=== PATIENT | female | born 1950 | race Caucasian/White ===

== ENCOUNTER 2017-07-13 02:10 | Inpatient (IN) | payer OTHER ==
[~2017-07-13] VITALS: Ht 152.4 cm; Wt 57.0 kg
--- NOTE | 2017-07-13 02:30 | ERA ---
ER Documentation Chief Complaint Date/Time DATE: 07/13/17 TIME: 02:27 Chief Complaint [facility] 67[facility] housed in the emergency room with me as her overseeing physician. Reviewed her documentation she has a questionable diagnosis of hepatic encephalopathy. I reviewed her chart and see no evidence whatsoever of hepatic encephalopathy except for jaundice on her skin exam. No ammonia level is visible in the packet. She does have renal failure. Per nurse to nurse reports the ammonia level was 39 and showed he received lactulose. Patient currently has no pain and is feeling well. Per documentation has accepted his transfer and according the charge nurse he is aware of her arrival.. ROS All systems reviewed and are negative except as per history of present illness. Allergies Allergies: Coded Allergies: No Known Allergy (Unverified , 07/13/17) Physical Exam Vitals Vital Signs Date Time Temp Pulse Resp B/P Pulse Ox O2 Delivery O2 Flow Rate FiO2 07/13/17 02:32 98.1 74 18 117/69 97 Physical Exam Const: [] No distress Head: Atraumatic Eyes: Normal Conjunctiva ENT: Normal External Ears, Nose and Mouth. Neck: Full range of motion..~ No meningismus. Resp: Clear to auscultation bilaterally Cardio: Regular rate and rhythm, no murmurs Abd: Soft, non tender, non distended. Normal bowel sounds Skin: No petechiae or rashes, mild jaundice Back: No midline or flank tenderness Ext: No cyanosis, or edema Neur: Awake and alert and oriented 3, no focal deficits Psych: Normal Mood and Affect Results 24 hrs Current Medications Medications (Trade) Dose Ordered Sig/Myla Route PRN Reason Start Time Stop Time Status Last Admin Dose Admin Ondansetron HCl (Zofran Inj) 4 mg BRIDGE ORDER PRN IV NAUSEA AND/OR VOMITING 07/13/17 04:30 07/14/17 04:29 Acetaminophen (Tylenol Tab) 650 mg ER BRIDGE PRN PO MILD PAIN/FEVER 07/13/17 04:30 07/14/17 04:29 Procedures/MDM Direct admission to hospital for supposed encephalopathy. Now apparently greatly improved. I reviewed all of her laboratories vital signs are currently stable. I am going to continue to monitor her throughout the night. Departure Diagnosis: Primary Impression: Altered level of consciousness Condition: Stable LESLIE ROSE DO Jul 13, 2017 02:30
[2017-07-13 02:32] VITALS: Ht 152.4 cm; Wt 57.0 kg
[2017-07-13] MEDS ORDERED: ACETAMINOPHEN 325 MG TAB PO PRN (04:30)
[2017-07-13] MEDS ORDERED: ONDANSETRON 4 MG INJ IV PRN (04:30)
[2017-07-13 06:42] VITALS: BP 130/68; PULSE 62; RESP 18
[2017-07-13 08:00] VITALS: BP 120/57; RESP 18
--- NOTE | 2017-07-13 10:28 | HP ---
Date/Time of Note Date/Time of Note DATE: 07/13/17 TIME: 10:20 Assessment/Plan VTE Prophylaxis VTE Prophylaxis Intervention: LMWH, SCD's Assessment/Plan Chief Complaint/Hosp Course 67 yo female with decompensated liver cirrohsis presenting with acute episode of encephelopathy yesterday now resolved. Found to have hyponatremain, jaundice , CT with concern for small stroke Acute encephalopathy; Overall unclear exactly what caused this. Given clinical picture low grade hepatic encephalopathy a compelling consideration. Stroke needs to be evaluated w MRI given finding on CT - Treat with lactulose/rifaxamin, should stay on this chornically - MRI brain ZACK vs CKD: - Creat 1.7 at OSH, unclear baseline - Trend - Albumin challenge Hyponatremia: - Hypervolemic hyponatremia 2/2 cirrhosis and portal hypertension - Restrict FW Pancytopenai 2/2 cirrhosis Decompensated cirrhosis: - Check for ascites, tap if present and assess for SBP - Lactulose/rifaxamin as above - Transplant is only option to improve fdc prognosis Full code Problems: HPI/ROS Admit Date/Time Admit Date/Time Jul 13, 2017 at 06:31 Hx of Present Illness 67 yo female with liver cirrhosis (unclear etiology) who presents with a few hours of encephelopathy yesterday. Patient generally with normal mentation. Lives w her daughter. Says yesterday acted confused, didn't know where she was , made odd statements, forgot family members names. Did not have other localizing symptoms. Brought to [facility] ED where labs showed hyponatremia to 123, K 4.7, CO2 21, BUN 48, Creat 1.7. Glu 92, Ammonia 39. Alb 1.8, Ast 63 , ALt 32, TB 12.2, DB 5.6, UA no infection, Head CT with 100 mm low attenuation focus in subocrtial white matter in R frotaln lobe concerning for stroke. Transferred her for further management Patient and daughter seen this AM, say mentation ins back to [facility] ([place] Patient denies complaints currently She has an outside moderate needs teacher Dr Monzon who has referred her for transplant. Does not sound like she has ever had over HE. Never heard of lactulose of rifaxamin. PMH/Family/Social Past Medical History Cirrhosis w ascites Social History Alcohol Use: none Smoking Status: Never smoker Drug Use: none Exam/Review of Systems Vital Signs Vitals Vital Signs Date Time Temp Pulse Resp B/P Pulse Ox O2 Delivery O2 Flow Rate FiO2 07/13/17 08:00 98.5 75 18 120/57 97 07/13/17 06:42 Room Air Exam Exam Alert, oriented to place, unable to say year correctly (thought [id number]), knows hospital, could not say presidents name. Able to identify three objects No overt signs of HE, no asterixis + Jaundice RRR, no m/r/g Lungs clear Abdomen soft, nt, nd, no obvious ascites by exam Legs w trace edema b/l Neuro exam in nonfocal, CN II-XII in tact, strenght and sensation in tact throughout [facility],SIRISHA Sutton MD Jul 13, 2017 10:28
[2017-07-13] MEDS ORDERED: SPIRONOLACTONE 25 MG TAB PO SCH (10:30)
[2017-07-13] MEDS ORDERED: FUROSEMIDE 20 MG TAB PO SCH (10:30)
[2017-07-13] MEDS ORDERED: NACL 0.9% 3 ML SYG IV SCH (10:30)
--- NOTE | 2017-07-13 13:46 | RADRPT ---
PROCEDURE: XR Chest. CLINICAL INDICATION: Cough. TECHNIQUE: Two views. Frontal and lateral. COMPARISON: No prior study is available for comparison. FINDINGS: There is a large right pleural effusion and associated right basilar atelectasis. The left lung is c lear and there is no left pleural effusion. The heart size is normal. There is calcification in the aorta consistent with atherosclerosis. There is no pneumothorax. IMPRESSION: 1. Large right pleural effusion and associated right basilar atelectasis. 2. Atherosclerosis. 3. Otherwise normal chest radiograph. RPTAT: QQ .Luis Miguel Guerra MD, MD Date Time Electronically viewed and signed by .Luis Miguel Guerra MD, on 07/13/2017 13:46 .R/
[2017-07-13 14:00] VITALS: BP 108/56; RESP 18
[2017-07-13 14:00] LABS: ABNORMAL IP MESSAGE 1; BASOPHILS % 0.5 % (0.0-2.0); EOSINOPHILS % 1.1 % (0.0-7.0); HEMATOCRIT 25.4 % (37.0-47.0); HEMOGLOBIN 8.8 g/dl (12.0-16.0); LYMPHOCYTES # 0.5 10^3/ul (0.8-2.9); LYMPHOCYTES % 13.8 % (15.0-51.0); MEAN CORPUSCULAR HEMOGLOBIN 38.3 pg (29.0-33.0); MEAN CORPUSCULAR HGB CONC 34.6 g/dl (32.0-37.0); MEAN CORPUSCULAR VOLUME 110.4 fl (82.0-101.0); MEAN PLATELET VOLUME 8.9 fl (7.4-10.4); MONOCYTE # 0.5 10^3/ul (0.3-0.9); NEUTROPHIL # 2.7 10^3/ul (1.6-7.5); NEUTROPHILS % 70.8 % (39.0-77.0); PLATELET COUNT 56 10^3/UL (140-415); RED CELL DISTRIBUTION WIDTH 15.3 % (11.5-14.5); WHITE BLOOD COUNT 3.8 10^3/ul (4.8-10.8)
[2017-07-13 14:04] LABS: POSITIVE DIFF @See below
[2017-07-13 14:15] LABS: INR 1.88; PROTIME 21.8 Sec (12.2-14.2); PT RATIO 1.7
[2017-07-13 14:24] LABS: ALBUMIN/GLOBULIN RATIO 0.48; BILIRUBIN,DIRECT 2.3 mg/dl (0.00-0.20); BILIRUBIN,INDIRECT 3.3 mg/dl (0-1.1); BILIRUBIN,TOTAL 5.6 mg/dl (0.2-1.3); CALCIUM 8.5 mg/dl (8.4-10.2); CREATININE 1.21 mg/dl (0.44-1.00); POTASSIUM 4.7 mmol/L (3.5-5.1); TOTAL PROTEIN 6.1 g/dl (6.1-8.1)
--- NOTE | 2017-07-13 14:42 | RADRPT ---
PROCEDURE: US Abdomen (right upper quadrant). CLINICAL INDICATION: Hepatic cirrhosis. TECHNIQUE: Multiple real-time longitudinal and transverse images of the right upper quadrant of th e abdomen were acquired utilizing a curved array transducer. Images were reviewed on a high-resoluti on PACS workstation. COMPARISON: None FINDINGS: The liver is small, diffusely heterogeneous, and has a nodular surface consistent with cirrhosis. There is no focal hepatic lesion. Abnormal pulsatile flow is present in the portal vein consistent with portal hypertension. There is marked diffuse gallbladder wall thickening. There are gallstones in the gallbladder. The bile ducts are mildly dilated with the common bile duct measuring 6.1 mm in diameter. The visualized portions of the pancreas are unremarkable with obscuration of the tail of the pancrea s. There is moderate ascites. There is a right pleural effusion. The right kidney measures 9.8 x 4.7 x 5.2 cm. There is normal echogenicity of the right kidney. T here is no perinephric fluid collection. No hydronephrosis, mass, or calculus is seen. IMPRESSION: 1. Cirrhotic liver. 2. Abnormal pulsatile flow in the portal vein consistent with portal hypertension. 3. Diffuse gallbladder wall thickening and gallstones in the gallbladder. The gallbladder wall thic kening may be due to the liver disease and ascites. Clinical correlation is advised. 4. Moderate ascites. 5. Right pleural effusion. RPTAT: QQ .Luis Miguel Guerra MD, MD Date Time Electronically viewed and signed by .Luis Miguel Guerra MD, on 07/13/2017 14:42 .R/
--- NOTE | 2017-07-13 17:16 | RADRPT ---
PROCEDURE: MR Brain noncontrast. CLINICAL INDICATION: Headache, altered mental status TECHNIQUE: Multiplanar multisequence noncontrast MRI of the brain was performed. COMPARISON: There are no similar studies submitted for comparison. FINDINGS: There is no restricted diffusion to suggest acute ischemia/infarct. There is no acute intracranial h emorrhage, midline shift, or mass effect. No extra-axial collection is seen. There is mild diffuse c erebral volume loss with compensatory diffuse cerebral sulcal and ventricular enlargement. Multiple small T2 / FLAIR hyperintense foci scattered in the predominately deep and subcortical cerebral whit e matter are nonspecific and may be seen with complicated migraine, chronic microangiopathic change, and sequelae of various inflammatory/infectious processes. GRE images show no evidence of hemosider in deposition. The sella, parasellar, and suprasellar regions are grossly unremarkable. The brainste m and cerebellum are within normal limits in signal intensity. The basal cisterns are preserved. The intracranial large vascular flow voids are preserved, suggesting patency. The orbits are grossly un remarkable. There is mild scattered mucosal thickening in the ethmoid sinuses bilaterally. Small polypoid mucosal thickening versus retention cyst is seen in the posterior right ethmoid sinus. A sm all amount of fluid is seen layering dependently in the right maxillary sinus. There is mild left ma xillary sinus mucosal thickening. No destructive osseous lesion is identified. IMPRESSION: 1. No evidence of an acute intracranial process. 2. Multiple small T2 / FLAIR hyperintense foci scattered in the predominately deep and subcortical c erebral white matter, nonspecific but may be seen with complicated migraine, chronic microangiopathi c change, and sequelae of various inflammatory/infectious processes. 3. Paranasal sinus inflammation/disease with small fluid level in the right maxillary sinus, suggest ing acute sinusitis. RPTAT: QQ Physician Radha Date Time Electronically viewed and signed by Physician Radha on 07/13/2017 17:16 VIRGILIO/
[2017-07-13] MEDS: ALBUMIN HUMAN 25% 100 ML IV SCH (18:46)
[2017-07-13 19:53] VITALS: BP 98/57; RESP 20
[2017-07-13] MEDS ORDERED: URSO300C3 PO (20:13)
[2017-07-13] MEDS ORDERED: CHOL400C PO (20:13)
[2017-07-13] MEDS ORDERED: FURO20TA3 PO (20:13)
[2017-07-13] MEDS ORDERED: CHOL20002 PO (20:13)
[2017-07-13] MEDS ORDERED: FOLI-49 PO (20:13)
[2017-07-13] MEDS: URSODIOL 300 MG CAP PO SCH (21:56)
[2017-07-13 23:01] LABS: ADD UMIC YES; UR ASCORBIC ACID NEGATIVE (NEGATIVE); UR BILIRUBIN (Dip) NEGATIVE (NEGATIVE); UR BLOOD (Dip) 1+ mg/dL (NEGATIVE); UR CLARITY SLIGHTLY CLOUDY (CLEAR); UR COLOR AMBER (YELLOW); UR GLUCOSE (Dip) NEGATIVE (NEGATIVE); UR KETONES (Dip) NEGATIVE (NEGATIVE); UR LEUKOCYTE ESTERASE (Dip) TRACE Leu/ul (NEGATIVE); UR NITRITE (Dip) NEGATIVE (NEGATIVE); UR RBC 0 /HPF (0-5); UR SPECIFIC GRAVITY (Dip) 1.015 (1.003-1.030); UR SQUAMOUS EPITHELIAL CELL FEW /HPF (FEW); UR TOTAL PROTEIN (Dip) NEGATIVE (NEGATIVE); UR UROBILINOGEN (Dip) 2+ mg/dL (NEGATIVE)
[2017-07-14] MEDS: ALBUMIN HUMAN 25% 100 ML IV SCH ×2 (01:53→09:20)
[2017-07-14 02:10] VITALS: BP 94/50; RESP 20
[2017-07-14 07:00] LABS: ABNORMAL IP MESSAGE 1; BASOPHILS % 0.7 % (0.0-2.0); EOSINOPHILS # 0.1 10^3/ul (0.0-0.5); EOSINOPHILS % 1.9 % (0.0-7.0); HEMATOCRIT 22.4 % (37.0-47.0); HEMOGLOBIN 7.5 g/dl (12.0-16.0); LYMPHOCYTES # 0.6 10^3/ul (0.8-2.9); LYMPHOCYTES % 21.5 % (15.0-51.0); MEAN CORPUSCULAR HEMOGLOBIN 37.7 pg (29.0-33.0); MEAN CORPUSCULAR HGB CONC 33.5 g/dl (32.0-37.0); MEAN CORPUSCULAR VOLUME 112.6 fl (82.0-101.0); MEAN PLATELET VOLUME 9.8 fl (7.4-10.4); MONOCYTE # 0.5 10^3/ul (0.3-0.9); MONOCYTES % 17.8 % (0.0-11.0); NEUTROPHIL # 1.6 10^3/ul (1.6-7.5); NEUTROPHILS % 57.4 % (39.0-77.0); RED BLOOD COUNT 1.99 10^6/ul (4.20-5.40); RED CELL DISTRIBUTION WIDTH 15.3 % (11.5-14.5); WHITE BLOOD COUNT 2.7 10^3/ul (4.8-10.8)
[2017-07-14 07:08] LABS: PLATELET COUNT 50 10^3/UL (140-415); POSITIVE DIFF @See below
[2017-07-14 07:12] LABS: INR 2.37; PROTIME 26.2 Sec (12.2-14.2)
[2017-07-14 07:41] LABS: ALBUMIN 2.3 g/dl (3.3-4.9); ALBUMIN/GLOBULIN RATIO 0.65; BILIRUBIN,DIRECT 1.8 mg/dl (0.00-0.20); BILIRUBIN,INDIRECT 2.6 mg/dl (0-1.1); BILIRUBIN,TOTAL 4.4 mg/dl (0.2-1.3); CALCIUM 8.3 mg/dl (8.4-10.2); CREATININE 1.19 mg/dl (0.44-1.00); POTASSIUM 4.5 mmol/L (3.5-5.1); TOTAL PROTEIN 5.8 g/dl (6.1-8.1)
[2017-07-14 08:00] VITALS: BP 118/56; RESP 19
[2017-07-14 08:01] LABS: HEPATITIS B CORE ANTIBODY NEGATIVE (NEGATIVE)
[2017-07-14] MEDS ORDERED: ERGOCALCIFEROL PO SCH (09:00)
[2017-07-14] MEDS: LACTULOSE 30ML CUP PO SCH ×3 (09:19→21:57)
[2017-07-14] MEDS: URSODIOL 300 MG CAP PO SCH ×3 (09:20→20:32)
[2017-07-14] MEDS: CHOLECALCIFEROL 2,000 UNIT CAP PO SCH (09:20)
[2017-07-14] MEDS: FOLIC ACID 1 MG TAB PO SCH (09:20)
[2017-07-14] MEDS: RIFAXIMIN 550 MG TAB PO SCH ×2 (12:52→20:31)
[2017-07-14 14:00] VITALS: BP 96/50; RESP 20
[2017-07-14] MEDS ORDERED: PHYTONADIONE 10 MG/ML INJ SC ONE (16:00)
--- NOTE | 2017-07-14 16:01 | PN ---
Date/Time of Note Date/Time of Note DATE: 07/14/17 TIME: 15:55 Assessment/Plan VTE Prophylaxis VTE Prophylaxis Intervention: LMWH Lines/Catheters IV [facility] Saline Lock Assessment/Plan Chief Complaint/Hosp Course 67 yo female with decompensated liver cirrohsis presenting with acute episode of encephelopathy yesterday now resolved. Found to have hyponatremain, jaundice , CT with concern for small stroke Acute encephalopathy; - Likely hepatic encephelopathy - Treat with lactulose/rifaxamin, should stay on this chornically - MRI brain reviewed, patient's presentation not consistent with SHIPS EQUIPMENT ENGINEER infection: no headache, no fever, symptopms now resolved Decompensated cirrhosis: - patient requires diagnostic paracentesis. IR has declined to do this based off of elevated INR and low platelets and recommend transfusion. However, society guideilens recommend against this practice. Easily viewed on [email or web address] - Paracentesis tomorrow - Give vitamin K to see if INR can come down somewaht as malnourishemnt may be playing a role - I offered to do the paracentesis myself, however was prevented from doing so by hospital policy - Lactulose/rifaxamin as above - Transplant is only option to improve shelter prognosis, will discuss w her roll weigher tomorrow ZACK vs CKD: - Creat elevated, unclear baseline - Trend - Albumin challenge Hyponatremia: - Hypervolemic hyponatremia 2/2 cirrhosis and portal hypertension - Restrict FW Hypothyroid: - Check FT4 - LT4 replacement Pancytopenai 2/2 cirrhosis Full code Problems: Subjective 24 Hr Interval Summary Free Text/Dictation US showing ascites and CXR showing hepatic hydrothorax Patient comfortable, no complaints Exam/Review of Systems Vital Signs Vitals Vital Signs Date Time Temp Pulse Resp B/P Pulse Ox O2 Delivery O2 Flow Rate FiO2 07/14/17 08:00 98.0 72 19 118/56 98 07/13/17 06:42 Room Air Intake and Output 07/13/17 07/13/17 07/14/17 15:00 23:00 07:00 Intake Total 100 ml 550 ml Balance 100 ml 550 ml Exam Alert, no asterixis, conversant, interactive Jaundiced, Aox2 RRR, no m/r/g Abdomen soft, nt, slightly distended No peripheral edema Results Result Diagram: 07/14/17 0529 07/14/17 0529 Results 24 hrs Laboratory Tests Test 07/13/17 17:00 07/14/17 05:29 Urine Color TORI Urine Clarity SLIGHTLY CLOUDY A Urine pH 5.0 Urine Specific [place] 1.015 Urine Ketones NEGATIVE Urine Nitrite NEGATIVE Urine Bilirubin NEGATIVE Urine Urobilinogen 2+ H Urine Leukocyte Esterase TRACE A Urine Microscopic RBC 0 Urine Microscopic WBC 15 H Urine Squamous Epithelial Cells FEW Urine Hemoglobin 1+ H Urine Osmolality 493 Urine Random Sodium 29 L Urine Glucose NEGATIVE Urine Total Protein NEGATIVE White Blood Count 2.7 #L Red Blood Count 1.99 L Hemoglobin 7.5 L Hematocrit 22.4 L Mean Corpuscular Volume 112.6 H Mean Corpuscular Hemoglobin 37.7 H Mean Corpuscular Hemoglobin Concent 33.5 Red Cell Distribution Width 15.3 H Platelet Count 50 L Mean Platelet Volume 9.8 Neutrophils % 57.4 Lymphocytes % 21.5 Monocytes % 17.8 H Eosinophils % 1.9 Basophils % 0.7 Nucleated Red Blood Cells % 0.0 Neutrophils # 1.6 Lymphocytes # 0.6 L Monocytes # 0.5 Eosinophils # 0.1 Basophils # 0.0 Nucleated Red Blood Cells # 0.0 Prothrombin Time 26.2 #H Prothrombin Time Ratio 2.0 INR International Normalized Ratio 2.37 Sodium Level 129 L Potassium Level 4.5 Chloride Level 100 Carbon Dioxide Level 24 Anion Gap 10 Blood Urea Nitrogen 45 H Creatinine 1.19 H Glucose Level 67 L Calcium Level 8.3 L Total Bilirubin 4.4 H Direct Bilirubin 1.80 #H Indirect Bilirubin 2.6 H Aspartate Amino Transf (AST/SGOT) 46 Alanine Aminotransferase (ALT/SGPT) 32 Alkaline Phosphatase 133 H Total Protein 5.8 L Albumin 2.3 L Globulin 3.50 H Albumin/Globulin Ratio 0.65 Thyroid Stimulating Hormone (TSH) 15.500 H Hepatitis B Surface Antigen NEGATIVE Hepatitis B Surface Antibody NEGATIVE Hepatitis B Core Total Antibody NEGATIVE Hepatitis C Antibody NEGATIVE Medications Medications Current Medications Folic Acid (Folic Acid) 1 mg DAILY PO Last administered on 07/14/17 09:20; Admin Dose 1 MG; Start 07/14/17 at 09:00 Ursodiol (Actigall) 300 mg TID PO Last administered on 07/14/17 13:47; Admin Dose 300 MG; Start 07/13/17 at 21:00 Cholecalciferol (Vitamin D) 2,000 unit DAILY PO Last administered on 07/14/17 09:20; Admin Dose 2,000 UNIT; Start 07/14/17 at 09:00 Lactulose (Enulose) 10 gm Q8 PO Last administered on 07/14/17 09:19; Admin Dose 10 GM; Start 07/14/17 at 09:30 Rifaximin (Xifaxan) 550 mg BID PO Last administered on 07/14/17 12:52; Admin Dose 550 MG; Start 07/14/17 at 10:00 Phytonadione (Vitamin K) 10 mg ONCE ONCE SC ; Start 07/14/17 at 16:00; Stop at 16:01 SIRISHA SANDERS MD Jul 14, 2017 16:01
[2017-07-14] MEDS: FUROSEMIDE 20 MG TAB PO SCH (17:58)
[2017-07-14] MEDS: SPIRONOLACTONE 50 MG TAB PO SCH (17:58)
--- NOTE | 2017-07-14 19:12 | RADRPT ---
PROCEDURE: US Retroperitoneum. CLINICAL INDICATION: Elevated BUN and creatinine. Rule out hydronephrosis. TECHNIQUE: Multiple sonographic images of the retroperitoneum were obtained. Evaluation of the ki dneys and bladder was performed as well as visualization of the aorta and other retroperitoneal stru ctures using a curved array transducer. The images were reviewed on a PACS workstation. COMPARISON: 07/13/2017 FINDINGS: The kidneys are well visualized. The right kidney measures 9.5 cm in length. The left kidney measures 9.1 cm in length. There are no focal areas of abnormal echogenicity. There is no mass, calculus, or obstructive uropathy. No perinephric fluid collection is seen. The aorta and IVC were not imaged. Moderate ascites is unchanged from previous exam. The bladder is decompressed and not well evaluated. IMPRESSION: 1. Unremarkable renal ultrasound. 2. Moderate ascites, unchanged. 3. Nonvisualization of urinary bladder due to decompressed state. RPTAT: QQ .Brina Buchanan MD, MD Date Time Electronically viewed and signed by .Brian Buchanan MD, MD on 07/14/2017 19:12 .M/
[2017-07-14 19:53] VITALS: BP 126/63; RESP 18
[2017-07-15 02:15] VITALS: BP 109/56; RESP 20
[2017-07-15] MEDS: LACTULOSE 30ML CUP PO SCH ×3 (05:22→22:20)
[2017-07-15 05:29] LABS: ABNORMAL IP MESSAGE 1; BASOPHILS % 0.7 % (0.0-2.0); EOSINOPHILS # 0.1 10^3/ul (0.0-0.5); EOSINOPHILS % 1.5 % (0.0-7.0); HEMATOCRIT 27.7 % (37.0-47.0); HEMOGLOBIN 9.6 g/dl (12.0-16.0); LYMPHOCYTES # 0.9 10^3/ul (0.8-2.9); MEAN CORPUSCULAR HEMOGLOBIN 39.2 pg (29.0-33.0); MEAN CORPUSCULAR HGB CONC 34.7 g/dl (32.0-37.0); MEAN CORPUSCULAR VOLUME 113.1 fl (82.0-101.0); MEAN PLATELET VOLUME 9.1 fl (7.4-10.4); MONOCYTE # 0.7 10^3/ul (0.3-0.9); MONOCYTES % 14.4 % (0.0-11.0); NEUTROPHIL # 2.9 10^3/ul (1.6-7.5); NEUTROPHILS % 62.7 % (39.0-77.0); PLATELET COUNT 67 10^3/UL (140-415); RED BLOOD COUNT 2.45 10^6/ul (4.20-5.40); RED CELL DISTRIBUTION WIDTH 15.1 % (11.5-14.5); WHITE BLOOD COUNT 4.6 10^3/ul (4.8-10.8)
[2017-07-15 05:38] LABS: POSITIVE DIFF @See below
[2017-07-15 05:43] LABS: INR 2.01; PT RATIO 1.8
[2017-07-15 05:46] LABS: IRON 84 ug/dl (35-150)
[2017-07-15 05:48] LABS: ALBUMIN 2.8 g/dl (3.3-4.9); ALBUMIN/GLOBULIN RATIO 0.68; BILIRUBIN,DIRECT 3.2 mg/dl (0.00-0.20); BILIRUBIN,INDIRECT 2.7 mg/dl (0-1.1); BILIRUBIN,TOTAL 5.9 mg/dl (0.2-1.3); CALCIUM 8.8 mg/dl (8.4-10.2); CREATININE 1.27 mg/dl (0.44-1.00); POTASSIUM 4.4 mmol/L (3.5-5.1); TOTAL PROTEIN 6.9 g/dl (6.1-8.1)
[2017-07-15 05:56] LABS: TOTAL IRON BINDING CAPACITY 181 ug/dl (241-421)
[2017-07-15] MEDS ORDERED: FUROSEMIDE 20 MG TAB PO SCH (06:00)
[2017-07-15 07:49] VITALS: BP 118/61; RESP 20
[2017-07-15] MEDS ORDERED: LIDOCAINE 1% (MPF) 5 ML VIAL ONE (09:08)
[2017-07-15] MEDS: URSODIOL 300 MG CAP PO SCH ×3 (09:39→20:34)
[2017-07-15] MEDS: CHOLECALCIFEROL 2,000 UNIT CAP PO SCH (09:39)
[2017-07-15] MEDS: RIFAXIMIN 550 MG TAB PO SCH ×2 (09:39→20:34)
[2017-07-15] MEDS: SPIRONOLACTONE 50 MG TAB PO SCH (09:40)
[2017-07-15] MEDS: FOLIC ACID 1 MG TAB PO SCH (09:40)
[2017-07-15] MEDS: FUROSEMIDE 20 MG TAB PO SCH (09:40)
--- NOTE | 2017-07-15 09:42 | RADRPT ---
PROCEDURE: Ultrasound guided paracentesis. CLINICAL INDICATION: Ascites and shortness of breath. COMPARISON: No prior studies are available for comparison. TECHNIQUE: The risks, benefits, and alternatives were explained to the patient and/or the patient's family, inc luding but not limited to bleeding, infection, pain, visceral or vascular damage, shock, and . The patient and/or the patient's family understood the risks and the alternatives and wished to pro ceed with the procedure. Informed written consent was obtained. A procedural time out was performed . The patient's name, date of , and procedure to be performed were verified. Utilizing ultrasound guidance, optimal location for entry to the peritoneal cavity was ascertained. The overlying skin was prepped and draped in the usual sterile fashion. Approximately 10 ml of 1% Xylocaine was injected locally for pain control. Using ultrasound guidance, an 8 [place] catheter wa s introduced into the peritoneal cavity in the right lower quadrant without difficulty. FINDINGS: Initial images demonstrate ascites. Approximately 4.5 liters of serous fluid was aspirated and sent for laboratory analysis. The patient tolerated the procedure well without complication. IMPRESSION: 1. Successful ultrasound-guided paracentesis. RPTAT: QQ .Luis Miguel Guerra MD, MD Date Time Electronically viewed and signed by .Luis Miguel Guerra MD, on 07/15/2017 09:42 .R/
[2017-07-15 10:47] LABS: FLD MN% 88.6 %; FLD PMN% 11.4 %; FLD RBC 3 /uL; FLD WBC 289 /cmm
[2017-07-15 12:36] LABS: FLD CLARITY SLIGHTLY CLOUDY; FLD COLOR YELLOW; FLD TYPE ASCITES
[2017-07-15] MEDS ORDERED: ACETAMINOPHEN 500 MG TAB PO STA (12:40)
[2017-07-15 15:38] VITALS: BP 100/55; RESP 20
--- NOTE | 2017-07-15 17:06 | PN ---
Date/Time of Note Date/Time of Note DATE: 07/15/17 TIME: 17:04 Assessment/Plan VTE Prophylaxis VTE Prophylaxis Intervention: SCD's Lines/Catheters IV Catheter Type (from Nrs): Saline Lock Assessment/Plan Chief Complaint/Hosp Course 67 yo female with decompensated liver cirrohsis presenting with acute episode of encephelopathy yesterday now resolved. Found to have hyponatremain, jaundice , CT with concern for small stroke Hepatic encephelopathy - Treat with lactulose/rifaxamin, should stay on this chornically - MRI brain reviewed, patient's presentation not consistent with PUBLIC SAFETY DISPATCHER infection: no headache, no fever, symptopms now resolved Decompensated cirrhosis: - [place] 50, lasix 20 chronically - Rifaxamin/lactulose as above - Trying to contact her veneer trimmer ZACK vs CKD: - Creat elevated, unclear baseline - Trend - Albumin challenge Hyponatremia: - Hypervolemic hyponatremia 2/2 cirrhosis and portal hypertension - Restrict FW Subclinical hypothyrodi: - Defer treatment for now Pancytopenai 2/2 cirrhosis Full code Problems: Subjective 24 Hr Interval Summary Free Text/Dictation Paracentesis performed, no SBP present Pain at para site Otherwise feels well Doesn't want to be discharged yet Exam/Review of Systems Vital Signs Vitals Vital Signs Date Time Temp Pulse Resp B/P Pulse Ox O2 Delivery O2 Flow Rate FiO2 07/15/17 15:38 98.0 77 20 100/55 95 07/13/17 06:42 Room Air Intake and Output 07/14/17 07/14/17 07/15/17 15:00 23:00 07:00 Intake Total 100 ml 800 ml 452 ml Output Total 900 ml 400 ml Balance 100 ml -100 ml 52 ml Exam Constitutional: alert, oriented, well developed Psych: nl mood/affect, no complaints Head: atraumatic, normocephalic Eyes: EOMI, PERRL, nl conjunctiva, nl lids, nl sclera ENMT: nl external ears & nose, nl lips & teeth, nl nasal mucosa & septum Neck: non-tender, supple Respiratory: clear to auscultation, normal air movement Cardiovascular: nl pulses, regular rate and rhythm Gastrointestinal: nl liver, spleen, non-tender, soft Musculoskeletal: nl extremities to inspection, nl gait and stance Extremities: normal pulses Neurological: PUBLIC SAFETY DISPATCHER II-XII intact, nl mental status, nl speech, nl strength Skin: nl turgor, No rash or lesions Lymph: nl lymph nodes Results Result Diagram: 07/15/175 07/15/17 044 Results 24 hrs Laboratory Tests Test 07/15/17 04:45 07/15/17 04:46 07/15/17 09:00 White Blood Count 4.6 #L Red Blood Count 2.45 #L Hemoglobin 9.6 #L Hematocrit 27.7 #L Mean Corpuscular Volume 113.1 H Mean Corpuscular Hemoglobin 39.2 H Mean Corpuscular Hemoglobin Concent 34.7 Red Cell Distribution Width 15.1 H Platelet Count 67 #L Mean Platelet Volume 9.1 Neutrophils % 62.7 Lymphocytes % 20.0 Monocytes % 14.4 H Eosinophils % 1.5 Basophils % 0.7 Nucleated Red Blood Cells % 0.0 Neutrophils # 2.9 Lymphocytes # 0.9 Monocytes # 0.7 Eosinophils # 0.1 Basophils # 0.0 Nucleated Red Blood Cells # 0.0 Prothrombin Time 23.0 H Prothrombin Time Ratio 1.8 INR International Normalized Ratio 2.01 Sodium Level 132 L Potassium Level 4.4 Chloride Level 102 Carbon Dioxide Level 23 Anion Gap 11 Blood Urea Nitrogen 42 H Creatinine 1.27 H Glucose Level 77 Calcium Level 8.8 Iron Level 84 Total Iron Binding Capacity 181 L Percent Iron Saturation 46 Total Bilirubin 5.9 H Direct Bilirubin 3.20 #H Indirect Bilirubin 2.7 H Aspartate Amino Transf (AST/SGOT) 53 H Alanine Aminotransferase (ALT/SGPT) 38 Alkaline Phosphatase 153 H Total Protein 6.9 # Albumin 2.8 L Globulin 4.10 H Albumin/Globulin Ratio 0.68 Free Thyroxine 1.20 Ferritin 356.0 H Body Fluid Type ASCITES Body Fluid Volume 900.0 Body Fluid Color YELLOW Body Fluid Appearance SLIGHTLY CLOUDY Body Fluid WBC 289 Body Fluid RBC (Auto) 3 Body Fluid Polynuclear WBCs (%) 11.4 Body Fluid Mononuclear Cells % Auto 88.6 Body Fluid Total Protein 2.0 Medications Medications Current Medications Folic Acid (Folic Acid) 1 mg DAILY PO Last administered on 07/15/17 09:40; Admin Dose 1 MG; Start 07/14/17 at 09:00 Ursodiol (Actigall) 300 mg TID PO Last administered on 07/15/17 12:59; Admin Dose 300 MG; Start 07/13/17 at 21:00 Cholecalciferol (Vitamin D) 2,000 unit DAILY PO Last administered on 07/15/17 09:39; Admin Dose 2,000 UNIT; Start 07/14/17 at 09:00 Lactulose (Enulose) 10 gm Q8 PO Last administered on 07/15/17 13:01; Admin Dose 10 GM; Start 07/14/17 at 09:30 Rifaximin (Xifaxan) 550 mg BID PO Last administered on 07/15/17 09:39; Admin Dose 550 MG; Start 07/14/17 at 10:00 Furosemide (Lasix) 20 mg DAILY PO Last administered on 07/15/17 09:40; Admin Dose 20 MG; Start 07/14/17 at 16:30 Spironolactone (Aldactone) 50 mg DAILY PO Last administered on 07/15/17 09:40 ; Admin Dose 50 MG; Start 07/14/17 at 17:00 SIRISHA SANDERS MD Jul 15, 2017 17:06
[2017-07-15 20:43] VITALS: BP 120/59; RESP 20
[2017-07-16 02:45] VITALS: BP 114/58; RESP 18
[2017-07-16] MEDS: LACTULOSE 30ML CUP PO SCH ×2 (06:00→13:25)
[2017-07-16 07:48] VITALS: BP 111/52; RESP 20
[2017-07-16 08:13] LABS: ABNORMAL IP MESSAGE 1; BASOPHIL # 0.1 10^3/ul (0.0-0.1); BASOPHILS % 1.1 % (0.0-2.0); EOSINOPHILS # 0.1 10^3/ul (0.0-0.5); EOSINOPHILS % 1.8 % (0.0-7.0); HEMATOCRIT 28.2 % (37.0-47.0); HEMOGLOBIN 9.6 g/dl (12.0-16.0); LYMPHOCYTES # 0.6 10^3/ul (0.8-2.9); LYMPHOCYTES % 13.9 % (15.0-51.0); MEAN CORPUSCULAR VOLUME 114.6 fl (82.0-101.0); MEAN PLATELET VOLUME 10.1 fl (7.4-10.4); MONOCYTE # 0.7 10^3/ul (0.3-0.9); MONOCYTES % 14.8 % (0.0-11.0); NEUTROPHILS % 67.7 % (39.0-77.0); PLATELET COUNT 59 10^3/UL (140-415); RED BLOOD COUNT 2.46 10^6/ul (4.20-5.40); RED CELL DISTRIBUTION WIDTH 15.3 % (11.5-14.5); WHITE BLOOD COUNT 4.5 10^3/ul (4.8-10.8)
[2017-07-16 08:17] LABS: POSITIVE DIFF @See below
[2017-07-16 08:36] LABS: ALBUMIN 2.5 g/dl (3.3-4.9); ALBUMIN/GLOBULIN RATIO 0.71; BILIRUBIN,DIRECT 3.6 mg/dl (0.00-0.20); BILIRUBIN,INDIRECT 2.4 mg/dl (0-1.1); CALCIUM 8.1 mg/dl (8.4-10.2); CREATININE 1.22 mg/dl (0.44-1.00); POTASSIUM 4.5 mmol/L (3.5-5.1)
[2017-07-16] MEDS: SPIRONOLACTONE 50 MG TAB PO SCH (09:10)
[2017-07-16] MEDS: FOLIC ACID 1 MG TAB PO SCH (09:11)
[2017-07-16] MEDS: RIFAXIMIN 550 MG TAB PO SCH (09:11)
[2017-07-16] MEDS: CHOLECALCIFEROL 2,000 UNIT CAP PO SCH (09:11)
[2017-07-16] MEDS: FUROSEMIDE 20 MG TAB PO SCH (09:11)
[2017-07-16] MEDS: URSODIOL 300 MG CAP PO SCH ×2 (09:30→12:22)
[2017-07-16] MEDS ORDERED: RIFA550T4 PO (11:35)
[2017-07-16] MEDS ORDERED: LACT20SO2 PO (11:35)
[2017-07-16] MEDS ORDERED: SPIR50TA PO (11:35)
--- NOTE | 2017-07-16 11:37 | PDOCDIS ---
Discharge Instructions DIAGNOSIS Discharge Diagnosis Cirrhosis CONDITION Patient Condition: Serious HOME CARE INSTRUCTIONS: Special Diet: LB FOLLOW UP/APPOINTMENTS Follow-up Plan It is extremely important to see your liver doctor as soon as possible Transplant is the only option for usp improvement Please see a specialist in liver disease at [facility] or [facility] for further management Blood work should be done within the next 1-2 weeks to monitor electrolytes while taking diuretics Do not take any medication without discussing it with a liver doctor SIRISHA Ewing MD Jul 16, 2017 11:37
--- NOTE | 2017-07-16 11:39 | DS ---
Date/Time of Note Date/Time of Note DATE: 07/16/17 TIME: 11:37 Discharge Summary Admission/Discharge Info Admit Date/Time Jul 13, 2017 at 06:31 Discharge Date/Time Discharge Diagnosis Cirrhosis Patient Condition: Serious Hx of Present Illness 67 yo female with liver cirrhosis (unclear etiology) who presents with a few hours of encephelopathy yesterday. Patient generally with normal mentation. Lives w her daughter. Says yesterday acted confused, didn't know where she was , made odd statements, forgot family members names. Did not have other localizing symptoms. Brought to [facility] ED where labs showed hyponatremia to 123, K 4.7, CO2 21, BUN 48, Creat 1.7. Glu 92, Ammonia 39. Alb 1.8, Ast 63 , ALt 32, TB 12.2, DB 5.6, UA no infection, Head CT with 100 mm low attenuation focus in subocrtial white matter in R frotaln lobe concerning for stroke. Transferred her for further management Patient and daughter seen this AM, say mentation ins back to [facility]. Patient denies complaints currently She has an outside court attendant Dr Monzon who has referred her for transplant. Does not sound like she has ever had over HE. Never heard of lactulose of rifaxamin. Hospital Course 67 yo female with decompensated liver cirrohsis presenting with acute episode of encephelopathy yesterday now resolved. Found to have hyponatremain, jaundice Gillian was diagnosed with decompensated liver cirrhosis. She is already in treatment with a court attendant and has been referred to transplant clinic at [facility]. US showed ascities. 4 L were tapped. No evidence of SBP. She was diagnosed with low grade hepatic encephelopathy and lactulose and rifaxamin were prescrbied. She was also prescribed lasix 20 daily and rose 50 daily for her ascites. She was encouraged to continue care [facility] court attendant and transplant clinic at tertiary facility after discharge. Home Meds Active Scripts Lactulose* (Lactulose*) 20 Gm/30 Ml Solution, 10 GM PO Q8 for 30 Days, #90 Prov:SIRISHA SANDERS MD 07/16/17 Rifaximin* (Xifaxan*) 550 Mg Tablet, 550 MG PO BID for 30 Days, #60 TAB Prov:SIRISHA SANDERS MD 07/16/17 Spironolactone* (Aldactone*) 50 Mg Tablet, 50 MG PO DAILY for 30 Days, #30 TAB Prov:SIRISHA SANDERS MD 07/16/17 Reported Medications Ergocalciferol (Vitamin D) 400 Unit Capsule, 50 UNIT PO DAILY, CAP 07/13/17 Folic Acid* (Folic Acid*) 1 Mg Tablet, 1 MG PO DAILY, TAB 07/13/17 Cholecalciferol (Vitamin D3) (Vitamin D-3) 2,000 Unit Tablet, 2000 UNIT PO DAILY , TAB 07/13/17 Ursodiol* (Ursodiol*) 300 Mg Capsule, 300 MG PO TID, CAP 07/13/17 Furosemide* (Furosemide*) 20 Mg Tablet, 20 MG PO BID, #30 TAB 07/13/17 Follow-up Plan It is extremely important to see your liver doctor as soon as possible Transplant is the only option for [employer] improvement Please see a specialist in liver disease at [facility] or [facility] for further management Blood work should be done within the next 1-2 weeks to monitor electrolytes while taking diuretics Do not take any medication without discussing it with a liver doctor first Primary Care Provider Care Physician No Primary Pending Labs Laboratory Tests Test 07/16/17 06:58 White Blood Count 4.510^3/ul (4.8-10.8) Red Blood Count 2.4610^6/ul (4.20-5.40) Hemoglobin 9.6g/dl (12.0-16.0) Hematocrit 28.2% (37.0-47.0) Mean Corpuscular Volume 114.6fl (82.0-101.0) Mean Corpuscular Hemoglobin 39.0pg (29.0-33.0) Mean Corpuscular Hemoglobin Concent 34.0g/dl (32.0-37.0) Red Cell Distribution Width 15.3% (11.5-14.5) Platelet Count 5910^3/UL (140-415) Mean Platelet Volume 10.1fl (7.4-10.4) Neutrophils % 67.7% (39.0-77.0) Lymphocytes % 13.9% (15.0-51.0) Monocytes % 14.8% (0.0-11.0) Eosinophils % 1.8% (0.0-7.0) Basophils % 1.1% (0.0-2.0) Nucleated Red Blood Cells % 0.0/100WBC (0.0-0.0) Neutrophils # 3.010^3/ul (1.6-7.5) Lymphocytes # 0.610^3/ul (0.8-2.9) Monocytes # 0.710^3/ul (0.3-0.9) Eosinophils # 0.110^3/ul (0.0-0.5) Basophils # 0.110^3/ul (0.0-0.1) Nucleated Red Blood Cells # 0.010^3/ul (0.0-0.0) Sodium Level 132mmol/L (135-144) Potassium Level 4.5mmol/L (3.5-5.1) Chloride Level 106mmol/L (97-110) Carbon Dioxide Level 19mmol/L (21-31) Anion Gap 12 (8-16) Blood Urea Nitrogen 38mg/dl (7-20) Creatinine 1.22mg/dl (0.44-1.00) Glucose Level 84mg/dl (70-220) Calcium Level 8.1mg/dl (8.4-10.2) Total Bilirubin 6.0mg/dl (0.2-1.3) Direct Bilirubin 3.60mg/dl (0.00-0.20) Indirect Bilirubin 2.4mg/dl (0-1.1) Aspartate Amino Transf (AST/SGOT) 57IU/L (15-46) Alanine Aminotransferase (ALT/SGPT) 38IU/L (13-69) Alkaline Phosphatase 161IU/L (42-121) Total Protein 6.0g/dl (6.1-8.1) Albumin 2.5g/dl (3.3-4.9) Globulin 3.50g/dl (1.3-3.2) Albumin/Globulin Ratio 0.71 SIRISHA SANDERS MD Jul 16, 2017 11:39
[2017-07-16] MEDS ORDERED: ACETAMINOPHEN 500 MG TAB PO STA (11:46)
[2017-07-16 14:47] VITALS: BP 104/55; RESP 18
== END 2017-07-16 17:50 | disposition home or self-care (01) | DRG 442 ==
LOC: E/R 02:10 → PP2 06:31
PROVIDERS: ADMIT Internal Medicine; ATTEND Internal Medicine
PROC: 0W9G3ZZ Drainage of Peritoneal Cavity, Percutaneous Approach (ICD-10-PCS; principal; 2017-07-15)
DX: K72.90 Hepatic failure, unspecified without coma (principal); E87.1 Hypo-osmolality and hyponatremia; N17.9 Acute kidney failure, unspecified; D61.818 Other pancytopenia; R18.8 Other ascites; K76.6 Portal hypertension; K74.60 Unspecified cirrhosis of liver; E03.9 Hypothyroidism, unspecified; N18.9 Chronic kidney disease, unspecified
CPT/HCPCS: 70551; 71020; 76705; 76775; 80053; 81001; 82042; 82728; 82962; 83540; 83935; 84157; 84300; 84439; 84443; 85025; 85610; 86704; 86706; 86709; 86803; 87070; 87102; 87116; 87340; 89051; P9047

== ENCOUNTER 2017-07-29 20:54 | Inpatient (IN) | payer OTHER ==
[~2017-07-29] VITALS: Ht 157.5 cm; Wt 52.1 kg
[~2017-07-29 20:54] MED LIST: CHOL20002 PO; CHOL400C PO; FOLI-49 PO; FURO20TA3 PO; LACT20SO2 PO; RIFA550T4 PO; SPIR50TA PO; URSO300C3 PO
[2017-07-30] VITALS (7 sets, daily range): BP systolic 90–107; BP diastolic 46–51; PULSE 68–83; RESP 16–18; TEMP 97.2
--- NOTE | 2017-07-30 02:59 | RADRPT ---
PROCEDURE: Chest. CLINICAL INDICATION: Chest pain. TECHNIQUE: Single frontal view of the chest was obtained. COMPARISON: 07/13/2017. FINDINGS: The cardiac silhouette is enlarged. The aortic arch is calcified. There is mild right basilar atel ectasis and small pleural effusion. There is no pneumothorax. IMPRESSION: Mild right basilar atelectasis and small pleural effusion, decreased compared with the prior study. Mild cardiomegaly and aortic atherosclerosis. .Daniel Chapman MD, MD Date Time Electronically viewed and signed by .Daniel Chapman MD, on 07/30/2017 02:59 .T/
[2017-07-30 03:01] LABS: ABNORMAL IP MESSAGE 1; BASOPHILS % 0.3 % (0.0-2.0); EOSINOPHILS % 0.4 % (0.0-7.0); HEMATOCRIT 28.5 % (37.0-47.0); HEMOGLOBIN 10.1 g/dl (12.0-16.0); LYMPHOCYTES # 0.5 10^3/ul (0.8-2.9); LYMPHOCYTES % 6.4 % (15.0-51.0); MEAN CORPUSCULAR HEMOGLOBIN 40.2 pg (29.0-33.0); MEAN CORPUSCULAR HGB CONC 35.4 g/dl (32.0-37.0); MEAN CORPUSCULAR VOLUME 113.5 fl (82.0-101.0); MEAN PLATELET VOLUME 9.9 fl (7.4-10.4); MONOCYTE # 0.6 10^3/ul (0.3-0.9); MONOCYTES % 7.1 % (0.0-11.0); NEUTROPHIL # 6.7 10^3/ul (1.6-7.5); NEUTROPHILS % 85.2 % (39.0-77.0); PLATELET COUNT 72 10^3/UL (140-415); RED BLOOD COUNT 2.51 10^6/ul (4.20-5.40); RED CELL DISTRIBUTION WIDTH 14.7 % (11.5-14.5); WHITE BLOOD COUNT 7.9 10^3/ul (4.8-10.8)
[2017-07-30 03:09] LABS: INR 1.61; PROTIME 19.3 Sec (12.2-14.2); PT RATIO 1.5
[2017-07-30 03:10] LABS: PARTIAL THROMBOPLASTIN TIME 29.2 Sec (25.0-35.0)
[2017-07-30 03:12] LABS: ALBUMIN/GLOBULIN RATIO 0.73; BILIRUBIN,DIRECT 3.8 mg/dl (0.00-0.20); BILIRUBIN,INDIRECT 5.2 mg/dl (0-1.1); CALCIUM 9.3 mg/dl (8.4-10.2); CREATININE 1.35 mg/dl (0.44-1.00); POSITIVE DIFF @See below; POTASSIUM 5.5 mmol/L (3.5-5.1); TOTAL PROTEIN 7.1 g/dl (6.1-8.1)
[2017-07-30] MEDS ORDERED: INSULIN REGULAR, HUMAN 100 UNIT/1 ML 3ML VIAL IV STA (04:31)
[2017-07-30] MEDS ORDERED: NA POLYST SULFON 15 GM/60 ML BTL PO STA (04:31)
[2017-07-30] MEDS ORDERED: SOD CHLORIDE 0.9% 500 ML IV STA (04:31)
[2017-07-30] MEDS ORDERED: LACTULOSE 30ML CUP PO ONE (05:00)
[2017-07-30] MEDS ORDERED: ONDANSETRON 4 MG INJ IV PRN ×2 (05:00→09:00)
[2017-07-30] MEDS ORDERED: DEXTROSE 50% 50 ML SYRINGE IV PRN (05:00)
[2017-07-30] MEDS ORDERED: ACETAMINOPHEN 325 MG TAB PO PRN ×2 (05:00→09:00)
--- NOTE | 2017-07-30 05:06 | ERA ---
ER Documentation Chief Complaint Date/Time DATE: 07/30/17 TIME: 05:00 Chief Complaint aloc since this am was here 2 weeks ago liver cirrhosis HPI 67-year-old female with a history of cirrhosis brought in by family for altered mental status. Since this morning she has been very confused and generally weak. She has not had any specific complaints. Otherwise history is limited as the patient is altered. No documented fevers at home per family. She is taking all her medications as prescribed. ROS Limited due to altered mental status Medications Home Meds Active Scripts Lactulose* (Lactulose*) 20 Gm/30 Ml Solution, 10 GM PO Q8 for 30 Days, #90 Prov:SIRISHA SANDERS MD 07/16/17 Rifaximin* (Xifaxan*) 550 Mg Tablet, 550 MG PO BID for 30 Days, #60 TAB Prov:SIRISHA SANDERS MD 07/16/17 Spironolactone* (Aldactone*) 50 Mg Tablet, 50 MG PO DAILY for 30 Days, #30 TAB Prov:SIIRSHA SANDERS MD 07/16/17 Reported Medications Ergocalciferol (Vitamin D) 400 Unit Capsule, 50 UNIT PO DAILY, CAP 07/13/17 Folic Acid* (Folic Acid*) 1 Mg Tablet, 1 MG PO DAILY, TAB 07/13/17 Cholecalciferol (Vitamin D3) (Vitamin D-3) 2,000 Unit Tablet, 2000 UNIT PO DAILY , TAB 07/13/17 Ursodiol* (Ursodiol*) 300 Mg Capsule, 300 MG PO TID, CAP 07/13/17 Furosemide* (Furosemide*) 20 Mg Tablet, 20 MG PO BID, #30 TAB 07/13/17 Allergies Allergies: Coded Allergies: No Known Allergy (Unverified , 07/13/17) PMhx/Soc History of Surgery: Yes (c section x2) Anesthesia Reaction: No Hx Neurological Disorder: No Hx Respiratory Disorders: No Hx Cardiac Disorders: No Hx Psychiatric Problems: No Hx Miscellaneous Medical Probl: Yes (Cirrhosis) Hx Alcohol Use: No (quit 5 years ago) Hx Substance Use: No Hx Tobacco Use: No Smoking Status: Unknown if ever smoked FmHx Family History: other (unable to obtain) Physical Exam Vitals Vital Signs Date Time Temp Pulse Resp B/P Pulse Ox O2 Delivery O2 Flow Rate FiO2 07/30/17 03:29 66 16 100/50 98 07/30/17 03:15 98.0 67 15 98/64 99 Room Air 07/30/17 02:20 98.2 66 15 102/56 100 Room Air 07/29/17 21:51 97.7 75 20 119/64 100 Physical Exam Const: Chronically ill-appearing but no distress and nontoxic Head: Atraumatic Eyes: Scleral icterus, PERRLA, EOMI ENT: Dry mucous membranes Neck: Full range of motion..~ No meningismus. Resp: Clear to auscultation bilaterally Cardio: Regular rate and rhythm, no murmurs Abd: Soft, non tender, Mildly distended with ascites. Normal bowel sounds Skin: No petechiae or rashes, Jaundiced Back: No midline or flank tenderness Ext: No cyanosis, or edema Neur: Awake and alert, Oriented to self only.Moving all extremities spontaneously. Psych: Normal Mood and Affect Result Diagram: 07/30/17 0230 07/30/17 0953 Results 24 hrs Laboratory Tests Test 07/30/17 02:30 07/30/17 03:19 White Blood Count 7.910^3/ul Red Blood Count 2.5110^6/ul Hemoglobin 10.1g/dl Hematocrit 28.5% Mean Corpuscular Volume 113.5fl Mean Corpuscular Hemoglobin 40.2pg Mean Corpuscular Hemoglobin Concent 35.4g/dl Red Cell Distribution Width 14.7% Platelet Count 7210^3/UL Mean Platelet Volume 9.9fl Neutrophils % 85.2% Lymphocytes % 6.4% Monocytes % 7.1% Eosinophils % 0.4% Basophils % 0.3% Nucleated Red Blood Cells % 0.0/100WBC Neutrophils # 6.710^3/ul Lymphocytes # 0.510^3/ul Monocytes # 0.610^3/ul Eosinophils # 0.010^3/ul Basophils # 0.010^3/ul Nucleated Red Blood Cells # 0.010^3/ul Prothrombin Time 19.3Sec Prothrombin Time Ratio 1.5 INR International Normalized Ratio 1.61 Activated Partial Thromboplast Time 29.2Sec Sodium Level 130mmol/L Potassium Level 5.5mmol/L Chloride Level 98mmol/L Carbon Dioxide Level 20mmol/L Anion Gap 18 Blood Urea Nitrogen 62mg/dl Creatinine 1.35mg/dl Glucose Level 87mg/dl Calcium Level 9.3mg/dl Total Bilirubin 9.0mg/dl Direct Bilirubin 3.80mg/dl Indirect Bilirubin 5.2mg/dl Aspartate Amino Transf (AST/SGOT) 59IU/L Alanine Aminotransferase (ALT/SGPT) 44IU/L Alkaline Phosphatase 185IU/L Ammonia 69umol/l Total Protein 7.1g/dl Albumin 3.0g/dl Globulin 4.10g/dl Albumin/Globulin Ratio 0.73 Bedside Glucose 101mg/dL Current Medications Medications (Trade) Dose Ordered Sig/Myla Route PRN Reason Start Time Stop Time Status Last Admin Dose Admin Sodium Polystyrene Sulfonate 30 gm 30 gm ONCE STAT PO 07/30/17 04:31 07/30/17 04:32 DC Sodium Chloride (NS) 500 ml @ 500 mls/hr Q1H STAT IV 07/30/17 04:31 07/30/17 05:30 DC 07/30/17 05:26 Insulin Human Regular (Humulin R) 10 unit ONCE STAT IV 07/30/17 04:31 07/30/17 04:32 DC 07/30/17 04:31 Procedures/MDM EKG: Rate/Rhythm: Normal Sinus Rhythm QRS, ST, T-waves: Left axis deviation, poor R-wave progression, no findings consistent with ischemia Impression: No evidence of ischemia or arrhythmia Chest x-ray IMPRESSION: Mild right basilar atelectasis and small pleural effusion, decreased compared with the prior study. Mild cardiomegaly and aortic atherosclerosis. .Daniel Chapman MD, MD Date Time Electronically viewed and signed by .Daniel Chapman MD, MD on 07/30/2017 02:[address]: IMPRESSION: 1. Mild generalized cerebral volume loss and nonspecific chronic microvascular ischemic disease without evidence of intracranial masses hemorrhages or midline shift. RPTAT:AAJJ Physician Pretty Date Time Electronically viewed and signed by Physician Pretty on 07/30/2017 06:33 Labs CBC: anemia, thrombocytopenia CMP: Hyponatremia, hyperkalemia, elevated BUN and creatinine, findings consistent with liver failure Ammonia elevated Coags abnormal UA: pending MDM Patient is brought in by family for increasing altered mental status. Vitals were stable upon arrival. Exam was not consistent with acute stroke. She had multiple lab abnormalities including hyperkalemia which was treated with IV insulin and glucose as well as Kayexalate. She was also noted to have acute on chronic renal insufficiency. Small fluid bolus was given. CT head did not show any acute abnormalities. Her ammonia was elevated, so lactulose was ordered. At this time I do not think the patient is safe for discharge home as she is persistently confused. Her urinalysis is pending. I asked the admitting physicians to follow-up on these results. Patient will be admitted to telemetry unit for further monitoring and workup. Critical Care Time: 35 minutes Treatments/Evaluations: Close monitoring and treatment of unstable vital signs, cardiorespiratory, and neurologic status, while maintaining tight balance of fluid, respiratory, and cardiac interventions. This time includes discussing the case with the patient and the patients family. This time does not include all procedures stated elsewhere in this record. This time also includes reviewing old records, labs and radiological studies. This time includes examining and re-examining the patient. Additionally, this time also includes arranging care with admitting and consulting physicians. Departure Diagnosis: Primary Impression: Altered mental status Qualified Code: R41.82 - Altered mental status, unspecified altered mental status type Additional Impressions: Hyperammonemia Hyperkalemia Acute on chronic renal failure Qualified Code: N17.9 - Acute renal failure superimposed on chronic kidney disease, unspecified CKD stage, unspecified acute renal failure type Condition: Serious FAROOQ MCLEOD MD Jul 30, 2017 05:06
--- NOTE | 2017-07-30 07:11 | RADRPT ---
PROCEDURE: CT Brain without contrast. CLINICAL INDICATION: ALOC TECHNIQUE: CT scan of the brain was performed on a multidetector high-resolution CT scan. Axial im aging was obtained of the brain without contrast administration. Coronal and sagittal reformatted i mages were obtained from the axial source images. Standard CT scan of the head without contrast prot ocols were performed. The total exam CTDI equals 45.01 mGy and the total exam DLP equals 720.23 mGy-cm. One or more of the following dose reduction techniques were used: - Automated exposure control. - Adjustment of the mA and/or kV according to patient size. Use of iterative reconstruction technique. COMPARISON: MR brain 07/13/2017 FINDINGS: The ventricular system and peripheral CSF spaces are proportionate prominent consistent with mild ge neralized cerebral volume loss. There is nonspecific periventricular deep white matter changes consi stent with chronic microvascular ischemic disease. Negative for intracranial masses hemorrhages or m idline shift. There is chronic bilateral maxillary sinus disease. The mastoids are unremarkable. The bones of the calvarium are intact. There is atherosclerotic heart plaque involving the cavernous ca rotid arteries. IMPRESSION: 1. Mild generalized cerebral volume loss and nonspecific chronic microvascular ischemic disease wit hout evidence of intracranial masses hemorrhages or midline shift. RPTAT:AAJJ Physician Pretty Date Time Electronically viewed and signed by Physician Pretty on 07/30/2017 06:33 BM/
[2017-07-30] MEDS: FUROSEMIDE 40 MG INJ IV SCH ×2 (09:00→18:00)
[2017-07-30] MEDS: SOD CHLORIDE 0.9% 1,000 ML IV SCH (09:00)
[2017-07-30] MEDS ORDERED: NACL 0.9% 3 ML SYG IV SCH (09:00)
[2017-07-30] MEDS ORDERED: ACETAMINOPHEN 650 MG SUPP PR PRN (09:00)
--- NOTE | 2017-07-30 09:06 | HP ---
Date/Time of Note Date/Time of Note DATE: 07/30/17 TIME: 09:04 Assessment/Plan VTE Prophylaxis VTE Prophylaxis Intervention: contraindicated, SCD's Assessment/Plan Assessment/Plan 1. Altered mental status secondary to hepatic encephalopathy - Patient presented with similar symptoms one month prior - GI consulted for further recommendations - Will get speech eval and resume medications once able to tolerate PO - On lactulose, rifaximin, Lasix, and spironolactone - Found to have ammonia of 69, given lactulose in ED - CT head showed mild generalized cerebral volume loss and nonspecific chronic microvascular ischemic disease without evidence of intracranial masses hemorrhages or midline shift. 2. Hyponatremia - Most likely secondary to hypervolemia in setting of ascites - Baseline appears around 132 3. Hyperkalemia - given insulin/dextrose in ED. Unable to give Kayexalate due to AMS - Will recheck BMP this am and treat if still elevated 4. ZACK on CKD? - patient baseline Cr appears to be 1.91-1.2 during prior admission - Cr 1.35 - Will gently hydrate and monitor - If worsening, will consult Nephrology 5. Elevated LFT - Most likely secondary to cirrhosis - Will continue to monitor 6. Hyperammonia - Elevated at 69 at time of presentation - Given lactulose in ED and will continue to monitor - If unable to tolerate PO intake, will give enemas 7. Anemia of chronic disease - Appears to be at baseline - no [place] bleeding appreciated 8. Cirrhosis of liver - followed by Dr. Monzon, fructose loader - Seen at Transplant clinic at [facility] 9. Thrombocytopenia - Secondary to cirrhosis - will continue to monitor and transfuse if <10K or <50K with [place] bleeding 10. Diet - NPO until evaluated by speech therapy 11. Code status - Full code 12. DVT ppx - SCD 13. GI ppx - Pepcid 14. Disposition - Will admit to Telemetry for further workup/monitoring >35 minutes was spent with patient at time of admission. All labs, imaging, and past records were personally reviewed. HPI/ROS Admit Date/Time Admit Date/Time Jul 30, 2017 at 04:53 Hx of Present Illness 67 yo F with PMH cirrhosis of unknown etiology who was brought to ED by family for altered mental status. Patient is a poor historian and is not responding to questions. History was obtained from ED physician as well as from previous hospitalization records. Per ED physician, patient was noted to be very confused this am but has been taking all her medications as prescribed. She has not had any documented fevers at home per family. Patient lives with her daughter as well. Patient was recently admitted in June for similar presentation after presenting to [facility] ED for confusion and found to be hyponatremic with elevated ammonia and LFTs. She was also found to have low attenuation focus in subcortical white matter in R frontal lobe concerning for stroke. Patient had returned back to baseline prior to discharged. She was discharged on lactulose , rifaximin, Lasix, and spironolactone. She has an outside fructose loader Dr Monzon, who has referred her for transplant. ROS Subjective hx not possible: other (unable to obtain full ROS secondary to altered mental status) Psychological: confusion PMH/Family/Social Past Medical History Medical History: other (cirrhosis with ascities) Past Surgical History Past Surgical Hx: other (unable to obtain) Family History Significant Family History: other (unable to obtain) Social History Alcohol Use: none Smoking Status: Unknown if ever smoked Drug Use: none Exam/Review of Systems Vital Signs Vitals Vital Signs Date Time Temp Pulse Resp B/P Pulse Ox O2 Delivery O2 Flow Rate FiO2 07/30/17 08:00 69 07/30/17 06:53 20 110/55 99 Room Air 07/30/17 06:05 97.2 Exam Constitutional: other (lethargic, not easily arousable, just moans when spoked to or touched) Psych: confusion Head: atraumatic, normocephalic Eyes: icteric ENMT: nl nasal mucosa & septum, No nl lips & teeth Neck: non-tender, supple Respiratory: clear to auscultation, diminished breath sounds, No crackles/rales, No wheezing Cardiovascular: regular rate and rhythm, No murmurs/extra sounds, No systolic murmur Gastrointestinal: ascites, bowel sounds, distended, soft, No firm, No rebound or guarding Musculoskeletal: nl extremities to inspection Extremities: normal pulses, No clubbing, No cyanosis, No edema Neurological: confused, lethargic, unresponsive, No nl mental status, No nl speech Skin: nl turgor Lymph: nl lymph nodes Labs Result Diagram: 07/30/17 0230 07/30/17 0230 Medications Medications Current Medications Dextrose (D50w Syringe) ONCE PRN IV POC BLOOD GLUCOSE <250 MG/DL Last administered on 07/30/17t 05:35; Admin Dose 100 ML; Start 07/30/17 at 05:00 Folic Acid (Folic Acid) 1 mg DAILY PO ; Start 07/30/17 at 09:00; Status UNV Lactulose (Enulose) 10 gm Q8 PO ; Start 07/30/17 at 14:00; Status UNV Rifaximin (Xifaxan) 550 mg BID PO ; Start 07/30/17 at 09:00; Status UNV Spironolactone (Aldactone) 50 mg DAILY PO ; Start 07/30/17 at 09:00; Status UNV Ursodiol (Actigall) 300 mg TID PO ; Start 07/30/17 at 09:00; Status UNV Procedures Procedures PROCEDURE: CT Brain without contrast. CLINICAL INDICATION: ALOC TECHNIQUE: CT scan of the brain was performed on a multidetector high- resolution CT scan. Axial imaging was obtained of the brain without contrast administration. Coronal and sagittal reformatted images were obtained from the axial source images. Standard CT scan of the head without contrast protocols were performed. The total exam CTDI equals 45.01 mGy and the total exam DLP equals 720.23 mGy- cm. One or more of the following dose reduction techniques were used: - Automated exposure control. - Adjustment of the mA and/or kV according to patient size. Use of iterative reconstruction technique. COMPARISON: MR brain 07/13/2017 FINDINGS: The ventricular system and peripheral CSF spaces are proportionate prominent consistent with mild generalized cerebral volume loss. There is nonspecific periventricular deep white matter changes consistent with chronic microvascular ischemic disease. Negative for intracranial masses hemorrhages or midline shift. There is chronic bilateral maxillary sinus disease. The mastoids are unremarkable. The bones of the calvarium are intact. There is atherosclerotic heart plaque involving the cavernous carotid arteries. IMPRESSION: 1. Mild generalized cerebral volume loss and nonspecific chronic microvascular ischemic disease without evidence of intracranial masses hemorrhages or midline shift. PROCEDURE: Chest. CLINICAL INDICATION: Chest pain. TECHNIQUE: Single frontal view of the chest was obtained. COMPARISON: 07/13/2017. FINDINGS: The cardiac silhouette is enlarged. The aortic arch is calcified. There is mild right basilar atelectasis and small pleural effusion. There is no pneumothorax. IMPRESSION: Mild right basilar atelectasis and small pleural effusion, decreased compared with the prior study. Mild cardiomegaly and aortic atherosclerosis. DENYS CRAIG MD Jul 30, 2017 09:06
[2017-07-30 10:45] LABS: CALCIUM 9.1 mg/dl (8.4-10.2); CREATININE 1.35 mg/dl (0.44-1.00); POTASSIUM 4.2 mmol/L (3.5-5.1)
[2017-07-30] MEDS: RIFAXIMIN 550 MG TAB PO SCH ×2 (13:00→20:03)
[2017-07-30] MEDS: FOLIC ACID 1 MG TAB PO SCH (13:00)
[2017-07-30] MEDS: SPIRONOLACTONE 50 MG TAB PO SCH (13:00)
[2017-07-30] MEDS: URSODIOL 300 MG CAP PO SCH ×2 (13:00→20:03)
[2017-07-30] MEDS ORDERED: LACTULOSE 30ML CUP PO SCH (14:00)
--- NOTE | 2017-07-30 18:18 | CONS ---
Date/Time of Note Date/Time of Note DATE: 07/30/17 TIME: 17:46 Assessment/Plan Assessment/Plan Chief Complaint/Hosp Course Summary Assessment and Plan: Assessment: AMS secondary to hepatic encephalopathy Cirrhosis Macrocytic anemia Plan: Failed swallow eval will change lactulose from PO to RC If not tolerating PO will need to consider alterative route to give meds Complete abd u/s Stool for OB Diagnostic TAP Cell Count Alb Gram stain Fluid Culture Chief Complaint/Reason for Visit: AMS secondary to hepatic encephalopathy History of Present Illness: This is a 67 year old female with admitted to the hospital for AMS secondary to hepatic encephalopathy. Pt has a history of cirrhosis with ascites due to unclear etiology. 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 Upon admission she presented with macrocytic anemia Hgb 10.1 MCV 113.5 MCH 40.2, most likely secondary to liver disease but one should rule out GI bleed. Total bilirubin 9.0 will need to rule out other etiology will order abd u/s. AST 59 ALT 44 INR 1.61 ALB 3.0 PLT 72 will order diagnostic paracentesis. Per daughter and staff no overt GI bleed noted HPI obtained from medical records and patient's daughter, as patient is currently non-verbal. Past Medical History: Unable to obtain detailed history Cirrhosis with ascites Allergies: NKA Family History: Unable to obtain Social History: No ETOH NO drug use Problems: Consultation Date/Type/Reason Admit Date/Time Jul 30, 2017 at 04:53 Date of Consultation: Jul 30, 2017 Type of Consultation: GI Reason for Consultation Cirrhosis of the liver AMS secondary to encephalopathy Subjective hx not possible: pt non-verbal Psychological: confusion Past Medical History Cirrhosis with ascites Medical History: other Past Surgical History unable to obtain Past Surgical Hx: other Social History Alcohol Use: none Smoking Status: Unknown if ever smoked Drug Use: none Exam/Review of Systems Vital Signs Vitals Vital Signs Date Time Temp Pulse Resp B/P Pulse Ox O2 Delivery O2 Flow Rate FiO2 07/30/17 16:00 76 07/30/17 16:00 99.9 18 90/46 99 Room Air Exam Jaundice Constitutional: non-verbal Head: atraumatic, normocephalic Eyes: icteric ENMT: nl external ears & nose Neck: supple Respiratory: clear to auscultation Cardiovascular: regular rate and rhythm Gastrointestinal: ascites, bowel sounds, distended, hepatomegaly, No firm, No mass, No rebound or guarding, No surgical scars, No tender Genitourinary - Female: nl external genitalia Skin: other (Jaundice) Results Result Diagram: 07/30/17 0230 07/30/17 0953 Results 24 hrs Laboratory Tests Test 07/30/17 02:30 07/30/17 03:19 07/30/17 05:30 07/30/17 07:13 White Blood Count 7.9 # Red Blood Count 2.51 L Hemoglobin 10.1 L Hematocrit 28.5 L Mean Corpuscular Volume 113.5 H Mean Corpuscular Hemoglobin 40.2 H Mean Corpuscular Hemoglobin Concent 35.4 Red Cell Distribution Width 14.7 H Platelet Count 72 #L Mean Platelet Volume 9.9 Neutrophils % 85.2 H Lymphocytes % 6.4 L Monocytes % 7.1 Eosinophils % 0.4 Basophils % 0.3 Nucleated Red Blood Cells % 0.0 Neutrophils # 6.7 Lymphocytes # 0.5 L Monocytes # 0.6 Eosinophils # 0.0 Basophils # 0.0 Nucleated Red Blood Cells # 0.0 Prothrombin Time 19.3 H Prothrombin Time Ratio 1.5 INR International Normalized Ratio 1.61 Activated Partial Thromboplast Time 29.2 Sodium Level 130 L Potassium Level 5.5 H Chloride Level 98 Carbon Dioxide Level 20 L Anion Gap 18 H Blood Urea Nitrogen 62 H Creatinine 1.35 H Glucose Level 87 Calcium Level 9.3 Total Bilirubin 9.0 H Direct Bilirubin 3.80 H Indirect Bilirubin 5.2 H Aspartate Amino Transf (AST/SGOT) 59 H Alanine Aminotransferase (ALT/SGPT) 44 Alkaline Phosphatase 185 H Ammonia 69 H Total Protein 7.1 Albumin 3.0 L Globulin 4.10 H Albumin/Globulin Ratio 0.73 Bedside Glucose 101 93 272 H Test 07/30/17 09:53 07/30/17 11:35 07/30/17 16:46 Sodium Level 131 L Potassium Level 4.2 Chloride Level 98 Carbon Dioxide Level 21 Anion Gap 16 Blood Urea Nitrogen 65 H Creatinine 1.35 H Glucose Level 115 Calcium Level 9.1 Bedside Glucose 105 91 Medications Medications Current Medications Dextrose (D50w Syringe) ONCE PRN IV POC BLOOD GLUCOSE <250 MG/DL Last administered on 07/30/17t 05:35; Admin Dose 100 ML; Start 07/30/17 at 05:00 Folic Acid (Folic Acid) 1 mg DAILY PO ; Start 07/30/17 at 09:00 Lactulose (Enulose) 10 gm Q8 PO ; Start 07/30/17 at 14:00 Rifaximin (Xifaxan) 550 mg BID PO ; Start 07/30/17 at 09:00 Spironolactone (Aldactone) 50 mg DAILY PO ; Start 07/30/17 at 09:00 Ursodiol 300 mg 300 mg TID PO ; Start 07/30/17 at 09:00 Sodium Chloride (NS) 1,000 ml @ 60 mls/hr [id number] IV Last administered on t 09:00; Admin Dose 60 MLS/HR; Start 07/30/17 at 09:00 Ondansetron HCl (Zofran Inj) 4 mg Q6H PRN IV NAUSEA AND/OR VOMITING; Start at 09:00 Acetaminophen (Tylenol Tab) 650 mg Q6H PRN PO PAIN LEVEL 1-3 OR FEVER; Start 07/30/17 at 09:00 Acetaminophen (Tylenol Supp) 650 mg Q6H PRN [place] PAIN LEVEL 1-3 OR FEVER; Start 07/30/17 at 09:00 Famotidine (Pepcid Iv) 20 mg DAILY IV ; Start 07/31/17 at 09:00 Copies To: CC: ANNA PRESCOTT MD, VICTORIA Jul 30, 2017 17:57
--- NOTE | 2017-07-30 22:43 | RADRPT ---
PROCEDURE: US Abdomen complete CLINICAL INDICATION: Cirrhosis. Abnormal laboratory values. TECHNIQUE: Box scale and color Doppler ultrasound of the abdomen was performed. COMPARISON: Abdominal ultrasounds dated 07/14/2017 and 07/13/2017. FINDINGS: Pancreas: Heterogeneous in echogenicity. Liver: Coarsened echotexture with a nodular contour, consistent with cirrhosis. No focal hepatic les ion. Hepatofugal flow in the main portal vein. Gallbladder: Diffuse gallbladder wall thickening with gallstones and sludge. Common bile duct: 5.3 mm in diameter. Right Kidney: 9.9 cm in length. No nephrolithiasis, hydronephrosis, or mass. Spleen: Normal in size and echogenicity. Left kidney: 10.9 cm in length. No nephrolithiasis, hydronephrosis, or mass. Visualized aorta and IVC: Unremarkable. Ascites and pleural effusion: Moderate volume of ascites. Right pleural effusion. IMPRESSION: 1. Cirrhotic liver with hepatofugal flow in the main portal vein. 2. Diffuse gallbladder wall thickening with gallstones and sludge. 3. Moderate volume of ascites. 4. Right pleural effusion. 5. Nonspecific heterogeneous echogenicity of the pancreas. CT or MRI can be performed for further e valuation. RPTAT: HLBP .Serafin Prieto MD, Date Time Electronically viewed and signed by .Serafin Prieto MD, MD on 07/30/2017 22:43 .P/
[2017-07-31] VITALS (13 sets, daily range): BP systolic 92–127; BP diastolic 47–79; PULSE 67–96; RESP 18–20; Ht 157.5 cm; Wt 52.1 kg
[2017-07-31] MEDS: LACTULOSE ENEMA 1,000 ML BTL PR SCH ×4 (00:43→18:00)
[2017-07-31] MEDS: SOD CHLORIDE 0.9% 1,000 ML IV SCH ×2 (00:51→12:43)
[2017-07-31 05:24] LABS: ABNORMAL IP MESSAGE 1; BASOPHILS % 0.4 % (0.0-2.0); EOSINOPHILS # 0.1 10^3/ul (0.0-0.5); EOSINOPHILS % 1.5 % (0.0-7.0); HEMATOCRIT 24.1 % (37.0-47.0); HEMOGLOBIN 8.3 g/dl (12.0-16.0); LYMPHOCYTES # 0.7 10^3/ul (0.8-2.9); LYMPHOCYTES % 12.3 % (15.0-51.0); MEAN CORPUSCULAR HEMOGLOBIN 39.9 pg (29.0-33.0); MEAN CORPUSCULAR HGB CONC 34.4 g/dl (32.0-37.0); MEAN CORPUSCULAR VOLUME 115.9 fl (82.0-101.0); MEAN PLATELET VOLUME 9.4 fl (7.4-10.4); MONOCYTE # 0.5 10^3/ul (0.3-0.9); MONOCYTES % 9.2 % (0.0-11.0); NEUTROPHILS % 76.2 % (39.0-77.0); PLATELET COUNT 51 10^3/UL (140-415); RED BLOOD COUNT 2.08 10^6/ul (4.20-5.40); RED CELL DISTRIBUTION WIDTH 14.9 % (11.5-14.5); WHITE BLOOD COUNT 5.3 10^3/ul (4.8-10.8)
[2017-07-31 05:40] LABS: POSITIVE DIFF @See below
[2017-07-31] MEDS: FUROSEMIDE 40 MG INJ IV SCH ×2 (06:00→18:48)
[2017-07-31 06:22] LABS: ALBUMIN 2.2 g/dl (3.3-4.9); ALBUMIN/GLOBULIN RATIO 0.66; BILIRUBIN,DIRECT 2.6 mg/dl (0.00-0.20); BILIRUBIN,INDIRECT 4.1 mg/dl (0-1.1); BILIRUBIN,TOTAL 6.7 mg/dl (0.2-1.3); CALCIUM 8.6 mg/dl (8.4-10.2); CREATININE 1.29 mg/dl (0.44-1.00); MAGNESIUM 2.1 mg/dl (1.7-2.5); POTASSIUM 4.7 mmol/L (3.5-5.1); TOTAL PROTEIN 5.5 g/dl (6.1-8.1)
[2017-07-31] MEDS: SPIRONOLACTONE 50 MG TAB PO SCH (08:34)
[2017-07-31] MEDS: URSODIOL 300 MG CAP PO SCH ×3 (08:34→20:53)
[2017-07-31] MEDS: FOLIC ACID 1 MG TAB PO SCH (08:34)
[2017-07-31] MEDS: RIFAXIMIN 550 MG TAB PO SCH ×2 (08:34→20:53)
[2017-07-31] MEDS: FAMOTIDINE 20 MG INJ IV SCH (09:08)
--- NOTE | 2017-07-31 11:02 | CONS ---
Date/Time of Note Date/Time of Note DATE: 07/31/17 TIME: 11:01 Assessment/Plan Assessment/Plan Additional Assessment/Plan ASSESSMENT: 1. Altered mental status secondary to hepatic encephalopathy 2. acute Kidney injury vs Acute kidney injury on CKD due to Hepartorenal syndrome + prerenal azotemia 3. Hyponatremia 4. Hyperkalemia 5. Acute Transaminitis with Hyperammonia 6. Anemia of chronic disease Plan: Lactulose + Rifaximin for hepatic encephalopathy Plan for US guided paracentesis today will give IV albumin post Paracentesis NS at 60 cc/hr, IV lasix 40mg IV BID monitor electrolytes and Replace as needed. Thanks for consultaiton, we will continue to follow up on patient. Consultation Date/Type/Reason Admit Date/Time Jul 30, 2017 at 04:53 Date of Consultation: Jul 31, 2017 Type of Consultation: NEPHROLOGY Reason for Consultation acute kidney injury Referring Provider: DENYS CRAIG MD Hx of Present Illness 67 yo F with PMH cirrhosis of unknown etiology who was brought to ED by family for altered mental status. Patient is a poor historian and is not responding to questions. History was obtained from ED physician as well as from previous hospitalization records. Per ED physician, patient was noted to be very confused this am but has been taking all her medications as prescribed. She has not had any documented fevers at home per family. Patient lives with her daughter as well. she gets admitted for ALOC, hepatic encephalopahty, ascites and mild Acute kidney injury. renal has been consulted for it. Subjective hx not possible: pt non-verbal Psychological: confusion Past Medical History Medical History: other (End stag Liver disease ) Past Surgical History Past Surgical Hx: other Family History Significant Family History: no pertinent family hx Social History Alcohol Use: none Smoking Status: Unknown if ever smoked Drug Use: none Exam/Review of Systems Vital Signs Vitals Vital Signs Date Time Temp Pulse Resp B/P Pulse Ox O2 Delivery O2 Flow Rate FiO2 07/31/17 08:00 69 07/31/17 07:20 98.2 18 96/51 96 Room Air Exam Constitutional: other (lethargic, not easily arousable, just moans when spoked to or touched) Psych: confusion Head: atraumatic, normocephalic Eyes: icteric ENMT: nl nasal mucosa & septum, no jaundice Respiratory: clear to auscultation, diminished breath sounds, No crackles/rales , No wheezing Cardiovascular: regular rate and rhythm, No murmurs/extra sounds, No systolic murmur Gastrointestinal: ascites, bowel sounds, distended, soft, No firm, No rebound or guarding, Musculoskeletal: nl extremities to inspection Extremities: mild pitting edema, no clubbing no cyanosis Neurological: confused, lethargic, Skin: nl turgor Lymph: nl lymph nodes Results Result Diagram: 07/31/174 07/31/174 Results 24 hrs Laboratory Tests Test 07/30/17 11:35 07/30/17 16:46 07/31/17 04:30 07/31/17 04:44 Bedside Glucose 105 91 Stool Occult Blood NEGATIVE White Blood Count 5.3 # Red Blood Count 2.08 L Hemoglobin 8.3 L Hematocrit 24.1 L Mean Corpuscular Volume 115.9 H Mean Corpuscular Hemoglobin 39.9 H Mean Corpuscular Hemoglobin Concent 34.4 Red Cell Distribution Width 14.9 H Platelet Count 51 #L Mean Platelet Volume 9.4 Neutrophils % 76.2 Lymphocytes % 12.3 L Monocytes % 9.2 Eosinophils % 1.5 Basophils % 0.4 Nucleated Red Blood Cells % 0.0 Neutrophils # 4.0 Lymphocytes # 0.7 L Monocytes # 0.5 Eosinophils # 0.1 Basophils # 0.0 Nucleated Red Blood Cells # 0.0 Sodium Level 135 Potassium Level 4.7 Chloride Level 104 Carbon Dioxide Level 20 L Anion Gap 16 Blood Urea Nitrogen 62 H Creatinine 1.29 H Glucose Level 72 # Calcium Level 8.6 Magnesium Level 2.1 Total Bilirubin 6.7 #H Direct Bilirubin 2.60 #H Indirect Bilirubin 4.1 H Aspartate Amino Transf (AST/SGOT) 44 Alanine Aminotransferase (ALT/SGPT) 36 Alkaline Phosphatase 126 H Ammonia 72 H Total Protein 5.5 #L Albumin 2.2 L Globulin 3.30 H Albumin/Globulin Ratio 0.66 Medications Medications Current Medications Dextrose (D50w Syringe) ONCE PRN IV POC BLOOD GLUCOSE <250 MG/DL Last administered on 07/30/17t 05:35; Admin Dose 100 ML; Start 07/30/17 at 05:00 Folic Acid (Folic Acid) 1 mg DAILY PO ; Start 07/30/17 at 09:00 Rifaximin (Xifaxan) 550 mg BID PO ; Start 07/30/17 at 09:00 Spironolactone (Aldactone) 50 mg DAILY PO ; Start 07/30/17 at 09:00 Ursodiol 300 mg 300 mg TID PO ; Start 07/30/17 at 09:00 Sodium Chloride (NS) 1,000 ml @ 60 mls/hr [id number] IV Last administered on 00:51; Admin Dose 60 MLS/HR; Start 07/30/17 at 09:00 Ondansetron HCl (Zofran Inj) 4 mg Q6H PRN IV NAUSEA AND/OR VOMITING; Start at 09:00 Acetaminophen (Tylenol Tab) 650 mg Q6H PRN PO PAIN LEVEL 1-3 OR FEVER; Start 07/30/17 at 09:00 Acetaminophen (Tylenol Supp) 650 mg Q6H PRN [place] PAIN LEVEL 1-3 OR FEVER; Start 07/30/17 at 09:00 Famotidine (Pepcid Iv) 20 mg DAILY IV Last administered on 07/31/17 09:08; Admin Dose 20 MG; Start 07/31/17 at 09:00 Lactulose (Lactulose Enema) 100 ml Q6 CO Last administered on 07/31/17 06:00 ; Admin Dose 100 ML; Start 07/31/17 at 00:00 NICOLE JEAN MD Jul 31, 2017 11:02
[2017-07-31] MEDS ORDERED: ALBUMIN HUMAN 25% 100 ML IV ONE (12:00)
--- NOTE | 2017-07-31 14:28 | PN ---
Date/Time of Note Date/Time of Note DATE: 07/31/17 TIME: 13:59 Assessment/Plan VTE Prophylaxis VTE Prophylaxis Intervention: SCD's Lines/Catheters [facility] Saline Lock Assessment/Plan Chief Complaint/Hosp Course Assessment: AMS secondary to hepatic encephalopathy Cirrhosis . Macrocytic anemia Plan: Recommend Patient to be transferred to tertiary hospital capable of liver transplant Called CM to initiate process Continue lactulose RC until can tolerate PO intake Stool for OB- NEGATIVE Diagnostic TAP- to be done today Complete abd u/s with multiple findings including gallstones/sludge hepatofugal flow CBD 5.5mm will order MRCP Subjective: Course reviewed with nursing staff Patient interviewed and examined All labs, imaging and other results reviewed The patient is now awake and oriented to name daughter at bedside. Plan for MRCP today Recommend patient to be transferred to a tertiary care center Capable of liver transplant ([facility] is not capable of transplant) Problems: Exam/Review of Systems Vital Signs Vitals Vital Signs Date Time Temp Pulse Resp B/P Pulse Ox O2 Delivery O2 Flow Rate FiO2 07/31/17 13:00 99.3 91 20 126/74 98 07/31/17 07:20 Room Air Exam Constitutional: alert (to name) Head: atraumatic, normocephalic Eyes: icteric ENMT: nl external ears & nose Neck: supple Respiratory: crackles/rales Gastrointestinal: ascites, bowel sounds, distended, hepatomegaly, No mass, No rebound or guarding, No splenomegaly, No surgical scars, No tender Genitourinary - Female: nl external genitalia Extremities: normal pulses Skin: nl turgor Results Result Diagram: 07/31/17 0444 07/31/17 0444 Results 24 hrs Laboratory Tests Test 07/30/17 16:46 07/31/17 04:30 07/31/17 04:44 Bedside Glucose 91 Stool Occult Blood NEGATIVE White Blood Count 5.3 # Red Blood Count 2.08 L Hemoglobin 8.3 L Hematocrit 24.1 L Mean Corpuscular Volume 115.9 H Mean Corpuscular Hemoglobin 39.9 H Mean Corpuscular Hemoglobin Concent 34.4 Red Cell Distribution Width 14.9 H Platelet Count 51 #L Mean Platelet Volume 9.4 Neutrophils % 76.2 Lymphocytes % 12.3 L Monocytes % 9.2 Eosinophils % 1.5 Basophils % 0.4 Nucleated Red Blood Cells % 0.0 Neutrophils # 4.0 Lymphocytes # 0.7 L Monocytes # 0.5 Eosinophils # 0.1 Basophils # 0.0 Nucleated Red Blood Cells # 0.0 Sodium Level 135 Potassium Level 4.7 Chloride Level 104 Carbon Dioxide Level 20 L Anion Gap 16 Blood Urea Nitrogen 62 H Creatinine 1.29 H Glucose Level 72 # Calcium Level 8.6 Magnesium Level 2.1 Total Bilirubin 6.7 #H Direct Bilirubin 2.60 #H Indirect Bilirubin 4.1 H Aspartate Amino Transf (AST/SGOT) 44 Alanine Aminotransferase (ALT/SGPT) 36 Alkaline Phosphatase 126 H Ammonia 72 H Total Protein 5.5 #L Albumin 2.2 L Globulin 3.30 H Albumin/Globulin Ratio 0.66 Medications Medications Current Medications Folic Acid (Folic Acid) 1 mg DAILY PO ; Start 07/30/17 at 09:00 Rifaximin (Xifaxan) 550 mg BID PO ; Start 07/30/17 at 09:00 Spironolactone (Aldactone) 50 mg DAILY PO ; Start 07/30/17 at 09:00 Ursodiol 300 mg 300 mg TID PO ; Start 07/30/17 at 09:00 Sodium Chloride (NS) 1,000 ml @ 60 mls/hr [id number] IV Last administered on 12:43; Admin Dose 60 MLS/HR; Start 07/30/17 at 09:00 Ondansetron HCl (Zofran Inj) 4 mg Q6H PRN IV NAUSEA AND/OR VOMITING; Start at 09:00 Acetaminophen (Tylenol Tab) 650 mg Q6H PRN PO PAIN LEVEL 1-3 OR FEVER; Start 07/30/17 at 09:00 Acetaminophen (Tylenol Supp) 650 mg Q6H PRN [place] PAIN LEVEL 1-3 OR FEVER; Start 07/30/17 at 09:00 Famotidine (Pepcid Iv) 20 mg DAILY IV Last administered on 07/31/17 09:08; Admin Dose 20 MG; Start 07/31/17 at 09:00 Lactulose (Lactulose Enema) 100 ml Q6 VT Last administered on 07/31/17 11:56 ; Admin Dose 100 ML; Start 07/31/17 at 00:00 RAFAT BERKOWITZ Jul 31, 2017 14:11
[2017-07-31] MEDS ORDERED: LIDOCAINE 1% (MPF) 5 ML VIAL ONE (15:24)
--- NOTE | 2017-07-31 15:54 | RADRPT ---
PROCEDURE: US guided paracentesis CLINICAL INDICATION: Ascites TECHNIQUE: Multiple sonographic images were obtained through the patient's abdomen. A site in the patient's RIGHT lower abdomen was selected and marked. The area was prepped and draped in the usual sterile fashion. 1% lidocaine was utilized. A 19-gauge Yueh needle was advanced into the peritonea l space and the introducer was connected to a vacuum drainage bottle. A total of 3000 cc of clear y ellow fluid were drained at the end of the procedure. The patient tolerated the procedure well. The specimen was sent for laboratory evaluation. COMPARISON: None FINDINGS: Ascites. RPTAT: AA IMPRESSION: Successful paracentesis. .Brayden Samano MD, MD Date Time Electronically viewed and signed by .Brayden Samano MD, MD on 07/31/2017 15:54 .S/
[2017-07-31 16:03] LABS: FLD MN% 85.8 %; FLD PMN% 14.2 %; FLD RBC 2 /uL; FLD WBC 169 /cmm
[2017-07-31 16:45] LABS: FLD CLARITY BLOODY; FLD COLOR RED; FLD TYPE PARACENTHESIS
--- NOTE | 2017-07-31 17:01 | PN ---
Date/Time of Note Date/Time of Note DATE: 07/31/17 TIME: 16:53 Assessment/Plan VTE Prophylaxis VTE Prophylaxis Intervention: contraindicated Lines/Catheters IV Catheter Type (from Nrs): Saline Lock Assessment/Plan Assessment/Plan 1. Altered mental status secondary to hepatic encephalopathy- improving - Patient still confused but more awake and alert this am - GI on board and recommending transfer to tertiary center for liver transplant - On lactulose, rifaximin, Lasix, and spironolactone - CT head showed mild generalized cerebral volume loss and nonspecific chronic microvascular ischemic disease without evidence of intracranial masses hemorrhages or midline shift. 2. Hyponatremia- improving - Most likely secondary to hypervolemia in setting of ascites 3. Hyperkalemia- resolved 4. ZACK on CKD? - patient baseline Cr appears to be 1.91-1.2 during prior admission - Nephrology on board and recommendations appreciated. IV albumin post Paracentesis and NS at 60 cc/hr, IV lasix 40mg IV BID 5. Elevated LFT - Most likely secondary to cirrhosis - Will continue to monitor 6. Hyperammonia - Elevated at 69 at time of presentation - Given lactulose in ED and will continue and monitor ammonia level 7. Anemia of chronic disease - Appears to be at baseline - no [place] bleeding appreciated 8. Cirrhosis of liver - followed by Dr. Monzon, back maker - Seen at Transplant clinic at [facility] per daughter 9. Thrombocytopenia - Secondary to cirrhosis - will continue to monitor and transfuse if <10K or <50K with [place] bleeding 10. Ascites - Paracentesis today and sending fluid for studies 11. CBD - Complete abd u/s with multiple findings including gallstones/sludge hepatofugal flow - MRCP to evaluate per GI recommendations 12. Disposition - Once stable will need to transfer to tertiary center capable of transplant Subjective 24 Hr Interval Summary Free Text/Dictation Patient more awake today and oriented to place and self but still confused. Daughter at bedside and states patient still not at baseline. No acute overnight events. Exam/Review of Systems Vital Signs Vitals Vital Signs Date Time Temp Pulse Resp B/P Pulse Ox O2 Delivery O2 Flow Rate FiO2 07/31/17 16:23 98.0 92 20 120/59 98 07/31/17 07:20 Room Air Exam Constitutional: awake and confused but oriented to self and place Psych: confusion Head: atraumatic, normocephalic Eyes: icteric ENMT: nl nasal mucosa & septum, No nl lips & teeth Neck: non-tender, supple Respiratory: clear to auscultation, diminished breath sounds, No crackles/rales , No wheezing Cardiovascular: regular rate and rhythm, No murmurs/extra sounds, No systolic murmur Gastrointestinal: ascites, bowel sounds, distended, soft, No firm, No rebound or guarding Musculoskeletal: nl extremities to inspection Extremities: normal pulses, No clubbing, No cyanosis, No edema Neurological: confused, lethargic, unresponsive, No nl mental status, No nl speech Lymph: nl lymph nodes Results Result Diagram: 07/31/17 0444 07/31/17 0444 Results 24 hrs Laboratory Tests Test 07/31/17 04:30 07/31/17 04:44 07/31/17 15:00 Stool Occult Blood NEGATIVE White Blood Count 5.3 # Red Blood Count 2.08 L Hemoglobin 8.3 L Hematocrit 24.1 L Mean Corpuscular Volume 115.9 H Mean Corpuscular Hemoglobin 39.9 H Mean Corpuscular Hemoglobin Concent 34.4 Red Cell Distribution Width 14.9 H Platelet Count 51 #L Mean Platelet Volume 9.4 Neutrophils % 76.2 Lymphocytes % 12.3 L Monocytes % 9.2 Eosinophils % 1.5 Basophils % 0.4 Nucleated Red Blood Cells % 0.0 Neutrophils # 4.0 Lymphocytes # 0.7 L Monocytes # 0.5 Eosinophils # 0.1 Basophils # 0.0 Nucleated Red Blood Cells # 0.0 Sodium Level 135 Potassium Level 4.7 Chloride Level 104 Carbon Dioxide Level 20 L Anion Gap 16 Blood Urea Nitrogen 62 H Creatinine 1.29 H Glucose Level 72 # Calcium Level 8.6 Magnesium Level 2.1 Total Bilirubin 6.7 #H Direct Bilirubin 2.60 #H Indirect Bilirubin 4.1 H Aspartate Amino Transf (AST/SGOT) 44 Alanine Aminotransferase (ALT/SGPT) 36 Alkaline Phosphatase 126 H Ammonia 72 H Total Protein 5.5 #L Albumin 2.2 L Globulin 3.30 H Albumin/Globulin Ratio 0.66 Body Fluid Type PARACENTHESIS Body Fluid Volume 1000.0 Body Fluid Color RED Body Fluid Appearance BLOODY Body Fluid WBC 169 Body Fluid RBC (Auto) 2 Body Fluid Polynuclear WBCs (%) 14.2 Body Fluid Mononuclear Cells % Auto 85.8 Medications Medications Current Medications Folic Acid (Folic Acid) 1 mg DAILY PO ; Start 07/30/17 at 09:00 Rifaximin (Xifaxan) 550 mg BID PO ; Start 07/30/17 at 09:00 Spironolactone (Aldactone) 50 mg DAILY PO ; Start 07/30/17 at 09:00 Ursodiol 300 mg 300 mg TID PO ; Start 07/30/17 at 09:00 Sodium Chloride (NS) 1,000 ml @ 60 mls/hr [id number] IV Last administered on 12:43; Admin Dose 60 MLS/HR; Start 07/30/17 at 09:00 Ondansetron HCl (Zofran Inj) 4 mg Q6H PRN IV NAUSEA AND/OR VOMITING; Start at 09:00 Acetaminophen (Tylenol Tab) 650 mg Q6H PRN PO PAIN LEVEL 1-3 OR FEVER; Start 07/30/17 at 09:00 Acetaminophen (Tylenol Supp) 650 mg Q6H PRN [place] PAIN LEVEL 1-3 OR FEVER; Start 07/30/17 at 09:00 Famotidine (Pepcid Iv) 20 mg DAILY IV Last administered on 07/31/17 09:08; Admin Dose 20 MG; Start 07/31/17 at 09:00 Lactulose (Lactulose Enema) 100 ml Q6 [place] Last administered on 07/31/17 11:56 ; Admin Dose 100 ML; Start 07/31/17 at 00:00 DENYS CRAIG MD Jul 31, 2017 17:01
[2017-08-01] VITALS (9 sets, daily range): BP systolic 112–121; BP diastolic 54–63; PULSE 72–84; RESP 16–20
[2017-08-01] MEDS: LACTULOSE ENEMA 1,000 ML BTL PR SCH ×3 (00:26→12:32)
[2017-08-01] MEDS: FUROSEMIDE 40 MG INJ IV SCH (06:23)
--- NOTE | 2017-08-01 09:32 | PN ---
Date/Time of Note Date/Time of Note DATE: 08/01/17 TIME: 09:32 Assessment/Plan VTE Prophylaxis VTE Prophylaxis Intervention: contraindicated Lines/Catheters IV Catheter Type (from Nrsg): Peripheral IV Assessment/Plan Assessment/Plan 1. Altered mental status secondary to hepatic encephalopathy- improving - Patient still confused but still awake and alert - GI on board and recommendations appreciated. Recommending transfer to tertiary center for Liver transplant - On lactulose, rifaximin, Lasix, and spironolactone - CT head showed mild generalized cerebral volume loss and nonspecific chronic microvascular ischemic disease without evidence of intracranial masses hemorrhages or midline shift. 2. Hyponatremia- resolved - Most likely secondary to hypervolemia in setting of ascites 3. Hyperkalemia- resolved 4. ZACK on CKD? - patient baseline Cr appears to be 1.2 during prior admission - Nephrology on board and recommendations appreciated. 5. Elevated LFT - Most likely secondary to cirrhosis - Will continue to monitor 6. Hyperammonia - Elevated at 69 at time of presentation - On lactulose 7. Anemia of chronic disease - no deedee bleeding appreciated 8. Cirrhosis of liver - followed by Dr. Monzon, manager environmental health - Seen at Transplant clinic at [facility] per daughter - Spoke with CM about arranging transfer to [facility] 9. Thrombocytopenia - Secondary to cirrhosis - will continue to monitor and transfuse if <10K 10. Ascites - Paracentesis performed and no signs of SBP 11. CBD - Complete abd u/s with multiple findings including gallstones/sludge hepatofugal flow - MRCP to evaluate per GI recommendations 12. Disposition - Spoke with CM about possible transfer to tertiary center, [facility] Subjective 24 Hr Interval Summary Free Text/Dictation Patient more awake and alert but still appears confused. Oriented to self and hospital but believes she is at [facility]. No acute overnight events and no new complaints. Exam/Review of Systems Vital Signs Vitals Vital Signs Date Time Temp Pulse Resp B/P Pulse Ox O2 Delivery O2 Flow Rate FiO2 08/01/17 08:03 97.4 81 18 118/61 94 07/31/17 07:20 Room Air Intake and Output 07/31/17 07/31/17 08/01/17 15:00 23:00 07:00 Intake Total 980 ml Balance 980 ml Exam Constitutional: awake and confused but oriented to self and hospital Head: atraumatic, normocephalic Eyes: icteric ENMT: nl nasal mucosa & septum, No nl lips & teeth Neck: non-tender, supple Respiratory: clear to auscultation, diminished breath sounds, No crackles/rales , No wheezing Cardiovascular: regular rate and rhythm, No murmurs/extra sounds, No systolic murmur Gastrointestinal: ascites improved, bowel sounds, distended, soft, No firm, No rebound or guarding Musculoskeletal: nl extremities to inspection Extremities: normal pulses, No clubbing, No cyanosis, No edema Neurological: confused, but responding to basic questions Lymph: nl lymph nodes Results Result Diagram: 07/31/174 07/31/17443 Results 24 hrs Laboratory Tests Test 07/31/17 15:00 Body Fluid Type PARACENTHESIS Body Fluid Volume 1000.0 Body Fluid Color RED Body Fluid Appearance BLOODY Body Fluid WBC 169 Body Fluid RBC (Auto) 2 Body Fluid Polynuclear WBCs (%) 14.2 Body Fluid Mononuclear Cells % Auto 85.8 Medications Medications Current Medications Folic Acid (Folic Acid) 1 mg DAILY PO ; Start 07/30/17 at 09:00 Rifaximin (Xifaxan) 550 mg BID PO Last administered on 07/31/17 20:53; Admin Dose 550 MG; Start 07/30/17 at 09:00 Spironolactone (Aldactone) 50 mg DAILY PO ; Start 07/30/17 at 09:00 Ursodiol 300 mg 300 mg TID PO Last administered on 07/31/17 20:53; Admin Dose 300 MG; Start 07/30/17 at 09:00 Sodium Chloride (NS) 1,000 ml @ 60 mls/hr [id number] IV Last administered on 12:43; Admin Dose 60 MLS/HR; Start 07/30/17 at 09:00 Ondansetron HCl (Zofran Inj) 4 mg Q6H PRN IV NAUSEA AND/OR VOMITING; Start at 09:00 Acetaminophen (Tylenol Tab) 650 mg Q6H PRN PO PAIN LEVEL 1-3 OR FEVER; Start 07/30/17 at 09:00 Acetaminophen (Tylenol Supp) 650 mg Q6H PRN [place] PAIN LEVEL 1-3 OR FEVER; Start 07/30/17 at 09:00 Famotidine (Pepcid Iv) 20 mg DAILY IV Last administered on 07/31/17 09:08; Admin Dose 20 MG; Start 07/31/17 at 09:00 Lactulose (Lactulose Enema) 100 ml Q6 [place] Last administered on 08/01/17 06:23 ; Admin Dose 100 ML; Start 07/31/17 at 00:00 DENYS CRAIG MD Aug 01, 2017 09:32
[2017-08-01] MEDS: RIFAXIMIN 550 MG TAB PO SCH ×2 (09:45→21:21)
[2017-08-01] MEDS: URSODIOL 300 MG CAP PO SCH ×3 (09:45→21:21)
[2017-08-01] MEDS: FOLIC ACID 1 MG TAB PO SCH (09:45)
[2017-08-01] MEDS: SPIRONOLACTONE 50 MG TAB PO SCH (09:45)
[2017-08-01] MEDS: FAMOTIDINE 20 MG INJ IV SCH (09:45)
[2017-08-01] MEDS: SOD CHLORIDE 0.9% 1,000 ML IV SCH (11:00)
[2017-08-01 11:03] LABS: ABNORMAL IP MESSAGE 1; BASOPHILS % 0.7 % (0.0-2.0); EOSINOPHILS # 0.1 10^3/ul (0.0-0.5); EOSINOPHILS % 1.5 % (0.0-7.0); HEMATOCRIT 25.7 % (37.0-47.0); HEMOGLOBIN 8.7 g/dl (12.0-16.0); LYMPHOCYTES # 0.5 10^3/ul (0.8-2.9); LYMPHOCYTES % 11.9 % (15.0-51.0); MEAN CORPUSCULAR HEMOGLOBIN 39.5 pg (29.0-33.0); MEAN CORPUSCULAR HGB CONC 33.9 g/dl (32.0-37.0); MEAN CORPUSCULAR VOLUME 116.8 fl (82.0-101.0); MONOCYTE # 0.5 10^3/ul (0.3-0.9); NEUTROPHIL # 3.4 10^3/ul (1.6-7.5); PLATELET COUNT 53 10^3/UL (140-415); RED CELL DISTRIBUTION WIDTH 14.8 % (11.5-14.5); WHITE BLOOD COUNT 4.5 10^3/ul (4.8-10.8)
[2017-08-01 11:19] LABS: POSITIVE DIFF @See below
[2017-08-01 11:36] LABS: ALBUMIN 2.7 g/dl (3.3-4.9); ALBUMIN/GLOBULIN RATIO 0.75; BILIRUBIN,DIRECT 3.4 mg/dl (0.00-0.20); BILIRUBIN,INDIRECT 4.7 mg/dl (0-1.1); BILIRUBIN,TOTAL 8.1 mg/dl (0.2-1.3); CALCIUM 8.8 mg/dl (8.4-10.2); CREATININE 1.21 mg/dl (0.44-1.00); POTASSIUM 4.1 mmol/L (3.5-5.1); TOTAL PROTEIN 6.3 g/dl (6.1-8.1)
--- NOTE | 2017-08-01 13:51 | PN ---
Date/Time of Note Date/Time of Note DATE: 08/01/17 TIME: 13:46 Assessment/Plan VTE Prophylaxis VTE Prophylaxis Intervention: SCD's Lines/Catheters IV [facility] (from [facility] Peripheral IV Assessment/Plan Chief Complaint/Hosp Course Assessment: AMS secondary to hepatic encephalopathy Cirrhosis- Unknown etiology . Macrocytic anemia Plan: Recommend Patient to be transferred to tertiary hospital capable of liver transplant Called CM to initiate process Continue lactulose RC until can tolerate PO intake Stool for OB- NEGATIVE Diagnostic TAP- pending MRCP Subjective: Course reviewed with nursing staff Patient interviewed and examined All labs, imaging and other results reviewed The patient awake oriented to name, able to follow simple commands MRCP today Recommend patient to be transferred to a tertiary care center Capable of liver transplant ([facility] is not capable of transplant) CM working on transfer Problems: Exam/Review of Systems Vital Signs Vitals Vital Signs Date Time Temp Pulse Resp B/P Pulse Ox O2 Delivery O2 Flow Rate FiO2 08/01/17 12:40 97.9 77 18 112/58 94 07/31/17 07:20 Room Air Intake and Output 07/31/17 07/31/17 08/01/17 15:00 23:00 07:00 Intake Total 980 ml Balance 980 ml Results Result Diagram: 08/01/17 1038 08/01/17 1038 Results 24 hrs Laboratory Tests Test 07/31/17 15:00 08/01/17 10:38 08/01/17 12:22 Body Fluid Type PARACENTHESIS Body Fluid Volume 1000.0 Body Fluid Color RED Body Fluid Appearance BLOODY Body Fluid WBC 169 Body Fluid RBC (Auto) 2 Body Fluid Polynuclear WBCs (%) 14.2 Body Fluid Mononuclear Cells % Auto 85.8 White Blood Count 4.5 L Red Blood Count 2.20 L Hemoglobin 8.7 L Hematocrit 25.7 L Mean Corpuscular Volume 116.8 H Mean Corpuscular Hemoglobin 39.5 H Mean Corpuscular Hemoglobin Concent 33.9 Red Cell Distribution Width 14.8 H Platelet Count 53 L Mean Platelet Volume 9.0 Neutrophils % 74.0 Lymphocytes % 11.9 L Monocytes % 11.0 Eosinophils % 1.5 Basophils % 0.7 Nucleated Red Blood Cells % 0.0 Neutrophils # 3.4 Lymphocytes # 0.5 L Monocytes # 0.5 Eosinophils # 0.1 Basophils # 0.0 Nucleated Red Blood Cells # 0.0 Sodium Level 140 Potassium Level 4.1 Chloride Level 106 Carbon Dioxide Level 20 L Anion Gap 18 H Blood Urea Nitrogen 49 #H Creatinine 1.21 H Glucose Level 111 Calcium Level 8.8 Total Bilirubin 8.1 H Direct Bilirubin 3.40 H Indirect Bilirubin 4.7 H Aspartate Amino Transf (AST/SGOT) 43 Alanine Aminotransferase (ALT/SGPT) 35 Alkaline Phosphatase 127 H Total Protein 6.3 Albumin 2.7 L Globulin 3.60 H Albumin/Globulin Ratio 0.75 Bedside Glucose 122 Medications Medications Current Medications Folic Acid (Folic Acid) 1 mg DAILY PO Last administered on 08/01/17 09:45; Admin Dose 1 MG; Start 07/30/17 at 09:00 Rifaximin (Xifaxan) 550 mg BID PO Last administered on 08/01/17 09:45; Admin Dose 550 MG; Start 07/30/17 at 09:00 Spironolactone (Aldactone) 50 mg DAILY PO Last administered on 08/01/17 09:45 ; Admin Dose 50 MG; Start 07/30/17 at 09:00 Ursodiol 300 mg 300 mg TID PO Last administered on 08/01/17 13:23; Admin Dose 300 MG; Start 07/30/17 at 09:00 Sodium Chloride (NS) 1,000 ml @ 60 mls/hr [id number] IV Last administered on 11:00; Admin Dose 60 MLS/HR; Start 07/30/17 at 09:00 Ondansetron HCl (Zofran Inj) 4 mg Q6H PRN IV NAUSEA AND/OR VOMITING; Start at 09:00 Acetaminophen (Tylenol Tab) 650 mg Q6H PRN PO PAIN LEVEL 1-3 OR FEVER; Start 07/30/17 at 09:00 Acetaminophen (Tylenol Supp) 650 mg Q6H PRN [place] PAIN LEVEL 1-3 OR FEVER; Start 07/30/17 at 09:00 Famotidine (Pepcid Iv) 20 mg DAILY IV Last administered on 08/01/17 09:45; Admin Dose 20 MG; Start 07/31/17 at 09:00 Lactulose (Lactulose Enema) 100 ml Q6 [place] Last administered on 08/01/17 12:32 ; Admin Dose 100 ML; Start 07/31/17 at 00:00 RAFAT BERKOWITZ Aug 01, 2017 13:51
--- NOTE | 2017-08-01 17:48 | CONS ---
Date/Time of Note Date/Time of Note DATE: 08/01/17 TIME: 17:47 Assessment/Plan Assessment/Plan Chief Complaint/Hosp Course 67 yo F with PMH cirrhosis of unknown etiology who was brought to ED by family for altered mental status. Patient is a poor historian and is not responding to questions. History was obtained from ED physician as well as from previous hospitalization records. Per ED physician, patient was noted to be very confused this am but has been taking all her medications as prescribed. She has not had any documented fevers at home per family. Patient lives with her daughter as well. she gets admitted for ALOC, hepatic encephalopahty, ascites and mild Acute kidney injury. renal has been consulted for it. Problems: Additional Assessment/Plan 1. Altered mental status secondary to hepatic encephalopathy 2. acute Kidney injury vs Acute kidney injury on CKD due to Hepartorenal syndrome + prerenal azotemia 3. Hyponatremia 4. Hyperkalemia 5. Acute Transaminitis with Hyperammonia 6. Anemia of chronic disease Plan: Lactulose + Rifaximin for hepatic encephalopathy S/p US guided paracentesis yesterday - 3 L removed, pt received post procedur eIV albumin BUN improved, Cr stable d/c IVF, change lasix to PO monitor electrolytes and Replace as needed. will follow up Consultation Date/Type/Reason Admit Date/Time Jul 30, 2017 at 04:53 Initial Consult Date 07/31/17 Type of Consultation: NEPHROLOGY Referring Provider: DENYS CRAIG MD Exam/Review of Systems Vital Signs Vitals Vital Signs Date Time Temp Pulse Resp B/P Pulse Ox O2 Delivery O2 Flow Rate FiO2 08/01/17 16:00 77 08/01/17 15:55 97.8 18 113/59 98 07/31/17 07:20 Room Air Intake and Output 07/31/17 07/31/17 08/01/17 15:00 23:00 07:00 Intake Total 980 ml Balance 980 ml Exam Constitutional: awake,alert today Respiratory: clear to auscultation, diminished breath sounds, No crackles/rales , No wheezing Cardiovascular: regular rate and rhythm, No murmurs/extra sounds, No systolic murmur Gastrointestinal: ascites, bowel sounds, distended, soft, No firm, No rebound or guarding, Musculoskeletal: nl extremities to inspection Extremities: mild pitting edema, no clubbing no cyanosis Neurological: confused, lethargic, Results Result Diagram: 08/01/17 1038 08/01/17 1038 Results 24 hrs Laboratory Tests Test 08/01/17 10:38 08/01/17 12:22 White Blood Count 4.5 L Red Blood Count 2.20 L Hemoglobin 8.7 L Hematocrit 25.7 L Mean Corpuscular Volume 116.8 H Mean Corpuscular Hemoglobin 39.5 H Mean Corpuscular Hemoglobin Concent 33.9 Red Cell Distribution Width 14.8 H Platelet Count 53 L Mean Platelet Volume 9.0 Neutrophils % 74.0 Lymphocytes % 11.9 L Monocytes % 11.0 Eosinophils % 1.5 Basophils % 0.7 Nucleated Red Blood Cells % 0.0 Neutrophils # 3.4 Lymphocytes # 0.5 L Monocytes # 0.5 Eosinophils # 0.1 Basophils # 0.0 Nucleated Red Blood Cells # 0.0 Sodium Level 140 Potassium Level 4.1 Chloride Level 106 Carbon Dioxide Level 20 L Anion Gap 18 H Blood Urea Nitrogen 49 #H Creatinine 1.21 H Glucose Level 111 Calcium Level 8.8 Total Bilirubin 8.1 H Direct Bilirubin 3.40 H Indirect Bilirubin 4.7 H Aspartate Amino Transf (AST/SGOT) 43 Alanine Aminotransferase (ALT/SGPT) 35 Alkaline Phosphatase 127 H Total Protein 6.3 Albumin 2.7 L Globulin 3.60 H Albumin/Globulin Ratio 0.75 Bedside Glucose 122 Medications Medications Current Medications Folic Acid (Folic Acid) 1 mg DAILY PO Last administered on 08/01/17 09:45; Admin Dose 1 MG; Start 07/30/17 at 09:00 Rifaximin (Xifaxan) 550 mg BID PO Last administered on 08/01/17 09:45; Admin Dose 550 MG; Start 07/30/17 at 09:00 Spironolactone (Aldactone) 50 mg DAILY PO Last administered on 08/01/17 09:45 ; Admin Dose 50 MG; Start 07/30/17 at 09:00 Ursodiol 300 mg 300 mg TID PO Last administered on 08/01/17 13:23; Admin Dose 300 MG; Start 07/30/17 at 09:00 Sodium Chloride (NS) 1,000 ml @ 60 mls/hr [id number] IV Last administered on 11:00; Admin Dose 60 MLS/HR; Start 07/30/17 at 09:00 Ondansetron HCl (Zofran Inj) 4 mg Q6H PRN IV NAUSEA AND/OR VOMITING; Start at 09:00 Acetaminophen (Tylenol Tab) 650 mg Q6H PRN PO PAIN LEVEL 1-3 OR FEVER; Start 07/30/17 at 09:00 Acetaminophen (Tylenol Supp) 650 mg Q6H PRN [place] PAIN LEVEL 1-3 OR FEVER; Start 07/30/17 at 09:00 Famotidine (Pepcid Iv) 20 mg DAILY IV Last administered on 08/01/17t 09:45; Admin Dose 20 MG; Start 07/31/17 at 09:00 Lactulose (Enulose) 30 gm Q6 PO ; Start 08/01/17 at 18:00 NICOLE JEAN MD Aug 01, 2017 17:48
[2017-08-01] MEDS: FUROSEMIDE 20 MG INJ IV SCH (18:30)
[2017-08-01] MEDS: LACTULOSE 30ML CUP PO SCH (18:35)
--- NOTE | 2017-08-01 22:03 | RADRPT ---
PROCEDURE: MRI MRCP. CLINICAL INDICATION: Abnormal laboratory values. Cirrhosis. Biliary obstruction. TECHNIQUE: MRCP was performed without contrast. 3-D/multiplanar reformations and coronal rotating M IP images of the biliary tree were performed by the technologist and at an independent workstation. Evaluation is partially limited due to motion artifact and due to dielectric effect artifact. COMPARISON: Abdominal ultrasound dated 07/30/2017 FINDINGS: There is no intra or extrahepatic biliary ductal dilatation. No definite filling defect i s identified within the biliary tree. Evaluation of the pancreatic duct is limited with no gross pa ncreatic ductal dilatation. The gallbladder is filled with sludge and there is mild gallbladder wal l thickening. No definite stones are identified. There are moderate right and trace left pleural effusions. The liver is small with a nodular surface contour, suggestive of cirrhosis. The spleen is enlarged measuring 14.2 cm in length. There is a sm all to moderate volume of ascites. IMPRESSION: 1. No biliary ductal dilatation definitive filling defect within the biliary tree, with evaluation limited as above. 2. Gallbladder filled with sludge with nonspecific gallbladder wall thickening. 3. Cirrhotic liver with stigmata of portal hypertension including splenomegaly and small to moderat e volume of ascites. 4. Moderate right and trace left pleural effusions. RPTAT: HLBP .Serafin Prieto MD, Date Time Electronically viewed and signed by .Serafin Prieto MD, MD on 08/01/2017 22:03 .P/
[2017-08-02] VITALS (12 sets, daily range): BP systolic 107–119; BP diastolic 54–64; PULSE 68–79; RESP 16–20
[2017-08-02] MEDS: LACTULOSE 30ML CUP PO SCH ×3 (01:36→12:13)
[2017-08-02] MEDS: FUROSEMIDE 20 MG INJ IV SCH ×2 (06:15→18:28)
[2017-08-02 08:50] LABS: ABNORMAL IP MESSAGE 1; BASOPHILS % 0.5 % (0.0-2.0); EOSINOPHILS # 0.1 10^3/ul (0.0-0.5); EOSINOPHILS % 2.5 % (0.0-7.0); HEMATOCRIT 27.6 % (37.0-47.0); HEMOGLOBIN 9.3 g/dl (12.0-16.0); LYMPHOCYTES # 0.6 10^3/ul (0.8-2.9); LYMPHOCYTES % 15.2 % (15.0-51.0); MEAN CORPUSCULAR HEMOGLOBIN 40.4 pg (29.0-33.0); MEAN CORPUSCULAR HGB CONC 33.7 g/dl (32.0-37.0); MEAN PLATELET VOLUME 9.3 fl (7.4-10.4); MONOCYTE # 0.6 10^3/ul (0.3-0.9); MONOCYTES % 13.9 % (0.0-11.0); NEUTROPHIL # 2.7 10^3/ul (1.6-7.5); NEUTROPHILS % 67.4 % (39.0-77.0); RED CELL DISTRIBUTION WIDTH 14.7 % (11.5-14.5)
[2017-08-02 09:00] LABS: PLATELET COUNT 47 10^3/UL (140-415)
[2017-08-02 09:15] LABS: ALBUMIN 2.6 g/dl (3.3-4.9); ALBUMIN/GLOBULIN RATIO 0.76; BILIRUBIN,DIRECT 3.4 mg/dl (0.00-0.20); BILIRUBIN,INDIRECT 2.8 mg/dl (0-1.1); BILIRUBIN,TOTAL 6.2 mg/dl (0.2-1.3); CALCIUM 9.1 mg/dl (8.4-10.2); CREATININE 1.23 mg/dl (0.44-1.00); POTASSIUM 3.8 mmol/L (3.5-5.1)
[2017-08-02] MEDS: FOLIC ACID 1 MG TAB PO SCH (09:44)
[2017-08-02] MEDS: URSODIOL 300 MG CAP PO SCH ×3 (09:44→20:26)
[2017-08-02] MEDS: FAMOTIDINE 20 MG INJ IV SCH (09:44)
[2017-08-02] MEDS: RIFAXIMIN 550 MG TAB PO SCH ×2 (09:44→20:26)
[2017-08-02] MEDS: SPIRONOLACTONE 50 MG TAB PO SCH (09:45)
--- NOTE | 2017-08-02 13:52 | PN ---
Date/Time of Note Date/Time of Note DATE: 08/02/17 TIME: 13:48 Assessment/Plan VTE Prophylaxis VTE Prophylaxis Intervention: contraindicated Lines/Catheters IV Catheter Type (from Nrsg): Peripheral IV Assessment/Plan Assessment/Plan 1. Altered mental status secondary to hepatic encephalopathy- improving - Patient still confused but pleasant - GI on board and recommendations appreciated. Recommending transfer to tertiary center for Liver transplant - On lactulose, rifaximin, Lasix, and spironolactone - CT head showed mild generalized cerebral volume loss and nonspecific chronic microvascular ischemic disease without evidence of intracranial masses hemorrhages or midline shift. 2. Hyponatremia- resolved - Most likely secondary to hypervolemia in setting of ascites 3. Hyperkalemia- resolved 4. ZACK on CKD? - patient baseline Cr appears to be 1.2 during prior admission - Nephrology on board and recommendations appreciated. 5. Elevated LFT- trending down - Most likely secondary to cirrhosis - Will continue to monitor 6. Hyperammonia - Elevated at 69 at time of presentation - On lactulose 7. Anemia of chronic disease - no deedee bleeding appreciated 8. 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 Thrombocytopenia - Secondary to cirrhosis, 47 today - will continue to monitor and transfuse if <10K 10. Ascites - Paracentesis performed and no signs of SBP 11. CBD - Complete abd u/s with multiple findings including gallstones/sludge hepatofugal flow - MRCP showed No biliary ductal dilatation definitive filling defect within the biliary tree 12. Disposition - Awaiting decision from tertiary center regarding transfer Subjective 24 Hr Interval Summary Free Text/Dictation Patient resting comfortably. Wakes up to touch and still appears confused. No acute overnight events. Exam/Review of Systems Vital Signs Vitals Vital Signs Date Time Temp Pulse Resp B/P Pulse Ox O2 Delivery O2 Flow Rate FiO2 08/02/17 12:00 68 08/02/17 11:56 98.4 16 115/62 100 07/31/17 07:20 Room Air Intake and Output 08/01/17 08/01/17 08/02/17 15:00 23:00 07:00 Intake Total 1500 ml 200 ml Balance 1500 ml 200 ml Exam Constitutional: awake and confused but oriented to self and hospital Head: atraumatic, normocephalic Eyes: icteric bilaterally Neck: non-tender, supple Respiratory: clear to auscultation, diminished breath sounds, No crackles/rales , No wheezing Cardiovascular: regular rate and rhythm, No murmurs/extra sounds, No systolic murmur Gastrointestinal: ascites improved, bowel sounds, distended, soft, No firm, No rebound or guarding Musculoskeletal: nl extremities to inspection Extremities: normal pulses, No clubbing, No cyanosis, No edema Neurological: confused, but answering questions Results Result Diagram: 08/02/1732 08/02/1732 Results 24 hrs Laboratory Tests Test 08/02/17 07:32 White Blood Count 4.0 L Red Blood Count 2.30 L Hemoglobin 9.3 L Hematocrit 27.6 L Mean Corpuscular Volume 120.0 H Mean Corpuscular Hemoglobin 40.4 H Mean Corpuscular Hemoglobin Concent 33.7 Red Cell Distribution Width 14.7 H Platelet Count 47 L Mean Platelet Volume 9.3 Neutrophils % 67.4 Lymphocytes % 15.2 Monocytes % 13.9 H Eosinophils % 2.5 Basophils % 0.5 Nucleated Red Blood Cells % 0.0 Neutrophils # 2.7 Lymphocytes # 0.6 L Monocytes # 0.6 Eosinophils # 0.1 Basophils # 0.0 Nucleated Red Blood Cells # 0.0 Sodium Level 143 Potassium Level 3.8 Chloride Level 109 Carbon Dioxide Level 22 Anion Gap 16 Blood Urea Nitrogen 49 H Creatinine 1.23 H Glucose Level 91 Calcium Level 9.1 Magnesium Level 2.2 Total Bilirubin 6.2 H Direct Bilirubin 3.40 H Indirect Bilirubin 2.8 H Aspartate Amino Transf (AST/SGOT) 43 Alanine Aminotransferase (ALT/SGPT) 39 Alkaline Phosphatase 137 H Total Protein 6.0 L Albumin 2.6 L Globulin 3.40 H Albumin/Globulin Ratio 0.76 Medications Medications Current Medications Folic Acid (Folic Acid) 1 mg DAILY PO Last administered on 08/02/17 09:44; Admin Dose 1 MG; Start 07/30/17 at 09:00 Rifaximin (Xifaxan) 550 mg BID PO Last administered on 08/02/17 09:44; Admin Dose 550 MG; Start 07/30/17 at 09:00 Spironolactone (Aldactone) 50 mg DAILY PO Last administered on 08/02/17 09:45 ; Admin Dose 50 MG; Start 07/30/17 at 09:00 Ursodiol (Actigall) 300 mg TID PO Last administered on 08/02/17 12:13; Admin Dose 300 MG; Start 07/30/17 at 09:00 Ondansetron HCl (Zofran Inj) 4 mg Q6H PRN IV NAUSEA AND/OR VOMITING; Start at 09:00 Acetaminophen (Tylenol Tab) 650 mg Q6H PRN PO PAIN LEVEL 1-3 OR FEVER; Start 07/30/17 at 09:00 Acetaminophen (Tylenol Supp) 650 mg Q6H PRN [place] PAIN LEVEL 1-3 OR FEVER; Start 07/30/17 at 09:00 Famotidine (Pepcid Iv) 20 mg DAILY IV Last administered on 08/02/17 09:44; Admin Dose 20 MG; Start 07/31/17 at 09:00 Lactulose (Enulose) 30 gm Q6 PO Last administered on 08/02/17 12:13; Admin Dose 30 GM; Start 08/01/17 at 18:00 DENYS CRAIG MD Aug 02, 2017 13:52
--- NOTE | 2017-08-02 14:50 | CONS ---
Date/Time of Note Date/Time of Note DATE: 08/02/17 TIME: 14:43 Assessment/Plan Assessment/Plan Chief Complaint/Hosp Course Impression: 1. Altered mental status secondary to hepatic encephalopathy- improving 2. cryptogenic cirrhosis with ascites 3. electrolyte abnormalities: likely due to cirrhosis with ascites 4. ZACK on CKD? 5. Elevated LFT- trending down 6. Hyperammonia: improving 7. Anemia of chronic disease 8. Thrombocytopenia Recommendations: 1. in contrast to what is told by family, apparently patient not on transplant list at [facility] 2. as patient's acute hospitalization issues are improving, ok from GI perspective to discharge. However, pt to remain hospitalized if deemed necessary by primary and other consultants. 3. I told brother that there may be confusion to patient's liver transplant at [facility]. Thus, if there is need to be hospitalized again, I ask family to bring patient to [facility] where her supposedly hepatology is at to avoid possible future confusion. 4. continue lactulose and rifaximen 5. supportive care from all services Above impression and recommendations d/w Dr. Néstor medrano MD Problems: Consultation Date/Type/Reason Admit Date/Time Jul 30, 2017 at 04:53 Initial Consult Date 07/31/17 Type of Consultation: GI Referring Provider: DENYS CRAIG MD 24 HR Interval Summary Free Text/Dictation lethargic, not answering much question, brother at bedside Exam/Review of Systems Vital Signs Vitals Vital Signs Date Time Temp Pulse Resp B/P Pulse Ox O2 Delivery O2 Flow Rate FiO2 08/02/17 12:00 68 08/02/17 11:56 98.4 16 115/62 100 07/31/17 07:20 Room Air Intake and Output 08/01/17 08/01/17 08/02/17 15:00 23:00 07:00 Intake Total 1500 ml 200 ml Balance 1500 ml 200 ml Exam Constitutional: frail Psych: confusion Head: atraumatic, normocephalic Eyes: EOMI, nl conjunctiva, nl lids ENMT: nl external ears & nose, nl lips & teeth, nl nasal mucosa & septum Neck: non-tender, supple Respiratory: clear to auscultation, normal air movement Cardiovascular: nl pulses, regular rate and rhythm Gastrointestinal: bowel sounds, non-tender, soft Results Result Diagram: 08/02/1732 10/20/17 0732 Results 24 hrs Laboratory Tests Test 08/02/17 07:32 White Blood Count 4.0 L Red Blood Count 2.30 L Hemoglobin 9.3 L Hematocrit 27.6 L Mean Corpuscular Volume 120.0 H Mean Corpuscular Hemoglobin 40.4 H Mean Corpuscular Hemoglobin Concent 33.7 Red Cell Distribution Width 14.7 H Platelet Count 47 L Mean Platelet Volume 9.3 Neutrophils % 67.4 Lymphocytes % 15.2 Monocytes % 13.9 H Eosinophils % 2.5 Basophils % 0.5 Nucleated Red Blood Cells % 0.0 Neutrophils # 2.7 Lymphocytes # 0.6 L Monocytes # 0.6 Eosinophils # 0.1 Basophils # 0.0 Nucleated Red Blood Cells # 0.0 Sodium Level 143 Potassium Level 3.8 Chloride Level 109 Carbon Dioxide Level 22 Anion Gap 16 Blood Urea Nitrogen 49 H Creatinine 1.23 H Glucose Level 91 Calcium Level 9.1 Magnesium Level 2.2 Total Bilirubin 6.2 H Direct Bilirubin 3.40 H Indirect Bilirubin 2.8 H Aspartate Amino Transf (AST/SGOT) 43 Alanine Aminotransferase (ALT/SGPT) 39 Alkaline Phosphatase 137 H Total Protein 6.0 L Albumin 2.6 L Globulin 3.40 H Albumin/Globulin Ratio 0.76 Medications Medications Current Medications Folic Acid (Folic Acid) 1 mg DAILY PO Last administered on 08/02/17 09:44; Admin Dose 1 MG; Start 07/30/17 at 09:00 Rifaximin (Xifaxan) 550 mg BID PO Last administered on 08/02/17 09:44; Admin Dose 550 MG; Start 07/30/17 at 09:00 Spironolactone (Aldactone) 50 mg DAILY PO Last administered on 08/02/17 09:45 ; Admin Dose 50 MG; Start 07/30/17 at 09:00 Ursodiol (Actigall) 300 mg TID PO Last administered on 08/02/17 12:13; Admin Dose 300 MG; Start 07/30/17 at 09:00 Ondansetron HCl (Zofran Inj) 4 mg Q6H PRN IV NAUSEA AND/OR VOMITING; Start at 09:00 Acetaminophen (Tylenol Tab) 650 mg Q6H PRN PO PAIN LEVEL 1-3 OR FEVER; Start 07/30/17 at 09:00 Acetaminophen (Tylenol Supp) 650 mg Q6H PRN [place] PAIN LEVEL 1-3 OR FEVER; Start 07/30/17 at 09:00 Famotidine (Pepcid Iv) 20 mg DAILY IV Last administered on 08/02/17 09:44; Admin Dose 20 MG; Start 07/31/17 at 09:00 Lactulose (Enulose) 30 gm Q6 PO Last administered on 08/02/17 12:13; Admin Dose 30 GM; Start 08/01/17 at 18:00 OSMAN CHERRY MD Aug 02, 2017 14:50
[2017-08-02] MEDS: LACTULOSE ENEMA 1,000 ML BTL PR SCH ×2 (18:29→23:46)
--- NOTE | 2017-08-02 18:29 | CONS ---
Date/Time of Note Date/Time of Note DATE: 08/02/17 TIME: 18:27 Assessment/Plan Assessment/Plan Additional Assessment/Plan 1. Altered mental status secondary to hepatic encephalopathy 2. acute Kidney injury vs Acute kidney injury on CKD due to Hepartorenal syndrome + prerenal azotemia 3. Hyponatremia 4. Hyperkalemia 5. Acute Transaminitis with Hyperammonia 6. Anemia of chronic disease Plan: Lactulose + Rifaximin for hepatic encephalopathy S/p US guided paracentesis 08/01/17 - 3 L removed, pt received post procedure IV albumin BUN improved, Cr 1.23 lasix changed to PO monitor electrolytes and Replace as needed. will follow up Consultation Date/Type/Reason Admit Date/Time Jul 30, 2017 at 04:53 Initial Consult Date 07/31/17 Type of Consultation: NEPHROLOGY Referring Provider: DENYS CRAIG MD Exam/Review of Systems Vital Signs Vitals Vital Signs Date Time Temp Pulse Resp B/P Pulse Ox O2 Delivery O2 Flow Rate FiO2 08/02/17 16:26 98.4 77 18 107/57 96 07/31/17 07:20 Room Air Intake and Output 08/01/17 08/01/17 08/02/17 15:00 23:00 07:00 Intake Total 1500 ml 200 ml Balance 1500 ml 200 ml Exam Constitutional: awake,alert today Respiratory: clear to auscultation, diminished breath sounds, No crackles/rales , No wheezing Cardiovascular: regular rate and rhythm, No murmurs/extra sounds, No systolic murmur Gastrointestinal: ascites, bowel sounds, distended, soft, No firm, No rebound or guarding, Musculoskeletal: nl extremities to inspection Extremities: mild pitting edema, no clubbing no cyanosis Results Result Diagram: 08/02/17 0732 08/02/17 0732 Results 24 hrs Laboratory Tests Test 08/02/17 07:32 White Blood Count 4.0 L Red Blood Count 2.30 L Hemoglobin 9.3 L Hematocrit 27.6 L Mean Corpuscular Volume 120.0 H Mean Corpuscular Hemoglobin 40.4 H Mean Corpuscular Hemoglobin Concent 33.7 Red Cell Distribution Width 14.7 H Platelet Count 47 L Mean Platelet Volume 9.3 Neutrophils % 67.4 Lymphocytes % 15.2 Monocytes % 13.9 H Eosinophils % 2.5 Basophils % 0.5 Nucleated Red Blood Cells % 0.0 Neutrophils # 2.7 Lymphocytes # 0.6 L Monocytes # 0.6 Eosinophils # 0.1 Basophils # 0.0 Nucleated Red Blood Cells # 0.0 Sodium Level 143 Potassium Level 3.8 Chloride Level 109 Carbon Dioxide Level 22 Anion Gap 16 Blood Urea Nitrogen 49 H Creatinine 1.23 H Glucose Level 91 Calcium Level 9.1 Magnesium Level 2.2 Total Bilirubin 6.2 H Direct Bilirubin 3.40 H Indirect Bilirubin 2.8 H Aspartate Amino Transf (AST/SGOT) 43 Alanine Aminotransferase (ALT/SGPT) 39 Alkaline Phosphatase 137 H Total Protein 6.0 L Albumin 2.6 L Globulin 3.40 H Albumin/Globulin Ratio 0.76 Medications Medications Current Medications Folic Acid (Folic Acid) 1 mg DAILY PO Last administered on 08/02/17 09:44; Admin Dose 1 MG; Start 07/30/17 at 09:00 Rifaximin (Xifaxan) 550 mg BID PO Last administered on 08/02/17 09:44; Admin Dose 550 MG; Start 07/30/17 at 09:00 Spironolactone (Aldactone) 50 mg DAILY PO Last administered on 08/02/17 09:45 ; Admin Dose 50 MG; Start 07/30/17 at 09:00 Ursodiol (Actigall) 300 mg TID PO Last administered on 08/02/17 12:13; Admin Dose 300 MG; Start 07/30/17 at 09:00 Ondansetron HCl (Zofran Inj) 4 mg Q6H PRN IV NAUSEA AND/OR VOMITING; Start at 09:00 Acetaminophen (Tylenol Tab) 650 mg Q6H PRN PO PAIN LEVEL 1-3 OR FEVER; Start 07/30/17 at 09:00 Acetaminophen (Tylenol Supp) 650 mg Q6H PRN [place] PAIN LEVEL 1-3 OR FEVER; Start 07/30/17 at 09:00 Famotidine (Pepcid Iv) 20 mg DAILY IV Last administered on 08/02/17 09:44; Admin Dose 20 MG; Start 07/31/17 at 09:00 Lactulose (Lactulose Enema) 100 ml Q6 [place] ; Start 08/02/17 at 18:00 NICOLE JEAN MD Aug 02, 2017 18:29
[2017-08-02] MEDS: SOD CHLORIDE 0.9% 1,000 ML IV SCH (20:26)
[2017-08-03] VITALS (12 sets, daily range): BP systolic 104–124; BP diastolic 50–63; PULSE 65–82; RESP 15–19
[2017-08-03] MEDS: SOD CHLORIDE 0.9% 1,000 ML IV SCH ×3 (04:38→23:13)
[2017-08-03] MEDS: FUROSEMIDE 20 MG INJ IV SCH ×2 (05:46→17:01)
[2017-08-03] MEDS: LACTULOSE ENEMA 1,000 ML BTL PR SCH ×2 (05:49→23:13)
[2017-08-03 08:18] LABS: ABNORMAL IP MESSAGE 1; BASOPHILS % 0.7 % (0.0-2.0); EOSINOPHILS # 0.1 10^3/ul (0.0-0.5); EOSINOPHILS % 2.3 % (0.0-7.0); HEMATOCRIT 28.6 % (37.0-47.0); HEMOGLOBIN 9.3 g/dl (12.0-16.0); LYMPHOCYTES # 0.9 10^3/ul (0.8-2.9); LYMPHOCYTES % 20.1 % (15.0-51.0); MEAN CORPUSCULAR HEMOGLOBIN 38.3 pg (29.0-33.0); MEAN CORPUSCULAR HGB CONC 32.5 g/dl (32.0-37.0); MEAN CORPUSCULAR VOLUME 117.7 fl (82.0-101.0); MEAN PLATELET VOLUME 9.3 fl (7.4-10.4); MONOCYTE # 0.5 10^3/ul (0.3-0.9); NEUTROPHIL # 2.8 10^3/ul (1.6-7.5); NEUTROPHILS % 65.7 % (39.0-77.0); PLATELET COUNT 48 10^3/UL (140-415); RED BLOOD COUNT 2.43 10^6/ul (4.20-5.40); RED CELL DISTRIBUTION WIDTH 14.9 % (11.5-14.5); WHITE BLOOD COUNT 4.3 10^3/ul (4.8-10.8)
[2017-08-03 08:32] LABS: POSITIVE DIFF @See below
[2017-08-03] MEDS: FAMOTIDINE 20 MG INJ IV SCH (08:34)
[2017-08-03 08:35] LABS: POTASSIUM 4.1 mmol/L (3.5-5.1)
[2017-08-03 08:36] LABS: ALBUMIN 2.5 g/dl (3.3-4.9); ALBUMIN/GLOBULIN RATIO 0.75; BILIRUBIN,DIRECT 2.7 mg/dl (0.00-0.20); BILIRUBIN,INDIRECT 3.1 mg/dl (0-1.1); BILIRUBIN,TOTAL 5.8 mg/dl (0.2-1.3); CALCIUM 8.9 mg/dl (8.4-10.2); CREATININE 1.25 mg/dl (0.44-1.00); TOTAL PROTEIN 5.8 g/dl (6.1-8.1)
[2017-08-03] MEDS: SPIRONOLACTONE 50 MG TAB PO SCH (08:37)
[2017-08-03] MEDS: FOLIC ACID 1 MG TAB PO SCH (08:37)
[2017-08-03] MEDS: RIFAXIMIN 550 MG TAB PO SCH ×2 (08:37→20:31)
[2017-08-03] MEDS: URSODIOL 300 MG CAP PO SCH ×3 (08:37→20:31)
--- NOTE | 2017-08-03 11:24 | PN ---
Date/Time of Note Date/Time of Note DATE: 08/03/17 TIME: 11:24 Assessment/Plan VTE Prophylaxis VTE Prophylaxis Intervention: contraindicated Lines/Catheters IV Catheter Type (from Nrs): Peripheral IV Urinary Cath still in place: No Assessment/Plan Assessment/Plan 1. Altered mental status secondary to hepatic encephalopathy - Ammonia still elevated this am - Patient still confused but pleasant - GI on board and recommendations appreciated. Recommending transfer to tertiary center for Liver transplant - On lactulose, rifaximin, Lasix, and spironolactone - CT head showed mild generalized cerebral volume loss and nonspecific chronic microvascular ischemic disease without evidence of intracranial masses hemorrhages or midline shift. 2. Hyponatremia- resolved - Most likely secondary to hypervolemia in setting of ascites 3. Hyperkalemia- resolved 4. ZACK on CKD- stabilizing - patient baseline Cr appears to be 1.2 during prior admission - Nephrology on board and recommendations appreciated. 5. Elevated LFT- trending down - Most likely secondary to cirrhosis - Will continue to monitor 6. Hyperammonia - Elevated at 69 at time of presentation and 88 this am - On lactulose 7. Anemia of chronic disease - no deedee bleeding appreciated 8. Cirrhosis of liver - followed by Dr. Monzon, net mobile developer - Seen at Transplant clinic at [facility] per daughter - Per daughter, they are unsure cause of her cirrhosis but does admit to patient being overweight prior to illness. ?OWEN as cause of her cirrhosis 9. Thrombocytopenia - Secondary to cirrhosis, 48 today - will continue to monitor and transfuse if <10K 10. Ascites - Paracentesis performed and no signs of SBP 11. CBD - Complete abd u/s with multiple findings including gallstones/sludge hepatofugal flow - MRCP showed No biliary ductal dilatation definitive filling defect within the biliary tree 12. Disposition - continue lactulose given elevated ammonia. - Working with CM for transfer to [facility]. Transplant center is closed this weekend and will need to touch base on Saturday Subjective 24 Hr Interval Summary Free Text/Dictation Patient still lethargic but waking up more as day progresses. Per family, they are unsure cause of her liver cirrhosis but does admit that she was overweight for many years. No acute overnight events. Exam/Review of Systems Vital Signs Vitals Vital Signs Date Time Temp Pulse Resp B/P Pulse Ox O2 Delivery O2 Flow Rate FiO2 08/03/17 08:17 98.1 80 19 111/60 94 07/31/17 07:20 Room Air Intake and Output 08/02/17 08/02/17 08/03/17 15:00 23:00 07:00 Intake Total 170 ml 1000 ml Balance 170 ml 1000 ml Exam Constitutional: awake and confused but oriented to self and hospital Head: atraumatic, normocephalic Eyes: icteric bilaterally Neck: non-tender, supple Respiratory: clear to auscultation, diminished breath sounds, No crackles/rales , No wheezing Cardiovascular: regular rate and rhythm, No murmurs/extra sounds, No systolic murmur Gastrointestinal: ascites, bowel sounds, distended, soft, No firm, No rebound or guarding Musculoskeletal: nl extremities to inspection Extremities: normal pulses, No clubbing, No cyanosis, No edema Neurological: confused, but answering questions Results Result Diagram: 08/03/17 0801 08/03/17 0801 Results 24 hrs Laboratory Tests Test 08/03/17 08:01 White Blood Count 4.3 L Red Blood Count 2.43 L Hemoglobin 9.3 L Hematocrit 28.6 L Mean Corpuscular Volume 117.7 H Mean Corpuscular Hemoglobin 38.3 H Mean Corpuscular Hemoglobin Concent 32.5 Red Cell Distribution Width 14.9 H Platelet Count 48 L Mean Platelet Volume 9.3 Neutrophils % 65.7 Lymphocytes % 20.1 Monocytes % 11.0 Eosinophils % 2.3 Basophils % 0.7 Nucleated Red Blood Cells % 0.0 Neutrophils # 2.8 Lymphocytes # 0.9 Monocytes # 0.5 Eosinophils # 0.1 Basophils # 0.0 Nucleated Red Blood Cells # 0.0 Sodium Level 147 H Potassium Level 4.1 Chloride Level 112 H Carbon Dioxide Level 23 Anion Gap 16 Blood Urea Nitrogen 48 H Creatinine 1.25 H Glucose Level 79 Calcium Level 8.9 Magnesium Level 2.2 Total Bilirubin 5.8 H Direct Bilirubin 2.70 H Indirect Bilirubin 3.1 H Aspartate Amino Transf (AST/SGOT) 42 Alanine Aminotransferase (ALT/SGPT) 40 Alkaline Phosphatase 126 H Ammonia 88 H Total Protein 5.8 L Albumin 2.5 L Globulin 3.30 H Albumin/Globulin Ratio 0.75 Medications Medications Current Medications Folic Acid (Folic Acid) 1 mg DAILY PO Last administered on 08/03/17t 08:37; Admin Dose 1 MG; Start 07/30/17 at 09:00 Rifaximin (Xifaxan) 550 mg BID PO Last administered on 08/03/17 08:37; Admin Dose 550 MG; Start 07/30/17 at 09:00 Spironolactone (Aldactone) 50 mg DAILY PO Last administered on 08/03/17 08:37 ; Admin Dose 50 MG; Start 07/30/17 at 09:00 Ursodiol (Actigall) 300 mg TID PO Last administered on 08/03/17 08:37; Admin Dose 300 MG; Start 07/30/17 at 09:00 Ondansetron HCl (Zofran Inj) 4 mg Q6H PRN IV NAUSEA AND/OR VOMITING; Start at 09:00 Acetaminophen (Tylenol Tab) 650 mg Q6H PRN PO PAIN LEVEL 1-3 OR FEVER; Start 07/30/17 at 09:00 Acetaminophen (Tylenol Supp) 650 mg Q6H PRN [place] PAIN LEVEL 1-3 OR FEVER; Start 07/30/17 at 09:00 Famotidine (Pepcid Iv) 20 mg DAILY IV Last administered on 08/03/17 08:34; Admin Dose 20 MG; Start 07/31/17 at 09:00 Lactulose 100 ml 100 ml Q6 [place] Last administered on 08/03/17 05:49; Admin Dose 100 ML; Start 08/02/17 at 18:00 Sodium Chloride (NS) 1,000 ml @ 60 mls/hr [id number] IV Last administered on 04:38; Admin Dose 60 MLS/HR; Start 08/02/17 at 20:00 DENYS CRAIG MD Aug 03, 2017 11:24
[2017-08-03] MEDS: LACTULOSE 30ML CUP PO SCH ×2 (12:35→17:01)
--- NOTE | 2017-08-03 16:36 | CONS ---
Date/Time of Note Date/Time of Note DATE: 08/03/17 TIME: 16:33 Assessment/Plan Assessment/Plan Chief Complaint/Hosp Course Impression: 1. Altered mental status secondary to hepatic encephalopathy- persistently solumnent 2. cryptogenic cirrhosis with ascites 3. electrolyte abnormalities: likely due to cirrhosis with ascites 4. ZACK on CKD? 5. Elevated LFT- trending down 6. Hyperammonia: worsening 7. Anemia of chronic disease 8. Thrombocytopenia Recommendations: 1. in contrast to what is told by family, apparently patient not on transplant list at [facility] 2. as patient's acute hospitalization issues are not improving (eg worsening hepatic encephalopathy and rising ammonia level despite maximal medical therapy) , please see if pt can be transfer to [facility] liver transplant center. 3. I told brother that there may be confusion to patient's liver transplant at [facility]. Thus, if there is need to be hospitalized again, I ask family to bring patient to [facility] where her supposedly hepatology is at to avoid possible future confusion. 4. continue lactulose and rifaximen 5. supportive care from all services Above impression and recommendations d/w family who is at bedside. Problems: Consultation Date/Type/Reason Admit Date/Time Jul 30, 2017 at 04:53 Initial Consult Date 07/31/17 Type of Consultation: GI Referring Provider: DENYS CRAIG MD 24 HR Interval Summary Constitutional: disoriented Exam/Review of Systems Vital Signs Vitals Vital Signs Date Time Temp Pulse Resp B/P Pulse Ox O2 Delivery O2 Flow Rate FiO2 08/03/17 16:16 82 08/03/17 16:00 98.3 19 112/56 99 07/31/17 07:20 Room Air Intake and Output 08/02/17 08/02/17 08/03/17 15:00 23:00 07:00 Intake Total 170 ml 1000 ml Balance 170 ml 1000 ml Exam Constitutional: frail, non-verbal Psych: confusion Head: atraumatic, normocephalic ENMT: mucosa pink and moist, nl external ears & nose, nl lips & teeth, nl nasal mucosa & septum Neck: non-tender, supple Respiratory: clear to auscultation, normal air movement Cardiovascular: nl pulses, regular rate and rhythm Gastrointestinal: bowel sounds, non-tender, soft Results Result Diagram: 08/03/17 0801 08/03/17 0801 Results 24 hrs Laboratory Tests Test 08/03/17 08:01 White Blood Count 4.3 L Red Blood Count 2.43 L Hemoglobin 9.3 L Hematocrit 28.6 L Mean Corpuscular Volume 117.7 H Mean Corpuscular Hemoglobin 38.3 H Mean Corpuscular Hemoglobin Concent 32.5 Red Cell Distribution Width 14.9 H Platelet Count 48 L Mean Platelet Volume 9.3 Neutrophils % 65.7 Lymphocytes % 20.1 Monocytes % 11.0 Eosinophils % 2.3 Basophils % 0.7 Nucleated Red Blood Cells % 0.0 Neutrophils # 2.8 Lymphocytes # 0.9 Monocytes # 0.5 Eosinophils # 0.1 Basophils # 0.0 Nucleated Red Blood Cells # 0.0 Sodium Level 147 H Potassium Level 4.1 Chloride Level 112 H Carbon Dioxide Level 23 Anion Gap 16 Blood Urea Nitrogen 48 H Creatinine 1.25 H Glucose Level 79 Calcium Level 8.9 Magnesium Level 2.2 Total Bilirubin 5.8 H Direct Bilirubin 2.70 H Indirect Bilirubin 3.1 H Aspartate Amino Transf (AST/SGOT) 42 Alanine Aminotransferase (ALT/SGPT) 40 Alkaline Phosphatase 126 H Ammonia 88 H Total Protein 5.8 L Albumin 2.5 L Globulin 3.30 H Albumin/Globulin Ratio 0.75 Medications Medications Current Medications Folic Acid (Folic Acid) 1 mg DAILY PO Last administered on 08/03/17 08:37; Admin Dose 1 MG; Start 07/30/17 at 09:00 Rifaximin (Xifaxan) 550 mg BID PO Last administered on 08/03/17 08:37; Admin Dose 550 MG; Start 07/30/17 at 09:00 Spironolactone (Aldactone) 50 mg DAILY PO Last administered on 08/03/17 08:37 ; Admin Dose 50 MG; Start 07/30/17 at 09:00 Ursodiol (Actigall) 300 mg TID PO Last administered on 08/03/17 12:34; Admin Dose 300 MG; Start 07/30/17 at 09:00 Ondansetron HCl (Zofran Inj) 4 mg Q6H PRN IV NAUSEA AND/OR VOMITING; Start at 09:00 Acetaminophen (Tylenol Tab) 650 mg Q6H PRN PO PAIN LEVEL 1-3 OR FEVER; Start 07/30/17 at 09:00 Acetaminophen 650 mg 650 mg Q6H PRN [place] PAIN LEVEL 1-3 OR FEVER; Start at 09:00 Sodium Chloride (NS) 1,000 ml @ 60 mls/hr [id number] IV Last administered on 04:38; Admin Dose 60 MLS/HR; Start 08/02/17 at 20:00 Lactulose (Enulose) 30 gm Q6 PO Last administered on 08/03/17 12:35; Admin Dose 30 GM; Start 08/03/17 at 12:30 Famotidine (Pepcid) 20 mg DAILY PO ; Start 08/04/17 at 09:00 OSMAN CHERRY MD Aug 03, 2017 16:36
--- NOTE | 2017-08-03 17:29 | CONS ---
Date/Time of Note Date/Time of Note DATE: 08/03/17 TIME: 17:28 Assessment/Plan Assessment/Plan Additional Assessment/Plan 1. Altered mental status secondary to hepatic encephalopathy 2. acute Kidney injury vs Acute kidney injury on CKD due to Hepartorenal syndrome + prerenal azotemia 3. Hyponatremia 4. Hyperkalemia 5. Acute Transaminitis with Hyperammonia 6. Anemia of chronic disease Plan: Lactulose + Rifaximin for hepatic encephalopathy S/p US guided paracentesis 08/01/17 - 3 L removed, pt received post procedure IV albumin BUN improved, Cr 1.28, ammonia still high 88- on lactulsoe lasix changed to PO monitor electrolytes and Replace as needed. Transfer to [facility] has been requested will follow up Consultation Date/Type/Reason Admit Date/Time Jul 30, 2017 at 04:53 Initial Consult Date 07/31/17 Type of Consultation: NEPHROLOGY Referring Provider: DENYS CRAIG MD 24 HR Interval Summary Free Text/Dictation Cr 1.25, ammonia 88 Exam/Review of Systems Vital Signs Vitals Vital Signs Date Time Temp Pulse Resp B/P Pulse Ox O2 Delivery O2 Flow Rate FiO2 08/03/17 16:16 82 08/03/17 16:00 98.3 19 112/56 99 07/31/17 07:20 Room Air Intake and Output 08/02/17 08/02/17 08/03/17 15:00 23:00 07:00 Intake Total 170 ml 1000 ml Balance 170 ml 1000 ml Exam Constitutional: awake,alert today Respiratory: clear to auscultation, diminished breath sounds, No crackles/rales , No wheezing Cardiovascular: regular rate and rhythm, No murmurs/extra sounds, No systolic murmur Gastrointestinal: ascites, bowel sounds, distended, soft, No firm, No rebound or guarding, Musculoskeletal: nl extremities to inspection Extremities: mild pitting edema, no clubbing no cyanosis Results Result Diagram: 08/03/17 0801 08/03/17 0801 Results 24 hrs Laboratory Tests Test 08/03/17 08:01 White Blood Count 4.3 L Red Blood Count 2.43 L Hemoglobin 9.3 L Hematocrit 28.6 L Mean Corpuscular Volume 117.7 H Mean Corpuscular Hemoglobin 38.3 H Mean Corpuscular Hemoglobin Concent 32.5 Red Cell Distribution Width 14.9 H Platelet Count 48 L Mean Platelet Volume 9.3 Neutrophils % 65.7 Lymphocytes % 20.1 Monocytes % 11.0 Eosinophils % 2.3 Basophils % 0.7 Nucleated Red Blood Cells % 0.0 Neutrophils # 2.8 Lymphocytes # 0.9 Monocytes # 0.5 Eosinophils # 0.1 Basophils # 0.0 Nucleated Red Blood Cells # 0.0 Sodium Level 147 H Potassium Level 4.1 Chloride Level 112 H Carbon Dioxide Level 23 Anion Gap 16 Blood Urea Nitrogen 48 H Creatinine 1.25 H Glucose Level 79 Calcium Level 8.9 Magnesium Level 2.2 Total Bilirubin 5.8 H Direct Bilirubin 2.70 H Indirect Bilirubin 3.1 H Aspartate Amino Transf (AST/SGOT) 42 Alanine Aminotransferase (ALT/SGPT) 40 Alkaline Phosphatase 126 H Ammonia 88 H Total Protein 5.8 L Albumin 2.5 L Globulin 3.30 H Albumin/Globulin Ratio 0.75 Medications Medications Current Medications Folic Acid (Folic Acid) 1 mg DAILY PO Last administered on 08/03/17 08:37; Admin Dose 1 MG; Start 07/30/17 at 09:00 Rifaximin (Xifaxan) 550 mg BID PO Last administered on 08/03/17 08:37; Admin Dose 550 MG; Start 07/30/17 at 09:00 Spironolactone (Aldactone) 50 mg DAILY PO Last administered on 08/03/17 08:37 ; Admin Dose 50 MG; Start 07/30/17 at 09:00 Ursodiol (Actigall) 300 mg TID PO Last administered on 08/03/17 12:34; Admin Dose 300 MG; Start 07/30/17 at 09:00 Ondansetron HCl (Zofran Inj) 4 mg Q6H PRN IV NAUSEA AND/OR VOMITING; Start at 09:00 Acetaminophen (Tylenol Tab) 650 mg Q6H PRN PO PAIN LEVEL 1-3 OR FEVER; Start 07/30/17 at 09:00 Acetaminophen 650 mg 650 mg Q6H PRN [place] PAIN LEVEL 1-3 OR FEVER; Start at 09:00 Sodium Chloride (NS) 1,000 ml @ 60 mls/hr [id number] IV Last administered on 04:38; Admin Dose 60 MLS/HR; Start 08/02/17 at 20:00 Lactulose (Enulose) 30 gm Q6 PO Last administered on 08/03/17t 17:01; Admin Dose 30 GM; Start 08/03/17 at 12:30 Famotidine (Pepcid) 20 mg DAILY PO ; Start 08/04/17 at 09:00 NICOLE JEAN MD Aug 03, 2017 17:28
[2017-08-04] VITALS (26 sets, daily range): BP systolic 75–133; BP diastolic 43–85; PULSE 66–99; RESP 16–23
[2017-08-04] MEDS: SOD CHLORIDE 0.9% 1,000 ML IV SCH ×3 (05:19→21:32)
[2017-08-04] MEDS: FUROSEMIDE 20 MG INJ IV SCH ×2 (05:31→16:30)
[2017-08-04] MEDS: LACTULOSE ENEMA 1,000 ML BTL PR SCH ×2 (05:44→11:19)
[2017-08-04] MEDS: RIFAXIMIN 550 MG TAB PO SCH ×2 (08:16→21:00)
[2017-08-04] MEDS: FOLIC ACID 1 MG TAB PO SCH (08:16)
[2017-08-04] MEDS: FAMOTIDINE 20 MG TAB PO SCH (08:16)
[2017-08-04] MEDS: URSODIOL 300 MG CAP PO SCH ×3 (08:17→21:00)
[2017-08-04] MEDS: SPIRONOLACTONE 50 MG TAB PO SCH (08:17)
[2017-08-04 08:32] LABS: ABNORMAL IP MESSAGE 1; BASOPHILS % 0.4 % (0.0-2.0); EOSINOPHILS # 0.1 10^3/ul (0.0-0.5); EOSINOPHILS % 1.8 % (0.0-7.0); HEMATOCRIT 28.8 % (37.0-47.0); HEMOGLOBIN 9.4 g/dl (12.0-16.0); LYMPHOCYTES # 0.9 10^3/ul (0.8-2.9); MEAN CORPUSCULAR HEMOGLOBIN 38.8 pg (29.0-33.0); MEAN CORPUSCULAR HGB CONC 32.6 g/dl (32.0-37.0); MEAN PLATELET VOLUME 9.3 fl (7.4-10.4); MONOCYTE # 0.5 10^3/ul (0.3-0.9); MONOCYTES % 10.8 % (0.0-11.0); NEUTROPHILS % 66.6 % (39.0-77.0); PLATELET COUNT 48 10^3/UL (140-415); RED BLOOD COUNT 2.42 10^6/ul (4.20-5.40); RED CELL DISTRIBUTION WIDTH 15.3 % (11.5-14.5); WHITE BLOOD COUNT 4.5 10^3/ul (4.8-10.8)
[2017-08-04 08:35] LABS: POSITIVE DIFF @See below
[2017-08-04 08:55] LABS: ALBUMIN 2.6 g/dl (3.3-4.9); ALBUMIN/GLOBULIN RATIO 0.74; BILIRUBIN,INDIRECT 3.6 mg/dl (0-1.1); BILIRUBIN,TOTAL 6.6 mg/dl (0.2-1.3); CALCIUM 8.8 mg/dl (8.4-10.2); CREATININE 1.21 mg/dl (0.44-1.00); TOTAL PROTEIN 6.1 g/dl (6.1-8.1)
--- NOTE | 2017-08-04 09:26 | PN ---
Date/Time of Note Date/Time of Note DATE: 08/04/17 TIME: 09:26 Assessment/Plan VTE Prophylaxis VTE Prophylaxis Intervention: contraindicated Lines/Catheters IV Catheter Type (from Nrs): Peripheral IV Urinary Cath still in place: No Assessment/Plan Assessment/Plan 1. Altered mental status secondary to hepatic encephalopathy - Ammonia trending downward today - Mentation still waxing and waning during the day. - GI on board and recommendations appreciated. Will continue current management for now. [facility] transfer request placed. - On lactulose, rifaximin, Lasix, and spironolactone - CT head showed mild generalized cerebral volume loss and nonspecific chronic microvascular ischemic disease without evidence of intracranial masses hemorrhages or midline shift. 2. Hypernatremia - Will change IVF to 1/2 NS 60cc/hr since not having great PO intake 3. Hyperkalemia- resolved 4. ZACK on CKD- stabilizing - patient baseline Cr appears to be 1.2 during prior admission - Nephrology on board and recommendations appreciated. 5. Elevated LFT- still elevated - Most likely secondary to cirrhosis - Will continue to monitor 6. Hyperammonia - improved, 66 today - Continue on lactulose and rifaximin 7. Anemia of chronic disease - no deedee bleeding appreciated 8. Cirrhosis of liver - followed by Dr. Monzon, gas mask assembler - Seen at Transplant clinic at [facility] per daughter - Per daughter, they are unsure cause of her cirrhosis but does admit to patient being overweight prior to illness. ?OWEN as cause of her cirrhosis 9. Thrombocytopenia - Secondary to cirrhosis - will continue to monitor and transfuse if <10K 10. Ascites - Paracentesis performed and no signs of SBP 11. CBD - Complete abd u/s with multiple findings including gallstones/sludge hepatofugal flow - MRCP showed No biliary ductal dilatation definitive filling defect within the biliary tree 12. Disposition - continue lactulose given elevated ammonia. - Working with CM for transfer to [facility]. Transplant center is closed this weekend and will need to touch base on Saturday Subjective 24 Hr Interval Summary Free Text/Dictation Patient is still lethargic this am but will wake up and answer yes and no to questions. Oriented to self and place. Mentation usually fluctuates during the day and in and out. Does wake up more as the day progresses. Exam/Review of Systems Vital Signs Vitals Vital Signs Date Time Temp Pulse Resp B/P Pulse Ox O2 Delivery O2 Flow Rate FiO2 08/04/17 08:17 98.8 68 18 104/50 99 07/31/17 07:20 Room Air Intake and Output 08/03/17 08/03/17 08/04/17 15:00 23:00 07:00 Intake Total 850 ml Balance 850 ml Exam Constitutional: awake and confused but oriented to self and hospital Head: atraumatic, normocephalic Eyes: icteric bilaterally Neck: non-tender, supple Respiratory: clear to auscultation, diminished breath sounds, No crackles/rales , No wheezing Cardiovascular: regular rate and rhythm, No murmurs/extra sounds, No systolic murmur Gastrointestinal: ascites, bowel sounds, distended, soft, No rebound or guarding Musculoskeletal: nl extremities to inspection Extremities: normal pulses, No clubbing, No cyanosis, No edema Neurological: confused, but answering yes and no to questions Results Result Diagram: 08/04/17 0741 08/04/17 0741 Results 24 hrs Laboratory Tests Test 08/04/17 07:41 White Blood Count 4.5 L Red Blood Count 2.42 L Hemoglobin 9.4 L Hematocrit 28.8 L Mean Corpuscular Volume 119.0 H Mean Corpuscular Hemoglobin 38.8 H Mean Corpuscular Hemoglobin Concent 32.6 Red Cell Distribution Width 15.3 H Platelet Count 48 L Mean Platelet Volume 9.3 Neutrophils % 66.6 Lymphocytes % 20.0 Monocytes % 10.8 Eosinophils % 1.8 Basophils % 0.4 Nucleated Red Blood Cells % 0.0 Neutrophils # 3.0 Lymphocytes # 0.9 Monocytes # 0.5 Eosinophils # 0.1 Basophils # 0.0 Nucleated Red Blood Cells # 0.0 Sodium Level 149 H Potassium Level 4.0 Chloride Level 115 H Carbon Dioxide Level 23 Anion Gap 15 Blood Urea Nitrogen 50 H Creatinine 1.21 H Glucose Level 85 Calcium Level 8.8 Magnesium Level 2.3 Total Bilirubin 6.6 H Direct Bilirubin 3.00 H Indirect Bilirubin 3.6 H Aspartate Amino Transf (AST/SGOT) 46 Alanine Aminotransferase (ALT/SGPT) 39 Alkaline Phosphatase 146 H Ammonia 66 H Total Protein 6.1 Albumin 2.6 L Globulin 3.50 H Albumin/Globulin Ratio 0.74 Medications Medications Current Medications Folic Acid (Folic Acid) 1 mg DAILY PO Last administered on 08/04/17t 08:16; Admin Dose 1 MG; Start 07/30/17 at 09:00 Rifaximin (Xifaxan) 550 mg BID PO Last administered on 08/04/17 08:16; Admin Dose 550 MG; Start 07/30/17 at 09:00 Spironolactone (Aldactone) 50 mg DAILY PO Last administered on 08/04/17 08:17 ; Admin Dose 50 MG; Start 07/30/17 at 09:00 Ursodiol (Actigall) 300 mg TID PO Last administered on 08/04/17 08:17; Admin Dose 300 MG; Start 07/30/17 at 09:00 Ondansetron HCl (Zofran Inj) 4 mg Q6H PRN IV NAUSEA AND/OR VOMITING; Start at 09:00 Acetaminophen (Tylenol Tab) 650 mg Q6H PRN PO PAIN LEVEL 1-3 OR FEVER; Start 07/30/17 at 09:00 Acetaminophen 650 mg 650 mg Q6H PRN [place] PAIN LEVEL 1-3 OR FEVER; Start at 09:00 Sodium Chloride (NS) 1,000 ml @ 60 mls/hr [id number] IV Last administered on 23:13; Admin Dose 60 MLS/HR; Start 08/02/17 at 20:00 Famotidine (Pepcid) 20 mg DAILY PO Last administered on 08/04/17 08:16; Admin Dose 20 MG; Start 08/04/17 at 09:00 Lactulose (Lactulose Enema) 100 ml Q6 [place] Last administered on 08/04/17 05:44 ; Admin Dose 100 ML; Start 08/04/17 at 00:00 DENYS CRAIG MD Aug 04, 2017 09:26
[2017-08-04] MEDS ORDERED: LACTULOSE 30ML CUP PO PRN (11:00)
[2017-08-04] MEDS ORDERED: SOD CHLORIDE 0.45% 1,000 ML IV SCH (12:00)
--- NOTE | 2017-08-04 12:11 | CONS ---
Date/Time of Note Date/Time of Note DATE: 08/04/17 TIME: 12:10 Assessment/Plan Assessment/Plan Additional Assessment/Plan 1. Altered mental status secondary to hepatic encephalopathy 2. acute Kidney injury vs Acute kidney injury on CKD due to Hepartorenal syndrome + prerenal azotemia 3. Hyponatremia 4. Hyperkalemia 5. Acute Transaminitis with Hyperammonia 6. Anemia of chronic disease Plan: Lactulose + Rifaximin for hepatic encephalopathy S/p US guided paracentesis 08/01/17 - 3 L removed, pt received post procedure IV albumin BUN improved, Cr 1.21,Na 149, ammonia still high 88- on lactulsoe Lasix changed to PO monitor electrolytes and Replace as needed. Transfer to [facility] has been requested will follow up Consultation Date/Type/Reason Admit Date/Time Jul 30, 2017 at 04:53 Initial Consult Date 07/31/17 Type of Consultation: NEPHROLOGY Referring Provider: DENYS CRAIG MD 24 HR Interval Summary Free Text/Dictation Na 149, Cr 1.21, Bp stable Exam/Review of Systems Vital Signs Vitals Vital Signs Date Time Temp Pulse Resp B/P Pulse Ox O2 Delivery O2 Flow Rate FiO2 08/04/17 11:56 97.8 71 18 122/66 100 07/31/17 07:20 Room Air Intake and Output 08/03/17 08/03/17 08/04/17 15:00 23:00 07:00 Intake Total 850 ml Balance 850 ml Exam Constitutional: awake,alert today Respiratory: clear to auscultation, diminished breath sounds, No crackles/rales , No wheezing Cardiovascular: regular rate and rhythm, No murmurs/extra sounds, No systolic murmur Gastrointestinal: ascites, bowel sounds, distended, soft, No firm, No rebound or guarding, Musculoskeletal: nl extremities to inspection Extremities: mild pitting edema, no clubbing no cyanosis Results Result Diagram: 08/04/17 0741 08/04/17 0741 Results 24 hrs Laboratory Tests Test 08/04/17 07:41 White Blood Count 4.5 L Red Blood Count 2.42 L Hemoglobin 9.4 L Hematocrit 28.8 L Mean Corpuscular Volume 119.0 H Mean Corpuscular Hemoglobin 38.8 H Mean Corpuscular Hemoglobin Concent 32.6 Red Cell Distribution Width 15.3 H Platelet Count 48 L Mean Platelet Volume 9.3 Neutrophils % 66.6 Lymphocytes % 20.0 Monocytes % 10.8 Eosinophils % 1.8 Basophils % 0.4 Nucleated Red Blood Cells % 0.0 Neutrophils # 3.0 Lymphocytes # 0.9 Monocytes # 0.5 Eosinophils # 0.1 Basophils # 0.0 Nucleated Red Blood Cells # 0.0 Sodium Level 149 H Potassium Level 4.0 Chloride Level 115 H Carbon Dioxide Level 23 Anion Gap 15 Blood Urea Nitrogen 50 H Creatinine 1.21 H Glucose Level 85 Calcium Level 8.8 Magnesium Level 2.3 Total Bilirubin 6.6 H Direct Bilirubin 3.00 H Indirect Bilirubin 3.6 H Aspartate Amino Transf (AST/SGOT) 46 Alanine Aminotransferase (ALT/SGPT) 39 Alkaline Phosphatase 146 H Ammonia 66 H Total Protein 6.1 Albumin 2.6 L Globulin 3.50 H Albumin/Globulin Ratio 0.74 Medications Medications Current Medications Folic Acid (Folic Acid) 1 mg DAILY PO Last administered on 08/04/17 08:16; Admin Dose 1 MG; Start 07/30/17 at 09:00 Rifaximin (Xifaxan) 550 mg BID PO Last administered on 08/04/17 08:16; Admin Dose 550 MG; Start 07/30/17 at 09:00 Spironolactone (Aldactone) 50 mg DAILY PO Last administered on 08/04/17 08:17 ; Admin Dose 50 MG; Start 07/30/17 at 09:00 Ursodiol (Actigall) 300 mg TID PO Last administered on 08/04/17 11:23; Admin Dose 300 MG; Start 07/30/17 at 09:00 Ondansetron HCl (Zofran Inj) 4 mg Q6H PRN IV NAUSEA AND/OR VOMITING Last administered on 08/04/17 11:26; Admin Dose 4 MG; Start 07/30/17 at 09:00 Acetaminophen (Tylenol Tab) 650 mg Q6H PRN PO PAIN LEVEL 1-3 OR FEVER; Start 07/30/17 at 09:00 Acetaminophen (Tylenol Supp) 650 mg Q6H PRN [place] PAIN LEVEL 1-3 OR FEVER; Start 07/30/17 at 09:00 Famotidine (Pepcid) 20 mg DAILY PO Last administered on 08/04/17 08:16; Admin Dose 20 MG; Start 08/04/17 at 09:00 Lactulose (Lactulose Enema) 100 ml Q6 ID Last administered on 08/04/17 05:44 ; Admin Dose 100 ML; Start 08/04/17 at 00:00 Lactulose 30 gm 30 gm Q6H PRN PO CONSTIPATION Last administered on 08/04/17 11:23; Admin Dose 30 GM; Start 08/04/17 at 11:00 Sodium Chloride (1/2 NS) 1,000 ml @ 60 mls/hr [id number] IV ; Start 08/04/17 at 12:00 NICOLE JEAN MD Aug 04, 2017 12:11
[2017-08-04] MEDS ORDERED: SOD CHLORIDE 0.9% 500 ML IV STA (15:44)
[2017-08-04 15:52] LABS: ABNORMAL IP MESSAGE 1; BASOPHILS % 0.5 % (0.0-2.0); EOSINOPHILS # 0.1 10^3/ul (0.0-0.5); EOSINOPHILS % 1.3 % (0.0-7.0); HEMOGLOBIN 9.8 g/dl (12.0-16.0); LYMPHOCYTES # 1.2 10^3/ul (0.8-2.9); LYMPHOCYTES % 18.5 % (15.0-51.0); MEAN CORPUSCULAR HEMOGLOBIN 40.3 pg (29.0-33.0); MEAN CORPUSCULAR HGB CONC 33.8 g/dl (32.0-37.0); MEAN CORPUSCULAR VOLUME 119.3 fl (82.0-101.0); MEAN PLATELET VOLUME 9.2 fl (7.4-10.4); MONOCYTE # 0.6 10^3/ul (0.3-0.9); MONOCYTES % 9.7 % (0.0-11.0); NEUTROPHIL # 4.4 10^3/ul (1.6-7.5); NEUTROPHILS % 69.2 % (39.0-77.0); RED BLOOD COUNT 2.43 10^6/ul (4.20-5.40); RED CELL DISTRIBUTION WIDTH 15.5 % (11.5-14.5); WHITE BLOOD COUNT 6.4 10^3/ul (4.8-10.8)
[2017-08-04 15:59] LABS: POSITIVE DIFF @See below
[2017-08-04 16:00] LABS: PLATELET COUNT 58 10^3/UL (140-415)
[2017-08-04 16:06] LABS: INR 2.53; PROTIME 27.6 Sec (12.2-14.2); PT RATIO 2.2
[2017-08-04] MEDS ORDERED: PHYTONADIONE 10 MG in DEXTROSE 5% 50 ML IVPB ONE (16:30)
--- NOTE | 2017-08-04 16:32 | QN ---
Documentation Comment Spoke with [facility] Director [employer] Dr. Pamela Plunkett regarding possible transfer of patient to tertiary center. 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 Patient, however, is not currently stable at this time for transfer given new onset of acute GI bleed. Will need to touch base with Case Management regarding Family saying that the insurance agrees for the transfer to [facility] but was told that unable due to contractural reasons with [facility]. Ultimately, seems as if we will need to stabilize patient and have her follow up with her surgical garment fitter. Will attempt to contact Dr. Calabrese, hepatology at [facility] tomorrow. DENYS CRAIG MD Aug 04, 2017 16:32
[2017-08-04] MEDS ORDERED: SOD CHLORIDE 0.9% 1,000 ML IV ONE (17:30)
--- NOTE | 2017-08-04 17:46 | CONS ---
Date/Time of Note Date/Time of Note DATE: 08/04/17 TIME: 17:42 Assessment/Plan Assessment/Plan Chief Complaint/Hosp Course Impression: 1. Altered mental status secondary to hepatic encephalopathy- persistently solumnent 2. cryptogenic cirrhosis with ascites 3. electrolyte abnormalities: likely due to cirrhosis with ascites 4. ZACK on CKD? 5. Elevated LFT- trending down 6. Hyperammonia: worsening 7. Anemia of chronic disease 8. high aspiration risk 9. hematochezia without hematemesis or coffee ground emesis: this indicate that she has lower GIB Recommendations: 1. in contrast to what is told by family, apparently patient not on transplant list at [facility] 2. as patient's acute hospitalization issues are not improving (eg worsening hepatic encephalopathy and rising ammonia level despite maximal medical therapy) , please see if pt can be transfer to [facility] liver transplant center. 3. I told brother that there may be confusion to patient's liver transplant at [facility]. Thus, if there is need to be hospitalized again, I ask family to bring patient to [facility] where her supposedly hepatology is at to avoid possible future confusion. 4. continue lactulose and rifaximen 5. I spent a lot of time speaking with family. I explain that patient is vomiting and will not tolerate a bowel prep. If I were to give her a bowel prep , she likely will aspirate. I explained that she likely has lowe GI bleed due to the fact that her vomit do not have blood but having hematochezia. I also explained that I cannot do colonoscopy if pt cannot tolerate bowel prep. 6. I suggested that if patient bleed again, will need to consult IR for angiogram with embolization. 7. supportive care from all services Above impression and recommendations d/w family who is at bedside. Problems: Consultation Date/Type/Reason Admit Date/Time Jul 30, 2017 at 04:53 Initial Consult Date 07/31/17 Type of Consultation: GI Referring Provider: DENYS PALM MD 24 HR Interval Summary Free Text/Dictation discussed with Dr Palm and nurse. Patient has hematochezia with clot. She also vomitted her lunch without blood. Subjective hx not possible: pt non-verbal, pt critical status Exam/Review of Systems Vital Signs Vitals Vital Signs Date Time Temp Pulse Resp B/P Pulse Ox O2 Delivery O2 Flow Rate FiO2 08/04/17 17:39 18 95/60 99 Room Air 10/22/17 16:22 98.0 90 Intake and Output 08/03/17 08/03/17 08/04/17 15:00 23:00 07:00 Intake Total 850 ml Balance 850 ml Exam Constitutional: non-verbal Psych: confusion Head: atraumatic, normocephalic Eyes: icteric ENMT: nl external ears & nose, nl lips & teeth, nl nasal mucosa & septum Neck: non-tender, supple Respiratory: clear to auscultation, normal air movement Cardiovascular: nl pulses, regular rate and rhythm Gastrointestinal: bowel sounds, non-tender, soft Results Result Diagram: 08/04/17 1509 08/04/17 0741 Results 24 hrs Laboratory Tests Test 08/04/17 07:41 08/04/17 15:09 White Blood Count 4.5 L 6.4 # Red Blood Count 2.42 L 2.43 L Hemoglobin 9.4 L 9.8 L Hematocrit 28.8 L 29.0 L Mean Corpuscular Volume 119.0 H 119.3 H Mean Corpuscular Hemoglobin 38.8 H 40.3 H Mean Corpuscular Hemoglobin Concent 32.6 33.8 Red Cell Distribution Width 15.3 H 15.5 H Platelet Count 48 L 58 #L Mean Platelet Volume 9.3 9.2 Neutrophils % 66.6 69.2 Lymphocytes % 20.0 18.5 Monocytes % 10.8 9.7 Eosinophils % 1.8 1.3 Basophils % 0.4 0.5 Nucleated Red Blood Cells % 0.0 0.0 Neutrophils # 3.0 4.4 Lymphocytes # 0.9 1.2 Monocytes # 0.5 0.6 Eosinophils # 0.1 0.1 Basophils # 0.0 0.0 Nucleated Red Blood Cells # 0.0 0.0 Sodium Level 149 H Potassium Level 4.0 Chloride Level 115 H Carbon Dioxide Level 23 Anion Gap 15 Blood Urea Nitrogen 50 H Creatinine 1.21 H Glucose Level 85 Calcium Level 8.8 Magnesium Level 2.3 Total Bilirubin 6.6 H Direct Bilirubin 3.00 H Indirect Bilirubin 3.6 H Aspartate Amino Transf (AST/SGOT) 46 Alanine Aminotransferase (ALT/SGPT) 39 Alkaline Phosphatase 146 H Ammonia 66 H Total Protein 6.1 Albumin 2.6 L Globulin 3.50 H Albumin/Globulin Ratio 0.74 Prothrombin Time 27.6 #H Prothrombin Time Ratio 2.2 INR International Normalized Ratio 2.53 Medications Medications Current Medications Folic Acid (Folic Acid) 1 mg DAILY PO Last administered on 08/04/17 08:16; Admin Dose 1 MG; Start 07/30/17 at 09:00 Rifaximin (Xifaxan) 550 mg BID PO Last administered on 08/04/17 08:16; Admin Dose 550 MG; Start 07/30/17 at 09:00 Spironolactone (Aldactone) 50 mg DAILY PO Last administered on 08/04/17 08:17 ; Admin Dose 50 MG; Start 07/30/17 at 09:00 Ursodiol (Actigall) 300 mg TID PO Last administered on 08/04/17 11:23; Admin Dose 300 MG; Start 07/30/17 at 09:00 Ondansetron HCl (Zofran Inj) 4 mg Q6H PRN IV NAUSEA AND/OR VOMITING Last administered on 08/04/17 11:26; Admin Dose 4 MG; Start 07/30/17 at 09:00 Acetaminophen (Tylenol Tab) 650 mg Q6H PRN PO PAIN LEVEL 1-3 OR FEVER; Start 07/30/17 at 09:00 Acetaminophen (Tylenol Supp) 650 mg Q6H PRN [place] PAIN LEVEL 1-3 OR FEVER; Start 07/30/17 at 09:00 Famotidine (Pepcid) 20 mg DAILY PO Last administered on 08/04/17 08:16; Admin Dose 20 MG; Start 08/04/17 at 09:00 Lactulose 30 gm 30 gm Q6H PRN PO CONSTIPATION Last administered on 08/04/17 11:23; Admin Dose 30 GM; Start 08/04/17 at 11:00; Status Future Hold Sodium Chloride 1,000 ml @ 60 mls/hr [id number] IV Last administered on 12:12; Admin Dose 60 MLS/HR; Start 08/04/17 at 12:00 Sodium Chloride (NS) 1,000 ml @ 1,000 mls/hr Q1H ONCE IV ; Start 08/04/17 at 17:30; Stop 08/04/17 at 18:29 OSMAN CHERRY MD Aug 04, 2017 17:46
[2017-08-04 18:30] LABS: HEMATOCRIT 21.8 % (37.0-47.0)
[2017-08-04 21:38] LABS: AADO2 Arterial 1.6 mmHg (7.0-24.0); Allen Test ACCEPTAB; Arterial Base Excess -10.7 mmol/L (-3.0-3); Arterial COHb 0.4 % (0.0-3.0); Arterial Fraction of Oxyhgb 97.4 % (93.0-99.0); Arterial HCO3 10.7 mmol/L (22.0-26.0); Arterial MetHb 0.6 % (0.0-1.5); Arterial Total Hemglobin 7.8 g/dl (12.0-18.0); MODE ROOM AIR
[2017-08-05] VITALS (44 sets, daily range): BP systolic 43–139; BP diastolic 26–83; PULSE 79–130; RESP 13–24
[2017-08-05 03:32] LABS: AADO2 Arterial 46.1 mmHg (7.0-24.0); Allen Test ACCEPTAB; Arterial Base Excess -9.7 mmol/L (-3.0-3); Arterial COHb 0.2 % (0.0-3.0); Arterial Fraction of Oxyhgb 98.4 % (93.0-99.0); Arterial HCO3 11.3 mmol/L (22.0-26.0); Arterial MetHb 0.3 % (0.0-1.5); Arterial Total Hemglobin 12.5 g/dl (12.0-18.0); MODE NASAL CANNULA
[2017-08-05 04:04] LABS: ABNORMAL IP MESSAGE 1; BASOPHILS % 0.3 % (0.0-2.0); EOSINOPHILS % 0.1 % (0.0-7.0); HEMATOCRIT 34.5 % (37.0-47.0); HEMOGLOBIN 11.5 g/dl (12.0-16.0); LYMPHOCYTES % 14.8 % (15.0-51.0); MEAN CORPUSCULAR HGB CONC 33.3 g/dl (32.0-37.0); MEAN CORPUSCULAR VOLUME 102.1 fl (82.0-101.0); MEAN PLATELET VOLUME 10.3 fl (7.4-10.4); MONOCYTE # 1.1 10^3/ul (0.3-0.9); MONOCYTES % 8.3 % (0.0-11.0); NEUTROPHIL # 10.2 10^3/ul (1.6-7.5); NEUTROPHILS % 74.2 % (39.0-77.0); NUCLEATED RED BLOOD CELLS # 0.1 10^3/ul (0.0-0.0); NUCLEATED RED BLOOD CELLS% 0.4 /100WBC (0.0-0.0); PLATELET COUNT 79 10^3/UL (140-415); RED BLOOD COUNT 3.38 10^6/ul (4.20-5.40); RED CELL DISTRIBUTION WIDTH 25.6 % (11.5-14.5); WHITE BLOOD COUNT 13.7 10^3/ul (4.8-10.8)
[2017-08-05 04:07] LABS: POSITIVE DIFF @See below
[2017-08-05 04:26] LABS: ALBUMIN 2.3 g/dl (3.3-4.9); ALBUMIN/GLOBULIN RATIO 0.71; BILIRUBIN,DIRECT 4.2 mg/dl (0.00-0.20); BILIRUBIN,INDIRECT 4.3 mg/dl (0-1.1); BILIRUBIN,TOTAL 8.5 mg/dl (0.2-1.3); CALCIUM 8.3 mg/dl (8.4-10.2); CREATININE 1.95 mg/dl (0.44-1.00); MAGNESIUM 2.1 mg/dl (1.7-2.5); POTASSIUM 5.3 mmol/L (3.5-5.1); TOTAL PROTEIN 5.5 g/dl (6.1-8.1)
[2017-08-05] MEDS: FUROSEMIDE 20 MG INJ IV SCH (05:42)
[2017-08-05] MEDS ORDERED: ETOMIDATE 20 MG INJ ONE (07:00)
[2017-08-05] MEDS ORDERED: ROCURONIUM 50 MG INJ ONE (07:00)
[2017-08-05] MEDS ORDERED: NA BICARBONATE 8.4% 50 ML SYG ONE ×2 (07:50→23:56)
[2017-08-05] MEDS: SOD CHLORIDE 0.9% 1,000 ML IV SCH (07:50)
[2017-08-05] MEDS ORDERED: SODIUM BICARBONATE (IV ADD) 100 MEQ in DEXTROSE 5% 1,000 ML IV SCH (08:00)
[2017-08-05] MEDS ORDERED: NA BICARBONATE 8.4% 50 ML SYG IV ONE (08:00)
[2017-08-05] MEDS ORDERED: LACTULOSE 30ML CUP GTB SCH (08:13)
[2017-08-05] MEDS: RIFAXIMIN 550 MG TAB PO SCH ×2 (09:00→21:41)
[2017-08-05] MEDS: SODIUM BICARBONATE (IV ADD) 100 MEQ in DEXTROSE 5% 1,000 ML IV SCH (09:15)
[2017-08-05] MEDS: URSODIOL 300 MG CAP PO SCH ×3 (10:23→21:54)
[2017-08-05] MEDS: FAMOTIDINE 20 MG TAB PO SCH (10:23)
[2017-08-05] MEDS: FOLIC ACID 1 MG TAB PO SCH (10:23)
[2017-08-05] MEDS: ALBUMIN HUMAN 25% 50 ML IV SCH ×2 (12:03→20:05)
[2017-08-05] MEDS: LACTULOSE 30ML CUP GTB SCH ×3 (13:19→21:41)
--- NOTE | 2017-08-05 13:26 | PN ---
Date/Time of Note Date/Time of Note DATE: 08/05/17 TIME: 13:10 Assessment/Plan VTE Prophylaxis VTE Prophylaxis Intervention: SCD's Lines/Catheters IV Catheter Type (from [facility]): Peripheral IV Urinary Cath still in place: Yes Reason Cath still needed: other (indicate) (monitor out-put) Assessment/Plan Chief Complaint/Hosp Course Assessment: AMS secondary to hepatic encephalopathy Cryptogenic cirrhosis with ascites Electrolyte abnormalities: likely due to cirrhosis with ascites . Macrocytic anemia Hyperammonia: worsening Hematochezia without hematemesis or coffee ground emesis: this indicate that she has lower GIB High aspiration risk ZACK on CKD? Plan: Patient not on transplant list at [facility], despite what was stated by the family. Process has been initiated to transfer patient to tertiary hospital capable of liver transplant ([facility]), as patients condition is worsening Continue lactulose and rifaximen Despite lower GI bleed, patient is not a candidate for colonoscopy, Details were discussed with family over the weekend by Dr. Roper. If GI bleed does not resolve with need to consult IR for angiogram with embolization. Supportive care from all services Patient seen in collaboration with Dr. Roblero Subjective: Course reviewed with nursing staff Patient interviewed and examined All labs, imaging and other results reviewed Pt is currently non-responsive, ng-tube for medication No family at bedside Case management working on transfer to tertiary care [facility] Constitutional: non-verbal Psych: confusion Head: atraumatic, normocephalic Eyes: icteric ENMT: nl external ears & nose, nl lips & teeth, nl nasal mucosa & septum Neck: non-tender, supple Respiratory: clear to auscultation Cardiovascular: nl pulses, regular rate and rhythm Gastrointestinal: bowel sounds, non-tender, soft Problems: Exam/Review of Systems Vital Signs Vitals Vital Signs Date Time Temp Pulse Resp B/P Pulse Ox O2 Delivery O2 Flow Rate FiO2 08/05/17 08:00 87 08/05/17 06:00 20 108/60 100 Nasal Cannula 4.0 08/05/17 04:00 97.0 Intake and Output 08/04/17 08/04/17 08/05/17 15:00 23:00 07:00 Intake Total 2192 ml 1125 ml Output Total 40 ml Balance 2192 ml 1085 ml Results Result Diagram: 08/05/17 0330 08/05/17 0330 Results 24 hrs Laboratory Tests Test 08/04/17 15:09 08/04/17 17:55 08/04/17 21:15 08/05/17 03:15 White Blood Count 6.4 # Red Blood Count 2.43 L Hemoglobin 9.8 L 7.0 #L Hematocrit 29.0 L 21.8 #L Mean Corpuscular Volume 119.3 H Mean Corpuscular Hemoglobin 40.3 H Mean Corpuscular Hemoglobin Concent 33.8 Red Cell Distribution Width 15.5 H Platelet Count 58 #L Mean Platelet Volume 9.2 Neutrophils % 69.2 Lymphocytes % 18.5 Monocytes % 9.7 Eosinophils % 1.3 Basophils % 0.5 Nucleated Red Blood Cells % 0.0 Neutrophils # 4.4 Lymphocytes # 1.2 Monocytes # 0.6 Eosinophils # 0.1 Basophils # 0.0 Nucleated Red Blood Cells # 0.0 Prothrombin Time 27.6 #H Prothrombin Time Ratio 2.2 INR International Normalized Ratio 2.53 Blood Gas Specimen Source Blood arterial Blood arterial Arterial Blood Date Drawn 08/04/2017 9:25:38 PM 08/05/2017 3:27:16 AM Arterial Blood pH (Temp corrected) 7.509 H 7.469 H Arterial Blood pCO2 (Temp correct) 13.8 L 15.9 L Arterial Blood pO2 (Temp corrected) 131.6 H 149.1 H Arterial Blood HCO3 10.7 L 11.3 L Arterial Blood Base Excess -10.7 L -9.7 L Arterial Blood Oxygen Saturation 98.4 H 98.9 H Adonay Test ACCEPTAB ACCEPTAB Arterial Blood Gas Puncture Site Left Radial Right Radial Arterial Blood Carboxyhemoglobin 0.4 0.2 Arterial Blood Methemoglobin 0.6 0.3 Blood Gas A-a O2 Differential 1.6 L 46.1 H Oxyhemoglobin Percent 97.4 98.4 Total Hemoglobin 7.8 L 12.5 Blood Gas Temperature 37.0 37.0 Blood Gas Modality ROOM AIR NASAL CANNULA FiO2 21.0 30.0 Blood Gas Notified Whom KP COLLINS Blood Gas Notified Time 08/04/2017 9:38:34 PM 08/05/2017 3:32:49 AM Test 08/05/17 03:30 White Blood Count 13.7 #H Red Blood Count 3.38 #L Hemoglobin 11.5 #L Hematocrit 34.5 #L Mean Corpuscular Volume 102.1 H Mean Corpuscular Hemoglobin 34.0 H Mean Corpuscular Hemoglobin Concent 33.3 Red Cell Distribution Width 25.6 #H Platelet Count 79 #L Mean Platelet Volume 10.3 Neutrophils % 74.2 Lymphocytes % 14.8 L Monocytes % 8.3 Eosinophils % 0.1 Basophils % 0.3 Nucleated Red Blood Cells % 0.4 H Neutrophils # 10.2 H Lymphocytes # 2.0 Monocytes # 1.1 H Eosinophils # 0.0 Basophils # 0.0 Nucleated Red Blood Cells # 0.1 H Sodium Level 148 H Potassium Level 5.3 H Chloride Level 116 H Carbon Dioxide Level 12 #L Anion Gap 25 #H Blood Urea Nitrogen 51 H Creatinine 1.95 H Glucose Level 116 Calcium Level 8.3 L Magnesium Level 2.1 Total Bilirubin 8.5 H Direct Bilirubin 4.20 #H Indirect Bilirubin 4.3 H Aspartate Amino Transf (AST/SGOT) 89 H Alanine Aminotransferase (ALT/SGPT) 48 Alkaline Phosphatase 122 H Ammonia 202 #H Total Protein 5.5 L Albumin 2.3 L Globulin 3.20 Albumin/Globulin Ratio 0.71 Medications Medications Current Medications Folic Acid (Folic Acid) 1 mg DAILY PO Last administered on 08/05/17 10:23; Admin Dose 1 MG; Start 07/30/17 at 09:00 Rifaximin (Xifaxan) 550 mg BID PO Last administered on 08/05/17 09:00; Admin Dose 550 MG; Start 07/30/17 at 09:00 Ursodiol (Actigall) 300 mg TID PO Last administered on 08/05/17 10:23; Admin Dose 300 MG; Start 07/30/17 at 09:00 Ondansetron HCl (Zofran Inj) 4 mg Q6H PRN IV NAUSEA AND/OR VOMITING Last administered on 08/04/17 11:26; Admin Dose 4 MG; Start 07/30/17 at 09:00 Acetaminophen (Tylenol Tab) 650 mg Q6H PRN PO PAIN LEVEL 1-3 OR FEVER; Start 07/30/17 at 09:00 Acetaminophen (Tylenol Supp) 650 mg Q6H PRN [place] PAIN LEVEL 1-3 OR FEVER; Start 07/30/17 at 09:00 Famotidine (Pepcid) 20 mg DAILY PO Last administered on 08/05/17 10:23; Admin Dose 20 MG; Start 08/04/17 at 09:00 Lactulose 30 gm 30 gm Q6H PRN PO CONSTIPATION Last administered on 08/04/17 11:23; Admin Dose 30 GM; Start 08/04/17 at 11:00; Status Future Hold Sodium Bicarbonate/ Dextrose (Na Bicarb/D5W) 1,100 ml @ 75 mls/hr [id number] IV Last administered on 08/05/17 09:15; Admin Dose 75 MLS/HR; Start 08/05/17 at 08:00 Furosemide 20 mg 20 mg DAILY IV ; Start 08/06/17 at 09:00 Albumin Human (Albumin Human 25%) 50 ml @ 100 mls/hr Q8H IV Last administered on 08/05/17 12:03; Admin Dose 100 MLS/HR; Start 08/05/17 at 11:00; Stop at 03:29 Lactulose (Enulose) 20 gm Q4 GTB ; Start 08/05/17 at 13:00 RAFAT BERKOWITZ Aug 05, 2017 13:21
[2017-08-05] MEDS ORDERED: SOD CHLORIDE 0.9% 250 ML IV ONE ×2 (16:30→17:30)
[2017-08-05 16:36] LABS: AADO2 Arterial 126.5 mmHg (7.0-24.0); Allen Test ACCEPTAB; Arterial Base Excess -3.8 mmol/L (-3.0-3); Arterial COHb 0.3 % (0.0-3.0); Arterial Fraction of Oxyhgb 97.4 % (93.0-99.0); Arterial HCO3 14.9 mmol/L (22.0-26.0); Arterial MetHb 0.2 % (0.0-1.5); Arterial Total Hemglobin 10.7 g/dl (12.0-18.0); MODE NASAL CANNULA
--- NOTE | 2017-08-05 17:03 | CONS ---
Date/Time of Note Date/Time of Note DATE: 08/05/17 TIME: 16:57 Assessment/Plan Assessment/Plan Additional Assessment/Plan 1. Altered mental status secondary to hepatic encephalopathy 2. acute Kidney injury vs Acute kidney injury on CKD due to Hepartorenal syndrome + ATN 3. Hyponatremia 4. Hyperkalemia 5. Acute Transaminitis with Hyperammonia 6. Anemia of chronic disease 7. acute resp failure Plan: Lactulose + Rifaximin for hepatic encephalopathy- NG tube placed for Lactulose Pulmonary consult to see pt pt HCo3 14- will start sodium bicarboante drip , monitor ABG and PH S/p US guided paracentesis 08/01/17 - 3 L removed Cr 1.95, Ammonia 200- Lasix changed to PO , NG tube, stop spironolactone due to hyperkalemia monitor electrolytes and Replace as needed. Transfer to [facility] has been requested Need goals of care discussion if not transferred to [facility]< because pt has poor prognosis without liver transplant will follow up Consultation Date/Type/Reason Admit Date/Time Jul 30, 2017 at 04:53 Initial Consult Date 07/31/17 Type of Consultation: NEPHROLOGY Referring Provider: DENYS CRAIG MD 24 HR Interval Summary Free Text/Dictation pt is not doing well, trasnferred to ICU, unresponsive, had a episode of vomiting, NG tube placed, Exam/Review of Systems Vital Signs Vitals Vital Signs Date Time Temp Pulse Resp B/P Pulse Ox O2 Delivery O2 Flow Rate FiO2 08/05/17 16:00 95 23 85/52 98 08/05/17 12:00 97.7 08/05/17 08:00 Nasal Cannula 4.0 Intake and Output 08/04/17 08/04/17 08/05/17 14:59 22:59 06:59 Intake Total 2042 ml 1275 ml Output Total 40 ml Balance 2042 ml 1235 ml Exam Constitutional: lethargic, not following commands Respiratory: Bilateral rhonchi+, Poor air entry Cardiovascular: S1S2 Tachycardia Gastrointestinal: ascites, soft, NT Musculoskeletal: nl extremities to inspection Extremities: mild pitting edema, no clubbing no cyanosis NEURO: Not following commands Results Result Diagram: 08/05/17 0330 08/05/17 0330 Results 24 hrs Laboratory Tests Test 08/04/17 17:55 08/04/17 21:15 08/05/17 03:15 08/05/17 03:30 Hemoglobin 7.0 #L 11.5 #L Hematocrit 21.8 #L 34.5 #L Blood Gas Specimen Source Blood arterial Blood arterial Arterial Blood Date Drawn 08/04/2017 9:25:38 PM 08/05/2017 3:27:16 AM Arterial Blood pH (Temp corrected) 7.509 H 7.469 H Arterial Blood pCO2 (Temp correct) 13.8 L 15.9 L Arterial Blood pO2 (Temp corrected) 131.6 H 149.1 H Arterial Blood HCO3 10.7 L 11.3 L Arterial Blood Base Excess -10.7 L -9.7 L Arterial Blood Oxygen Saturation 98.4 H 98.9 H Adonay Test ACCEPTAB ACCEPTAB Arterial Blood Gas Puncture Site Left Radial Right Radial Arterial Blood Carboxyhemoglobin 0.4 0.2 Arterial Blood Methemoglobin 0.6 0.3 Blood Gas A-a O2 Differential 1.6 L 46.1 H Oxyhemoglobin Percent 97.4 98.4 Total Hemoglobin 7.8 L 12.5 Blood Gas Temperature 37.0 37.0 Blood Gas Modality ROOM AIR NASAL CANNULA FiO2 21.0 30.0 Blood Gas Notified Whom KP COLLINS Blood Gas Notified Time 08/04/2017 9:38:34 PM 08/05/2017 3:32:49 AM White Blood Count 13.7 #H Red Blood Count 3.38 #L Mean Corpuscular Volume 102.1 H Mean Corpuscular Hemoglobin 34.0 H Mean Corpuscular Hemoglobin Concent 33.3 Red Cell Distribution Width 25.6 #H Platelet Count 79 #L Mean Platelet Volume 10.3 Neutrophils % 74.2 Lymphocytes % 14.8 L Monocytes % 8.3 Eosinophils % 0.1 Basophils % 0.3 Nucleated Red Blood Cells % 0.4 H Neutrophils # 10.2 H Lymphocytes # 2.0 Monocytes # 1.1 H Eosinophils # 0.0 Basophils # 0.0 Nucleated Red Blood Cells # 0.1 H Sodium Level 148 H Potassium Level 5.3 H Chloride Level 116 H Carbon Dioxide Level 12 #L Anion Gap 25 #H Blood Urea Nitrogen 51 H Creatinine 1.95 H Glucose Level 116 Calcium Level 8.3 L Magnesium Level 2.1 Total Bilirubin 8.5 H Direct Bilirubin 4.20 #H Indirect Bilirubin 4.3 H Aspartate Amino Transf (AST/SGOT) 89 H Alanine Aminotransferase (ALT/SGPT) 48 Alkaline Phosphatase 122 H Ammonia 202 #H Total Protein 5.5 L Albumin 2.3 L Globulin 3.20 Albumin/Globulin Ratio 0.71 Test 08/05/17 16:10 Blood Gas Specimen Source Blood arterial Arterial Blood Date Drawn 08/05/2017 4:19:05 PM Arterial Blood pH (Temp corrected) 7.635 *H Arterial Blood pCO2 (Temp correct) 14.3 L Arterial Blood pO2 (Temp corrected) 113.6 H Arterial Blood HCO3 14.9 L Arterial Blood Base Excess -3.8 L Arterial Blood Oxygen Saturation 97.9 Adonay Test ACCEPTAB Arterial Blood Gas Puncture Site Right Radial Arterial Blood Carboxyhemoglobin 0.3 Arterial Blood Methemoglobin 0.2 Blood Gas A-a O2 Differential 126.5 H Oxyhemoglobin Percent 97.4 Total Hemoglobin 10.7 L Blood Gas Temperature 37.0 Blood Gas Modality NASAL CANNULA FiO2 36.0 Blood Gas Critical Value Read Back RN. [place] Blood Gas Notified Whom STEPHEN ARZATE Blood Gas Notified Time 08/05/2017 4:33:27 PM Medications Medications Current Medications Folic Acid (Folic Acid) 1 mg DAILY PO Last administered on 08/05/17 10:23; Admin Dose 1 MG; Start 07/30/17 at 09:00 Rifaximin (Xifaxan) 550 mg BID PO Last administered on 08/05/17 09:00; Admin Dose 550 MG; Start 07/30/17 at 09:00 Ursodiol (Actigall) 300 mg TID PO Last administered on 08/05/17 16:24; Admin Dose 300 MG; Start 07/30/17 at 09:00 Ondansetron HCl (Zofran Inj) 4 mg Q6H PRN IV NAUSEA AND/OR VOMITING Last administered on 08/04/17 11:26; Admin Dose 4 MG; Start 07/30/17 at 09:00 Acetaminophen (Tylenol Tab) 650 mg Q6H PRN PO PAIN LEVEL 1-3 OR FEVER; Start 07/30/17 at 09:00 Acetaminophen (Tylenol Supp) 650 mg Q6H PRN [place] PAIN LEVEL 1-3 OR FEVER; Start 07/30/17 at 09:00 Famotidine (Pepcid) 20 mg DAILY PO Last administered on 08/05/17 10:23; Admin Dose 20 MG; Start 08/04/17 at 09:00 Lactulose 30 gm 30 gm Q6H PRN PO CONSTIPATION Last administered on 08/04/17 11:23; Admin Dose 30 GM; Start 08/04/17 at 11:00; Status Future Hold Sodium Bicarbonate/ Dextrose (Na Bicarb/D5W) 1,100 ml @ 75 mls/hr [id number] IV Last administered on 08/05/17 09:15; Admin Dose 75 MLS/HR; Start 08/05/17 at 08:00 Furosemide 20 mg 20 mg DAILY IV ; Start 08/06/17 at 09:00 Albumin Human (Albumin Human 25%) 50 ml @ 100 mls/hr Q8H IV Last administered on 08/05/17 12:03; Admin Dose 100 MLS/HR; Start 08/05/17 at 11:00; Stop at 03:29 Lactulose 20 gm 20 gm Q4 GTB Last administered on 08/05/17 16:24; Admin Dose 20 GM; Start 08/05/17 at 13:00 Sodium Chloride 250 ml @ 250 mls/hr Q1H ONCE IV Last administered on 16:24; Admin Dose 250 MLS/HR; Start 08/05/17 at 16:30; Stop 08/05/17 at 17:29 Sodium Chloride (NS) 250 ml @ 250 mls/hr Q1H ONCE IV ; Start 08/05/17 at 17:30 ; Stop 08/05/17 at 18:29 NICOLE JEAN MD Aug 05, 2017 17:03
--- NOTE | 2017-08-05 17:18 | PN ---
Date/Time of Note Date/Time of Note DATE: 08/05/17 TIME: 17:12 Assessment/Plan VTE Prophylaxis VTE Prophylaxis Intervention: SCD's Lines/Catheters IV Catheter Type (from Nrsg): Peripheral IV Urinary Cath still in place: Yes Reason Cath still needed: terminal illness/intractable pain Assessment/Plan Chief Complaint/Hosp Course Assessment/Plan 1. Altered mental status secondary to hepatic encephalopathy - Ammonia increased today, worsened encephalopathy. - GI on board and recommendations appreciated. Will continue current management for now. [facility] transfer request placed. - On lactulose, rifaximin, Lasix, , holding spironolactone 2/2 hyperK. - CT head showed mild generalized cerebral volume loss and nonspecific chronic microvascular ischemic disease without evidence of intracranial masses hemorrhages or midline shift. 2. Hypernatremia - d5w with bicarb per nephro 3. Hyperkalemia- worsening, holding spironolactone 4. ZACK on CKD- worsening - patient baseline Cr appears to be 1.2 during prior admission - Nephrology on board and recommendations appreciated. - likely hepatorenal 5. Elevated LFT- still elevated - Most likely secondary to cirrhosis - Will continue to monitor 6. Hyperammonia - worsened - Continue on lactulose and rifaximin 7. Anemia of chronic disease - no [place] bleeding appreciated 8. 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 ?OWEN as cause of her cirrhosis 9. Thrombocytopenia - Secondary to cirrhosis - will continue to monitor and transfuse if <10K 10. Ascites - Paracentesis performed and no signs of SBP -ceftriaxone started for SBP prophylaxis 11. CBD - Complete abd u/s with multiple findings including gallstones/sludge hepatofugal flow - MRCP showed No biliary ductal dilatation definitive filling defect within the biliary tree 12. Disposition - continue lactulose given elevated ammonia. - Working with CM for transfer to [facility]. Will transfer to [facility] when more stable and awake vs intubated. Problems: Subjective 24 Hr Interval Summary Free Text/Dictation not very arousable. Exam/Review of Systems Vital Signs Vitals Vital Signs Date Time Temp Pulse Resp B/P Pulse Ox O2 Delivery O2 Flow Rate FiO2 08/05/17 16:00 95 08/05/17 16:00 23 85/52 98 08/05/17 12:00 97.7 08/05/17 08:00 Nasal Cannula 4.0 Intake and Output 08/04/17 08/04/17 08/05/17 15:00 23:00 07:00 Intake Total 2192 ml 1200 ml Output Total 50 ml Balance 2192 ml 1150 ml Exam Constitutional: sleeping, not easily aroused Head: atraumatic, normocephalic Eyes: icteric bilaterally Neck: non-tender, supple Respiratory: clear to auscultation, diminished breath sounds, No crackles/rales , No wheezing Cardiovascular: regular rate and rhythm, No murmurs/extra sounds, No systolic murmur Gastrointestinal: ascites, bowel sounds, distended, soft, No rebound or guarding Musculoskeletal: nl extremities to inspection Extremities: normal pulses, No clubbing, No cyanosis, No edema Neurological: not easily aroused, able to respond to noxious stimuli. Results Result Diagram: 08/05/17 0330 08/05/17 0330 Results 24 hrs Laboratory Tests Test 08/04/17 17:55 08/04/17 21:15 08/05/17 03:15 08/05/17 03:30 Hemoglobin 7.0 #L 11.5 #L Hematocrit 21.8 #L 34.5 #L Blood Gas Specimen Source Blood arterial Blood arterial Arterial Blood Date Drawn 08/04/2017 9:25:38 PM 08/05/2017 3:27:16 AM Arterial Blood pH (Temp corrected) 7.509 H 7.469 H Arterial Blood pCO2 (Temp correct) 13.8 L 15.9 L Arterial Blood pO2 (Temp corrected) 131.6 H 149.1 H Arterial Blood HCO3 10.7 L 11.3 L Arterial Blood Base Excess -10.7 L -9.7 L Arterial Blood Oxygen Saturation 98.4 H 98.9 H Adonay Test ACCEPTAB ACCEPTAB Arterial Blood Gas Puncture Site Left Radial Right Radial Arterial Blood Carboxyhemoglobin 0.4 0.2 Arterial Blood Methemoglobin 0.6 0.3 Blood Gas A-a O2 Differential 1.6 L 46.1 H Oxyhemoglobin Percent 97.4 98.4 Total Hemoglobin 7.8 L 12.5 Blood Gas Temperature 37.0 37.0 Blood Gas Modality ROOM AIR NASAL CANNULA FiO2 21.0 30.0 Blood Gas Notified Whom MA BR Blood Gas Notified Time 08/04/2017 9:38:34 PM 08/05/2017 3:32:49 AM White Blood Count 13.7 #H Red Blood Count 3.38 #L Mean Corpuscular Volume 102.1 H Mean Corpuscular Hemoglobin 34.0 H Mean Corpuscular Hemoglobin Concent 33.3 Red Cell Distribution Width 25.6 #H Platelet Count 79 #L Mean Platelet Volume 10.3 Neutrophils % 74.2 Lymphocytes % 14.8 L Monocytes % 8.3 Eosinophils % 0.1 Basophils % 0.3 Nucleated Red Blood Cells % 0.4 H Neutrophils # 10.2 H Lymphocytes # 2.0 Monocytes # 1.1 H Eosinophils # 0.0 Basophils # 0.0 Nucleated Red Blood Cells # 0.1 H Sodium Level 148 H Potassium Level 5.3 H Chloride Level 116 H Carbon Dioxide Level 12 #L Anion Gap 25 #H Blood Urea Nitrogen 51 H Creatinine 1.95 H Glucose Level 116 Calcium Level 8.3 L Magnesium Level 2.1 Total Bilirubin 8.5 H Direct Bilirubin 4.20 #H Indirect Bilirubin 4.3 H Aspartate Amino Transf (AST/SGOT) 89 H Alanine Aminotransferase (ALT/SGPT) 48 Alkaline Phosphatase 122 H Ammonia 202 #H Total Protein 5.5 L Albumin 2.3 L Globulin 3.20 Albumin/Globulin Ratio 0.71 Test 08/05/17 16:10 Blood Gas Specimen Source Blood arterial Arterial Blood Date Drawn 08/05/2017 4:19:05 PM Arterial Blood pH (Temp corrected) 7.635 *H Arterial Blood pCO2 (Temp correct) 14.3 L Arterial Blood pO2 (Temp corrected) 113.6 H Arterial Blood HCO3 14.9 L Arterial Blood Base Excess -3.8 L Arterial Blood Oxygen Saturation 97.9 Adonay Test ACCEPTAB Arterial Blood Gas Puncture Site Right Radial Arterial Blood Carboxyhemoglobin 0.3 Arterial Blood Methemoglobin 0.2 Blood Gas A-a O2 Differential 126.5 H Oxyhemoglobin Percent 97.4 Total Hemoglobin 10.7 L Blood Gas Temperature 37.0 Blood Gas Modality NASAL CANNULA FiO2 36.0 Blood Gas Critical Value Read Back RN. [place] Blood Gas Notified Whom STEPHEN ARZATE Blood Gas Notified Time 08/05/2017 4:33:27 PM Medications Medications Current Medications Folic Acid (Folic Acid) 1 mg DAILY PO Last administered on 08/05/17 10:23; Admin Dose 1 MG; Start 07/30/17 at 09:00 Rifaximin (Xifaxan) 550 mg BID PO Last administered on 08/05/17 09:00; Admin Dose 550 MG; Start 07/30/17 at 09:00 Ursodiol (Actigall) 300 mg TID PO Last administered on 08/05/17 16:24; Admin Dose 300 MG; Start 07/30/17 at 09:00 Ondansetron HCl (Zofran Inj) 4 mg Q6H PRN IV NAUSEA AND/OR VOMITING Last administered on 08/04/17 11:26; Admin Dose 4 MG; Start 07/30/17 at 09:00 Acetaminophen (Tylenol Tab) 650 mg Q6H PRN PO PAIN LEVEL 1-3 OR FEVER; Start 07/30/17 at 09:00 Acetaminophen (Tylenol Supp) 650 mg Q6H PRN [place] PAIN LEVEL 1-3 OR FEVER; Start 07/30/17 at 09:00 Famotidine (Pepcid) 20 mg DAILY PO Last administered on 08/05/17 10:23; Admin Dose 20 MG; Start 08/04/17 at 09:00 Lactulose 30 gm 30 gm Q6H PRN PO CONSTIPATION Last administered on 08/04/17 11:23; Admin Dose 30 GM; Start 08/04/17 at 11:00; Status Future Hold Sodium Bicarbonate 100 meq/Dextrose 1,100 ml @ 75 mls/hr [id number] IV Last administered on 08/05/17 09:15; Admin Dose 75 MLS/HR; Start 08/05/17 at 08:00 Albumin Human (Albumin Human 25%) 50 ml @ 100 mls/hr Q8H IV Last administered on 08/05/17 12:03; Admin Dose 100 MLS/HR; Start 08/05/17 at 11:00; Stop at 03:29 Lactulose 20 gm 20 gm Q4 GTB Last administered on 08/05/17 16:24; Admin Dose 20 GM; Start 08/05/17 at 13:00 Sodium Chloride 250 ml @ 250 mls/hr Q1H ONCE IV Last administered on 16:24; Admin Dose 250 MLS/HR; Start 08/05/17 at 16:30; Stop 08/05/17 at 17:29 Sodium Chloride 250 ml @ 250 mls/hr Q1H ONCE IV ; Start 08/05/17 at 17:30; Stop 08/05/17 at 18:29 Ceftriaxone Sodium (Rocephin) 50 ml @ 100 mls/hr Q24H IVPB ; Start 08/05/17 at 17:30 OSMAN NEGRON Aug 05, 2017 17:18
[2017-08-05] MEDS ORDERED: CEFTRIAXONE 1 GM/50 ML (PMX) 50 ML IVPB SCH (17:30)
[2017-08-05] MEDS ORDERED: SOD CHLORIDE 0.9% 500 ML IV ONE (18:30)
--- NOTE | 2017-08-05 21:10 | EN ---
Date/Time of Note Date/Time of Note DATE: 08/05/17 TIME: 21:08 ER Progress Note I was asked by her physician to intubate the patient due to acute respiratory failure Endotracheal Intubation by me: Pre assessment performed. See preceding note for details. Pre-oxygenation performed with 100% oxygen RSI: Performed w/o complication or hypoxic events. Medications as ordered. Blade: [place] Scope ET Tube: 7 cm Depth: 21 cm at the lip Intubation confirmed by colorimetric CO2, equal breath sounds, quiet over the stomach. Chest x-ray is pending and will be reviewed by her physician NG tube was already in place VIRGINIA TAVERA MD Aug 05, 2017 21:10
[2017-08-05] MEDS ORDERED: PHENYLephrine 20MG IN 250 ML 250 ML IV STA (21:17)
[2017-08-05] MEDS ORDERED: PHENYLephrine 20MG IN 250 ML 250 ML ONE (21:21)
[2017-08-05] MEDS ORDERED: SOD CHLORIDE 0.9% 500 ML IV STA (21:55)
[2017-08-05 22:17] LABS: ABNORMAL IP MESSAGE 1; HEMATOCRIT 29.8 % (37.0-47.0); HEMOGLOBIN 9.7 g/dl (12.0-16.0); MEAN CORPUSCULAR HEMOGLOBIN 35.4 pg (29.0-33.0); MEAN CORPUSCULAR HGB CONC 32.6 g/dl (32.0-37.0); MEAN CORPUSCULAR VOLUME 108.8 fl (82.0-101.0); NUCLEATED RED BLOOD CELLS% 60.5 /100WBC (0.0-0.0); PLATELET COUNT 56 10^3/UL (140-415); RED BLOOD COUNT 2.74 10^6/ul (4.20-5.40); WHITE BLOOD COUNT 1.8 10^3/ul (4.8-10.8)
[2017-08-05 22:23] LABS: POSITIVE DIFF @See below
[2017-08-05 22:26] LABS: INR 5.46; PROTIME 50.8 Sec (12.2-14.2)
[2017-08-05 22:32] LABS: PARTIAL THROMBOPLASTIN TIME 77.2 Sec (25.0-35.0)
[2017-08-05 22:35] LABS: ALBUMIN 2.4 g/dl (3.3-4.9); ALBUMIN/GLOBULIN RATIO 0.82; BILIRUBIN,DIRECT 5.1 mg/dl (0.00-0.20); BILIRUBIN,INDIRECT 2.9 mg/dl (0-1.1); CALCIUM 8.4 mg/dl (8.4-10.2); CREATININE 2.87 mg/dl (0.44-1.00); MAGNESIUM 2.1 mg/dl (1.7-2.5); TOTAL PROTEIN 5.3 g/dl (6.1-8.1)
--- NOTE | 2017-08-05 22:42 | RADRPT ---
PROCEDURE: Chest. CLINICAL INDICATION: Chest pain. TECHNIQUE: Single frontal view of the chest was obtained. COMPARISON: 07/30/2017. FINDINGS: There is an endotracheal tube 4 cm above the juanpablo. There is a nasogastric tube extending to the ga stroesophageal junction. The cardiac silhouette is within normal limits. The aortic arch is calcifi ed. There is mild bibasilar atelectasis and small right pleural effusion. There is no pneumothorax. IMPRESSION: Nasogastric tube extending to the gastroesophageal junction. Further advancement by 15 cm is recomme nded. Endotracheal tube in place. Mild bibasilar atelectasis and small right pleural effusion, unchanged. Aortic atherosclerosis. .Daniel Chapman MD, Date Time Electronically viewed and signed by .Daniel Chapman MD, MD on 08/05/2017 22:41 .T/
[2017-08-05 22:48] LABS: ANISOCYTOSIS 2+ (0-0); BURR CELLS 2+ (0-0); EOSINOPHILS % (M) 1 % (0-7); ERYTHROBLAST% (NRBC) (M) 71 % (0-0); GIANT THROMBO% (M) 1 % (0-0); MONOCYTES % (M) 6 % (0-11); PLATELET ESTIMATE DECREASED; POIKILOCYTOSIS 2+ (0-0); POLYCHROMASIA 2+ (0-0)
[2017-08-05] MEDS: PHENYLephrine 40 MG in DEXTROSE 5% 496 ML IV SCH (22:48)
[2017-08-05] MEDS ORDERED: VANCOMYCIN IV PER PHARMACY XX SCH (23:00)
[2017-08-05 23:23] LABS: Allen Test ACCEPTAB; Arterial Base Excess -18.5 mmol/L (-3.0-3); Arterial COHb 0.2 % (0.0-3.0); Arterial Fraction of Oxyhgb 98.3 % (93.0-99.0); Arterial HCO3 8.8 mmol/L (22.0-26.0); Arterial MetHb 0.6 % (0.0-1.5); Blood Gas PS 5; MODE VENT - AC
[2017-08-05] MEDS ORDERED: VANCOMYCIN 1 GM in NS 250 ML IVPB SCH (23:45)
[2017-08-05] MEDS ORDERED: NA BICARBONATE 8.4% 50 ML SYG IV STA (23:47)
[2017-08-06] VITALS (106 sets, daily range): BP systolic 38–146; BP diastolic 18–71; PULSE 69–123; RESP 14–25
[2017-08-06] MEDS: SODIUM BICARBONATE (IV ADD) 100 MEQ in DEXTROSE 5% 1,000 ML IV SCH (00:03)
[2017-08-06] MEDS ORDERED: PHENTOLAMINE 5 MG INJ SC ONE (00:30)
[2017-08-06] MEDS ORDERED: PHENYLephrine 20MG IN 250 ML 250 ML IV STA (01:10)
[2017-08-06] MEDS: LACTULOSE 30ML CUP GTB SCH ×6 (01:17→20:42)
[2017-08-06] MEDS: PHENYLephrine 40 MG in DEXTROSE 5% 496 ML IV SCH ×3 (02:32→06:35)
[2017-08-06] MEDS: ALBUMIN HUMAN 25% 50 ML IV SCH ×3 (02:33→18:45)
[2017-08-06] MEDS ORDERED: VASOPRESSIN 60 UNIT in DEXTROSE 5% 57 ML IV STA (03:11)
[2017-08-06] MEDS ORDERED: METHYLPREDNISOLONE 125 MG INJ IV STA (04:12)
[2017-08-06] MEDS ORDERED: SOD CHLORIDE 0.9% 500 ML IV STA (04:12)
[2017-08-06] MEDS ORDERED: DOPamine-D5W 1.6 MG/ML 250 ML IV STA (04:12)
[2017-08-06] MEDS ORDERED: NA BICARBONATE 8.4% 50 ML SYG IV STA (04:12)
[2017-08-06] MEDS ORDERED: DOPamine-D5W 1.6 MG/ML 250 ML ONE (04:25)
[2017-08-06 04:48] LABS: ABNORMAL IP MESSAGE 1; BASOPHILS % 0.4 % (0.0-2.0); EOSINOPHILS % 0.4 % (0.0-7.0); HEMATOCRIT 15.5 % (37.0-47.0); LYMPHOCYTES # 0.6 10^3/ul (0.8-2.9); LYMPHOCYTES % 11.3 % (15.0-51.0); MEAN CORPUSCULAR HEMOGLOBIN 35.2 pg (29.0-33.0); MEAN CORPUSCULAR HGB CONC 32.3 g/dl (32.0-37.0); MEAN CORPUSCULAR VOLUME 109.2 fl (82.0-101.0); MEAN PLATELET VOLUME 10.7 fl (7.4-10.4); MONOCYTE # 0.3 10^3/ul (0.3-0.9); MONOCYTES % 5.8 % (0.0-11.0); NEUTROPHIL # 4.5 10^3/ul (1.6-7.5); NUCLEATED RED BLOOD CELLS # 2.1 10^3/ul (0.0-0.0); NUCLEATED RED BLOOD CELLS% 37.3 /100WBC (0.0-0.0); RED BLOOD COUNT 1.42 10^6/ul (4.20-5.40); RED CELL DISTRIBUTION WIDTH 28.7 % (11.5-14.5); WHITE BLOOD COUNT 5.5 10^3/ul (4.8-10.8)
[2017-08-06 05:02] LABS: POSITIVE DIFF @See below
--- NOTE | 2017-08-06 05:03 | CONS ---
DATE OF ADMISSION: 07/30/2017 DATE OF CONSULTATION: TYPE OF CONSULTATION: Pulmonary REASON FOR CONSULTATION: Altered mental status. HISTORY OF PRESENT ILLNESS: This is a 67-year-old lady with advanced liver disease, came in on 07/14 with altered mental status. Over the past few days mentation has been worsening. Today, amm onia was significantly elevated. She subsequently transferred to intensive care unit where she luna ins altered and has decreasing urine output with worsening creatinine, consistent with renal failure , possibly secondary to hepatorenal syndrome. PAST MEDICAL HISTORY: 1. Cirrhosis, unclear etiology. 2. Thrombocytopenia. MEDICATIONS: Per chart. ALLERGIES: NONE. SOCIAL HISTORY: Alcohol, tobacco history none. PHYSICAL EXAMINATION: GENERAL: Chronically ill appearing lady, lethargic to sternal rub. VITAL SIGNS: Temperature 97, pulse is 95, blood pressure 85/52, O2 sat 96%. NECK: Supple. No JVD or lymphadenopathy. CARDIAC: S1, S2, no added sounds or murmurs. CHEST: Diminished air entry bilaterally. ABDOMEN: Soft, nontender. No guarding or rebound. EXTREMITIES: No cyanosis, clubbing, edema. NEUROLOGIC: Unable to assess. LABORATORY DATA: White count 13.7, hemoglobin 11.5, platelets of 79. Ammonia was 202, BUN 51, creatinine 1.95. Arterial blood gas: pH 7.63, pCO2 of 14, PaO2 of 113. Bicarb was 14 .9. DIAGNOSTIC STUDIES: CT brain on admission shows generalized volume loss. Paracentesis was performe d on 07/31/2017 with 3 liters volume removal. IMPRESSION: 1. Encephalopathy, likely secondary to elevated ammonia. 2. Acute renal failure, probably secondary to hepatorenal syndrome given worsening ammonia, worseni ng liver function tests and decreased urine output. 3. Leukocytosis, concerning for possible spontaneous bacterial peritonitis. PLAN: 1. Aggressive volume resuscitation. 2. Continue lactulose for increased frequency. 3. Continue rifaximin. 4. Antibiotics to cover possible SBP. 4. Discontinue diuretics. 5. Correction of metabolic acidosis. Overall prognosis is guarded. When the patient is stable, she should be transferred to liver center . Dictated By: LURDES LEON/ENA Conf#: [id number] DID#: [id number]
[2017-08-06 05:09] LABS: PLATELET COUNT 25 10^3/UL (140-415)
[2017-08-06 05:51] LABS: ALBUMIN 1.5 g/dl (3.3-4.9); ALBUMIN/GLOBULIN RATIO 1.07; BILIRUBIN,DIRECT 2.8 mg/dl (0.00-0.20); BILIRUBIN,INDIRECT 1.9 mg/dl (0-1.1); BILIRUBIN,TOTAL 4.7 mg/dl (0.2-1.3); CALCIUM 6.9 mg/dl (8.4-10.2); CREATININE 3.05 mg/dl (0.44-1.00); MAGNESIUM 1.9 mg/dl (1.7-2.5); PHOSPHORUS 4.9 mg/dl (2.5-4.9); TOTAL PROTEIN 2.9 g/dl (6.1-8.1)
[2017-08-06 07:36] LABS: AADO2 Arterial 197.4 mmHg (7.0-24.0); Arterial Base Excess -17.3 mmol/L (-3.0-3); Arterial COHb 0.6 % (0.0-3.0); Arterial Fraction of Oxyhgb 95.3 % (93.0-99.0); Arterial HCO3 9.5 mmol/L (22.0-26.0); Arterial MetHb 1.1 % (0.0-1.5); Arterial Total Hemglobin 5.8 g/dl (12.0-18.0); MODE VENT - AC
[2017-08-06] MEDS: RIFAXIMIN 550 MG TAB PO SCH ×2 (08:50→20:42)
[2017-08-06] MEDS: FAMOTIDINE 20 MG TAB PO SCH (08:50)
[2017-08-06] MEDS: FOLIC ACID 1 MG TAB PO SCH (08:50)
[2017-08-06] MEDS: URSODIOL 300 MG CAP PO SCH ×3 (08:50→20:42)
[2017-08-06] MEDS ORDERED: FUROSEMIDE 20 MG INJ IV SCH (09:00)
[2017-08-06 09:13] LABS: ABNORMAL IP MESSAGE 1; HEMATOCRIT 15.6 % (37.0-47.0); MEAN CORPUSCULAR HEMOGLOBIN 35.2 pg (29.0-33.0); MEAN CORPUSCULAR HGB CONC 32.1 g/dl (32.0-37.0); MEAN CORPUSCULAR VOLUME 109.9 fl (82.0-101.0); MEAN PLATELET VOLUME 10.5 fl (7.4-10.4); NUCLEATED RED BLOOD CELLS% 31.9 /100WBC (0.0-0.0); RED BLOOD COUNT 1.42 10^6/ul (4.20-5.40); RED CELL DISTRIBUTION WIDTH 29.1 % (11.5-14.5); WHITE BLOOD COUNT 5.9 10^3/ul (4.8-10.8)
[2017-08-06 09:14] LABS: PLATELET COUNT 23 10^3/UL (140-415); POSITIVE DIFF @See below
--- NOTE | 2017-08-06 10:39 | PN ---
Date/Time of Note Date/Time of Note DATE: 08/06/17 TIME: 10:31 Assessment/Plan VTE Prophylaxis VTE Prophylaxis Intervention: SCD's Lines/Catheters IV Catheter Type (from Nrsg): Central Line Central line still needed: Yes (medication) Urinary Cath still in place: Yes Reason Cath still needed: terminal illness/intractable pain Assessment/Plan Chief Complaint/Hosp Course Assessment: AMS secondary to hepatic encephalopathy Cryptogenic cirrhosis with ascites Electrolyte abnormalities: likely due to cirrhosis with ascites . Macrocytic anemia Hyperammonia: worsening Thrombocytopenia. ZACK on CKD? Plan: Hgb dropped to 5.0 Plt 23, labs were repeated and confirmed Started blood transfusion x2 units and platelet transfusion Will recheck hemogram after second unit of blood given below 7.5 give 1 more unit Gastric lavage positive for blood will proceed with EGD today Consent signed procedure discussed with the family who agrees Transfer to [facility] on hold due to patient's declining condition Poor prognosis Supportive care from all services Patient seen in collaboration with Dr. Roblero Subjective: Course reviewed with nursing staff Patient interviewed and examined All labs, imaging and other results reviewed Pt is currently intubated and on pressors Plan for EGD today. This plan with family who is currently at patient's bedside Continue blood transfusions, if hemoglobin less than 7.5 Transferred to [facility] on hold at this time due to patient's declining condition, Prognosis is poor Constitutional: intubated Psych: unable to assess Head: atraumatic, normocephalic Eyes: icteric ENMT: nl external ears & nose, nl lips & teeth, NGT in palce Neck: non-tender, supple Respiratory: CTA Cardiovascular: nl pulses, regular rate and rhythm Gastrointestinal: bowel sounds, distended, Problems: Exam/Review of Systems Vital Signs Vitals Vital Signs Date Time Temp Pulse Resp B/P Pulse Ox O2 Delivery O2 Flow Rate FiO2 08/06/17 07:00 89 21 140/46 100 Mechanical Ventilator 08/06/17 05:37 50 08/06/17 05:00 97.0 08/05/17 20:26 3.0 Intake and Output 08/05/17 08/05/17 08/06/17 15:00 23:00 07:00 Intake Total 695 ml 1916 ml 3402.6 ml Output Total 30 ml 0 ml Balance 665 ml 1916 ml 3402.6 ml Results Result Diagram: 08/06/1715 08/06/17 0515 Results 24 hrs Laboratory Tests Test 08/05/17 16:10 08/05/17 18:16 08/05/17 20:33 08/05/17 21:50 Blood Gas Specimen Source Blood arterial Blood arterial Arterial Blood Date Drawn 08/05/2017 4:19:05 PM 08/05/2017 11:10:41 PM Arterial Blood pH (Temp corrected) 7.635 *H 7.163 *L Arterial Blood pCO2 (Temp correct) 14.3 L 24.7 L Arterial Blood pO2 (Temp corrected) 113.6 H 388.9 H Arterial Blood HCO3 14.9 L 8.8 *L Arterial Blood Base Excess -3.8 L -18.5 L Arterial Blood Oxygen Saturation 97.9 99.1 H Adonay Test ACCEPTAB ACCEPTAB Arterial Blood Gas Puncture Site Right Radial Right Radial Arterial Blood Carboxyhemoglobin 0.3 0.2 Arterial Blood Methemoglobin 0.2 0.6 Blood Gas A-a O2 Differential 126.5 H 302.0 H Oxyhemoglobin Percent 97.4 98.3 Total Hemoglobin 10.7 L 10.0 L Blood Gas Temperature 37.0 36.0 Blood Gas Modality NASAL CANNULA VENT - AC FiO2 36.0 100.0 Blood Gas Critical Value Read Back RN. CELESTINE COX RN Blood Gas Notified Whom STEPHEN ARZATE [place] Blood Gas Notified Time 08/05/2017 4:33:27 PM 08/05/2017 11:22:50 PM Ammonia 133 H Blood Gas Respiration Rate 20.0 Blood Gas Actual Respiration Rate 20 Blood Gas Tidal Volume 500.0 Blood Gas Inspiratory Pressure 17.0 Blood Gas Pressure Support 5 White Blood Count 1.8 #L Red Blood Count 2.74 L Hemoglobin 9.7 L Hematocrit 29.8 L Mean Corpuscular Volume 108.8 H Mean Corpuscular Hemoglobin 35.4 H Mean Corpuscular Hemoglobin Concent 32.6 Red Cell Distribution Width 29.0 H Platelet Count 56 #L Mean Platelet Volume 11.0 H Neutrophils % Segmented Neutrophils % (Manual) 27 L Band Neutrophils % (Manual) 6 H Lymphocytes % Lymphocytes % (Manual) 60 H Monocytes % Monocytes % (Manual) 6 Eosinophils % Eosinophils % (Manual) 1 Basophils % Nucleated Red Blood Cells % 71 H Neutrophils # Neutrophils # (Manual) 0.5 L Band Neutrophils # 0.1 Absolute Lymphocytes (Manual) 1.0 Lymphocytes # Monocytes # Absolute Monocytes (Manual) 0.1 L Eosinophils # Basophils # Nucleated Red Blood Cells # Platelet Estimate DECREASED Giant Platelets 1 H Polychromasia 2+ Poikilocytosis 2+ Anisocytosis 2+ Macrocytosis 1+ Prothrombin Time 50.8 #H Prothrombin Time Ratio 4.0 INR International Normalized Ratio 5.46 Activated Partial Thromboplast Time 77.2 *H Sodium Level 152 H Potassium Level 4.0 Chloride Level 116 H Carbon Dioxide Level 9 *L Anion Gap 31 H Blood Urea Nitrogen 60 H Creatinine 2.87 H Glucose Level 83 Lactic Acid Level 13.7 *H Calcium Level 8.4 Phosphorus Level 6.0 H Magnesium Level 2.1 Total Bilirubin 8.0 H Direct Bilirubin 5.10 H Indirect Bilirubin 2.9 H Aspartate Amino Transf (AST/SGOT) 112 H Alanine Aminotransferase (ALT/SGPT) 60 Alkaline Phosphatase 87 Total Protein 5.3 L Albumin 2.4 L Globulin 2.90 Albumin/Globulin Ratio 0.82 Test 08/06/17 04:30 08/06/17 05:06 08/06/17 05:15 08/06/17 05:50 White Blood Count 5.5 # 5.9 Red Blood Count 1.42 #L 1.42 L Hemoglobin 5.0 #*L 5.0 *L Hematocrit 15.5 #L 15.6 L Mean Corpuscular Volume 109.2 H 109.9 H Mean Corpuscular Hemoglobin 35.2 H 35.2 H Mean Corpuscular Hemoglobin Concent 32.3 32.1 Red Cell Distribution Width 28.7 H 29.1 H Platelet Count 25 #*L 23 *L Mean Platelet Volume 10.7 H 10.5 H Neutrophils % 81.0 H Lymphocytes % 11.3 L Monocytes % 5.8 Eosinophils % 0.4 Basophils % 0.4 Nucleated Red Blood Cells % 37.3 H 31.9 H Neutrophils # 4.5 Lymphocytes # 0.6 L Monocytes # 0.3 Eosinophils # 0.0 Basophils # 0.0 Nucleated Red Blood Cells # 2.1 H Ammonia 353 #H Lab Scanned Report BLOOD TRANSFUSION Sodium Level 148 H Potassium Level 3.0 L Chloride Level 109 Carbon Dioxide Level 14 L Anion Gap 28 H Blood Urea Nitrogen 52 H Creatinine 3.05 H Glucose Level 174 Calcium Level 6.9 L Phosphorus Level 4.9 Magnesium Level 1.9 Total Bilirubin 4.7 #H Direct Bilirubin 2.80 #H Indirect Bilirubin 1.9 H Aspartate Amino Transf (AST/SGOT) 456 H Alanine Aminotransferase (ALT/SGPT) 184 H Alkaline Phosphatase 46 Total Protein 2.9 #L Albumin 1.5 L Globulin 1.40 Albumin/Globulin Ratio 1.07 Blood Gas Specimen Source Blood arterial Arterial Blood Date Drawn 08/06/2017 7:20:24 AM Arterial Blood pH (Temp corrected) 7.176 *L Arterial Blood pCO2 (Temp correct) 26.4 L Arterial Blood pO2 (Temp corrected) 129.4 H Arterial Blood HCO3 9.5 *L Arterial Blood Base Excess -17.3 L Arterial Blood Oxygen Saturation 96.9 Adonay Test N/A Arterial Blood Gas Puncture Site Right Brachial Arterial Blood Carboxyhemoglobin 0.6 Arterial Blood Methemoglobin 1.1 Blood Gas A-a O2 Differential 197.4 H Oxyhemoglobin Percent 95.3 Total Hemoglobin 5.8 L Blood Gas Temperature 37.0 Blood Gas Respiration Rate 20.0 Blood Gas Actual Respiration Rate 21 Blood Gas Modality VENT - AC FiO2 50.0 Blood Gas Tidal Volume 500.0 Blood Gas Low PEEP Setting 5.0 Blood Gas Critical Value Read Back M COX RN Blood Gas Notified Whom JLD Blood Gas Notified Time 08/06/2017 7:34:41 AM Medications Medications Current Medications Folic Acid (Folic Acid) 1 mg DAILY PO Last administered on 08/06/17 08:50; Admin Dose 1 MG; Start 07/30/17 at 09:00 Rifaximin (Xifaxan) 550 mg BID PO Last administered on 08/06/17 08:50; Admin Dose 550 MG; Start 07/30/17 at 09:00 Ursodiol (Actigall) 300 mg TID PO Last administered on 08/06/17 08:50; Admin Dose 300 MG; Start 07/30/17 at 09:00 Ondansetron HCl (Zofran Inj) 4 mg Q6H PRN IV NAUSEA AND/OR VOMITING Last administered on 08/04/17 11:26; Admin Dose 4 MG; Start 07/30/17 at 09:00 Acetaminophen (Tylenol Tab) 650 mg Q6H PRN PO PAIN LEVEL 1-3 OR FEVER; Start 07/30/17 at 09:00 Acetaminophen (Tylenol Supp) 650 mg Q6H PRN [place] PAIN LEVEL 1-3 OR FEVER; Start 07/30/17 at 09:00 Famotidine (Pepcid) 20 mg DAILY PO Last administered on 08/06/17 08:50; Admin Dose 20 MG; Start 08/04/17 at 09:00 Lactulose 30 gm 30 gm Q6H PRN PO CONSTIPATION Last administered on 08/04/17 11:23; Admin Dose 30 GM; Start 08/04/17 at 11:00; Status Future Hold Sodium Bicarbonate 100 meq/Dextrose 1,100 ml @ 75 mls/hr [id number] IV Last administered on 08/06/17 00:03; Admin Dose 75 MLS/HR; Start 08/05/17 at 08:00 Albumin Human (Albumin Human 25%) 50 ml @ 100 mls/hr Q8H IV Last administered on 08/06/17 02:33; Admin Dose 100 MLS/HR; Start 08/05/17 at 11:00; Stop at 03:29 Lactulose 20 gm 20 gm Q4 GTB Last administered on 08/06/17 08:49; Admin Dose 20 GM; Start 08/05/17 at 13:00 Ceftriaxone Sodium 50 ml @ 100 mls/hr Q24H IVPB Last administered on 18:56; Admin Dose 100 MLS/HR; Start 08/05/17 at 17:30 Norepinephrine 16 mg/Dextrose 500 ml @ 1.87 mls/hr TITRATE IV Last administered on 08/06/17 07:20; Admin Dose 37.5 MLS/HR; Start 08/05/17 at 18: 30; Stop 08/06/17 at 12:00 Phenylephrine HCl 40 mg/Dextrose 500 ml @ 75 mls/hr TITRATE IV Last administered on 08/06/17 06:35; Admin Dose 217.5 MLS/HR; Start 08/05/17 at 19 :30; Stop 08/06/17 at 12:00 Phenylephrine HCl 160 mg/Dextrose 500 ml @ 18.75 mls/ hr TITRATE IV ; Start at 11:00 Norepinephrine 32 mg/Dextrose 250 ml @ 0.46 mls/hr TITRATE IV ; Start at 11:00 Piperacillin Sod/ Tazobactam Sod (Zosyn 2.25gm/ 50ml (Pmx)) 50 ml @ 200 mls/hr Q8H IVPB ; Start 08/06/17 at 10:00 RAFAT BERKOWITZ Aug 06, 2017 10:39
[2017-08-06] MEDS: PIPER-TAZO 2.25 GM (PMX) 50 ML IVPB SCH ×2 (11:23→18:08)
--- NOTE | 2017-08-06 11:27 | CONS ---
Date/Time of Note Date/Time of Note DATE: 08/06/17 TIME: 11:24 Consult Date/Type/Reason Admit Date/Time Jul 30, 2017 at 04:53 Initial Consult Date 07/31/17 Type of Consultation: NEPHROLOGY Ordering Provider: DENYS CRAIG MD Subjective Significant deterioration yesterday evening and overnight. Profound hypotension requiring multiple vasopressors severe metabolic acidosis with anuria. Approximate respiratory failure requiring emergent intubation. Since that time she continues supportive care and resuscitation. Objective Vital Signs Date Time Temp Pulse Resp B/P Pulse Ox O2 Delivery O2 Flow Rate FiO2 08/06/17 10:30 73 16 125/57 100 08/06/17 09:30 50 08/06/17 08:00 97.8 08/06/17 07:00 Mechanical Ventilator 08/05/17 20:26 3.0 Intake and Output 08/05/17 08/05/17 08/06/17 15:00 23:00 07:00 Intake Total 695 ml 1916 ml 3402.6 ml Output Total 30 ml 0 ml Balance 665 ml 1916 ml 3402.6 ml Exam PHYSICAL EXAMINATION: GENERAL: Chronically ill appearing lady, intubated on mechanical ventilation VITAL SIGNS: NECK: Supple. No JVD or lymphadenopathy. CARDIAC: S1, S2, no added sounds or murmurs. CHEST: Diminished air entry bilaterally. ABDOMEN: Soft, nontender. No guarding or rebound. EXTREMITIES: No cyanosis, clubbing, edema. NEUROLOGIC: Unable to assess. Results/Medications Result Diagram: 08/06/17 0515 08/06/17 0515 Results 24 hrs Laboratory Tests Test 08/05/17 16:10 08/05/17 18:16 08/05/17 20:33 08/05/17 21:50 Blood Gas Specimen Source Blood arterial Blood arterial Arterial Blood Date Drawn 08/05/2017 4:19:05 PM 08/05/2017 11:10:41 PM Arterial Blood pH (Temp corrected) 7.635 *H 7.163 *L Arterial Blood pCO2 (Temp correct) 14.3 L 24.7 L Arterial Blood pO2 (Temp corrected) 113.6 H 388.9 H Arterial Blood HCO3 14.9 L 8.8 *L Arterial Blood Base Excess -3.8 L -18.5 L Arterial Blood Oxygen Saturation 97.9 99.1 H Adonay Test ACCEPTAB ACCEPTAB Arterial Blood Gas Puncture Site Right Radial Right Radial Arterial Blood Carboxyhemoglobin 0.3 0.2 Arterial Blood Methemoglobin 0.2 0.6 Blood Gas A-a O2 Differential 126.5 H 302.0 H Oxyhemoglobin Percent 97.4 98.3 Total Hemoglobin 10.7 L 10.0 L Blood Gas Temperature 37.0 36.0 Blood Gas Modality NASAL CANNULA VENT - AC FiO2 36.0 100.0 Blood Gas Critical Value Read Back RN. CELESTINE COX RN Blood Gas Notified Whom STEPHEN RT [place] Blood Gas Notified Time 08/05/2017 4:33:27 PM 08/05/2017 11:22:50 PM Ammonia 133 H Blood Gas Respiration Rate 20.0 Blood Gas Actual Respiration Rate 20 Blood Gas Tidal Volume 500.0 Blood Gas Inspiratory Pressure 17.0 Blood Gas Pressure Support 5 White Blood Count 1.8 #L Red Blood Count 2.74 L Hemoglobin 9.7 L Hematocrit 29.8 L Mean Corpuscular Volume 108.8 H Mean Corpuscular Hemoglobin 35.4 H Mean Corpuscular Hemoglobin Concent 32.6 Red Cell Distribution Width 29.0 H Platelet Count 56 #L Mean Platelet Volume 11.0 H Neutrophils % Segmented Neutrophils % (Manual) 27 L Band Neutrophils % (Manual) 6 H Lymphocytes % Lymphocytes % (Manual) 60 H Monocytes % Monocytes % (Manual) 6 Eosinophils % Eosinophils % (Manual) 1 Basophils % Nucleated Red Blood Cells % 71 H Neutrophils # Neutrophils # (Manual) 0.5 L Band Neutrophils # 0.1 Absolute Lymphocytes (Manual) 1.0 Lymphocytes # Monocytes # Absolute Monocytes (Manual) 0.1 L Eosinophils # Basophils # Nucleated Red Blood Cells # Platelet Estimate DECREASED Giant Platelets 1 H Polychromasia 2+ Poikilocytosis 2+ Anisocytosis 2+ Macrocytosis 1+ Prothrombin Time 50.8 #H Prothrombin Time Ratio 4.0 INR International Normalized Ratio 5.46 Activated Partial Thromboplast Time 77.2 *H Sodium Level 152 H Potassium Level 4.0 Chloride Level 116 H Carbon Dioxide Level 9 *L Anion Gap 31 H Blood Urea Nitrogen 60 H Creatinine 2.87 H Glucose Level 83 Lactic Acid Level 13.7 *H Calcium Level 8.4 Phosphorus Level 6.0 H Magnesium Level 2.1 Total Bilirubin 8.0 H Direct Bilirubin 5.10 H Indirect Bilirubin 2.9 H Aspartate Amino Transf (AST/SGOT) 112 H Alanine Aminotransferase (ALT/SGPT) 60 Alkaline Phosphatase 87 Total Protein 5.3 L Albumin 2.4 L Globulin 2.90 Albumin/Globulin Ratio 0.82 Test 08/06/17 04:30 08/06/17 05:06 08/06/17 05:15 08/06/17 05:50 White Blood Count 5.5 # 5.9 Red Blood Count 1.42 #L 1.42 L Hemoglobin 5.0 #*L 5.0 *L Hematocrit 15.5 #L 15.6 L Mean Corpuscular Volume 109.2 H 109.9 H Mean Corpuscular Hemoglobin 35.2 H 35.2 H Mean Corpuscular Hemoglobin Concent 32.3 32.1 Red Cell Distribution Width 28.7 H 29.1 H Platelet Count 25 #*L 23 *L Mean Platelet Volume 10.7 H 10.5 H Neutrophils % 81.0 H Lymphocytes % 11.3 L Monocytes % 5.8 Eosinophils % 0.4 Basophils % 0.4 Nucleated Red Blood Cells % 37.3 H 31.9 H Neutrophils # 4.5 Lymphocytes # 0.6 L Monocytes # 0.3 Eosinophils # 0.0 Basophils # 0.0 Nucleated Red Blood Cells # 2.1 H Ammonia 353 #H Lab Scanned Report BLOOD TRANSFUSION Sodium Level 148 H Potassium Level 3.0 L Chloride Level 109 Carbon Dioxide Level 14 L Anion Gap 28 H Blood Urea Nitrogen 52 H Creatinine 3.05 H Glucose Level 174 Calcium Level 6.9 L Phosphorus Level 4.9 Magnesium Level 1.9 Total Bilirubin 4.7 #H Direct Bilirubin 2.80 #H Indirect Bilirubin 1.9 H Aspartate Amino Transf (AST/SGOT) 456 H Alanine Aminotransferase (ALT/SGPT) 184 H Alkaline Phosphatase 46 Total Protein 2.9 #L Albumin 1.5 L Globulin 1.40 Albumin/Globulin Ratio 1.07 Blood Gas Specimen Source Blood arterial Arterial Blood Date Drawn 08/06/2017 7:20:24 AM Arterial Blood pH (Temp corrected) 7.176 *L Arterial Blood pCO2 (Temp correct) 26.4 L Arterial Blood pO2 (Temp corrected) 129.4 H Arterial Blood HCO3 9.5 *L Arterial Blood Base Excess -17.3 L Arterial Blood Oxygen Saturation 96.9 Adonay Test N/A Arterial Blood Gas Puncture Site Right Brachial Arterial Blood Carboxyhemoglobin 0.6 Arterial Blood Methemoglobin 1.1 Blood Gas A-a O2 Differential 197.4 H Oxyhemoglobin Percent 95.3 Total Hemoglobin 5.8 L Blood Gas Temperature 37.0 Blood Gas Respiration Rate 20.0 Blood Gas Actual Respiration Rate 21 Blood Gas Modality VENT - AC FiO2 50.0 Blood Gas Tidal Volume 500.0 Blood Gas Low PEEP Setting 5.0 Blood Gas Critical Value Read Back M COX RN Blood Gas Notified Whom JLD Blood Gas Notified Time 08/06/2017 7:34:41 AM Medications Current Medications Folic Acid (Folic Acid) 1 mg DAILY PO Last administered on 08/06/17 08:50; Admin Dose 1 MG; Start 07/30/17 at 09:00 Rifaximin (Xifaxan) 550 mg BID PO Last administered on 08/06/17 08:50; Admin Dose 550 MG; Start 07/30/17 at 09:00 Ursodiol (Actigall) 300 mg TID PO Last administered on 08/06/17 08:50; Admin Dose 300 MG; Start 07/30/17 at 09:00 Ondansetron HCl (Zofran Inj) 4 mg Q6H PRN IV NAUSEA AND/OR VOMITING Last administered on 08/04/17 11:26; Admin Dose 4 MG; Start 07/30/17 at 09:00 Acetaminophen (Tylenol Tab) 650 mg Q6H PRN PO PAIN LEVEL 1-3 OR FEVER; Start 07/30/17 at 09:00 Acetaminophen (Tylenol Supp) 650 mg Q6H PRN [place] PAIN LEVEL 1-3 OR FEVER; Start 07/30/17 at 09:00 Famotidine (Pepcid) 20 mg DAILY PO Last administered on 08/06/17 08:50; Admin Dose 20 MG; Start 08/04/17 at 09:00 Lactulose 30 gm 30 gm Q6H PRN PO CONSTIPATION Last administered on 08/04/17 11:23; Admin Dose 30 GM; Start 08/04/17 at 11:00; Status Future Hold Sodium Bicarbonate 100 meq/Dextrose 1,100 ml @ 75 mls/hr [id number] IV Last administered on 08/06/17 00:03; Admin Dose 75 MLS/HR; Start 08/05/17 at 08:00 Albumin Human (Albumin Human 25%) 50 ml @ 100 mls/hr Q8H IV Last administered on 08/06/17 02:33; Admin Dose 100 MLS/HR; Start 08/05/17 at 11:00; Stop at 03:29 Lactulose 20 gm 20 gm Q4 GTB Last administered on 08/06/17 08:49; Admin Dose 20 GM; Start 08/05/17 at 13:00 Norepinephrine 16 mg/Dextrose 500 ml @ 1.87 mls/hr TITRATE IV Last administered on 08/06/17 07:20; Admin Dose 37.5 MLS/HR; Start 08/05/17 at 18: 30; Stop 08/06/17 at 12:00 Phenylephrine HCl 40 mg/Dextrose 500 ml @ 75 mls/hr TITRATE IV Last administered on 08/06/17 06:35; Admin Dose 217.5 MLS/HR; Start 08/05/17 at 19 :30; Stop 08/06/17 at 12:00 Phenylephrine HCl 160 mg/Dextrose 500 ml @ 18.75 mls/ hr TITRATE IV ; Start at 11:00 Norepinephrine 32 mg/Dextrose 250 ml @ 0.46 mls/hr TITRATE IV ; Start at 11:00 Piperacillin Sod/ Tazobactam Sod (Zosyn 2.25gm/ 50ml (Pmx)) 50 ml @ 200 mls/hr Q8H IVPB Last administered on 08/06/17 11:23; Admin Dose 200 MLS/HR; Start 08/06/17 at 10:00 Miscellaneous Information 1 ONCE ONCE XX ; Start 08/07/17 at 05:00; Stop at 05:01 Potassium Chloride (KCl 10 MEQ/50 ML SW) 50 ml @ 50 mls/hr ONCE ONCE IVPB ; Start 08/06/17 at 11:30; Stop 08/06/17 at 12:29 Assessment/Plan Chief Complaint/Hosp Course IMPRESSION: 1. Encephalopathy, likely secondary to elevated ammonia. 2. Acute renal failure, probably secondary to hepatorenal syndrome given worsening ammonia, worsening liver function tests and decreased urine output. 3. Leukocytosis, concerning for possible spontaneous bacterial peritonitis. 4. Septic shock possibly secondary to SBP 5. Hypoxemic respiratory failure secondary to above 6. Possible GI bleed with significant drop in hemoglobin PLAN: 1. Aggressive volume resuscitation. 2. Continue vasopressor support 3. Continue rifaximin. Transfuse packed red blood cells. EGD for today. 4. Antibiotics to cover possible SBP. Agree with broadening antibiotics 4. Continue current vent settings 5. Correction of metabolic acidosis. Renal recommendations Overall prognosis is guarded. Discussed with family at bedside. Not stable for transfer to tertiary care center at present. If hemodynamically improves will attempt transfer. Problems: LURDES SAUNDERS MD, [facility] Aug 06, 2017 11:27
[2017-08-06] MEDS ORDERED: PROPOFOL 20 ML ONE (11:29)
[2017-08-06] MEDS ORDERED: FENTAnyl 50 MCG/ML VIAL ONE (11:29)
[2017-08-06] MEDS ORDERED: POTASSIUM CHLORIDE 50 ML IVPB ONE (11:30)
[2017-08-06] MEDS: PHENYLephrine 160 MG in DEXTROSE 5% 484 ML IV SCH ×2 (12:00→16:34)
[2017-08-06] MEDS ORDERED: ROCURONIUM 50 MG INJ ONE (13:16)
--- NOTE | 2017-08-06 13:17 | OPPN ---
Date/Time of Note Date/Time of Note DATE: 08/06/17 TIME: 13:11 Proc Note GI Procedure Date 08/06/17 Indication: other (Acute anemia positive/blood in NG tube) Pre-procedure Diagnosis GI bleeding/anemia Post-procedure Diagnosis Impression: Severe esophagitis. No active bleeding or stigmata Grade I-II/IV esophageal varices. No stigmata recent bleeding Severe antral gastritis. No active bleeding or stigmata No gastric varices present Normal duodenum Plan: Continue present regimen Recheck hemoglobin hematocrit posttransfusion GoLYTELY via NG tube and pending output consider colonoscopy No evidence of intra-abdominal bleeding as abdomen is soft and not more distended than before Hemolysis is to be considered . Procedure Performed: Endoscopy Surgeon ANNA PRESCOTT MD See signature line Brim Raiser none Anesthesia Type: MAC Anesthesiologist: LOUIS VILLARREAL MD Tourniquet Time none EBL none Transfusion required none Biopsy 1: none Grafts/Implants none Tubes/Drains none Complication(s) none Disposition: other (ICU) Procedure Description Preoperative Diagnosis: After informed consent, with the patient/relatives understanding the procedure, its indications, potential risks and complications, including but not limited to : allergic reaction, bleeding, perforation or infection, and after all pertinent questions were answered to the patients satisfaction, the patient/ relatives signed witnessed informed consent. Following this, premedication was administered slowly IV push under careful cardiovascular and respiratory monitoring with pulse oximetry, automatic blood pressure, and phototypesetting equipment monitor. Once the sedative effect was achieved the patient was place in the left lateral decubitus, the panendoscope was introduced and advanced under visual control. Careful examination of the upper gastrointestinal tract, both on insertion as well as withdrawal of the instrument disclosing the following findings: ESOPHAGUS: the mucosa of the entire esophagus was carefully examined and showed the following findings: There is significant erythema edema of the mucosa of the distal two thirds of the. No active bleeding or stigmata to suggest esophagus bleeding. There are grade I-II/IV esophageal varices with no stigmata. Otherwise the mucosa appears within normal limits. There is no evidence of neoplasm, or stricture. No Hiatal Hernia identified. STOMACH: Upon entrance to the stomach air was insufflated, the gastric parker distended normally. The mucosa of the fundus, body and antrum of the stomach was carefully examined both head-on and on retroflexion, and showed the following findings: There is significant erythema and edema of the mucosa of the antrum of the stomach, no definitive ulceration is noted. No stigmata recent bleeding or potential bleeding lesions are identified. No fundal gastric varices identified. Otherwise the mucosa appears within normal limits with no abnormalities. There is no evidence of ulcers or neoplasm. PYLORUS: The pylorus was carefully examined and showed the following findings: the pylorus appears patent and within normal limits, with no evidence of gastric outlet obstruction. DUODENUM: The duodenal mucosa was carefully examined in the duodenal bulb as well as the second portion of the duodenum and showed the following findings: the mucosa appears unremarkable with no evidence of duodenitis, ulcer or neoplasm. Copies To: CC: ANNA PRESCOTT MD, MORDO MD Aug 06, 2017 13:17
[2017-08-06] MEDS ORDERED: PEG/ELECTROLYTES 4L BTL NGT ONE (13:30)
[2017-08-06] MEDS: PANTOPRAZOLE IV 80 MG in SOD CHLORIDE 0.9% 100 ML IV SCH (13:30)
--- NOTE | 2017-08-06 13:49 | CONS ---
Date/Time of Note Date/Time of Note DATE: 08/06/17 TIME: 13:42 Assessment/Plan Assessment/Plan Additional Assessment/Plan ASSESSMENT: 1. acute Kidney injury vs Acute kidney injury on CKD due to Hepartorenal syndrome + ATN 2. acute resp failure due to decompensated liver cirrhosis and Septic shock- required intubation and mechanical ventilation 3. Severe anemia s/p EGD - negative for acute bleeding, with grade IV esophageal varices 4.. Altered mental status secondary to hepatic encephalopathy + metabolic enceophalotphy, 5. Hyperammonemia Plan: pt decompensated yesterday quickly becomes acidotic, has been on Bicarbonate drip- BUN 52, Cr 3.05, HCO3 14, PH 7.13- Currently she is on mutilple pressors, Unstable to start renal replacement therapy for her renal failure and metabolic acidosis due to very low BP- despite being on multiple pressors required Intubation and mechanical ventilation. Pulmonary has been following on the case Transfer to [facility] has been requested - pt was accepted for transfer to [facility] but she becomes hemodynamically unstable and required multiple pressors Today AM her Hb dropped to 5.0- mutliple PRBC has been given, s/p EGD by GI today negative for acute bleeding- Grade IV esophagel varices as per GI report Need goals of care discussion if not transferred to [facility]- because pt has poor prognosis. on lactulose for hepatic encephalopathy will follow up Consultation Date/Type/Reason Admit Date/Time Jul 30, 2017 at 04:53 Initial Consult Date 07/31/17 Type of Consultation: NEPHROLOGY Referring Provider: DENYS CRAIG MD 24 HR Interval Summary Free Text/Dictation Significant deterioration yesterday evening and overnight. Profound hypotension requiring multiple vasopressors severe metabolic acidosis with anuria. Approximate respiratory failure requiring emergent intubation. Since that time she continues supportive care and resuscitation. Exam/Review of Systems Vital Signs Vitals Vital Signs Date Time Temp Pulse Resp B/P Pulse Ox O2 Delivery O2 Flow Rate FiO2 08/06/17 13:24 81 20 96/47 100 08/06/17 13:12 50 08/06/17 08:00 97.8 08/06/17 07:00 Mechanical Ventilator 08/05/17 20:26 3.0 Intake and Output 08/05/17 08/05/17 08/06/17 15:00 23:00 07:00 Intake Total 695 ml 1916 ml 3402.6 ml Output Total 30 ml 0 ml 10 ml Balance 665 ml 1916 ml 3392.6 ml Exam Constitutional: non-verbal, other (sedated intubated on ventilator ) ENMT: other (ET tube in place ) Neck: non-tender, supple Respiratory: crackles/rales, diminished breath sounds, wheezing Cardiovascular: other (tachycardia ), regular rate and rhythm Gastrointestinal: non-tender, soft Musculoskeletal: other (1+ pitting edema, no clubbing, no cyanosis ) Neurological: unresponsive Results Result Diagram: 08/06/1715 08/06/1715 Results 24 hrs Laboratory Tests Test 08/05/17 16:10 08/05/17 18:16 08/05/17 20:33 08/05/17 21:50 Blood Gas Specimen Source Blood arterial Blood arterial Arterial Blood Date Drawn 08/05/2017 4:19:05 PM 08/05/2017 11:10:41 PM Arterial Blood pH (Temp corrected) 7.635 *H 7.163 *L Arterial Blood pCO2 (Temp correct) 14.3 L 24.7 L Arterial Blood pO2 (Temp corrected) 113.6 H 388.9 H Arterial Blood HCO3 14.9 L 8.8 *L Arterial Blood Base Excess -3.8 L -18.5 L Arterial Blood Oxygen Saturation 97.9 99.1 H Adonay Test ACCEPTAB ACCEPTAB Arterial Blood Gas Puncture Site Right Radial Right Radial Arterial Blood Carboxyhemoglobin 0.3 0.2 Arterial Blood Methemoglobin 0.2 0.6 Blood Gas A-a O2 Differential 126.5 H 302.0 H Oxyhemoglobin Percent 97.4 98.3 Total Hemoglobin 10.7 L 10.0 L Blood Gas Temperature 37.0 36.0 Blood Gas Modality NASAL CANNULA VENT - AC FiO2 36.0 100.0 Blood Gas Critical Value Read Back RN. CELESTINE COX RN Blood Gas Notified Whom STEPHEN SMITH Blood Gas Notified Time 08/05/2017 4:33:27 PM 08/05/2017 11:22:50 PM Ammonia 133 H Blood Gas Respiration Rate 20.0 Blood Gas Actual Respiration Rate 20 Blood Gas Tidal Volume 500.0 Blood Gas Inspiratory Pressure 17.0 Blood Gas Pressure Support 5 White Blood Count 1.8 #L Red Blood Count 2.74 L Hemoglobin 9.7 L Hematocrit 29.8 L Mean Corpuscular Volume 108.8 H Mean Corpuscular Hemoglobin 35.4 H Mean Corpuscular Hemoglobin Concent 32.6 Red Cell Distribution Width 29.0 H Platelet Count 56 #L Mean Platelet Volume 11.0 H Neutrophils % Segmented Neutrophils % (Manual) 27 L Band Neutrophils % (Manual) 6 H Lymphocytes % Lymphocytes % (Manual) 60 H Monocytes % Monocytes % (Manual) 6 Eosinophils % Eosinophils % (Manual) 1 Basophils % Nucleated Red Blood Cells % 71 H Neutrophils # Neutrophils # (Manual) 0.5 L Band Neutrophils # 0.1 Absolute Lymphocytes (Manual) 1.0 Lymphocytes # Monocytes # Absolute Monocytes (Manual) 0.1 L Eosinophils # Basophils # Nucleated Red Blood Cells # Platelet Estimate DECREASED Giant Platelets 1 H Polychromasia 2+ Poikilocytosis 2+ Anisocytosis 2+ Macrocytosis 1+ Prothrombin Time 50.8 #H Prothrombin Time Ratio 4.0 INR International Normalized Ratio 5.46 Activated Partial Thromboplast Time 77.2 *H Sodium Level 152 H Potassium Level 4.0 Chloride Level 116 H Carbon Dioxide Level 9 *L Anion Gap 31 H Blood Urea Nitrogen 60 H Creatinine 2.87 H Glucose Level 83 Lactic Acid Level 13.7 *H Calcium Level 8.4 Phosphorus Level 6.0 H Magnesium Level 2.1 Total Bilirubin 8.0 H Direct Bilirubin 5.10 H Indirect Bilirubin 2.9 H Aspartate Amino Transf (AST/SGOT) 112 H Alanine Aminotransferase (ALT/SGPT) 60 Alkaline Phosphatase 87 Total Protein 5.3 L Albumin 2.4 L Globulin 2.90 Albumin/Globulin Ratio 0.82 Test 08/06/17 04:30 08/06/17 05:06 08/06/17 05:15 08/06/17 05:50 White Blood Count 5.5 # 5.9 Red Blood Count 1.42 #L 1.42 L Hemoglobin 5.0 #*L 5.0 *L Hematocrit 15.5 #L 15.6 L Mean Corpuscular Volume 109.2 H 109.9 H Mean Corpuscular Hemoglobin 35.2 H 35.2 H Mean Corpuscular Hemoglobin Concent 32.3 32.1 Red Cell Distribution Width 28.7 H 29.1 H Platelet Count 25 #*L 23 *L Mean Platelet Volume 10.7 H 10.5 H Neutrophils % 81.0 H Lymphocytes % 11.3 L Monocytes % 5.8 Eosinophils % 0.4 Basophils % 0.4 Nucleated Red Blood Cells % 37.3 H 31.9 H Neutrophils # 4.5 Lymphocytes # 0.6 L Monocytes # 0.3 Eosinophils # 0.0 Basophils # 0.0 Nucleated Red Blood Cells # 2.1 H Ammonia 353 #H Lab Scanned Report BLOOD TRANSFUSION Sodium Level 148 H Potassium Level 3.0 L Chloride Level 109 Carbon Dioxide Level 14 L Anion Gap 28 H Blood Urea Nitrogen 52 H Creatinine 3.05 H Glucose Level 174 Calcium Level 6.9 L Phosphorus Level 4.9 Magnesium Level 1.9 Total Bilirubin 4.7 #H Direct Bilirubin 2.80 #H Indirect Bilirubin 1.9 H Aspartate Amino Transf (AST/SGOT) 456 H Alanine Aminotransferase (ALT/SGPT) 184 H Alkaline Phosphatase 46 Total Protein 2.9 #L Albumin 1.5 L Globulin 1.40 Albumin/Globulin Ratio 1.07 Blood Gas Specimen Source Blood arterial Arterial Blood Date Drawn 08/06/2017 7:20:24 AM Arterial Blood pH (Temp corrected) 7.176 *L Arterial Blood pCO2 (Temp correct) 26.4 L Arterial Blood pO2 (Temp corrected) 129.4 H Arterial Blood HCO3 9.5 *L Arterial Blood Base Excess -17.3 L Arterial Blood Oxygen Saturation 96.9 Adonay Test N/A Arterial Blood Gas Puncture Site Right Brachial Arterial Blood Carboxyhemoglobin 0.6 Arterial Blood Methemoglobin 1.1 Blood Gas A-a O2 Differential 197.4 H Oxyhemoglobin Percent 95.3 Total Hemoglobin 5.8 L Blood Gas Temperature 37.0 Blood Gas Respiration Rate 20.0 Blood Gas Actual Respiration Rate 21 Blood Gas Modality VENT - AC FiO2 50.0 Blood Gas Tidal Volume 500.0 Blood Gas Low PEEP Setting 5.0 Blood Gas Critical Value Read Back M COX RN Blood Gas Notified Whom JLD Blood Gas Notified Time 08/06/2017 7:34:41 AM Medications Medications Current Medications Folic Acid (Folic Acid) 1 mg DAILY PO Last administered on 08/06/17 08:50; Admin Dose 1 MG; Start 07/30/17 at 09:00 Rifaximin (Xifaxan) 550 mg BID PO Last administered on 08/06/17 08:50; Admin Dose 550 MG; Start 07/30/17 at 09:00 Ursodiol (Actigall) 300 mg TID PO Last administered on 08/06/17 08:50; Admin Dose 300 MG; Start 07/30/17 at 09:00 Ondansetron HCl (Zofran Inj) 4 mg Q6H PRN IV NAUSEA AND/OR VOMITING Last administered on 08/04/17 11:26; Admin Dose 4 MG; Start 07/30/17 at 09:00 Acetaminophen (Tylenol Tab) 650 mg Q6H PRN PO PAIN LEVEL 1-3 OR FEVER; Start 07/30/17 at 09:00 Acetaminophen (Tylenol Supp) 650 mg Q6H PRN [place] PAIN LEVEL 1-3 OR FEVER; Start 07/30/17 at 09:00 Lactulose 30 gm 30 gm Q6H PRN PO CONSTIPATION Last administered on 08/04/17 11:23; Admin Dose 30 GM; Start 08/04/17 at 11:00; Status Future Hold Sodium Bicarbonate 100 meq/Dextrose 1,100 ml @ 75 mls/hr [id number] IV Last administered on 08/06/17 00:03; Admin Dose 75 MLS/HR; Start 08/05/17 at 08:00 Albumin Human (Albumin Human 25%) 50 ml @ 100 mls/hr Q8H IV Last administered on 08/06/17 11:35; Admin Dose 100 MLS/HR; Start 08/05/17 at 11:00; Stop at 03:29 Lactulose 20 gm 20 gm Q4 GTB Last administered on 08/06/17 08:49; Admin Dose 20 GM; Start 08/05/17 at 13:00 Phenylephrine HCl 160 mg/Dextrose 500 ml @ 18.75 mls/ hr TITRATE IV ; Start at 11:00 Norepinephrine 32 mg/Dextrose 250 ml @ 0.46 mls/hr TITRATE IV ; Start at 11:00 Piperacillin Sod/ Tazobactam Sod (Zosyn 2.25gm/ 50ml (Pmx)) 50 ml @ 200 mls/hr Q8H IVPB Last administered on 08/06/17 11:23; Admin Dose 200 MLS/HR; Start 08/06/17 at 10:00 Miscellaneous Information 1 ONCE ONCE XX ; Start 08/07/17 at 05:00; Stop at 05:01 Pantoprazole/ Sodium Chloride (Protonix Iv/NS) 100 ml @ 10 mls/hr Q10H IV ; Start 08/06/17 at 13:30 NICOLE JEAN MD Aug 06, 2017 13:49
[2017-08-06 14:15] LABS: ABNORMAL IP MESSAGE 1; HEMOGLOBIN 8.9 g/dl (12.0-16.0); MEAN CORPUSCULAR HEMOGLOBIN 33.8 pg (29.0-33.0); MEAN CORPUSCULAR HGB CONC 31.8 g/dl (32.0-37.0); MEAN CORPUSCULAR VOLUME 106.5 fl (82.0-101.0); MEAN PLATELET VOLUME 12.5 fl (7.4-10.4); NUCLEATED RED BLOOD CELLS% 17.2 /100WBC (0.0-0.0); RED BLOOD COUNT 2.63 10^6/ul (4.20-5.40); RED CELL DISTRIBUTION WIDTH 20.3 % (11.5-14.5); WHITE BLOOD COUNT 11.1 10^3/ul (4.8-10.8)
[2017-08-06 14:43] LABS: PLATELET COUNT 11 10^3/UL (140-415); POSITIVE DIFF @See below
--- NOTE | 2017-08-06 15:11 | RADRPT ---
PROCEDURE: XR Chest. CLINICAL INDICATION: Shortness of breath TECHNIQUE: Single portable view of the chest was obtained COMPARISON: August 05, 2017 FINDINGS: There is an ET tube with distal tip below thoracic inlet. NG tube is noted with distal tip in noted within the distal stomach/proximal duodenum. Cardiac silhouette and pulmonary vascularity are promin ent. There are bilateral lower lobe opacities and small pleural effusions. IMPRESSION: 1. ET tube and NG tube are in satisfactory position. 2. Cardiomegaly and pulmonary congestion with bilateral lower lobe opacities and small pleural effus ions. RPTAT: AARR Physician Brian Date Time Electronically viewed and signed by Physician Brian on 08/06/2017 15:11 JUAN/
[2017-08-06 16:08] LABS: ACANTHOCYTES 2+ (0-0); ANISOCYTOSIS 3+ (0-0); BURR CELLS 2+ (0-0); ERYTHROBLAST% (NRBC) (M) 50 % (0-0); GIANT THROMBO% (M) 1 % (0-0); MICROCYTOSIS 2+ (0-0); MONOCYTES % (M) 8 % (0-11); POIKILOCYTOSIS 3+ (0-0); POLYCHROMASIA 2+ (0-0)
[2017-08-06 16:44] LABS: ACANTHOCYTES 2+ (0-0); ANISOCYTOSIS 3+ (0-0); BURR CELLS 3+ (0-0); EOSINOPHILS % (M) 2 % (0-7); ERYTHROBLAST% (NRBC) (M) 33 % (0-0); METAMYELOCYTES %M 2 % (0-0); MICROCYTOSIS 2+ (0-0); MONOCYTES % (M) 8 % (0-11); POIKILOCYTOSIS 3+ (0-0); POLYCHROMASIA 2+ (0-0)
[2017-08-06 17:00] LABS: PT RATIO 5.1
[2017-08-06] MEDS: SODIUM BICARBONATE (IV ADD) 150 MEQ in DEXTROSE 5% 1,000 ML IV SCH (17:00)
[2017-08-06 17:09] LABS: PROTIME 65.1 Sec (12.2-14.2)
[2017-08-06 17:10] LABS: INR 7.47; PARTIAL THROMBOPLASTIN TIME 84.6 Sec (25.0-35.0)
--- NOTE | 2017-08-06 18:17 | PN ---
Date/Time of Note Date/Time of Note DATE: 08/06/17 TIME: 18:10 Assessment/Plan VTE Prophylaxis VTE Prophylaxis Intervention: SCD's Lines/Catheters IV Catheter Type (from Nrs): Central Line Central line still needed: Yes Urinary Cath still in place: Yes Reason Cath still needed: terminal illness/intractable pain Assessment/Plan Chief Complaint/Hosp Course Assessment/Plan 1. Altered mental status secondary to hepatic encephalopathy - Ammonia increased today, worsened encephalopathy. - GI on board and recommendations appreciated. upper endoscopy done today did not show obvious sign of bleed. - holding lactulose given GI bleed - CT head showed mild generalized cerebral volume loss and nonspecific chronic microvascular ischemic disease without evidence of intracranial masses hemorrhages or midline shift. initially, now with dilated pupils, ? brain bleed , will repeat CT. #hypotension -severe hepatorenal and ? septic source -4 pressors, titrate as able -IV fluids #coagulopathy -2/2 likely end stage liver disease 2. Hypernatremia - d5w with bicarb per nephro 3. Hyperkalemia- monitor, now hypokalemia 4. ZACK on CKD- worsening - patient baseline Cr appears to be 1.2 during prior admission - Nephrology on board and recommendations appreciated. - likely hepatorenal 5. Elevated LFT- still elevated - Most likely secondary to cirrhosis - Will continue to monitor 6. Hyperammonia - worsened - Continue on lactulose and rifaximin 7. GI bleed, likely lower - GI bleeding with lactulose, stable without 8. 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 ?OWEN as cause of her cirrhosis -end stage, currently unstable for transfer to [facility] 9. Thrombocytopenia - Secondary to cirrhosis - will continue to monitor and transfuse if <10K 10. Ascites - zosyn for abx 11. CBD - Complete abd u/s with multiple findings including gallstones/sludge hepatofugal flow - MRCP showed No biliary ductal dilatation definitive filling defect within the biliary tree # Disposition - worsening condition, on 4 pressors, [facility] rejected transfer, palliative care consulted. Patient's family urged to be at bedside -multifactorial organ failure Problems: Subjective 24 Hr Interval Summary Free Text/Dictation patient intubated and now on 4 pressors overnight Exam/Review of Systems Vital Signs Vitals Vital Signs Date Time Temp Pulse Resp B/P Pulse Ox O2 Delivery O2 Flow Rate FiO2 08/06/17 18:00 74 18 127/52 100 08/06/17 17:17 50 08/06/17 17:00 Mechanical Ventilator 08/06/17 16:00 95.5 08/05/17 20:26 3.0 Intake and Output 08/05/17 08/05/17 08/06/17 15:00 23:00 07:00 Intake Total 695 ml 1916 ml 3402.6 ml Output Total 30 ml 0 ml 10 ml Balance 665 ml 1916 ml 3392.6 ml Exam Constitutional: intubated, obtunded Head: atraumatic, normocephalic Eyes: icteric bilaterally, dilated pupils bilaterally Neck: non-tender, supple Respiratory: coarse to auscultation, diminished breath sounds, Cardiovascular: tachycardic, no obvious murmur Gastrointestinal: ascites, bowel sounds, distended, soft, No rebound or guarding Musculoskeletal: nl extremities to inspection Extremities: normal pulses, No clubbing, No cyanosis, No edema Neurological: minimal response to noxious stimuli Results Result Diagram: 08/06/17 1350 08/06/17 0515 Results 24 hrs Laboratory Tests Test 08/05/17 18:16 08/05/17 20:33 08/05/17 21:50 08/06/17 04:30 Ammonia 133 H 353 #H Blood Gas Specimen Source Blood arterial Arterial Blood Date Drawn 08/05/2017 11:10:41 PM Arterial Blood pH (Temp corrected) 7.163 *L Arterial Blood pCO2 (Temp correct) 24.7 L Arterial Blood pO2 (Temp corrected) 388.9 H Arterial Blood HCO3 8.8 *L Arterial Blood Base Excess -18.5 L Arterial Blood Oxygen Saturation 99.1 H Adonay Test ACCEPTAB Arterial Blood Gas Puncture Site Right Radial Arterial Blood Carboxyhemoglobin 0.2 Arterial Blood Methemoglobin 0.6 Blood Gas A-a O2 Differential 302.0 H Oxyhemoglobin Percent 98.3 Total Hemoglobin 10.0 L Blood Gas Temperature 36.0 Blood Gas Respiration Rate 20.0 Blood Gas Actual Respiration Rate 20 Blood Gas Modality VENT - AC FiO2 100.0 Blood Gas Tidal Volume 500.0 Blood Gas Inspiratory Pressure 17.0 Blood Gas Pressure Support 5 Blood Gas Critical Value Read Back Martinez COX RN Blood Gas Notified Whom CO Blood Gas Notified Time 08/05/2017 11:22:50 PM White Blood Count 1.8 #L 5.5 # Red Blood Count 2.74 L 1.42 #L Hemoglobin 9.7 L 5.0 #*L Hematocrit 29.8 L 15.5 #L Mean Corpuscular Volume 108.8 H 109.2 H Mean Corpuscular Hemoglobin 35.4 H 35.2 H Mean Corpuscular Hemoglobin Concent 32.6 32.3 Red Cell Distribution Width 29.0 H 28.7 H Platelet Count 56 #L 25 #*L Mean Platelet Volume 11.0 H 10.7 H Neutrophils % 81.0 H Segmented Neutrophils % (Manual) 27 L Band Neutrophils % (Manual) 6 H Lymphocytes % 11.3 L Lymphocytes % (Manual) 60 H Monocytes % 5.8 Monocytes % (Manual) 6 Eosinophils % 0.4 Eosinophils % (Manual) 1 Basophils % 0.4 Nucleated Red Blood Cells % 71 H 37.3 H Neutrophils # 4.5 Neutrophils # (Manual) 0.5 L Band Neutrophils # 0.1 Absolute Lymphocytes (Manual) 1.0 Lymphocytes # 0.6 L Monocytes # 0.3 Absolute Monocytes (Manual) 0.1 L Eosinophils # 0.0 Basophils # 0.0 Nucleated Red Blood Cells # 2.1 H Platelet Estimate DECREASED Giant Platelets 1 H Polychromasia 2+ Poikilocytosis 2+ Anisocytosis 2+ Macrocytosis 1+ Prothrombin Time 50.8 #H Prothrombin Time Ratio 4.0 INR International Normalized Ratio 5.46 Activated Partial Thromboplast Time 77.2 *H Sodium Level 152 H Potassium Level 4.0 Chloride Level 116 H Carbon Dioxide Level 9 *L Anion Gap 31 H Blood Urea Nitrogen 60 H Creatinine 2.87 H Glucose Level 83 Lactic Acid Level 13.7 *H Calcium Level 8.4 Phosphorus Level 6.0 H Magnesium Level 2.1 Total Bilirubin 8.0 H Direct Bilirubin 5.10 H Indirect Bilirubin 2.9 H Aspartate Amino Transf (AST/SGOT) 112 H Alanine Aminotransferase (ALT/SGPT) 60 Alkaline Phosphatase 87 Total Protein 5.3 L Albumin 2.4 L Globulin 2.90 Albumin/Globulin Ratio 0.82 Test 08/06/17 05:06 08/06/17 05:15 08/06/17 05:50 08/06/17 13:50 Lab Scanned Report BLOOD TRANSFUSION White Blood Count 5.9 11.1 #H Red Blood Count 1.42 L 2.63 #L Hemoglobin 5.0 *L 8.9 #L Hematocrit 15.6 L 28.0 #L Mean Corpuscular Volume 109.9 H 106.5 H Mean Corpuscular Hemoglobin 35.2 H 33.8 H Mean Corpuscular Hemoglobin Concent 32.1 31.8 L Red Cell Distribution Width 29.1 H 20.3 #H Platelet Count 23 *L 11 #*L Mean Platelet Volume 10.5 H 12.5 H Neutrophils % Segmented Neutrophils % (Manual) 37 L 34 L Band Neutrophils % (Manual) 34 H 28 H Lymphocytes % Lymphocytes % (Manual) 22 25 Monocytes % Monocytes % (Manual) 8 8 Eosinophils % Basophils % Nucleated Red Blood Cells % 50 H 33 H Neutrophils # Neutrophils # (Manual) 2.3 4.1 Band Neutrophils # 2.0 H 3.1 H Absolute Lymphocytes (Manual) 1.2 2.7 Lymphocytes # Monocytes # Absolute Monocytes (Manual) 0.4 0.8 Eosinophils # Basophils # Nucleated Red Blood Cells # Giant Platelets 1 H Platelet Morphology Comment @See below @See below Polychromasia 2+ 2+ Poikilocytosis 3+ 3+ Anisocytosis 3+ 3+ Microcytosis 2+ 2+ Macrocytosis 1+ 1+ Acanthocytes 2+ 2+ Sodium Level 148 H Potassium Level 3.0 L Chloride Level 109 Carbon Dioxide Level 14 L Anion Gap 28 H Blood Urea Nitrogen 52 H Creatinine 3.05 H Glucose Level 174 Calcium Level 6.9 L Phosphorus Level 4.9 Magnesium Level 1.9 Total Bilirubin 4.7 #H Direct Bilirubin 2.80 #H Indirect Bilirubin 1.9 H Aspartate Amino Transf (AST/SGOT) 456 H Alanine Aminotransferase (ALT/SGPT) 184 H Alkaline Phosphatase 46 Total Protein 2.9 #L Albumin 1.5 L Globulin 1.40 Albumin/Globulin Ratio 1.07 Blood Gas Specimen Source Blood arterial Arterial Blood Date Drawn 08/06/2017 7:20:24 AM Arterial Blood pH (Temp corrected) 7.176 *L Arterial Blood pCO2 (Temp correct) 26.4 L Arterial Blood pO2 (Temp corrected) 129.4 H Arterial Blood HCO3 9.5 *L Arterial Blood Base Excess -17.3 L Arterial Blood Oxygen Saturation 96.9 Adonay Test N/A Arterial Blood Gas Puncture Site Right Brachial Arterial Blood Carboxyhemoglobin 0.6 Arterial Blood Methemoglobin 1.1 Blood Gas A-a O2 Differential 197.4 H Oxyhemoglobin Percent 95.3 Total Hemoglobin 5.8 L Blood Gas Temperature 37.0 Blood Gas Respiration Rate 20.0 Blood Gas Actual Respiration Rate 21 Blood Gas Modality VENT - AC FiO2 50.0 Blood Gas Tidal Volume 500.0 Blood Gas Low PEEP Setting 5.0 Blood Gas Critical Value Read Back M COX RN Blood Gas Notified Whom JLD Blood Gas Notified Time 08/06/2017 7:34:41 AM Eosinophils % (Manual) 2 Metamyelocytes % (manual) 2 H Metamyelocytes # 0.2 H Prothrombin Time 65.1 #H Prothrombin Time Ratio 5.1 INR International Normalized Ratio 7.47 *H Activated Partial Thromboplast Time 84.6 *H Medications Medications Current Medications Folic Acid (Folic Acid) 1 mg DAILY PO Last administered on 08/06/17 08:50; Admin Dose 1 MG; Start 07/30/17 at 09:00 Rifaximin (Xifaxan) 550 mg BID PO Last administered on 08/06/17 08:50; Admin Dose 550 MG; Start 07/30/17 at 09:00 Ursodiol (Actigall) 300 mg TID PO Last administered on 08/06/17 08:50; Admin Dose 300 MG; Start 07/30/17 at 09:00 Ondansetron HCl (Zofran Inj) 4 mg Q6H PRN IV NAUSEA AND/OR VOMITING Last administered on 08/04/17 11:26; Admin Dose 4 MG; Start 07/30/17 at 09:00 Acetaminophen (Tylenol Tab) 650 mg Q6H PRN PO PAIN LEVEL 1-3 OR FEVER; Start 07/30/17 at 09:00 Acetaminophen (Tylenol Supp) 650 mg Q6H PRN [place] PAIN LEVEL 1-3 OR FEVER; Start 07/30/17 at 09:00 Lactulose 30 gm 30 gm Q6H PRN PO CONSTIPATION Last administered on 08/04/17 11:23; Admin Dose 30 GM; Start 08/04/17 at 11:00; Status Future Hold Albumin Human (Albumin Human 25%) 50 ml @ 100 mls/hr Q8H IV Last administered on 08/06/17 11:35; Admin Dose 100 MLS/HR; Start 08/05/17 at 11:00; Stop at 03:29 Lactulose 20 gm 20 gm Q4 GTB Last administered on 08/06/17 08:49; Admin Dose 20 GM; Start 08/05/17 at 13:00 Phenylephrine HCl 160 mg/Dextrose 500 ml @ 18.75 mls/ hr TITRATE IV Last administered on 08/06/17 12:00; Admin Dose 18.75 MLS/HR; Start 08/06/17 at 11 :00 Norepinephrine 32 mg/Dextrose 250 ml @ 0.46 mls/hr TITRATE IV ; Start at 11:00 Piperacillin Sod/ Tazobactam Sod (Zosyn 2.25gm/ 50ml (Pmx)) 50 ml @ 200 mls/hr Q8H IVPB Last administered on 08/06/17 11:23; Admin Dose 200 MLS/HR; Start 08/06/17 at 10:00 Miscellaneous Information 1 ONCE ONCE XX ; Start 08/07/17 at 05:00; Stop at 05:01 Pantoprazole 80 mg/Sodium Chloride 100 ml @ 10 mls/hr Q10H IV Last administered on 08/06/17 13:30; Admin Dose 10 MLS/HR; Start 08/06/17 at 13:30 Sodium Bicarbonate/ Dextrose (Na Bicarb/D5W) 1,150 ml @ 75 mls/hr [id number] IV ; Start 08/06/17 at 15:38 OSMAN NERGON Aug 06, 2017 18:17
[2017-08-06] MEDS: NORepinephrine 32 MG in DEXTROSE 5% 218 ML IV SCH (23:08)
[2017-08-07] VITALS (98 sets, daily range): BP systolic 85–136; BP diastolic 33–55; PULSE 73–98; RESP 17–26
[2017-08-07] MEDS: PANTOPRAZOLE IV 80 MG in SOD CHLORIDE 0.9% 100 ML IV SCH ×3 (00:09→20:50)
[2017-08-07 00:32] LABS: HEMATOCRIT 22.4 % (37.0-47.0); HEMOGLOBIN 7.6 g/dl (12.0-16.0)
[2017-08-07] MEDS: PIPER-TAZO 2.25 GM (PMX) 50 ML IVPB SCH ×3 (02:37→17:29)
[2017-08-07] MEDS: LACTULOSE 30ML CUP GTB SCH ×6 (02:37→20:01)
[2017-08-07] MEDS: ALBUMIN HUMAN 25% 50 ML IV SCH (04:04)
[2017-08-07 06:37] LABS: ABNORMAL IP MESSAGE 1; HEMATOCRIT 26.5 % (37.0-47.0); HEMOGLOBIN 9.1 g/dl (12.0-16.0); MEAN CORPUSCULAR HEMOGLOBIN 32.7 pg (29.0-33.0); MEAN CORPUSCULAR HGB CONC 34.3 g/dl (32.0-37.0); MEAN CORPUSCULAR VOLUME 95.3 fl (82.0-101.0); MEAN PLATELET VOLUME 11.8 fl (7.4-10.4); NUCLEATED RED BLOOD CELLS% 5.3 /100WBC (0.0-0.0); RED BLOOD COUNT 2.78 10^6/ul (4.20-5.40); RED CELL DISTRIBUTION WIDTH 18.5 % (11.5-14.5)
[2017-08-07 06:43] LABS: PLATELET COUNT 23 10^3/UL (140-415); POSITIVE DIFF @See below
[2017-08-07] MEDS: PHENYLephrine 160 MG in DEXTROSE 5% 484 ML IV SCH (07:00)
[2017-08-07 07:01] LABS: ALBUMIN/GLOBULIN RATIO 0.9; BILIRUBIN,DIRECT 5.3 mg/dl (0.00-0.20); BILIRUBIN,INDIRECT 3.8 mg/dl (0-1.1); BILIRUBIN,TOTAL 9.1 mg/dl (0.2-1.3); CALCIUM 7.3 mg/dl (8.4-10.2); CREATININE 3.06 mg/dl (0.44-1.00); MAGNESIUM 1.7 mg/dl (1.7-2.5); POTASSIUM 3.4 mmol/L (3.5-5.1); TOTAL PROTEIN 4.2 g/dl (6.1-8.1)
[2017-08-07] MEDS: SODIUM BICARBONATE (IV ADD) 150 MEQ in DEXTROSE 5% 1,000 ML IV SCH ×2 (07:15→22:22)
--- NOTE | 2017-08-07 07:29 | CONS ---
Date/Time of Note Date/Time of Note DATE: 08/07/17 TIME: 07:23 Assessment/Plan Assessment/Plan Additional Assessment/Plan First all family members have decided at this time to continue with full code however they are extremely realistic as to the gravity of her current medical condition. Participants were all first-degree family members including children and brother is not involved decision making. The force of the family were the entire family. And they all participate in decision-making patient's background medical problems reviewed they have clear understanding of the severity of her underlying medical problem, end-stage liver disease cirrhosis by history and all secondary implications associated with sepsis bleeding anemia mental status changes. Currently hopes that she would survive but once again they are realistic. Fears are that she would suffer to have strong spiritual background the communication preferences was 101 with patient' s caregivers. Unfortunately her physical exam is consistent with fixed dilated pupils which is changed since electrical assembly technician's examination. And there is evidence that she had sustained a severe and may be a reversible underlying neurological catastrophe. Estimated prognosis is extremely poor. We assured family members we to address her pain and symptom management. All psychosocial social spiritual existential and cultural concerns were addressed, primarily at family murmurs or very spiritual and I suggested they would have their honing machine operator production visit patient at this time there are no ethical or surrogate concerns Zabrina situation will not be addressed as this is very early in patient's medical illness. However I did tell family members that if she has another catastrophic event or she continues on an current medical condition without improvement that we should speak about level of care. Consultation Date/Type/Reason Admit Date/Time Jul 30, 2017 at 04:53 Type of Consultation: Palliative care Constitutional: disoriented Psychological: confusion Past Medical History Medical History: other (End stag Liver disease ) Past Surgical History Past Surgical Hx: other Social History Alcohol Use: none Smoking Status: Never smoker Drug Use: none Exam/Review of Systems Vital Signs Vitals Vital Signs Date Time Temp Pulse Resp B/P Pulse Ox O2 Delivery O2 Flow Rate FiO2 08/07/17 06:30 87 17 100/41 100 08/07/17 06:00 Mechanical Ventilator 08/07/17 05:20 40 08/07/17 04:00 95.9 08/05/17 20:26 3.0 Intake and Output 08/06/17 08/06/17 08/07/17 15:00 23:00 07:00 Intake Total 2385.4 ml 4962.5 ml Output Total 810 ml 50 ml Balance 1575.4 ml 4912.5 ml Exam Constitutional: non-verbal, other (Intubate) Respiratory: congested cough, crackles/rales, diminished breath sounds Cardiovascular: nl pulses, regular rate and rhythm, No S3, No S4, No bruits, No diastolic murmur, No edema, No gallop, No irregular rhythm, No jugular venous distention (JVD), No murmurs/extra sounds, No other, No rub, No systolic murmur Gastrointestinal: other (Distended no bowel) Neurological: other (Bilateral fixed pupils negative doll's eyes corneal reflexes no gag no spontaneous movement no response to verbal or tactile stimulation flaccid all 4 extremities) Results Result Diagram: 08/07/1716 08/07/1716 Results 24 hrs Laboratory Tests Test 08/06/17 13:50 08/06/17 23:00 08/07/17 05:05 08/07/17 06:16 White Blood Count 11.1 #H 10.0 Red Blood Count 2.63 #L 2.78 L Hemoglobin 8.9 #L 7.6 L 9.1 L Hematocrit 28.0 #L 22.4 L 26.5 L Mean Corpuscular Volume 106.5 H 95.3 Mean Corpuscular Hemoglobin 33.8 H 32.7 Mean Corpuscular Hemoglobin Concent 31.8 L 34.3 Red Cell Distribution Width 20.3 #H 18.5 H Platelet Count 11 #*L 23 #*L Mean Platelet Volume 12.5 H 11.8 H Neutrophils % Segmented Neutrophils % (Manual) 34 L Band Neutrophils % (Manual) 28 H Lymphocytes % Lymphocytes % (Manual) 25 Monocytes % Monocytes % (Manual) 8 Eosinophils % Eosinophils % (Manual) 2 Basophils % Metamyelocytes % (manual) 2 H Nucleated Red Blood Cells % 33 H 5.3 H Neutrophils # Neutrophils # (Manual) 4.1 Band Neutrophils # 3.1 H Absolute Lymphocytes (Manual) 2.7 Lymphocytes # Monocytes # Absolute Monocytes (Manual) 0.8 Eosinophils # Basophils # Metamyelocytes # 0.2 H Nucleated Red Blood Cells # Platelet Morphology Comment @See below Polychromasia 2+ Poikilocytosis 3+ Anisocytosis 3+ Microcytosis 2+ Macrocytosis 1+ Acanthocytes 2+ Prothrombin Time 65.1 #H Prothrombin Time Ratio 5.1 INR International Normalized Ratio 7.47 *H Activated Partial Thromboplast Time 84.6 *H Lactic Acid Level 22.2 *H Lactate Dehydrogenase 59053 H Lab Scanned Report BLOOD TRANSFUSION Sodium Level 142 Potassium Level 3.4 L Chloride Level 100 Carbon Dioxide Level 14 L Anion Gap 31 H Blood Urea Nitrogen 49 H Creatinine 3.06 H Glucose Level 74 # Calcium Level 7.3 L Magnesium Level 1.7 Total Bilirubin 9.1 #H Direct Bilirubin 5.30 #H Indirect Bilirubin 3.8 H Aspartate Amino Transf (AST/SGOT) Pending Alanine Aminotransferase (ALT/SGPT) 1911 H Alkaline Phosphatase 106 # Total Protein 4.2 #L Albumin 2.0 L Globulin 2.20 Albumin/Globulin Ratio 0.90 Random Vancomycin Level 9.9 Medications Medications Current Medications Folic Acid (Folic Acid) 1 mg DAILY PO Last administered on 08/06/17 08:50; Admin Dose 1 MG; Start 07/30/17 at 09:00 Rifaximin (Xifaxan) 550 mg BID PO Last administered on 08/06/17 20:42; Admin Dose 550 MG; Start 07/30/17 at 09:00 Ursodiol (Actigall) 300 mg TID PO Last administered on 08/06/17 20:42; Admin Dose 300 MG; Start 07/30/17 at 09:00 Ondansetron HCl (Zofran Inj) 4 mg Q6H PRN IV NAUSEA AND/OR VOMITING Last administered on 08/04/17 11:26; Admin Dose 4 MG; Start 07/30/17 at 09:00 Acetaminophen (Tylenol Tab) 650 mg Q6H PRN PO PAIN LEVEL 1-3 OR FEVER; Start 07/30/17 at 09:00 Acetaminophen (Tylenol Supp) 650 mg Q6H PRN [place] PAIN LEVEL 1-3 OR FEVER; Start 07/30/17 at 09:00 Lactulose (Enulose) 30 gm Q6H PRN PO CONSTIPATION Last administered on 11:23; Admin Dose 30 GM; Start 08/04/17 at 11:00; Status Future Hold Lactulose 20 gm 20 gm Q4 GTB Last administered on 08/07/17 05:52; Admin Dose 20 GM; Start 08/05/17 at 13:00 Phenylephrine HCl 160 mg/Dextrose 500 ml @ 18.75 mls/ hr TITRATE IV Last administered on 08/06/17 12:00; Admin Dose 18.75 MLS/HR; Start 08/06/17 at 11 :00 Norepinephrine 32 mg/Dextrose 250 ml @ 0.46 mls/hr TITRATE IV Last administered on 08/06/17 23:08; Admin Dose 10.31 MLS/HR; Start 08/06/17 at 11 :00 Piperacillin Sod/ Tazobactam Sod 50 ml @ 200 mls/hr Q8H IVPB Last administered on 08/07/17 02:37; Admin Dose 200 MLS/HR; Start 08/06/17 at 10: 00 Pantoprazole 80 mg/Sodium Chloride 100 ml @ 10 mls/hr Q10H IV Last administered on 08/07/17 00:09; Admin Dose 10 MLS/HR; Start 08/06/17 at 13:30 Sodium Bicarbonate/ Dextrose (Na Bicarb/D5W) 1,150 ml @ 75 mls/hr [id number] IV Last administered on 08/06/17 17:00; Admin Dose 75 MLS/HR; Start 08/06/17 at 15:38 SOCORRO REYES Aug 07, 2017 07:29
[2017-08-07 08:06] LABS: AADO2 Arterial 161.7 mmHg (7.0-24.0); Allen Test ACCEPTAB; Arterial Base Excess -12.8 mmol/L (-3.0-3); Arterial COHb 0.3 % (0.0-3.0); Arterial HCO3 11.8 mmol/L (22.0-26.0); Arterial MetHb 0.3 % (0.0-1.5); Arterial Total Hemglobin 9.9 g/dl (12.0-18.0); MODE VENT - AC
[2017-08-07] MEDS: RIFAXIMIN 550 MG TAB PO SCH ×2 (09:00→20:01)
[2017-08-07] MEDS ORDERED: LORAZEPAM 2 MG INJ IV PRN (09:00)
[2017-08-07] MEDS: FOLIC ACID 1 MG TAB PO SCH (09:00)
[2017-08-07] MEDS: URSODIOL 300 MG CAP PO SCH ×3 (09:00→20:01)
[2017-08-07 09:02] LABS: ANISOCYTOSIS 1+ (0-0); BASOPHILS % (M) 1 % (0-2); BURR CELLS 2+ (0-0); ERYTHROBLAST% (NRBC) (M) 12 % (0-0); MICROCYTOSIS 1+ (0-0); MONOCYTES % (M) 11 % (0-11); PLATELET ESTIMATE SIG DECREASED; POIKILOCYTOSIS 3+ (0-0); REACTIVE LYMPHOCYTES% (M) 3 % (0-0)
--- NOTE | 2017-08-07 09:24 | CONS ---
Date/Time of Note Date/Time of Note DATE: 08/07/17 TIME: 09:21 Consult Date/Type/Reason Admit Date/Time Jul 30, 2017 at 04:53 Initial Consult Date 07/31/17 Type of Consultation: Pulmonary Ordering Provider: DENYS CRAIG MD Subjective Patient remains somnolent on mechanical ventilation. Possible seizure activity. Objective Vital Signs Date Time Temp Pulse Resp B/P Pulse Ox O2 Delivery O2 Flow Rate FiO2 08/07/17 06:30 87 17 100/41 100 08/07/17 06:00 Mechanical Ventilator 08/07/17 05:20 40 08/07/17 04:00 95.9 08/05/17 20:26 3.0 Intake and Output 08/06/17 08/06/17 08/07/17 15:00 23:00 07:00 Intake Total 2385.4 ml 5125.5 ml 1624 ml Output Total 810 ml 50 ml 10 ml Balance 1575.4 ml 5075.5 ml 1614 ml Exam PHYSICAL EXAMINATION: GENERAL: Chronically ill appearing lady, intubated on mechanical ventilation VITAL SIGNS: NECK: Supple. No JVD or lymphadenopathy. CARDIAC: S1, S2, no added sounds or murmurs. CHEST: Diminished air entry bilaterally. ABDOMEN: Soft, nontender. No guarding or rebound. EXTREMITIES: No cyanosis, clubbing, edema. NEUROLOGIC: Unable to assess. Results/Medications Result Diagram: 08/07/17 0616 08/07/1716 Results 24 hrs Laboratory Tests Test 08/06/17 13:50 08/06/17 23:00 08/07/17 05:05 08/07/17 06:16 White Blood Count 11.1 #H 10.0 Red Blood Count 2.63 #L 2.78 L Hemoglobin 8.9 #L 7.6 L 9.1 L Hematocrit 28.0 #L 22.4 L 26.5 L Mean Corpuscular Volume 106.5 H 95.3 Mean Corpuscular Hemoglobin 33.8 H 32.7 Mean Corpuscular Hemoglobin Concent 31.8 L 34.3 Red Cell Distribution Width 20.3 #H 18.5 H Platelet Count 11 #*L 23 #*L Mean Platelet Volume 12.5 H 11.8 H Neutrophils % Segmented Neutrophils % (Manual) 34 L 32 L Band Neutrophils % (Manual) 28 H 40 H Lymphocytes % Lymphocytes % (Manual) 25 12 L Monocytes % Monocytes % (Manual) 8 11 Eosinophils % Eosinophils % (Manual) 2 Basophils % Metamyelocytes % (manual) 2 H Nucleated Red Blood Cells % 33 H 12 H Neutrophils # Neutrophils # (Manual) 4.1 3.6 Band Neutrophils # 3.1 H 4.0 H Absolute Lymphocytes (Manual) 2.7 1.2 Lymphocytes # Monocytes # Absolute Monocytes (Manual) 0.8 1.1 H Eosinophils # Basophils # Metamyelocytes # 0.2 H Nucleated Red Blood Cells # Platelet Morphology Comment @See below Polychromasia 2+ Poikilocytosis 3+ 3+ Anisocytosis 3+ 1+ Microcytosis 2+ 1+ Macrocytosis 1+ Acanthocytes 2+ Prothrombin Time 65.1 #H Prothrombin Time Ratio 5.1 INR International Normalized Ratio 7.47 *H Activated Partial Thromboplast Time 84.6 *H Lactic Acid Level 22.2 *H Lactate Dehydrogenase 56771 H Lab Scanned Report BLOOD TRANSFUSION Reactive Lymphocytes % (Manual) 3 H Basophils % (Manual) 1 Reactive Lymphocytes # 0.3 H Basophils # (Manual) 0.1 H Platelet Estimate SIG DECREASED Sodium Level 142 Potassium Level 3.4 L Chloride Level 100 Carbon Dioxide Level 14 L Anion Gap 31 H Blood Urea Nitrogen 49 H Creatinine 3.06 H Glucose Level 74 # Calcium Level 7.3 L Magnesium Level 1.7 Total Bilirubin 9.1 #H Direct Bilirubin 5.30 #H Indirect Bilirubin 3.8 H Aspartate Amino Transf (AST/SGOT) 5599 H Alanine Aminotransferase (ALT/SGPT) 1911 H Alkaline Phosphatase 106 # Total Protein 4.2 #L Albumin 2.0 L Globulin 2.20 Albumin/Globulin Ratio 0.90 Random Vancomycin Level 9.9 Test 08/07/17 07:00 Blood Gas Specimen Source Blood arterial Arterial Blood Date Drawn 08/07/2017 7:20:06 AM Arterial Blood pH (Temp corrected) 7.318 L Arterial Blood pCO2 (Temp correct) 23.5 L Arterial Blood pO2 (Temp corrected) 96.5 Arterial Blood HCO3 11.8 L Arterial Blood Base Excess -12.8 L Arterial Blood Oxygen Saturation 96.6 Adonay Test ACCEPTAB Arterial Blood Gas Puncture Site Right Radial Arterial Blood Carboxyhemoglobin 0.3 Arterial Blood Methemoglobin 0.3 Blood Gas A-a O2 Differential 161.7 H Oxyhemoglobin Percent 96.0 Total Hemoglobin 9.9 L Blood Gas Temperature 37.0 Blood Gas Respiration Rate 20.0 Blood Gas Actual Respiration Rate 24 Blood Gas Modality VENT - AC FiO2 40.0 Blood Gas Tidal Volume 500.0 Blood Gas Low PEEP Setting 5.0 Blood Gas Notified Whom JLD Blood Gas Notified Time 08/07/2017 8:06:47 AM Medications Current Medications Folic Acid (Folic Acid) 1 mg DAILY PO Last administered on 08/06/17 08:50; Admin Dose 1 MG; Start 07/30/17 at 09:00 Rifaximin (Xifaxan) 550 mg BID PO Last administered on 08/06/17 20:42; Admin Dose 550 MG; Start 07/30/17 at 09:00 Ursodiol (Actigall) 300 mg TID PO Last administered on 08/06/17 20:42; Admin Dose 300 MG; Start 07/30/17 at 09:00 Ondansetron HCl (Zofran Inj) 4 mg Q6H PRN IV NAUSEA AND/OR VOMITING Last administered on 08/04/17 11:26; Admin Dose 4 MG; Start 07/30/17 at 09:00 Acetaminophen (Tylenol Tab) 650 mg Q6H PRN PO PAIN LEVEL 1-3 OR FEVER; Start 07/30/17 at 09:00 Acetaminophen (Tylenol Supp) 650 mg Q6H PRN [place] PAIN LEVEL 1-3 OR FEVER; Start 07/30/17 at 09:00 Lactulose (Enulose) 30 gm Q6H PRN PO CONSTIPATION Last administered on 11:23; Admin Dose 30 GM; Start 08/04/17 at 11:00; Status Future Hold Lactulose 20 gm 20 gm Q4 GTB Last administered on 08/07/17 05:52; Admin Dose 20 GM; Start 08/05/17 at 13:00 Phenylephrine HCl 160 mg/Dextrose 500 ml @ 18.75 mls/ hr TITRATE IV Last administered on 08/06/17 12:00; Admin Dose 18.75 MLS/HR; Start 08/06/17 at 11 :00 Norepinephrine 32 mg/Dextrose 250 ml @ 0.46 mls/hr TITRATE IV Last administered on 08/06/17 23:08; Admin Dose 10.31 MLS/HR; Start 08/06/17 at 11 :00 Piperacillin Sod/ Tazobactam Sod 50 ml @ 200 mls/hr Q8H IVPB Last administered on 08/07/17 02:37; Admin Dose 200 MLS/HR; Start 08/06/17 at 10: 00 Pantoprazole 80 mg/Sodium Chloride 100 ml @ 10 mls/hr Q10H IV Last administered on 08/07/17 00:09; Admin Dose 10 MLS/HR; Start 08/06/17 at 13:30 Sodium Bicarbonate/ Dextrose (Na Bicarb/D5W) 1,150 ml @ 75 mls/hr [id number] IV Last administered on 08/06/17 17:00; Admin Dose 75 MLS/HR; Start 08/06/17 at 15:38 Lorazepam 2 mg 2 mg Q2H PRN IV SEIZURES; Start 08/07/17 at 09:00 Levetiracetam 100 ml @ 400 mls/hr Q12 IVPB ; Start 08/07/17 at 10:30 Vancomycin HCl/ Sodium Chloride (Vancocin/NS) 150 ml @ 75 mls/hr Q48H IVPB ; Start 08/07/17 at 11:00 Assessment/Plan Chief Complaint/Hosp Course IMPRESSION: 1. Encephalopathy, likely secondary to elevated ammonia. Questionable intracerebral bleed secondary to encephalopathy or significant cerebral edema from liver failure. 2. Acute renal failure, probably secondary to hepatorenal syndrome given worsening ammonia, worsening liver function tests and decreased urine output. 3. Leukocytosis, concerning for possible spontaneous bacterial peritonitis. 4. Septic shock possibly secondary to SBP 5. Hypoxemic respiratory failure secondary to above 6. Status post endoscopy no evidence of overt upper GI bleed. PLAN: 1. Aggressive volume resuscitation. 2. Continue vasopressor support 3. Continue rifaximin. Continue PPI 4. Continue current antibiotics. 5. Continue current vent settings 6. CT brain when stable. 7. Agree with addition of antiepileptics. Consider EEG to rule out nonconvulsive seizures. Overall prognosis extremely poor. Problems: LURDES SAUNDERS MD, [facility] Aug 07, 2017 09:23
[2017-08-07] MEDS: LEVETIRACETAM 500 MG (PMX) 100 ML IVPB SCH ×2 (10:19→20:02)
--- NOTE | 2017-08-07 10:36 | CONS ---
Date/Time of Note Date/Time of Note DATE: 08/07/17 TIME: : Assessment/Plan Assessment/Plan Additional Assessment/Plan 1. acute Kidney injury vs Acute kidney injury on CKD due to Hepartorenal syndrome + ATN 2. acute resp failure due to decompensated liver cirrhosis and Septic shock- required intubation and mechanical ventilation 3. Severe anemia s/p EGD - negative for acute bleeding, with grade IV esophageal varices 4.. Altered mental status secondary to hepatic encephalopathy + metabolic enceophalotphy, 5. Hyperammonemia Plan: Remains intubated, on two pressors - unstable for transfer to [facility] discussed with pt family and two daughters at bedside- Explaineda bout nautre of Kidney faliure, decreased urine output- they want to attempt HD initiation to see how pt tolerates, pt has high BUN/Cr and HCo3 14- anuric now- will have vascular surgery to place dixie and Attempt HD today with ultrafiltration, will use Albumin for BP support - Ventilator care and pulmonary management as per Dog [employer] Att[employer] Pt was accepted for transfer to [facility] but she becomes hemodynamically unstable and required multiple pressors s/p mutliple PRBC has been given, s/p EGD by GI 08/06/17 negative for acute bleeding- Grade IV esophagel varices as per GI report Need goals of care discussion if not transferred to [facility]- because pt has poor prognosis. on lactulose for hepatic encephalopathy will follow up Consultation Date/Type/Reason Admit Date/Time Jul 30, 2017 at 04:53 Initial Consult Date 07/31/17 Type of Consultation: NEPHROLOGY Reason for Consultation acute renal failure, Hepatorenal syndrome, ATN, Oliguria Referring Provider: DENYS CRAIG MD 24 HR Interval Summary Free Text/Dictation pt remains critically ill, BP very low on Two pressors, pt has been on IV albumin, also no sodium bicarbonate drip, PH 7.31, HCo3 14 Exam/Review of Systems Vital Signs Vitals Vital Signs Date Time Temp Pulse Resp B/P Pulse Ox O2 Delivery O2 Flow Rate FiO2 08/07/17 06:30 87 17 100/41 100 08/07/17 06:00 Mechanical Ventilator 08/07/17 05:20 40 08/07/17 04:00 95.9 08/05/17 20:26 3.0 Intake and Output 08/06/17 08/06/17 08/07/17 15:00 23:00 07:00 Intake Total 2385.4 ml 5125.5 ml 1624 ml Output Total 810 ml 50 ml 10 ml Balance 1575.4 ml 5075.5 ml 1614 ml Exam Constitutional: non-verbal, other (sedated intubated on ventilator ) ENMT: other (ET tube in place ) Neck: non-tender, supple Respiratory: crackles/rales, diminished breath sounds, wheezing Cardiovascular: other (tachycardia ), regular rate and rhythm Gastrointestinal: non-tender, soft Musculoskeletal: other (1+ pitting edema, no clubbing, no cyanosis ) Neurological: unresponsive Results Result Diagram: 08/07/17 0616 08/07/17 0616 Results 24 hrs Laboratory Tests Test 08/06/17 13:50 08/06/17 23:00 08/07/17 05:05 08/07/17 06:16 White Blood Count 11.1 #H 10.0 Red Blood Count 2.63 #L 2.78 L Hemoglobin 8.9 #L 7.6 L 9.1 L Hematocrit 28.0 #L 22.4 L 26.5 L Mean Corpuscular Volume 106.5 H 95.3 Mean Corpuscular Hemoglobin 33.8 H 32.7 Mean Corpuscular Hemoglobin Concent 31.8 L 34.3 Red Cell Distribution Width 20.3 #H 18.5 H Platelet Count 11 #*L 23 #*L Mean Platelet Volume 12.5 H 11.8 H Neutrophils % Segmented Neutrophils % (Manual) 34 L 32 L Band Neutrophils % (Manual) 28 H 40 H Lymphocytes % Lymphocytes % (Manual) 25 12 L Monocytes % Monocytes % (Manual) 8 11 Eosinophils % Eosinophils % (Manual) 2 Basophils % Metamyelocytes % (manual) 2 H Nucleated Red Blood Cells % 33 H 12 H Neutrophils # Neutrophils # (Manual) 4.1 3.6 Band Neutrophils # 3.1 H 4.0 H Absolute Lymphocytes (Manual) 2.7 1.2 Lymphocytes # Monocytes # Absolute Monocytes (Manual) 0.8 1.1 H Eosinophils # Basophils # Metamyelocytes # 0.2 H Nucleated Red Blood Cells # Platelet Morphology Comment @See below Polychromasia 2+ Poikilocytosis 3+ 3+ Anisocytosis 3+ 1+ Microcytosis 2+ 1+ Macrocytosis 1+ Acanthocytes 2+ Prothrombin Time 65.1 #H Prothrombin Time Ratio 5.1 INR International Normalized Ratio 7.47 *H Activated Partial Thromboplast Time 84.6 *H Lactic Acid Level 22.2 *H Lactate Dehydrogenase 83299 H Lab Scanned Report BLOOD TRANSFUSION Reactive Lymphocytes % (Manual) 3 H Basophils % (Manual) 1 Reactive Lymphocytes # 0.3 H Basophils # (Manual) 0.1 H Platelet Estimate SIG DECREASED Sodium Level 142 Potassium Level 3.4 L Chloride Level 100 Carbon Dioxide Level 14 L Anion Gap 31 H Blood Urea Nitrogen 49 H Creatinine 3.06 H Glucose Level 74 # Calcium Level 7.3 L Magnesium Level 1.7 Total Bilirubin 9.1 #H Direct Bilirubin 5.30 #H Indirect Bilirubin 3.8 H Aspartate Amino Transf (AST/SGOT) 5599 H Alanine Aminotransferase (ALT/SGPT) 1911 H Alkaline Phosphatase 106 # Total Protein 4.2 #L Albumin 2.0 L Globulin 2.20 Albumin/Globulin Ratio 0.90 Random Vancomycin Level 9.9 Test 08/07/17 07:00 Blood Gas Specimen Source Blood arterial Arterial Blood Date Drawn 08/07/2017 7:20:06 AM Arterial Blood pH (Temp corrected) 7.318 L Arterial Blood pCO2 (Temp correct) 23.5 L Arterial Blood pO2 (Temp corrected) 96.5 Arterial Blood HCO3 11.8 L Arterial Blood Base Excess -12.8 L Arterial Blood Oxygen Saturation 96.6 Adonay Test ACCEPTAB Arterial Blood Gas Puncture Site Right Radial Arterial Blood Carboxyhemoglobin 0.3 Arterial Blood Methemoglobin 0.3 Blood Gas A-a O2 Differential 161.7 H Oxyhemoglobin Percent 96.0 Total Hemoglobin 9.9 L Blood Gas Temperature 37.0 Blood Gas Respiration Rate 20.0 Blood Gas Actual Respiration Rate 24 Blood Gas Modality VENT - AC FiO2 40.0 Blood Gas Tidal Volume 500.0 Blood Gas Low PEEP Setting 5.0 Blood Gas Notified Whom JLD Blood Gas Notified Time 08/07/2017 8:06:47 AM Medications Medications Current Medications Folic Acid (Folic Acid) 1 mg DAILY PO Last administered on 08/06/17 08:50; Admin Dose 1 MG; Start 07/30/17 at 09:00 Rifaximin (Xifaxan) 550 mg BID PO Last administered on 08/06/17 20:42; Admin Dose 550 MG; Start 07/30/17 at 09:00 Ursodiol (Actigall) 300 mg TID PO Last administered on 08/06/17 20:42; Admin Dose 300 MG; Start 07/30/17 at 09:00 Ondansetron HCl (Zofran Inj) 4 mg Q6H PRN IV NAUSEA AND/OR VOMITING Last administered on 08/04/17 11:26; Admin Dose 4 MG; Start 07/30/17 at 09:00 Acetaminophen (Tylenol Tab) 650 mg Q6H PRN PO PAIN LEVEL 1-3 OR FEVER; Start 07/30/17 at 09:00 Acetaminophen (Tylenol Supp) 650 mg Q6H PRN [place] PAIN LEVEL 1-3 OR FEVER; Start 07/30/17 at 09:00 Lactulose (Enulose) 30 gm Q6H PRN PO CONSTIPATION Last administered on 11:23; Admin Dose 30 GM; Start 08/04/17 at 11:00; Status Future Hold Lactulose 20 gm 20 gm Q4 GTB Last administered on 08/07/17 05:52; Admin Dose 20 GM; Start 08/05/17 at 13:00 Phenylephrine HCl 160 mg/Dextrose 500 ml @ 18.75 mls/ hr TITRATE IV Last administered on 08/06/17 12:00; Admin Dose 18.75 MLS/HR; Start 08/06/17 at 11 :00 Norepinephrine 32 mg/Dextrose 250 ml @ 0.46 mls/hr TITRATE IV Last administered on 08/06/17 23:08; Admin Dose 10.31 MLS/HR; Start 08/06/17 at 11 :00 Piperacillin Sod/ Tazobactam Sod 50 ml @ 200 mls/hr Q8H IVPB Last administered on 08/07/17 02:37; Admin Dose 200 MLS/HR; Start 08/06/17 at 10: 00 Pantoprazole 80 mg/Sodium Chloride 100 ml @ 10 mls/hr Q10H IV Last administered on 08/07/17 00:09; Admin Dose 10 MLS/HR; Start 08/06/17 at 13:30 Sodium Bicarbonate/ Dextrose (Na Bicarb/D5W) 1,150 ml @ 75 mls/hr [id number] IV Last administered on 08/06/17 17:00; Admin Dose 75 MLS/HR; Start 08/06/17 at 15:38 Lorazepam 2 mg 2 mg Q2H PRN IV SEIZURES; Start 08/07/17 at 09:00 Levetiracetam 100 ml @ 400 mls/hr Q12 IVPB ; Start 08/07/17 at 10:30 Vancomycin HCl/ Sodium Chloride (Vancocin/NS) 150 ml @ 75 mls/hr Q48H IVPB ; Start 08/07/17 at 11:00 NICOLE JEAN MD Aug 07, 2017 10:27
[2017-08-07] MEDS ORDERED: LIDOCAINE 1% (MPF) 5 ML VIAL SC ONE ×2 (11:00→12:00)
[2017-08-07] MEDS ORDERED: VANCOMYCIN 750 MG in SOD CHLORIDE 0.9% 150 ML IVPB SCH (11:00)
[2017-08-07 11:41] LABS: HEMATOCRIT 21.1 % (37.0-47.0); HEMOGLOBIN 7.6 g/dl (12.0-16.0)
[2017-08-07 12:01] LABS: INR 5.19; PROTIME 48.8 Sec (12.2-14.2); PT RATIO 3.8
[2017-08-07 12:34] LABS: PARTIAL THROMBOPLASTIN TIME 70.2 Sec (25.0-35.0)
--- NOTE | 2017-08-07 12:42 | PN ---
RAFAT BERKOWITZ 08/07/17 1242: Date/Time of Note Date/Time of Note DATE: 08/07/17 TIME: 12:35 Assessment/Plan VTE Prophylaxis VTE Prophylaxis Intervention: SCD's Lines/Catheters IV Catheter Type (from Nrsg): Central Line Central line still needed: Yes (medication) Urinary Cath still in place: Yes Reason Cath still needed: terminal illness/intractable pain, other (indicate) Assessment/Plan Chief Complaint/Hosp Course Assessment: AMS secondary to hepatic encephalopathy Cryptogenic cirrhosis with ascites Electrolyte abnormalities: likely due to cirrhosis with ascites . Macrocytic anemia EGD 08/06 Severe esophagitis. No active bleeding or stigmata Grade I-II/IV esophageal varices. No stigmata recent bleeding Severe antral gastritis. No active bleeding or stigmata No gastric varices present Normal duodenum Hyperammonia- worsening Thrombocytopenia. ZACK on CKD? Plan: Continue present regimen monitor labs Hgb dropping- transfuse 1 unit Plt 23- will order to transfuse 1 unit of plts Colonoscopy today Hemolysis is to be considered Transfer to [facility] on hold due to patient's declining condition Poor prognosis Supportive care from all services Patient seen in collaboration with Dr. Roblero Subjective: Course reviewed with nursing staff Patient interviewed and examined All labs, imaging and other results reviewed Pt is currently intubated and on pressors Colonoscopy today, Continue blood transfusions, if hemoglobin less than 7.5 plt remain low- will order to transfuse 1 unit of platelets Transferred to [facility] on hold at this time due to patient's declining condition, Prognosis is poor, family spoke with Dr. Myers- patient is still full code at this time Constitutional: intubated Psych: unable to assess Head: atraumatic, normocephalic Eyes: icteric ENMT: nl external ears & nose, nl lips & teeth, NGT in place Neck: non-tender, supple Respiratory: CTA Cardiovascular: nl pulses, regular rate and rhythm Gastrointestinal: hypoactive bowel sounds, distended, soft Problems: Exam/Review of Systems Vital Signs Vitals Vital Signs Date Time Temp Pulse Resp B/P Pulse Ox O2 Delivery O2 Flow Rate FiO2 08/07/17 06:30 87 17 100/41 100 08/07/17 06:00 Mechanical Ventilator 08/07/17 05:20 40 08/07/17 04:00 95.9 08/05/17 20:26 3.0 Intake and Output 08/06/17 08/06/17 08/07/17 15:00 23:00 07:00 Intake Total 2385.4 ml 5125.5 ml 1624 ml Output Total 810 ml 50 ml 10 ml Balance 1575.4 ml 5075.5 ml 1614 ml Results Result Diagram: 08/07/17 1133 08/07/17 0616 Results 24 hrs Laboratory Tests Test 08/06/17 13:50 08/06/17 23:00 08/07/17 05:05 08/07/17 06:16 White Blood Count 11.1 #H 10.0 Red Blood Count 2.63 #L 2.78 L Hemoglobin 8.9 #L 7.6 L 9.1 L Hematocrit 28.0 #L 22.4 L 26.5 L Mean Corpuscular Volume 106.5 H 95.3 Mean Corpuscular Hemoglobin 33.8 H 32.7 Mean Corpuscular Hemoglobin Concent 31.8 L 34.3 Red Cell Distribution Width 20.3 #H 18.5 H Platelet Count 11 #*L 23 #*L Mean Platelet Volume 12.5 H 11.8 H Neutrophils % Segmented Neutrophils % (Manual) 34 L 32 L Band Neutrophils % (Manual) 28 H 40 H Lymphocytes % Lymphocytes % (Manual) 25 12 L Monocytes % Monocytes % (Manual) 8 11 Eosinophils % Eosinophils % (Manual) 2 Basophils % Metamyelocytes % (manual) 2 H Nucleated Red Blood Cells % 33 H 12 H Neutrophils # Neutrophils # (Manual) 4.1 3.6 Band Neutrophils # 3.1 H 4.0 H Absolute Lymphocytes (Manual) 2.7 1.2 Lymphocytes # Monocytes # Absolute Monocytes (Manual) 0.8 1.1 H Eosinophils # Basophils # Metamyelocytes # 0.2 H Nucleated Red Blood Cells # Platelet Morphology Comment @See below Polychromasia 2+ Poikilocytosis 3+ 3+ Anisocytosis 3+ 1+ Microcytosis 2+ 1+ Macrocytosis 1+ Acanthocytes 2+ Prothrombin Time 65.1 #H Prothrombin Time Ratio 5.1 INR International Normalized Ratio 7.47 *H Activated Partial Thromboplast Time 84.6 *H Lactic Acid Level 22.2 *H Lactate Dehydrogenase 87153 H Lab Scanned Report BLOOD TRANSFUSION Reactive Lymphocytes % (Manual) 3 H Basophils % (Manual) 1 Reactive Lymphocytes # 0.3 H Basophils # (Manual) 0.1 H Platelet Estimate SIG DECREASED Sodium Level 142 Potassium Level 3.4 L Chloride Level 100 Carbon Dioxide Level 14 L Anion Gap 31 H Blood Urea Nitrogen 49 H Creatinine 3.06 H Glucose Level 74 # Calcium Level 7.3 L Magnesium Level 1.7 Total Bilirubin 9.1 #H Direct Bilirubin 5.30 #H Indirect Bilirubin 3.8 H Aspartate Amino Transf (AST/SGOT) 5599 H Alanine Aminotransferase (ALT/SGPT) 1911 H Alkaline Phosphatase 106 # Total Protein 4.2 #L Albumin 2.0 L Globulin 2.20 Albumin/Globulin Ratio 0.90 Random Vancomycin Level 9.9 Test 08/07/17 07:00 08/07/17 09:41 08/07/17 09:42 08/07/17 11:33 Blood Gas Specimen Source Blood arterial Arterial Blood Date Drawn 08/07/2017 7:20:06 AM Arterial Blood pH (Temp corrected) 7.318 L Arterial Blood pCO2 (Temp correct) 23.5 L Arterial Blood pO2 (Temp corrected) 96.5 Arterial Blood HCO3 11.8 L Arterial Blood Base Excess -12.8 L Arterial Blood Oxygen Saturation 96.6 Adonay Test ACCEPTAB Arterial Blood Gas Puncture Site Right Radial Arterial Blood Carboxyhemoglobin 0.3 Arterial Blood Methemoglobin 0.3 Blood Gas A-a O2 Differential 161.7 H Oxyhemoglobin Percent 96.0 Total Hemoglobin 9.9 L Blood Gas Temperature 37.0 Blood Gas Respiration Rate 20.0 Blood Gas Actual Respiration Rate 24 Blood Gas Modality VENT - AC FiO2 40.0 Blood Gas Tidal Volume 500.0 Blood Gas Low PEEP Setting 5.0 Blood Gas Notified Whom JLD Blood Gas Notified Time 08/07/2017 8:06:47 AM Fibrinogen 60.0 L Prothrombin Time Pending Prothrombin Time Ratio 3.8 INR International Normalized Ratio 5.19 Activated Partial Thromboplast Time Pending Hemoglobin 7.6 L Hematocrit 21.1 #L Medications Medications Current Medications Folic Acid (Folic Acid) 1 mg DAILY PO Last administered on 08/06/17 08:50; Admin Dose 1 MG; Start 07/30/17 at 09:00 Rifaximin (Xifaxan) 550 mg BID PO Last administered on 08/06/17 20:42; Admin Dose 550 MG; Start 07/30/17 at 09:00 Ursodiol (Actigall) 300 mg TID PO Last administered on 08/06/17 20:42; Admin Dose 300 MG; Start 07/30/17 at 09:00 Ondansetron HCl (Zofran Inj) 4 mg Q6H PRN IV NAUSEA AND/OR VOMITING Last administered on 08/04/17 11:26; Admin Dose 4 MG; Start 07/30/17 at 09:00 Acetaminophen (Tylenol Tab) 650 mg Q6H PRN PO PAIN LEVEL 1-3 OR FEVER; Start 07/30/17 at 09:00 Acetaminophen (Tylenol Supp) 650 mg Q6H PRN [place] PAIN LEVEL 1-3 OR FEVER; Start 07/30/17 at 09:00 Lactulose (Enulose) 30 gm Q6H PRN PO CONSTIPATION Last administered on 11:23; Admin Dose 30 GM; Start 08/04/17 at 11:00; Status Future Hold Lactulose 20 gm 20 gm Q4 GTB Last administered on 08/07/17 05:52; Admin Dose 20 GM; Start 08/05/17 at 13:00 Phenylephrine HCl 160 mg/Dextrose 500 ml @ 18.75 mls/ hr TITRATE IV Last administered on 08/06/17 12:00; Admin Dose 18.75 MLS/HR; Start 08/06/17 at 11 :00 Norepinephrine 32 mg/Dextrose 250 ml @ 0.46 mls/hr TITRATE IV Last administered on 08/06/17 23:08; Admin Dose 10.31 MLS/HR; Start 08/06/17 at 11 :00 Piperacillin Sod/ Tazobactam Sod 50 ml @ 200 mls/hr Q8H IVPB Last administered on 08/07/17 10:21; Admin Dose 200 MLS/HR; Start 08/06/17 at 10: 00 Pantoprazole 80 mg/Sodium Chloride 100 ml @ 10 mls/hr Q10H IV Last administered on 08/07/17 09:30; Admin Dose 10 MLS/HR; Start 08/06/17 at 13:30 Sodium Bicarbonate/ Dextrose (Na Bicarb/D5W) 1,150 ml @ 75 mls/hr [id number] IV Last administered on 08/07/17 07:15; Admin Dose 75 MLS/HR; Start 08/06/17 at 15:38 Lorazepam 2 mg 2 mg Q2H PRN IV SEIZURES; Start 08/07/17 at 09:00 Levetiracetam 100 ml @ 400 mls/hr Q12 IVPB Last administered on 08/07/17t 10: 19; Admin Dose 400 MLS/HR; Start 08/07/17 at 10:30 Vancomycin HCl/ Sodium Chloride (Vancocin/NS) 150 ml @ 75 mls/hr Q48H IVPB ; Start 08/07/17 at 11:00 ANNA ROBLERO MD 08/07/17 1808: Assessment/Plan Assessment/Plan Assessment/Plan Previously plan colonoscopy will be postponed as the patient shows no evidence of bleeding will continue close observation Exam/Review of Systems Results Result Diagram: 08/07/17 1133 08/07/17 0616 RAFAT BERKOWITZ Aug 07, 2017 12:42 ANNA ROBLERO MD Aug 07, 2017 18:08
--- NOTE | 2017-08-07 13:01 | CONS ---
Date/Time of Note Date/Time of Note DATE: 08/07/17 TIME: 12:55 Assessment/Plan Assessment/Plan Chief Complaint/Hosp Course 67 yo female with cirrhosis admitted with CKD, hepatorenal syndrome, respiratory failure decompensated liver cirrhosis, septic shock respiratory failure, severe anemia receiving transfusions, and hyperammonemia with severe encephalopathy. Questionable seizure started on Keppra 500 mg q12h may continue EEG pending Repeat Head CT to r/o ICH Problems: Consultation Date/Type/Reason Admit Date/Time Jul 30, 2017 at 04:53 Date of Consultation: Aug 07, 2017 Type of Consultation: Neurology Reason for Consultation eval for possible seizure Referring Provider: OSMAN NEGRON Hx of Present Illness 67 yo female with cirrhosis admitted with AMS with severe encephalopathy hyperammonemia, ARF, septic shock respiratory failure remains unresponsive. There is concern for possible seizure activity, neurology consultation requested to evaluate. No hx of seizures reported. She has been started on Keppra 500 mg q12h. Subjective hx not possible: pt non-verbal, pt critical Constitutional: disoriented Psychological: confusion Past Medical History Medical History: other (End stag Liver disease ) Past Surgical History Past Surgical Hx: other Social History Alcohol Use: none Smoking Status: Never smoker Drug Use: none Exam/Review of Systems Vital Signs Vitals Vital Signs Date Time Temp Pulse Resp B/P Pulse Ox O2 Delivery O2 Flow Rate FiO2 08/07/17 06:30 87 17 100/41 100 08/07/17 06:00 Mechanical Ventilator 08/07/17 05:20 40 08/07/17 04:00 95.9 08/05/17 20:26 3.0 Intake and Output 08/06/17 08/06/17 08/07/17 15:00 23:00 07:00 Intake Total 2385.4 ml 5125.5 ml 1624 ml Output Total 810 ml 50 ml 10 ml Balance 1575.4 ml 5075.5 ml 1614 ml Exam on ventilator unresponsive not following any commands CN: dilated pupils minimal reactivity, absent corneals gag is present Motor absent w/d in extremities edema throughout all extremities Results Result Diagram: 08/07/17 1133 08/07/17 0616 Results 24 hrs Laboratory Tests Test 08/06/17 13:50 08/06/17 23:00 08/07/17 05:05 10/25/17 06:16 White Blood Count 11.1 #H 10.0 Red Blood Count 2.63 #L 2.78 L Hemoglobin 8.9 #L 7.6 L 9.1 L Hematocrit 28.0 #L 22.4 L 26.5 L Mean Corpuscular Volume 106.5 H 95.3 Mean Corpuscular Hemoglobin 33.8 H 32.7 Mean Corpuscular Hemoglobin Concent 31.8 L 34.3 Red Cell Distribution Width 20.3 #H 18.5 H Platelet Count 11 #*L 23 #*L Mean Platelet Volume 12.5 H 11.8 H Neutrophils % Segmented Neutrophils % (Manual) 34 L 32 L Band Neutrophils % (Manual) 28 H 40 H Lymphocytes % Lymphocytes % (Manual) 25 12 L Monocytes % Monocytes % (Manual) 8 11 Eosinophils % Eosinophils % (Manual) 2 Basophils % Metamyelocytes % (manual) 2 H Nucleated Red Blood Cells % 33 H 12 H Neutrophils # Neutrophils # (Manual) 4.1 3.6 Band Neutrophils # 3.1 H 4.0 H Absolute Lymphocytes (Manual) 2.7 1.2 Lymphocytes # Monocytes # Absolute Monocytes (Manual) 0.8 1.1 H Eosinophils # Basophils # Metamyelocytes # 0.2 H Nucleated Red Blood Cells # Platelet Morphology Comment @See below Polychromasia 2+ Poikilocytosis 3+ 3+ Anisocytosis 3+ 1+ Microcytosis 2+ 1+ Macrocytosis 1+ Acanthocytes 2+ Prothrombin Time 65.1 #H Prothrombin Time Ratio 5.1 INR International Normalized Ratio 7.47 *H Activated Partial Thromboplast Time 84.6 *H Lactic Acid Level 22.2 *H Lactate Dehydrogenase 18538 H Lab Scanned Report BLOOD TRANSFUSION Reactive Lymphocytes % (Manual) 3 H Basophils % (Manual) 1 Reactive Lymphocytes # 0.3 H Basophils # (Manual) 0.1 H Platelet Estimate SIG DECREASED Sodium Level 142 Potassium Level 3.4 L Chloride Level 100 Carbon Dioxide Level 14 L Anion Gap 31 H Blood Urea Nitrogen 49 H Creatinine 3.06 H Glucose Level 74 # Calcium Level 7.3 L Magnesium Level 1.7 Total Bilirubin 9.1 #H Direct Bilirubin 5.30 #H Indirect Bilirubin 3.8 H Aspartate Amino Transf (AST/SGOT) 5599 H Alanine Aminotransferase (ALT/SGPT) 1911 H Alkaline Phosphatase 106 # Total Protein 4.2 #L Albumin 2.0 L Globulin 2.20 Albumin/Globulin Ratio 0.90 Random Vancomycin Level 9.9 Test 08/07/17 07:00 08/07/17 09:41 08/07/17 09:42 08/07/17 11:33 Blood Gas Specimen Source Blood arterial Arterial Blood Date Drawn 08/07/2017 7:20:06 AM Arterial Blood pH (Temp corrected) 7.318 L Arterial Blood pCO2 (Temp correct) 23.5 L Arterial Blood pO2 (Temp corrected) 96.5 Arterial Blood HCO3 11.8 L Arterial Blood Base Excess -12.8 L Arterial Blood Oxygen Saturation 96.6 Adonay Test ACCEPTAB Arterial Blood Gas Puncture Site Right Radial Arterial Blood Carboxyhemoglobin 0.3 Arterial Blood Methemoglobin 0.3 Blood Gas A-a O2 Differential 161.7 H Oxyhemoglobin Percent 96.0 Total Hemoglobin 9.9 L Blood Gas Temperature 37.0 Blood Gas Respiration Rate 20.0 Blood Gas Actual Respiration Rate 24 Blood Gas Modality VENT - AC FiO2 40.0 Blood Gas Tidal Volume 500.0 Blood Gas Low PEEP Setting 5.0 Blood Gas Notified Whom JLD Blood Gas Notified Time 08/07/2017 8:06:47 AM Fibrinogen 60.0 L Prothrombin Time 48.8 #H Prothrombin Time Ratio 3.8 INR International Normalized Ratio 5.19 Activated Partial Thromboplast Time 70.2 *H Hemoglobin 7.6 L Hematocrit 21.1 #L Medications Medications Current Medications Folic Acid (Folic Acid) 1 mg DAILY PO Last administered on 08/06/17 08:50; Admin Dose 1 MG; Start 07/30/17 at 09:00 Rifaximin (Xifaxan) 550 mg BID PO Last administered on 08/06/17 20:42; Admin Dose 550 MG; Start 07/30/17 at 09:00 Ursodiol (Actigall) 300 mg TID PO Last administered on 08/06/17 20:42; Admin Dose 300 MG; Start 07/30/17 at 09:00 Ondansetron HCl (Zofran Inj) 4 mg Q6H PRN IV NAUSEA AND/OR VOMITING Last administered on 08/04/17 11:26; Admin Dose 4 MG; Start 07/30/17 at 09:00 Acetaminophen (Tylenol Tab) 650 mg Q6H PRN PO PAIN LEVEL 1-3 OR FEVER; Start 07/30/17 at 09:00 Acetaminophen (Tylenol Supp) 650 mg Q6H PRN IN PAIN LEVEL 1-3 OR FEVER; Start 07/30/17 at 09:00 Lactulose (Enulose) 30 gm Q6H PRN PO CONSTIPATION Last administered on 11:23; Admin Dose 30 GM; Start 08/04/17 at 11:00; Status Future Hold Lactulose 20 gm 20 gm Q4 GTB Last administered on 08/07/17 05:52; Admin Dose 20 GM; Start 08/05/17 at 13:00 Phenylephrine HCl 160 mg/Dextrose 500 ml @ 18.75 mls/ hr TITRATE IV Last administered on 08/06/17 12:00; Admin Dose 18.75 MLS/HR; Start 08/06/17 at 11 :00 Norepinephrine 32 mg/Dextrose 250 ml @ 0.46 mls/hr TITRATE IV Last administered on 08/06/17 23:08; Admin Dose 10.31 MLS/HR; Start 08/06/17 at 11 :00 Piperacillin Sod/ Tazobactam Sod 50 ml @ 200 mls/hr Q8H IVPB Last administered on 08/07/17 10:21; Admin Dose 200 MLS/HR; Start 08/06/17 at 10: 00 Pantoprazole 80 mg/Sodium Chloride 100 ml @ 10 mls/hr Q10H IV Last administered on 08/07/17 09:30; Admin Dose 10 MLS/HR; Start 08/06/17 at 13:30 Sodium Bicarbonate/ Dextrose (Na Bicarb/D5W) 1,150 ml @ 75 mls/hr [id number] IV Last administered on 08/07/17 07:15; Admin Dose 75 MLS/HR; Start 08/06/17 at 15:38 Lorazepam 2 mg 2 mg Q2H PRN IV SEIZURES; Start 08/07/17 at 09:00 Levetiracetam 100 ml @ 400 mls/hr Q12 IVPB Last administered on 08/07/17 10: 19; Admin Dose 400 MLS/HR; Start 08/07/17 at 10:30 Vancomycin HCl/ Sodium Chloride (Vancocin/NS) 150 ml @ 75 mls/hr Q48H IVPB ; Start 08/07/17 at 11:00 BURKE COTTER MD Aug 07, 2017 13:01
[2017-08-07] MEDS ORDERED: PHYTONADIONE 10 MG in DEXTROSE 5% 50 ML IVPB ONE (15:00)
--- NOTE | 2017-08-07 15:14 | PN ---
Date/Time of Note Date/Time of Note DATE: 08/07/17 TIME: 15:11 Assessment/Plan VTE Prophylaxis VTE Prophylaxis Intervention: SCD's Lines/Catheters IV Catheter Type (from Nrs): Central Line Central line still needed: Yes Urinary Cath still in place: Yes Reason Cath still needed: terminal illness/intractable pain Assessment/Plan Chief Complaint/Hosp Course Assessment/Plan 1. Altered mental status secondary to hepatic encephalopathy - Ammonia increased today, worsened encephalopathy. - GI on board and recommendations appreciated. upper endoscopy done today did not show obvious sign of bleed. colonoscopy planned - holding lactulose given GI bleed - CT head showed mild generalized cerebral volume loss and nonspecific chronic microvascular ischemic disease without evidence of intracranial masses hemorrhages or midline shift. initially, now with dilated pupils, ? brain bleed , will repeat CT when able. #seizure -questionable, but keppra started -EEG ordered and neurology consulted #DIC -fibrinogen, inr, ptt, platelets, d dimer, physical findings consistent -very likely 2/2 acute liver failure #hypotension -severe hepatorenal and ? septic source -2 pressors, titrate as able -IV fluids #coagulopathy -2/2 likely end stage liver disease #. Hypernatremia - d5w with bicarb per nephro #. Hyperkalemia- monitor, now hypokalemia 4. ZACK on CKD- worsening - patient baseline Cr appears to be 1.2 during prior admission - Nephrology on board and recommendations appreciated. - likely hepatorenal - Ct surgery consulted for vas/cath placement 5. Elevated LFT- still elevated - Most likely secondary to cirrhosis - Will continue to monitor 6. Hyperammonia - worsened - Continue on lactulose and rifaximin 7. GI bleed, likely lower - GI bleeding with lactulose, stable without 8. 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 ?OWEN as cause of her cirrhosis -end stage, currently unstable for transfer to [facility] 9. Thrombocytopenia - Secondary to cirrhosis - will continue to monitor and transfuse if <10K 10. Ascites - zosyn for abx 11. CBD - Complete abd u/s with multiple findings including gallstones/sludge hepatofugal flow - MRCP showed No biliary ductal dilatation definitive filling defect within the biliary tree # Disposition - worsening condition, on 2 pressors, C rejected transfer, palliative care consulted. Patient's family urged to be at bedside -multifactorial organ failure Problems: Subjective 24 Hr Interval Summary Free Text/Dictation episodes of seizure noticed this AM, no seizure activity currently Exam/Review of Systems Vital Signs Vitals Vital Signs Date Time Temp Pulse Resp B/P Pulse Ox O2 Delivery O2 Flow Rate FiO2 08/07/17 14:00 81 22 110/43 95 Mechanical Ventilator 08/07/17 12:00 97.0 08/07/17 05:20 40 08/05/17 20:26 3.0 Intake and Output 08/06/17 08/06/17 08/07/17 15:00 23:00 07:00 Intake Total 2385.4 ml 5125.5 ml 1624 ml Output Total 810 ml 50 ml 10 ml Balance 1575.4 ml 5075.5 ml 1614 ml Exam Constitutional: intubated, obtunded Head: atraumatic, normocephalic Eyes: icteric bilaterally, dilated pupils bilaterally Neck: non-tender, supple Respiratory: coarse to auscultation, diminished breath sounds, Cardiovascular: tachycardic, no obvious murmur Gastrointestinal: ascites, bowel sounds, distended, soft, No rebound or guarding Musculoskeletal: nl extremities to inspection Extremities: normal pulses, No clubbing, No cyanosis, No edema Neurological: minimal to no response to noxious stimuli Results Result Diagram: 08/07/17 1133 08/07/17 0616 Results 24 hrs Laboratory Tests Test 08/06/17 23:00 08/07/17 05:05 08/07/17 06:16 08/07/17 07:00 Hemoglobin 7.6 L 9.1 L Hematocrit 22.4 L 26.5 L Lactic Acid Level 22.2 *H Lactate Dehydrogenase 28593 H Lab Scanned Report BLOOD TRANSFUSION White Blood Count 10.0 Red Blood Count 2.78 L Mean Corpuscular Volume 95.3 Mean Corpuscular Hemoglobin 32.7 Mean Corpuscular Hemoglobin Concent 34.3 Red Cell Distribution Width 18.5 H Platelet Count 23 #*L Mean Platelet Volume 11.8 H Neutrophils % Segmented Neutrophils % (Manual) 32 L Band Neutrophils % (Manual) 40 H Lymphocytes % Lymphocytes % (Manual) 12 L Reactive Lymphocytes % (Manual) 3 H Monocytes % Monocytes % (Manual) 11 Eosinophils % Basophils % Basophils % (Manual) 1 Nucleated Red Blood Cells % 12 H Neutrophils # Neutrophils # (Manual) 3.6 Band Neutrophils # 4.0 H Absolute Lymphocytes (Manual) 1.2 Lymphocytes # Reactive Lymphocytes # 0.3 H Monocytes # Absolute Monocytes (Manual) 1.1 H Eosinophils # Basophils # Basophils # (Manual) 0.1 H Nucleated Red Blood Cells # Platelet Estimate SIG DECREASED Poikilocytosis 3+ Anisocytosis 1+ Microcytosis 1+ Sodium Level 142 Potassium Level 3.4 L Chloride Level 100 Carbon Dioxide Level 14 L Anion Gap 31 H Blood Urea Nitrogen 49 H Creatinine 3.06 H Glucose Level 74 # Calcium Level 7.3 L Magnesium Level 1.7 Total Bilirubin 9.1 #H Direct Bilirubin 5.30 #H Indirect Bilirubin 3.8 H Aspartate Amino Transf (AST/SGOT) 5599 H Alanine Aminotransferase (ALT/SGPT) 1911 H Alkaline Phosphatase 106 # Total Protein 4.2 #L Albumin 2.0 L Globulin 2.20 Albumin/Globulin Ratio 0.90 Random Vancomycin Level 9.9 Blood Gas Specimen Source Blood arterial Arterial Blood Date Drawn 08/07/2017 7:20:06 AM Arterial Blood pH (Temp corrected) 7.318 L Arterial Blood pCO2 (Temp correct) 23.5 L Arterial Blood pO2 (Temp corrected) 96.5 Arterial Blood HCO3 11.8 L Arterial Blood Base Excess -12.8 L Arterial Blood Oxygen Saturation 96.6 Adonay Test ACCEPTAB Arterial Blood Gas Puncture Site Right Radial Arterial Blood Carboxyhemoglobin 0.3 Arterial Blood Methemoglobin 0.3 Blood Gas A-a O2 Differential 161.7 H Oxyhemoglobin Percent 96.0 Total Hemoglobin 9.9 L Blood Gas Temperature 37.0 Blood Gas Respiration Rate 20.0 Blood Gas Actual Respiration Rate 24 Blood Gas Modality VENT - AC FiO2 40.0 Blood Gas Tidal Volume 500.0 Blood Gas Low PEEP Setting 5.0 Blood Gas Notified Whom JLD Blood Gas Notified Time 08/07/2017 8:06:47 AM Test 08/07/17 09:41 08/07/17 09:42 08/07/17 11:33 Fibrinogen 60.0 L Prothrombin Time 48.8 #H Prothrombin Time Ratio 3.8 INR International Normalized Ratio 5.19 Activated Partial Thromboplast Time 70.2 *H D-Dimer > 28841.00 H Hemoglobin 7.6 L Hematocrit 21.1 #L Medications Medications Current Medications Folic Acid (Folic Acid) 1 mg DAILY PO Last administered on 08/06/17 08:50; Admin Dose 1 MG; Start 07/30/17 at 09:00 Rifaximin (Xifaxan) 550 mg BID PO Last administered on 08/06/17 20:42; Admin Dose 550 MG; Start 07/30/17 at 09:00 Ursodiol (Actigall) 300 mg TID PO Last administered on 08/06/17 20:42; Admin Dose 300 MG; Start 07/30/17 at 09:00 Ondansetron HCl (Zofran Inj) 4 mg Q6H PRN IV NAUSEA AND/OR VOMITING Last administered on 08/04/17 11:26; Admin Dose 4 MG; Start 07/30/17 at 09:00 Acetaminophen (Tylenol Tab) 650 mg Q6H PRN PO PAIN LEVEL 1-3 OR FEVER; Start 07/30/17 at 09:00 Acetaminophen (Tylenol Supp) 650 mg Q6H PRN [place] PAIN LEVEL 1-3 OR FEVER; Start 07/30/17 at 09:00 Lactulose (Enulose) 30 gm Q6H PRN PO CONSTIPATION Last administered on 11:23; Admin Dose 30 GM; Start 08/04/17 at 11:00; Status Future Hold Lactulose 20 gm 20 gm Q4 GTB Last administered on 08/07/17 05:52; Admin Dose 20 GM; Start 08/05/17 at 13:00 Phenylephrine HCl 160 mg/Dextrose 500 ml @ 18.75 mls/ hr TITRATE IV Last administered on 08/06/17 12:00; Admin Dose 18.75 MLS/HR; Start 08/06/17 at 11 :00 Norepinephrine 32 mg/Dextrose 250 ml @ 0.46 mls/hr TITRATE IV Last administered on 08/06/17 23:08; Admin Dose 10.31 MLS/HR; Start 08/06/17 at 11 :00 Piperacillin Sod/ Tazobactam Sod 50 ml @ 200 mls/hr Q8H IVPB Last administered on 08/07/17 10:21; Admin Dose 200 MLS/HR; Start 08/06/17 at 10: 00 Pantoprazole 80 mg/Sodium Chloride 100 ml @ 10 mls/hr Q10H IV Last administered on 08/07/17 09:30; Admin Dose 10 MLS/HR; Start 08/06/17 at 13:30 Sodium Bicarbonate/ Dextrose (Na Bicarb/D5W) 1,150 ml @ 75 mls/hr [id number] IV Last administered on 08/07/17 07:15; Admin Dose 75 MLS/HR; Start 08/06/17 at 15:38 Lorazepam 2 mg 2 mg Q2H PRN IV SEIZURES; Start 08/07/17 at 09:00 Levetiracetam 100 ml @ 400 mls/hr Q12 IVPB Last administered on 08/07/17 10: 19; Admin Dose 400 MLS/HR; Start 08/07/17 at 10:30 Vancomycin HCl 750 mg/Sodium Chloride 150 ml @ 75 mls/hr Q48H IVPB Last administered on 08/07/17 11:00; Admin Dose 75 MLS/HR; Start 08/07/17 at 11:00 Phytonadione/ Dextrose (Vitamin K/D5W) 51 ml @ 102 mls/hr ONCE ONCE IVPB Last administered on 08/07/17 14:47; Admin Dose 102 MLS/HR; Start 08/07/17 at 15:00; Stop 08/07/17 at 15:29 OSMAN NEGRON Aug 07, 2017 15:14
--- NOTE | 2017-08-07 16:36 | RADRPT ---
PROCEDURE: XR Chest. CLINICAL INDICATION: Shortness of breath. TECHNIQUE: Single frontal view. COMPARISON: 08/06/2017. FINDINGS: Endotracheal tube and nasogastric tube remain in satisfactory position. There is atelectasis at the lung bases with left worse than right. Mild pulmonary edema is unchanged. The heart is enlarged. There is calcification in the aorta consistent with atherosclerosis. There are small bilateral pleural effusions. There is no pneumothorax. IMPRESSION: 1. Endotracheal tube and nasogastric tube in satisfactory position. 2. Atelectasis at the lung bases with left worse than right. 3. Mild pulmonary edema. 4. Cardiomegaly and atherosclerosis. 5. Small bilateral pleural effusions. RPTAT: QQ .Luis Miguel Guerra MD, MD Date Time Electronically viewed and signed by .Luis Miguel Guerra MD, on 08/07/2017 16:36 .R/
--- NOTE | 2017-08-07 16:38 | RADRPT ---
PROCEDURE: Ultrasound guidance for placement of needle in left upper extremity vein. CLINICAL INDICATION: Venous access. TECHNIQUE: Limited sonography of the left upper extremity was performed. Ultrasound images were recorded and s tored in the patient's medical record. COMPARISON: None. FINDINGS: The ultrasound images demonstrate a patent left upper extremity vein. The PICC line was inserted by the PICC line nurse. IMPRESSION: 1. Ultrasound guidance for a needle placement in a left upper extremity vein. 2. The left upper extremity vein is patent. RPTAT: QQ .Luis Miguel Guerra MD, MD Date Time Electronically viewed and signed by .Luis Miguel Guerra MD, on 08/07/2017 16:37 .R/
--- NOTE | 2017-08-07 17:00 | RADRPT ---
PROCEDURE: XR Chest. CLINICAL INDICATION: Check PICC line position. TECHNIQUE: Single frontal view. COMPARISON: Prior study done earlier the same day. FINDINGS: There is a right arm PICC line with the tip in the upper right atrium. The endotracheal tube and na sogastric tube are in satisfactory position. There is atelectasis at the lung bases with left worse than right. Mild pulmonary edema is unchanged. The heart is enlarged. There is calcification in the aorta consistent with atherosclerosis. There are small bilateral pleural effusions. There is no pneumothorax. IMPRESSION: 1. Right arm PICC line tip in satisfactory position. 2. No other change from the prior study done earlier the same day. RPTAT: QQ .Luis Miguel Guerra MD, MD Date Time Electronically viewed and signed by .Luis Miguel Guerra MD, MD on 08/07/2017 17:00 .R/
[2017-08-07] MEDS ORDERED: SOD CHLORIDE 0.9% 100 ML ONE (19:12)
[2017-08-07 19:17] LABS: HEMATOCRIT 22.2 % (37.0-47.0); HEMOGLOBIN 8.1 g/dl (12.0-16.0)
[2017-08-08] VITALS (106 sets, daily range): BP systolic 69–154; BP diastolic 31–63; PULSE 78–110; RESP 20–30
[2017-08-08] MEDS: LACTULOSE 30ML CUP GTB SCH ×6 (01:00→21:00)
[2017-08-08 01:13] LABS: HEMATOCRIT 21.6 % (37.0-47.0); HEMOGLOBIN 7.7 g/dl (12.0-16.0)
[2017-08-08] MEDS: PHENYLephrine 160 MG in DEXTROSE 5% 484 ML IV SCH ×3 (02:39→20:58)
[2017-08-08] MEDS: PIPER-TAZO 2.25 GM (PMX) 50 ML IVPB SCH ×4 (02:39→20:55)
[2017-08-08] MEDS: NORepinephrine 32 MG in DEXTROSE 5% 218 ML IV SCH ×2 (03:42→20:56)
[2017-08-08 05:14] LABS: HEMATOCRIT 22.7 % (37.0-47.0); HEMOGLOBIN 8.1 g/dl (12.0-16.0)
[2017-08-08] MEDS: PANTOPRAZOLE IV 80 MG in SOD CHLORIDE 0.9% 100 ML IV SCH ×2 (05:34→17:53)
[2017-08-08 05:56] LABS: CALCIUM 7.6 mg/dl (8.4-10.2); CREATININE 3.01 mg/dl (0.44-1.00); MAGNESIUM 1.5 mg/dl (1.7-2.5); PHOSPHORUS 5.2 mg/dl (2.5-4.9)
--- NOTE | 2017-08-08 06:22 | CONS ---
Date/Time of Note Date/Time of Note DATE: 08/08/17 TIME: 06:20 Consultation Date/Type/Reason Admit Date/Time Jul 30, 2017 at 04:53 Initial Consult Date 08/07/17 Type of Consultation: Palliative care Referring Provider: OSMAN NEGRON 24 HR Interval Summary Free Text/Dictation She is not doing well this morning and required multiple transfusions throughout the night. She is back on 2 pressors and maxed out on one. I believe family will opt for comfort measures very soon especially if we are able to do CT scan of her head and confirm acute pathology such as hemorrhage. At this time I will call another family conference and address ongoing goals of care. Exam/Review of Systems Vital Signs Vitals Vital Signs Date Time Temp Pulse Resp B/P Pulse Ox O2 Delivery O2 Flow Rate FiO2 08/08/17 06:00 90 26 102/42 96 Mechanical Ventilator 08/08/17 05:33 35 08/08/17 04:00 97.4 08/05/17 20:26 3.0 Intake and Output 08/07/17 08/07/17 08/08/17 15:00 23:00 07:00 Intake Total 2090.2 ml 1311.94 ml 1127.237 ml Output Total 25 ml 145 ml 30 ml Balance 2065.2 ml 1166.94 ml 1097.237 ml Results Result Diagram: 08/08/17 0400 08/07/17 0616 Results 24 hrs Laboratory Tests Test 08/07/17 07:00 08/07/17 09:41 08/07/17 09:42 08/07/17 11:33 Blood Gas Specimen Source Blood arterial Arterial Blood Date Drawn 08/07/2017 7:20:06 AM Arterial Blood pH (Temp corrected) 7.318 L Arterial Blood pCO2 (Temp correct) 23.5 L Arterial Blood pO2 (Temp corrected) 96.5 Arterial Blood HCO3 11.8 L Arterial Blood Base Excess -12.8 L Arterial Blood Oxygen Saturation 96.6 Adonay Test ACCEPTAB Arterial Blood Gas Puncture Site Right Radial Arterial Blood Carboxyhemoglobin 0.3 Arterial Blood Methemoglobin 0.3 Blood Gas A-a O2 Differential 161.7 H Oxyhemoglobin Percent 96.0 Total Hemoglobin 9.9 L Blood Gas Temperature 37.0 Blood Gas Respiration Rate 20.0 Blood Gas Actual Respiration Rate 24 Blood Gas Modality VENT - AC FiO2 40.0 Blood Gas Tidal Volume 500.0 Blood Gas Low PEEP Setting 5.0 Blood Gas Notified Whom JLD Blood Gas Notified Time 08/07/2017 8:06:47 AM Fibrinogen 60.0 L Prothrombin Time 48.8 #H Prothrombin Time Ratio 3.8 INR International Normalized Ratio 5.19 Activated Partial Thromboplast Time 70.2 *H D-Dimer > 39618.00 H Hemoglobin 7.6 L Hematocrit 21.1 #L Test 08/07/17 18:40 08/08/17 01:03 08/08/17 04:00 08/08/17 05:01 Hemoglobin 8.1 L 7.7 L 8.1 L Hematocrit 22.2 L 21.6 L 22.7 L Sodium Level 142 Potassium Level 3.0 L Chloride Level 92 L Carbon Dioxide Level 17 L Anion Gap 36 H Blood Urea Nitrogen 48 H Creatinine 3.01 H Glucose Level 39 #*L Calcium Level 7.6 L Phosphorus Level 5.2 H Magnesium Level 1.5 L Lab Scanned Report BLOOD TRANSFUSION Medications Medications Current Medications Folic Acid (Folic Acid) 1 mg DAILY PO Last administered on 08/06/17 08:50; Admin Dose 1 MG; Start 07/30/17 at 09:00 Rifaximin (Xifaxan) 550 mg BID PO Last administered on 08/06/17 20:42; Admin Dose 550 MG; Start 07/30/17 at 09:00 Ursodiol (Actigall) 300 mg TID PO Last administered on 08/06/17 20:42; Admin Dose 300 MG; Start 07/30/17 at 09:00 Ondansetron HCl (Zofran Inj) 4 mg Q6H PRN IV NAUSEA AND/OR VOMITING Last administered on 08/04/17 11:26; Admin Dose 4 MG; Start 07/30/17 at 09:00 Acetaminophen (Tylenol Tab) 650 mg Q6H PRN PO PAIN LEVEL 1-3 OR FEVER; Start 07/30/17 at 09:00 Acetaminophen (Tylenol Supp) 650 mg Q6H PRN [place] PAIN LEVEL 1-3 OR FEVER; Start 07/30/17 at 09:00 Lactulose (Enulose) 30 gm Q6H PRN PO CONSTIPATION Last administered on 11:23; Admin Dose 30 GM; Start 08/04/17 at 11:00; Status Future Hold Lactulose 20 gm 20 gm Q4 GTB Last administered on 08/07/17 05:52; Admin Dose 20 GM; Start 08/05/17 at 13:00 Phenylephrine HCl 160 mg/Dextrose 500 ml @ 18.75 mls/ hr TITRATE IV Last administered on 08/08/17 02:39; Admin Dose 41.25 MLS/HR; Start 08/06/17 at 11 :00 Norepinephrine 32 mg/Dextrose 250 ml @ 0.46 mls/hr TITRATE IV Last administered on 08/08/17 03:42; Admin Dose 7.01 MLS/HR; Start 08/06/17 at 11: 00 Piperacillin Sod/ Tazobactam Sod 50 ml @ 200 mls/hr Q8H IVPB Last administered on 08/08/17 02:39; Admin Dose 200 MLS/HR; Start 08/06/17 at 10: 00 Pantoprazole 80 mg/Sodium Chloride 100 ml @ 10 mls/hr Q10H IV Last administered on 08/08/17 05:34; Admin Dose 10 MLS/HR; Start 08/06/17 at 13:30 Sodium Bicarbonate/ Dextrose (Na Bicarb/D5W) 1,150 ml @ 75 mls/hr [id number] IV Last administered on 08/07/17 22:22; Admin Dose 75 MLS/HR; Start 08/06/17 at 15:38 Lorazepam 2 mg 2 mg Q2H PRN IV SEIZURES; Start 08/07/17 at 09:00 Levetiracetam 100 ml @ 400 mls/hr Q12 IVPB Last administered on 08/07/17 20: 02; Admin Dose 400 MLS/HR; Start 08/07/17 at 10:30 Vancomycin HCl/ Sodium Chloride (Vancocin/NS) 150 ml @ 75 mls/hr Q48H IVPB Last administered on 08/07/17 11:00; Admin Dose 75 MLS/HR; Start 08/07/17 at 11:00 IV Flush (NS 10 ml) 10 ml PRN PRN IV IV PROTOCOL; Start 08/07/17 at 19:00 SOCORRO REYES Aug 08, 2017 06:22
[2017-08-08] MEDS ORDERED: DEXTROSE 50% 50 ML SYRINGE ONE (06:25)
[2017-08-08 06:27] LABS: ADD UMIC YES; UR ASCORBIC ACID NEGATIVE (NEGATIVE); UR BACTERIA FEW /HPF (NONE SEEN); UR BILIRUBIN (Dip) 1+ mg/dL (NEGATIVE); UR BLOOD (Dip) 3+ mg/dL (NEGATIVE); UR CLARITY CLOUDY (CLEAR); UR COLOR AMBER (YELLOW); UR GLUCOSE (Dip) NEGATIVE (NEGATIVE); UR KETONES (Dip) NEGATIVE (NEGATIVE); UR LEUKOCYTE ESTERASE (Dip) NEGATIVE Leu/ul (NEGATIVE); UR MUCUS MODERATE /HPF (NONE SEEN); UR NITRITE (Dip) NEGATIVE (NEGATIVE); UR NONSQUAMOUS EPITHELIAL CELL 2 /HPF (NONE SEEN); UR RBC > 182 /HPF (0-5); UR SPECIFIC GRAVITY (Dip) 1.023 (1.003-1.030); UR SQUAMOUS EPITHELIAL CELL MODERATE /HPF (FEW); UR TOTAL PROTEIN (Dip) 2+ mg/dl (NEGATIVE); UR UROBILINOGEN (Dip) 2+ mg/dL (NEGATIVE)
[2017-08-08] MEDS ORDERED: DEXTROSE 50% 50 ML SYRINGE IV ONE (06:30)
[2017-08-08 06:47] LABS: POTASSIUM,URINE RANDOM 43.9 mmol/L (25-125)
[2017-08-08 08:31] LABS: AADO2 Arterial 159.6 mmHg (7.0-24.0); Allen Test ACCEPTAB; Arterial Base Excess -7.3 mmol/L (-3.0-3); Arterial COHb 0.3 % (0.0-3.0); Arterial Fraction of Oxyhgb 91.7 % (93.0-99.0); Arterial HCO3 14.9 mmol/L (22.0-26.0); Arterial MetHb 0.6 % (0.0-1.5); Arterial Total Hemglobin 11.4 g/dl (12.0-18.0); MODE VENT - AC
--- NOTE | 2017-08-08 08:39 | CONS ---
DATE OF ADMISSION: 07/30/2017 DATE OF CONSULTATION: REASON FOR CONSULTATION: Surgical. HISTORY OF PRESENT ILLNESS: This is a 67-year-old female admitted because of liver failure, hepatit is C, subsequently had progressively worse renal failure and will be needing long-term dialysis acce ss. PAST MEDICAL HISTORY: Significant for hypertension, hyperlipidemia, hepatitis C, liver failure. PAST SURGICAL HISTORY: None. ALLERGIES: NONE. SOCIAL HISTORY: No smoking, drinking or drug use. MEDICATIONS: List reviewed. PHYSICAL EXAMINATION: VITAL SIGNS: Blood pressure is 87/60, pulse is 80, respirations 18. GENERAL: The patient is intubated. CARDIOVASCULAR: Regular rate and rhythm. LUNGS: Clear. ABDOMEN: Soft. Distended. EXTREMITIES: Warm. IMPRESSION: 1. Hepatitis C and liver failure. 2. Renal failure. RECOMMENDATIONS: We will proceed with the placement of a dialysis catheter. Risks, benefits, compl ications, alternative therapies explained to the patient's family. All questions answered. Dictated By: VIVIEN REBOLLAR/ENA Conf#: [id number] DID#: [id number]
--- NOTE | 2017-08-08 08:39 | OPR ---
DATE OF OPERATION: PREOPERATIVE DIAGNOSIS: Renal failure. POSTOPERATIVE DIAGNOSIS: Renal failure. PROCEDURE: Left femoral hemodialysis catheter placement. SURGEON: Vivien Arteaga MD ANESTHESIA: Local. CONSENT: Risks, benefits, complications, alternative therapies explained to the patient and the [facility] porsche, consent obtained. OPERATIVE TECHNIQUE: The patient was placed in supine position, prepped and draped in usual sterile fashion. One percent lidocaine was used throughout the operation for local anesthesia. Access was gained in the left common femoral vein, guidewire was advanced through without any difficulty. Sub cutaneous tissues were dilated. A 25-cm dialysis catheter advanced over guidewire, secured to skin using silk sutures. Both ports of the catheter were aspirated and injected using saline solution. Patient tolerated the procedure well. Dictated By: VIVIEN ARTEAGA MD FM/ENA Conf#: [id number] DID#: [id number] CC: CONSTANTINO BACON MD;*EndCC*
--- NOTE | 2017-08-08 08:42 | RADRPT ---
PROCEDURE: XR Chest. CLINICAL INDICATION: Shortness of breath. TECHNIQUE: Single frontal view. COMPARISON: 08/07/2017. FINDINGS: There is a right arm PICC line with the tip in the upper right atrium. The endotracheal tube and nadir ogastric tube are in satisfactory position. There is atelectasis at the lung bases with left worse t bejarano right. The left lung base appears worse than seen previously. Mild pulmonary edema is unchanged. The heart is enlarged. There is calcification in the aorta consistent with atherosclerosis. There are small bilateral pleural effusions. There is no pneumothorax IMPRESSION: 1. Right arm PICC line, endotracheal tube, nasogastric tube in satisfactory position. 2. Atelectasis at the lung bases with left worse than right. The left lung base appears worse than seen previously. 3. Cardiomegaly and atherosclerosis. 4. Mild pulmonary edema. 5. Small bilateral pleural effusions. RPTAT: QQ .Luis Miguel Guerra MD, MD Date Time Electronically viewed and signed by .Luis Miguel Guerra MD, on 08/08/2017 08:19 .R/
[2017-08-08] MEDS: RIFAXIMIN 550 MG TAB PO SCH ×2 (09:28→21:00)
[2017-08-08] MEDS: URSODIOL 300 MG CAP PO SCH ×3 (09:28→21:00)
[2017-08-08] MEDS: FOLIC ACID 1 MG TAB PO SCH (09:28)
[2017-08-08 09:44] LABS: ABNORMAL IP MESSAGE 1; HEMATOCRIT 28.8 % (37.0-47.0); HEMOGLOBIN 10.5 g/dl (12.0-16.0); MEAN CORPUSCULAR HEMOGLOBIN 31.7 pg (29.0-33.0); MEAN CORPUSCULAR HGB CONC 36.5 g/dl (32.0-37.0); MEAN PLATELET VOLUME 12.3 fl (7.4-10.4); NUCLEATED RED BLOOD CELLS% 2.5 /100WBC (0.0-0.0); RED BLOOD COUNT 3.31 10^6/ul (4.20-5.40); RED CELL DISTRIBUTION WIDTH 15.7 % (11.5-14.5); WHITE BLOOD COUNT 14.9 10^3/ul (4.8-10.8)
[2017-08-08] MEDS: LEVETIRACETAM 500 MG (PMX) 100 ML IVPB SCH (09:53)
[2017-08-08 10:06] LABS: PLATELET COUNT 15 10^3/UL (140-415)
[2017-08-08 10:07] LABS: POSITIVE DIFF @See below
--- NOTE | 2017-08-08 10:34 | PN ---
Date/Time of Note Date/Time of Note DATE: 08/08/17 TIME: 10:33 Assessment/Plan Lines/Catheters IV Catheter Type (from Nrsg): PICC Line Carter in Place (from Nrsg): Yes Assessment/Plan Chief Complaint/Hosp Course SP HD cath placement will continue Supp care Problems: Subjective 24 Hr Interval Summary Constitutional: improved Pain Control: mild Exam/Review of Systems Vital Signs Vitals Vital Signs Date Time Temp Pulse Resp B/P Pulse Ox O2 Delivery O2 Flow Rate FiO2 08/08/17 09:46 96 24 94 45 08/08/17 07:00 109/43 Mechanical Ventilator 08/08/17 04:00 97.4 08/05/17 20:26 3.0 Intake and Output 08/07/17 08/07/17 08/08/17 15:00 23:00 07:00 Intake Total 2090.2 ml 1311.94 ml 1421.907 ml Output Total 25 ml 145 ml 30 ml Balance 2065.2 ml 1166.94 ml 1391.907 ml Exam Neck: non-tender, supple Respiratory: clear to auscultation, normal air movement Cardiovascular: nl pulses, regular rate and rhythm Gastrointestinal: nl liver, spleen, non-tender, soft Results Result Diagram: 08/08/17 0922 08/08/17 0400 VIVIEN GAYTAN MD Aug 08, 2017 10:34
[2017-08-08 10:35] LABS: ANISOCYTOSIS 1+ (0-0); BURR CELLS 2+ (0-0); ERYTHROBLAST% (NRBC) (M) 11 % (0-0); MONOCYTES % (M) 4 % (0-11); PLATELET ESTIMATE SIG DECREASED; POIKILOCYTOSIS 3+ (0-0); REACTIVE LYMPHOCYTES% (M) 3 % (0-0)
--- NOTE | 2017-08-08 11:09 | CONS ---
Date/Time of Note Date/Time of Note DATE: 08/08/17 TIME: 11:08 Consult Date/Type/Reason Admit Date/Time Jul 30, 2017 at 04:53 Initial Consult Date 07/31/17 Type of Consultation: Pulmonary Ordering Provider: OSMAN NEGRON Subjective No significant changes. Patient continues several vasopressors. Somnolent on mechanical ventilation. Pending hemodialysis this morning. Objective Vital Signs Date Time Temp Pulse Resp B/P Pulse Ox O2 Delivery O2 Flow Rate FiO2 08/08/17 09:46 96 24 94 45 08/08/17 07:00 109/43 Mechanical Ventilator 08/08/17 04:00 97.4 08/05/17 20:26 3.0 Intake and Output 08/07/17 08/07/17 08/08/17 15:00 23:00 07:00 Intake Total 2090.2 ml 1311.94 ml 1421.907 ml Output Total 25 ml 145 ml 30 ml Balance 2065.2 ml 1166.94 ml 1391.907 ml Exam YSICAL EXAMINATION: GENERAL: Chronically ill appearing lady, intubated on mechanical ventilation VITAL SIGNS: NECK: Supple. No JVD or lymphadenopathy. CARDIAC: S1, S2, no added sounds or murmurs. CHEST: Diminished air entry bilaterally. ABDOMEN: Soft, nontender. No guarding or rebound. EXTREMITIES: No cyanosis, clubbing, edema. NEUROLOGIC: Unable to assess. Results/Medications Result Diagram: 08/08/17 0922 08/08/17 0400 Results 24 hrs Laboratory Tests Test 08/07/17 11:33 08/07/17 18:40 08/08/17 01:03 08/08/17 03:40 Hemoglobin 7.6 L 8.1 L 7.7 L Hematocrit 21.1 #L 22.2 L 21.6 L Urine Color TORI Urine Clarity CLOUDY A Urine pH 5.0 Urine Specific [place] 1.023 Urine Ketones NEGATIVE Urine Nitrite NEGATIVE Urine Bilirubin 1+ H Urine Urobilinogen 2+ H Urine Leukocyte Esterase NEGATIVE Urine Microscopic RBC > 182 H Urine Microscopic WBC 79 H Urine Squamous Epithelial Cells MODERATE Urine Bacteria FEW A Urine Mucus MODERATE Urine Hemoglobin 3+ H Urine Random Creatinine 71.46 Urine Random Sodium 14 L Urine Random Potassium 43.9 Urine Random Urea Nitrogen 200 Urine Glucose NEGATIVE Urine Total Protein 2+ H Test 08/08/17 04:00 08/08/17 05:01 08/08/17 06:22 08/08/17 06:50 Hemoglobin 8.1 L Hematocrit 22.7 L Sodium Level 142 Potassium Level 3.0 L Chloride Level 92 L Carbon Dioxide Level 17 L Anion Gap 36 H Blood Urea Nitrogen 48 H Creatinine 3.01 H Glucose Level 39 #*L Calcium Level 7.6 L Phosphorus Level 5.2 H Magnesium Level 1.5 L Lab Scanned Report BLOOD TRANSFUSION Bedside Glucose 45 *L 133 Test 08/08/17 07:00 08/08/17 07:27 08/08/17 09:22 Blood Gas Specimen Source Blood arterial Arterial Blood Date Drawn 08/08/2017 8:20:10 AM Arterial Blood pH (Temp corrected) 7.449 Arterial Blood pCO2 (Temp correct) 22.0 L Arterial Blood pO2 (Temp corrected) 64.4 L Arterial Blood HCO3 14.9 L Arterial Blood Base Excess -7.3 L Arterial Blood Oxygen Saturation 92.5 L Adonay Test ACCEPTAB Arterial Blood Gas Puncture Site Left Radial Arterial Blood Carboxyhemoglobin 0.3 Arterial Blood Methemoglobin 0.6 Blood Gas A-a O2 Differential 159.6 H Oxyhemoglobin Percent 91.7 L Total Hemoglobin 11.4 L Blood Gas Temperature 37.0 Blood Gas Respiration Rate 20.0 Blood Gas Actual Respiration Rate 23 Blood Gas Modality VENT - AC FiO2 35.0 Blood Gas Tidal Volume 500.0 Blood Gas Low PEEP Setting 5.0 Blood Gas Notified Whom JLD Blood Gas Notified Time 08/08/2017 8:30:53 AM Bedside Glucose 121 Lab Scanned Report BLOOD TRANSFUSION White Blood Count 14.9 #H Red Blood Count 3.31 L Hemoglobin 10.5 #L Hematocrit 28.8 #L Mean Corpuscular Volume 87.0 Mean Corpuscular Hemoglobin 31.7 Mean Corpuscular Hemoglobin Concent 36.5 Red Cell Distribution Width 15.7 H Platelet Count 15 #*L Mean Platelet Volume 12.3 H Neutrophils % Segmented Neutrophils % (Manual) 43 Band Neutrophils % (Manual) 36 H Lymphocytes % Lymphocytes % (Manual) 14 L Reactive Lymphocytes % (Manual) 3 H Monocytes % Monocytes % (Manual) 4 Eosinophils % Basophils % Nucleated Red Blood Cells % 11 H Neutrophils # Neutrophils # (Manual) 7.2 Band Neutrophils # 5.3 H Absolute Lymphocytes (Manual) 2.0 Lymphocytes # Reactive Lymphocytes # 0.4 H Monocytes # Absolute Monocytes (Manual) 0.5 Eosinophils # Basophils # Nucleated Red Blood Cells # Platelet Estimate SIG DECREASED Poikilocytosis 3+ Anisocytosis 1+ Medications Current Medications Folic Acid (Folic Acid) 1 mg DAILY PO Last administered on 08/08/17 09:28; Admin Dose 1 MG; Start 07/30/17 at 09:00 Rifaximin (Xifaxan) 550 mg BID PO Last administered on 08/08/17 09:28; Admin Dose 550 MG; Start 07/30/17 at 09:00 Ursodiol (Actigall) 300 mg TID PO Last administered on 08/08/17 09:28; Admin Dose 300 MG; Start 07/30/17 at 09:00 Ondansetron HCl (Zofran Inj) 4 mg Q6H PRN IV NAUSEA AND/OR VOMITING Last administered on 08/04/17 11:26; Admin Dose 4 MG; Start 07/30/17 at 09:00 Acetaminophen (Tylenol Tab) 650 mg Q6H PRN PO PAIN LEVEL 1-3 OR FEVER; Start 07/30/17 at 09:00 Acetaminophen (Tylenol Supp) 650 mg Q6H PRN [place] PAIN LEVEL 1-3 OR FEVER; Start 07/30/17 at 09:00 Lactulose (Enulose) 30 gm Q6H PRN PO CONSTIPATION Last administered on 11:23; Admin Dose 30 GM; Start 08/04/17 at 11:00; Status Future Hold Lactulose 20 gm 20 gm Q4 GTB Last administered on 08/08/17 09:28; Admin Dose 20 GM; Start 08/05/17 at 13:00 Phenylephrine HCl 160 mg/Dextrose 500 ml @ 18.75 mls/ hr TITRATE IV Last administered on 08/08/17 02:39; Admin Dose 41.25 MLS/HR; Start 08/06/17 at 11 :00 Norepinephrine 32 mg/Dextrose 250 ml @ 0.46 mls/hr TITRATE IV Last administered on 08/08/17 03:42; Admin Dose 7.01 MLS/HR; Start 08/06/17 at 11: 00 Piperacillin Sod/ Tazobactam Sod 50 ml @ 200 mls/hr Q8H IVPB Last administered on 08/08/17 09:28; Admin Dose 200 MLS/HR; Start 08/06/17 at 10: 00 Pantoprazole 80 mg/Sodium Chloride 100 ml @ 10 mls/hr Q10H IV Last administered on 08/08/17 05:34; Admin Dose 10 MLS/HR; Start 08/06/17 at 13:30 Sodium Bicarbonate/ Dextrose (Na Bicarb/D5W) 1,150 ml @ 75 mls/hr [id number] IV Last administered on 08/07/17 22:22; Admin Dose 75 MLS/HR; Start 08/06/17 at 15:38 Lorazepam 2 mg 2 mg Q2H PRN IV SEIZURES; Start 08/07/17 at 09:00 Levetiracetam (Keppra 500 Mg/ 100ml (Pmx)) 100 ml @ 400 mls/hr Q12 IVPB Last administered on 08/08/17 09:53; Admin Dose 400 MLS/HR; Start 08/07/17 at 10: 30 IV Flush (NS 10 ml) 10 ml PRN PRN IV IV PROTOCOL; Start 08/07/17 at 19:00 Assessment/Plan Chief Complaint/Hosp Course IMPRESSION: 1. Encephalopathy, likely secondary to elevated ammonia. Questionable intracerebral bleed secondary to encephalopathy or significant cerebral edema from liver failure. 2. Acute renal failure, probably secondary to hepatorenal syndrome given worsening ammonia, worsening liver function tests and decreased urine output. Scheduled for hemodialysis today. Improved leukocytosis despite persistent septic shock. 4. Septic shock possibly secondary to SBP 5. Hypoxemic respiratory failure secondary to above Thrombocytopenia likely secondary to liver disease and possible DIC. PLAN: Continue volume resuscitation, consider platelet transfusion. 2. Continue vasopressor support 3. Continue rifaximin. Continue PPI 4. Continue current antibiotics. 5. Continue current vent settings 6. CT brain when stable. 7. Agree with addition of antiepileptics. Consider EEG to rule out nonconvulsive seizures. Overall prognosis extremely poor. Problems: LURDES SAUNDERS MD, [facility] Aug 08, 2017 11:09
[2017-08-08] MEDS ORDERED: ALBUMIN HUMAN 25% 50 ML ONE (11:22)
[2017-08-08] MEDS ORDERED: MAGNESIUM SULFATE 2 GM/50 ML 50 ML IVPB ONE (11:30)
[2017-08-08] MEDS ORDERED: ALBUMIN HUMAN 25% 50 ML IV ONE (11:30)
--- NOTE | 2017-08-08 11:30 | PN ---
Date/Time of Note Date/Time of Note DATE: 08/08/17 TIME: 11:21 Assessment/Plan VTE Prophylaxis VTE Prophylaxis Intervention: SCD's Lines/Catheters IV Catheter Type (from Nrsg): PICC Line Central line still needed: Yes (medication) Urinary Cath still in place: Yes Reason Cath still needed: terminal illness/intractable pain Assessment/Plan Chief Complaint/Hosp Course Assessment: AMS secondary to hepatic encephalopathy Cryptogenic cirrhosis with ascites Electrolyte abnormalities: likely due to cirrhosis with ascites . Macrocytic anemia EGD 08/06 Severe esophagitis. No active bleeding or stigmata Grade I-II/IV esophageal varices. No stigmata recent bleeding Severe antral gastritis. No active bleeding or stigmata No gastric varices present Normal duodenum Hyperammonia- worsening Thrombocytopenia. ZACK on CKD? Plan: Will continue to monitor labs Plt continue to decrease- will order another unit of plt Colonoscopy on hold dialysis to be done today Poor prognosis Supportive care from all services Patient seen in collaboration with Dr. Roblero Subjective: Course reviewed with nursing staff Patient interviewed and examined All labs, imaging and other results reviewed Pt remains intubated on pressors colonoscopy not preformed yesterday pending dialysis today Prognosis is poor, family spoke with Dr. Myers- patient is still full code at this time Constitutional: intubated Psych: unable to assess Head: atraumatic, normocephalic Eyes: icteric ENMT: nl external ears & nose, nl lips & teeth, NGT in place Neck: non-tender, supple Respiratory: CTA Cardiovascular: nl pulses, regular rate and rhythm Gastrointestinal: hypoactive bowel sounds, distended, soft Problems: Exam/Review of Systems Vital Signs Vitals Vital Signs Date Time Temp Pulse Resp B/P Pulse Ox O2 Delivery O2 Flow Rate FiO2 08/08/17 09:46 96 24 94 45 08/08/17 07:00 109/43 Mechanical Ventilator 08/08/17 04:00 97.4 08/05/17 20:26 3.0 Intake and Output 08/07/17 08/07/17 08/08/17 15:00 23:00 07:00 Intake Total 2090.2 ml 1311.94 ml 1421.907 ml Output Total 25 ml 145 ml 30 ml Balance 2065.2 ml 1166.94 ml 1391.907 ml Results Result Diagram: 08/08/17 0922 08/08/17 0400 Results 24 hrs Laboratory Tests Test 08/07/17 11:33 08/07/17 18:40 08/08/17 01:03 08/08/17 03:40 Hemoglobin 7.6 L 8.1 L 7.7 L Hematocrit 21.1 #L 22.2 L 21.6 L Urine Color TORI Urine Clarity CLOUDY A Urine pH 5.0 Urine Specific [place] 1.023 Urine Ketones NEGATIVE Urine Nitrite NEGATIVE Urine Bilirubin 1+ H Urine Urobilinogen 2+ H Urine Leukocyte Esterase NEGATIVE Urine Microscopic RBC > 182 H Urine Microscopic WBC 79 H Urine Squamous Epithelial Cells MODERATE Urine Bacteria FEW A Urine Mucus MODERATE Urine Hemoglobin 3+ H Urine Random Creatinine 71.46 Urine Random Sodium 14 L Urine Random Potassium 43.9 Urine Random Urea Nitrogen 200 Urine Glucose NEGATIVE Urine Total Protein 2+ H Test 08/08/17 04:00 08/08/17 05:01 08/08/17 06:22 08/08/17 06:50 Hemoglobin 8.1 L Hematocrit 22.7 L Sodium Level 142 Potassium Level 3.0 L Chloride Level 92 L Carbon Dioxide Level 17 L Anion Gap 36 H Blood Urea Nitrogen 48 H Creatinine 3.01 H Glucose Level 39 #*L Calcium Level 7.6 L Phosphorus Level 5.2 H Magnesium Level 1.5 L Lab Scanned Report BLOOD TRANSFUSION Bedside Glucose 45 *L 133 Test 08/08/17 07:00 08/08/17 07:27 08/08/17 09:22 Blood Gas Specimen Source Blood arterial Arterial Blood Date Drawn 08/08/2017 8:20:10 AM Arterial Blood pH (Temp corrected) 7.449 Arterial Blood pCO2 (Temp correct) 22.0 L Arterial Blood pO2 (Temp corrected) 64.4 L Arterial Blood HCO3 14.9 L Arterial Blood Base Excess -7.3 L Arterial Blood Oxygen Saturation 92.5 L Adonay Test ACCEPTAB Arterial Blood Gas Puncture Site Left Radial Arterial Blood Carboxyhemoglobin 0.3 Arterial Blood Methemoglobin 0.6 Blood Gas A-a O2 Differential 159.6 H Oxyhemoglobin Percent 91.7 L Total Hemoglobin 11.4 L Blood Gas Temperature 37.0 Blood Gas Respiration Rate 20.0 Blood Gas Actual Respiration Rate 23 Blood Gas Modality VENT - AC FiO2 35.0 Blood Gas Tidal Volume 500.0 Blood Gas Low PEEP Setting 5.0 Blood Gas Notified Whom JLD Blood Gas Notified Time 08/08/2017 8:30:53 AM Bedside Glucose 121 Lab Scanned Report BLOOD TRANSFUSION White Blood Count 14.9 #H Red Blood Count 3.31 L Hemoglobin 10.5 #L Hematocrit 28.8 #L Mean Corpuscular Volume 87.0 Mean Corpuscular Hemoglobin 31.7 Mean Corpuscular Hemoglobin Concent 36.5 Red Cell Distribution Width 15.7 H Platelet Count 15 #*L Mean Platelet Volume 12.3 H Neutrophils % Segmented Neutrophils % (Manual) 43 Band Neutrophils % (Manual) 36 H Lymphocytes % Lymphocytes % (Manual) 14 L Reactive Lymphocytes % (Manual) 3 H Monocytes % Monocytes % (Manual) 4 Eosinophils % Basophils % Nucleated Red Blood Cells % 11 H Neutrophils # Neutrophils # (Manual) 7.2 Band Neutrophils # 5.3 H Absolute Lymphocytes (Manual) 2.0 Lymphocytes # Reactive Lymphocytes # 0.4 H Monocytes # Absolute Monocytes (Manual) 0.5 Eosinophils # Basophils # Nucleated Red Blood Cells # Platelet Estimate SIG DECREASED Poikilocytosis 3+ Anisocytosis 1+ Medications Medications Current Medications Folic Acid (Folic Acid) 1 mg DAILY PO Last administered on 08/08/17 09:28; Admin Dose 1 MG; Start 07/30/17 at 09:00 Rifaximin (Xifaxan) 550 mg BID PO Last administered on 08/08/17 09:28; Admin Dose 550 MG; Start 07/30/17 at 09:00 Ursodiol (Actigall) 300 mg TID PO Last administered on 08/08/17 09:28; Admin Dose 300 MG; Start 07/30/17 at 09:00 Ondansetron HCl (Zofran Inj) 4 mg Q6H PRN IV NAUSEA AND/OR VOMITING Last administered on 08/04/17 11:26; Admin Dose 4 MG; Start 07/30/17 at 09:00 Acetaminophen (Tylenol Tab) 650 mg Q6H PRN PO PAIN LEVEL 1-3 OR FEVER; Start 07/30/17 at 09:00 Acetaminophen (Tylenol Supp) 650 mg Q6H PRN [place] PAIN LEVEL 1-3 OR FEVER; Start 07/30/17 at 09:00 Lactulose (Enulose) 30 gm Q6H PRN PO CONSTIPATION Last administered on 11:23; Admin Dose 30 GM; Start 08/04/17 at 11:00; Status Future Hold Lactulose 20 gm 20 gm Q4 GTB Last administered on 08/08/17 09:28; Admin Dose 20 GM; Start 08/05/17 at 13:00 Phenylephrine HCl 160 mg/Dextrose 500 ml @ 18.75 mls/ hr TITRATE IV Last administered on 08/08/17 02:39; Admin Dose 41.25 MLS/HR; Start 08/06/17 at 11 :00 Norepinephrine 32 mg/Dextrose 250 ml @ 0.46 mls/hr TITRATE IV Last administered on 08/08/17 03:42; Admin Dose 7.01 MLS/HR; Start 08/06/17 at 11: 00 Piperacillin Sod/ Tazobactam Sod 50 ml @ 200 mls/hr Q8H IVPB Last administered on 08/08/17 09:28; Admin Dose 200 MLS/HR; Start 08/06/17 at 10: 00 Pantoprazole 80 mg/Sodium Chloride 100 ml @ 10 mls/hr Q10H IV Last administered on 08/08/17 05:34; Admin Dose 10 MLS/HR; Start 08/06/17 at 13:30 Sodium Bicarbonate/ Dextrose (Na Bicarb/D5W) 1,150 ml @ 75 mls/hr [id number] IV Last administered on 08/07/17 22:22; Admin Dose 75 MLS/HR; Start 08/06/17 at 15:38 Lorazepam 2 mg 2 mg Q2H PRN IV SEIZURES; Start 08/07/17 at 09:00 Levetiracetam (Keppra 500 Mg/ 100ml (Pmx)) 100 ml @ 400 mls/hr Q12 IVPB Last administered on 08/08/17 09:53; Admin Dose 400 MLS/HR; Start 08/07/17 at 10: 30 IV Flush (NS 10 ml) 10 ml PRN PRN IV IV PROTOCOL; Start 08/07/17 at 19:00 RAFAT BERKOWITZ Aug 08, 2017 11:30
--- NOTE | 2017-08-08 11:34 | CONS ---
Date/Time of Note Date/Time of Note DATE: 08/08/17 TIME: 11:33 Consult Date/Type/Reason Admit Date/Time Jul 30, 2017 at 04:53 Initial Consult Date 08/07/17 Type of Consultation: Neurology Reason for Consultation eval for seizure Ordering Provider: OSMAN NEGRON Subjective remains unresponsive repeat Head CT pending dialysis catheter placed Objective Vital Signs Date Time Temp Pulse Resp B/P Pulse Ox O2 Delivery O2 Flow Rate FiO2 08/08/17 09:46 96 24 94 45 08/08/17 07:00 109/43 Mechanical Ventilator 08/08/17 04:00 97.4 08/05/17 20:26 3.0 Intake and Output 08/07/17 08/07/17 08/08/17 15:00 23:00 07:00 Intake Total 2090.2 ml 1311.94 ml 1421.907 ml Output Total 25 ml 145 ml 30 ml Balance 2065.2 ml 1166.94 ml 1391.907 ml Exam on ventilator unresponsive not following any commands CN: dilated pupils minimal reactivity, absent corneals gag is present Motor absent w/d in extremities edema throughout all extremities Results/Medications Result Diagram: 08/08/17 0922 08/08/17 0400 Results 24 hrs Laboratory Tests Test 08/07/17 18:40 08/08/17 01:03 08/08/17 03:40 08/08/17 04:00 Hemoglobin 8.1 L 7.7 L 8.1 L Hematocrit 22.2 L 21.6 L 22.7 L Urine Color TORI Urine Clarity CLOUDY A Urine pH 5.0 Urine Specific [place] 1.023 Urine Ketones NEGATIVE Urine Nitrite NEGATIVE Urine Bilirubin 1+ H Urine Urobilinogen 2+ H Urine Leukocyte Esterase NEGATIVE Urine Microscopic RBC > 182 H Urine Microscopic WBC 79 H Urine Squamous Epithelial Cells MODERATE Urine Bacteria FEW A Urine Mucus MODERATE Urine Hemoglobin 3+ H Urine Random Creatinine 71.46 Urine Random Sodium 14 L Urine Random Potassium 43.9 Urine Random Urea Nitrogen 200 Urine Glucose NEGATIVE Urine Total Protein 2+ H Sodium Level 142 Potassium Level 3.0 L Chloride Level 92 L Carbon Dioxide Level 17 L Anion Gap 36 H Blood Urea Nitrogen 48 H Creatinine 3.01 H Glucose Level 39 #*L Calcium Level 7.6 L Phosphorus Level 5.2 H Magnesium Level 1.5 L Test 08/08/17 05:01 08/08/17 06:22 08/08/17 06:50 08/08/17 07:00 Lab Scanned Report BLOOD TRANSFUSION Bedside Glucose 45 *L 133 121 Blood Gas Specimen Source Blood arterial Arterial Blood Date Drawn 08/08/2017 8:20:10 AM Arterial Blood pH (Temp corrected) 7.449 Arterial Blood pCO2 (Temp correct) 22.0 L Arterial Blood pO2 (Temp corrected) 64.4 L Arterial Blood HCO3 14.9 L Arterial Blood Base Excess -7.3 L Arterial Blood Oxygen Saturation 92.5 L Adonay Test ACCEPTAB Arterial Blood Gas Puncture Site Left Radial Arterial Blood Carboxyhemoglobin 0.3 Arterial Blood Methemoglobin 0.6 Blood Gas A-a O2 Differential 159.6 H Oxyhemoglobin Percent 91.7 L Total Hemoglobin 11.4 L Blood Gas Temperature 37.0 Blood Gas Respiration Rate 20.0 Blood Gas Actual Respiration Rate 23 Blood Gas Modality VENT - AC FiO2 35.0 Blood Gas Tidal Volume 500.0 Blood Gas Low PEEP Setting 5.0 Blood Gas Notified Whom JLD Blood Gas Notified Time 08/08/2017 8:30:53 AM Test 08/08/17 07:27 08/08/17 09:22 Lab Scanned Report BLOOD TRANSFUSION White Blood Count 14.9 #H Red Blood Count 3.31 L Hemoglobin 10.5 #L Hematocrit 28.8 #L Mean Corpuscular Volume 87.0 Mean Corpuscular Hemoglobin 31.7 Mean Corpuscular Hemoglobin Concent 36.5 Red Cell Distribution Width 15.7 H Platelet Count 15 #*L Mean Platelet Volume 12.3 H Neutrophils % Segmented Neutrophils % (Manual) 43 Band Neutrophils % (Manual) 36 H Lymphocytes % Lymphocytes % (Manual) 14 L Reactive Lymphocytes % (Manual) 3 H Monocytes % Monocytes % (Manual) 4 Eosinophils % Basophils % Nucleated Red Blood Cells % 11 H Neutrophils # Neutrophils # (Manual) 7.2 Band Neutrophils # 5.3 H Absolute Lymphocytes (Manual) 2.0 Lymphocytes # Reactive Lymphocytes # 0.4 H Monocytes # Absolute Monocytes (Manual) 0.5 Eosinophils # Basophils # Nucleated Red Blood Cells # Platelet Estimate SIG DECREASED Poikilocytosis 3+ Anisocytosis 1+ Medications Current Medications Folic Acid (Folic Acid) 1 mg DAILY PO Last administered on 08/08/17t 09:28; Admin Dose 1 MG; Start 07/30/17 at 09:00 Rifaximin (Xifaxan) 550 mg BID PO Last administered on 08/08/17 09:28; Admin Dose 550 MG; Start 07/30/17 at 09:00 Ursodiol (Actigall) 300 mg TID PO Last administered on 08/08/17 09:28; Admin Dose 300 MG; Start 07/30/17 at 09:00 Ondansetron HCl (Zofran Inj) 4 mg Q6H PRN IV NAUSEA AND/OR VOMITING Last administered on 08/04/17 11:26; Admin Dose 4 MG; Start 07/30/17 at 09:00 Acetaminophen (Tylenol Tab) 650 mg Q6H PRN PO PAIN LEVEL 1-3 OR FEVER; Start 07/30/17 at 09:00 Acetaminophen (Tylenol Supp) 650 mg Q6H PRN [place] PAIN LEVEL 1-3 OR FEVER; Start 07/30/17 at 09:00 Lactulose (Enulose) 30 gm Q6H PRN PO CONSTIPATION Last administered on 11:23; Admin Dose 30 GM; Start 08/04/17 at 11:00; Status Future Hold Lactulose 20 gm 20 gm Q4 GTB Last administered on 08/08/17 09:28; Admin Dose 20 GM; Start 08/05/17 at 13:00 Phenylephrine HCl 160 mg/Dextrose 500 ml @ 18.75 mls/ hr TITRATE IV Last administered on 08/08/17 02:39; Admin Dose 41.25 MLS/HR; Start 08/06/17 at 11 :00 Norepinephrine 32 mg/Dextrose 250 ml @ 0.46 mls/hr TITRATE IV Last administered on 08/08/17 03:42; Admin Dose 7.01 MLS/HR; Start 08/06/17 at 11: 00 Piperacillin Sod/ Tazobactam Sod 50 ml @ 200 mls/hr Q8H IVPB Last administered on 08/08/17 09:28; Admin Dose 200 MLS/HR; Start 08/06/17 at 10: 00 Pantoprazole 80 mg/Sodium Chloride 100 ml @ 10 mls/hr Q10H IV Last administered on 08/08/17 05:34; Admin Dose 10 MLS/HR; Start 08/06/17 at 13:30 Sodium Bicarbonate/ Dextrose (Na Bicarb/D5W) 1,150 ml @ 75 mls/hr [id number] IV Last administered on 08/07/17 22:22; Admin Dose 75 MLS/HR; Start 08/06/17 at 15:38 Lorazepam 2 mg 2 mg Q2H PRN IV SEIZURES; Start 08/07/17 at 09:00 Levetiracetam (Keppra 500 Mg/ 100ml (Pmx)) 100 ml @ 400 mls/hr Q12 IVPB Last administered on 08/08/17 09:53; Admin Dose 400 MLS/HR; Start 08/07/17 at 10: 30 IV Flush 10 ml 10 ml PRN PRN IV IV PROTOCOL; Start 08/07/17 at 19:00 Albumin Human 50 ml @ 100 mls/hr ONCE ONCE IV ; Start 08/08/17 at 11:30; Stop 08/08/17 at 11:59 Magnesium Sulfate (Magnesium Sulfate 2 Gm/50 ml) 50 ml @ 25 mls/hr ONCE ONCE IVPB ; Start 08/08/17 at 11:30; Stop 08/08/17 at 13:29; Status UNV Assessment/Plan Chief Complaint/Hosp Course 67 yo female with cirrhosis admitted with CKD, hepatorenal syndrome, respiratory failure decompensated liver cirrhosis, septic shock respiratory failure, severe anemia receiving transfusions, and hyperammonemia with severe encephalopathy. Questionable seizure started on Keppra 500 mg q12h may continue EEG pending Repeat Head CT to r/o ICH pending overall poor prognosis at this time she remains full code Problems: BURKE COTTER MD Aug 08, 2017 11:34
[2017-08-08 12:11] LABS: HEMATOCRIT 28.4 % (37.0-47.0); HEMOGLOBIN 10.2 g/dl (12.0-16.0)
--- NOTE | 2017-08-08 12:33 | SP ---
DATE OF PROCEDURE: 08/06/2017 ROOM#: 117. HISTORY: This is a 67-year-old woman who was admitted with altered mental status and was found to h ave intracerebral hemorrhage, cerebral edema and encephalopathic. CURRENT MEDICATIONS: 1. Keppra. 2. Ativan. PROCEDURE: Utilizing a 16-channel EEG machine, cap scalp electrodes were applied in accordance with International 10-20 system. [id number] and [id number]-[id number] montages were displayed. Electrical i mpedances were measured and reported. DESCRIPTION: During the resting state, posterior dominant rhythm was low amplitude 5-6 Hz were seen bihemispherically. Left frontal and right temporal shocks were noted at times during the tracing. Photic stimulation had no response. Hyperventilation did not attenuate the rhythm. IMPRESSION: This is an abnormal EEG due to generalized bihemispheric background slowing with low am plitude waves with left frontal and right temporal sharps which could be epileptogenic is consistent with severe encephalopathy with seizures. Please correlate these findings with the patient's clini enrike picture. Dictated By: MARIAELENA GERMAIN/ENA Conf#: [id number] DID#: [id number]
[2017-08-08] MEDS: LEVETIRACETAM 1000 MG (PMX) 100 ML IVPB SCH ×2 (13:23→20:54)
--- NOTE | 2017-08-08 14:14 | RADRPT ---
PROCEDURE: XR Chest. CLINICAL INDICATION: Shortness of breath. TECHNIQUE: Single frontal view. COMPARISON: 08/08/2017. 0608 hours. FINDINGS: There is a right arm PICC line with the tip in the upper right atrium. The endotracheal tube and nadir ogastric tube are in satisfactory position. There is atelectasis at the lung bases with left worse t bejarano right, unchanged. The heart is enlarged. There is calcification in the aorta consistent with atherosclerosis. There are small bilateral pleural effusions. There is no pneumothorax IMPRESSION: 1. No change from the prior study done earlier the same day. RPTAT: QQ .Luis Miguel Guerra MD, MD Date Time Electronically viewed and signed by .Luis Miguel Guerra MD, on 08/08/2017 14:13 .R/
--- NOTE | 2017-08-08 15:13 | PN ---
Date/Time of Note Date/Time of Note DATE: 08/08/17 TIME: 15:11 Assessment/Plan VTE Prophylaxis VTE Prophylaxis Intervention: SCD's Lines/Catheters IV Catheter Type (from Nrsg): PICC Line Central line still needed: Yes Urinary Cath still in place: Yes Reason Cath still needed: terminal illness/intractable pain Assessment/Plan Chief Complaint/Hosp Course Assessment/Plan 1. Altered mental status secondary to hepatic encephalopathy - Ammonia increased today, worsened encephalopathy. - GI on board and recommendations appreciated. upper endoscopy done today did not show obvious sign of bleed. colonoscopy planned - holding lactulose given GI bleed - CT head showed mild generalized cerebral volume loss and nonspecific chronic microvascular ischemic disease without evidence of intracranial masses hemorrhages or midline shift. initially, now with dilated pupils, ? brain bleed , will repeat CT when able. #seizure -questionable, but keppra started -EEG noted, severe encephalopathy #DIC -fibrinogen, inr, ptt, platelets, d dimer, physical findings consistent -very likely 2/2 acute liver failure #hypotension -severe hepatorenal and ? septic source -2 pressors, titrate as able -IV fluids #coagulopathy -2/2 likely end stage liver disease #. Hypernatremia - d5w with bicarb per nephro #. Hyperkalemia- monitor, now hypokalemia 4. ZACK on CKD- worsening - patient baseline Cr appears to be 1.2 during prior admission - Nephrology on board and recommendations appreciated. - likely hepatorenal - Ct surgery consulted for vas/cath placement 5. Elevated LFT- still elevated - Most likely secondary to cirrhosis - Will continue to monitor 6. Hyperammonia - worsened - Continue on lactulose and rifaximin 7. GI bleed, likely lower - GI bleeding with lactulose, stable without 8. Cirrhosis of liver - followed by Dr. Monzon, cardiovascular tech - Seen at Transplant clinic at [facility] per daughter - Per daughter, they are unsure cause of her cirrhosis but does admit to patient being overweight prior to illness. ?OWEN as cause of her cirrhosis -end stage, currently unstable for transfer to [facility] 9. Thrombocytopenia - Secondary to cirrhosis - will continue to monitor and transfuse if <10K 10. Ascites - zosyn for abx 11. CBD - Complete abd u/s with multiple findings including gallstones/sludge hepatofugal flow - MRCP showed No biliary ductal dilatation definitive filling defect within the biliary tree # Disposition - worsening condition, on 2 pressors, [facility] rejected transfer, palliative care consulted. Patient's family urged to be at bedside -multifactorial organ failure -holding off on colonoscopy per GI, will perform when able -nephro to HD today Problems: Subjective 24 Hr Interval Summary Free Text/Dictation no change Exam/Review of Systems Vital Signs Vitals Vital Signs Date Time Temp Pulse Resp B/P Pulse Ox O2 Delivery O2 Flow Rate FiO2 08/08/17 12:00 92 08/08/17 11:25 24 93 45 08/08/17 07:00 109/43 Mechanical Ventilator 08/08/17 04:00 97.4 08/05/17 20:26 3.0 Intake and Output 08/07/17 08/07/17 08/08/17 15:00 23:00 07:00 Intake Total 2090.2 ml 1311.94 ml 1421.907 ml Output Total 25 ml 145 ml 30 ml Balance 2065.2 ml 1166.94 ml 1391.907 ml Exam Constitutional: intubated, obtunded Head: atraumatic, normocephalic Eyes: icteric bilaterally, dilated pupils bilaterally Neck: non-tender, supple Respiratory: coarse to auscultation, diminished breath sounds, Cardiovascular: tachycardic, no obvious murmur Gastrointestinal: ascites, bowel sounds, distended, soft, No rebound or guarding Musculoskeletal: nl extremities to inspection Extremities: normal pulses, No clubbing, No cyanosis, No edema Neurological: minimal to no response to noxious stimuli Results Result Diagram: 08/08/17 1159 08/08/17 0400 Results 24 hrs Laboratory Tests Test 08/07/17 18:40 08/08/17 01:03 08/08/17 03:40 08/08/17 04:00 Hemoglobin 8.1 L 7.7 L 8.1 L Hematocrit 22.2 L 21.6 L 22.7 L Urine Color TORI Urine Clarity CLOUDY A Urine pH 5.0 Urine Specific [place] 1.023 Urine Ketones NEGATIVE Urine Nitrite NEGATIVE Urine Bilirubin 1+ H Urine Urobilinogen 2+ H Urine Leukocyte Esterase NEGATIVE Urine Microscopic RBC > 182 H Urine Microscopic WBC 79 H Urine Squamous Epithelial Cells MODERATE Urine Bacteria FEW A Urine Mucus MODERATE Urine Hemoglobin 3+ H Urine Random Creatinine 71.46 Urine Random Sodium 14 L Urine Random Potassium 43.9 Urine Random Urea Nitrogen 200 Urine Glucose NEGATIVE Urine Total Protein 2+ H Sodium Level 142 Potassium Level 3.0 L Chloride Level 92 L Carbon Dioxide Level 17 L Anion Gap 36 H Blood Urea Nitrogen 48 H Creatinine 3.01 H Glucose Level 39 #*L Calcium Level 7.6 L Phosphorus Level 5.2 H Magnesium Level 1.5 L Test 08/08/17 05:01 08/08/17 06:22 08/08/17 06:50 08/08/17 07:00 Lab Scanned Report BLOOD TRANSFUSION Bedside Glucose 45 *L 133 121 Blood Gas Specimen Source Blood arterial Arterial Blood Date Drawn 08/08/2017 8:20:10 AM Arterial Blood pH (Temp corrected) 7.449 Arterial Blood pCO2 (Temp correct) 22.0 L Arterial Blood pO2 (Temp corrected) 64.4 L Arterial Blood HCO3 14.9 L Arterial Blood Base Excess -7.3 L Arterial Blood Oxygen Saturation 92.5 L Adonay Test ACCEPTAB Arterial Blood Gas Puncture Site Left Radial Arterial Blood Carboxyhemoglobin 0.3 Arterial Blood Methemoglobin 0.6 Blood Gas A-a O2 Differential 159.6 H Oxyhemoglobin Percent 91.7 L Total Hemoglobin 11.4 L Blood Gas Temperature 37.0 Blood Gas Respiration Rate 20.0 Blood Gas Actual Respiration Rate 23 Blood Gas Modality VENT - AC FiO2 35.0 Blood Gas Tidal Volume 500.0 Blood Gas Low PEEP Setting 5.0 Blood Gas Notified Whom JLD Blood Gas Notified Time 08/08/2017 8:30:53 AM Test 08/08/17 07:27 08/08/17 09:22 08/08/17 11:59 Lab Scanned Report BLOOD TRANSFUSION White Blood Count 14.9 #H Red Blood Count 3.31 L Hemoglobin 10.5 #L 10.2 L Hematocrit 28.8 #L 28.4 L Mean Corpuscular Volume 87.0 Mean Corpuscular Hemoglobin 31.7 Mean Corpuscular Hemoglobin Concent 36.5 Red Cell Distribution Width 15.7 H Platelet Count 15 #*L Mean Platelet Volume 12.3 H Neutrophils % Segmented Neutrophils % (Manual) 43 Band Neutrophils % (Manual) 36 H Lymphocytes % Lymphocytes % (Manual) 14 L Reactive Lymphocytes % (Manual) 3 H Monocytes % Monocytes % (Manual) 4 Eosinophils % Basophils % Nucleated Red Blood Cells % 11 H Neutrophils # Neutrophils # (Manual) 7.2 Band Neutrophils # 5.3 H Absolute Lymphocytes (Manual) 2.0 Lymphocytes # Reactive Lymphocytes # 0.4 H Monocytes # Absolute Monocytes (Manual) 0.5 Eosinophils # Basophils # Nucleated Red Blood Cells # Platelet Estimate SIG DECREASED Poikilocytosis 3+ Anisocytosis 1+ Medications Medications Current Medications Folic Acid (Folic Acid) 1 mg DAILY PO Last administered on 08/08/17 09:28; Admin Dose 1 MG; Start 07/30/17 at 09:00 Rifaximin (Xifaxan) 550 mg BID PO Last administered on 08/08/17 09:28; Admin Dose 550 MG; Start 07/30/17 at 09:00 Ursodiol (Actigall) 300 mg TID PO Last administered on 08/08/17 09:28; Admin Dose 300 MG; Start 07/30/17 at 09:00 Ondansetron HCl (Zofran Inj) 4 mg Q6H PRN IV NAUSEA AND/OR VOMITING Last administered on 08/04/17 11:26; Admin Dose 4 MG; Start 07/30/17 at 09:00 Acetaminophen (Tylenol Tab) 650 mg Q6H PRN PO PAIN LEVEL 1-3 OR FEVER; Start 07/30/17 at 09:00 Acetaminophen (Tylenol Supp) 650 mg Q6H PRN [place] PAIN LEVEL 1-3 OR FEVER; Start 07/30/17 at 09:00 Lactulose (Enulose) 30 gm Q6H PRN PO CONSTIPATION Last administered on 11:23; Admin Dose 30 GM; Start 08/04/17 at 11:00; Status Future Hold Lactulose 20 gm 20 gm Q4 GTB Last administered on 08/08/17 13:23; Admin Dose 20 GM; Start 08/05/17 at 13:00 Phenylephrine HCl 160 mg/Dextrose 500 ml @ 18.75 mls/ hr TITRATE IV Last administered on 08/08/17 12:44; Admin Dose 56.25 MLS/HR; Start 08/06/17 at 11 :00 Norepinephrine 32 mg/Dextrose 250 ml @ 0.46 mls/hr TITRATE IV Last administered on 08/08/17 03:42; Admin Dose 7.01 MLS/HR; Start 08/06/17 at 11: 00 Piperacillin Sod/ Tazobactam Sod 50 ml @ 200 mls/hr Q8H IVPB Last administered on 08/08/17 09:28; Admin Dose 200 MLS/HR; Start 08/06/17 at 10: 00 Pantoprazole 80 mg/Sodium Chloride 100 ml @ 10 mls/hr Q10H IV Last administered on 08/08/17 05:34; Admin Dose 10 MLS/HR; Start 08/06/17 at 13:30 Sodium Bicarbonate/ Dextrose (Na Bicarb/D5W) 1,150 ml @ 75 mls/hr [id number] IV Last administered on 08/07/17 22:22; Admin Dose 75 MLS/HR; Start 08/06/17 at 15:38 Lorazepam (Ativan) 2 mg Q2H PRN IV SEIZURES; Start 08/07/17 at 09:00 IV Flush 10 ml 10 ml PRN PRN IV IV PROTOCOL; Start 08/07/17 at 19:00 Levetiracetam (Keppra 1,000mg/ 100ml (Pmx)) 100 ml @ 400 mls/hr Q12 IVPB Last administered on 08/08/17 13:23; Admin Dose 400 MLS/HR; Start 08/08/17 at 13: 00 OSMAN NEGRON Aug 08, 2017 15:13
[2017-08-08] MEDS: SODIUM BICARBONATE (IV ADD) 150 MEQ in DEXTROSE 5% 1,000 ML IV SCH (16:46)
--- NOTE | 2017-08-08 16:46 | CONS ---
Date/Time of Note Date/Time of Note DATE: 08/08/17 TIME: 16:42 Assessment/Plan Assessment/Plan Additional Assessment/Plan 1. acute Kidney injury vs Acute kidney injury on CKD due to Hepartorenal syndrome + ATN- started on HD 08/08/17 due to hepatorenal syndrome 2. acute resp failure due to decompensated liver cirrhosis and Septic shock- required intubation and mechanical ventilation 3. Severe anemia s/p EGD - negative for acute bleeding, with grade IV esophageal varices 4.. Altered mental status secondary to hepatic encephalopathy + metabolic enceophalopathy, 5. Hyperammonemia 6. 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 Neurology following no case, pt remains unresponsive, EEG c/w epileptiform activity palliative care has been following on patient will follow up Consultation Date/Type/Reason Admit Date/Time Jul 30, 2017 at 04:53 Initial Consult Date 07/31/17 Type of Consultation: NEPHROLOGY Referring Provider: OSMAN NEGRON 24 HR Interval Summary Free Text/Dictation pt remains unresponsive, EEG c/w Epileptiform activity, Bp stable, afebrile Exam/Review of Systems Vital Signs Vitals Vital Signs Date Time Temp Pulse Resp B/P Pulse Ox O2 Delivery O2 Flow Rate FiO2 08/08/17 16:00 97.5 97 24 83/47 94 Mechanical Ventilator 08/08/17 15:23 45 08/05/17 20:26 3.0 Intake and Output 08/07/17 08/07/17 08/08/17 15:00 23:00 07:00 Intake Total 2090.2 ml 1311.94 ml 1421.907 ml Output Total 25 ml 145 ml 30 ml Balance 2065.2 ml 1166.94 ml 1391.907 ml Exam Constitutional: non-verbal, other (on ventilator, unresponsive ) ENMT: other (ET tube in place ) Neck: non-tender, supple Respiratory: crackles/rales, diminished breath sounds, wheezing Cardiovascular: other (tachycardia ), regular rate and rhythm Gastrointestinal: non-tender, soft Musculoskeletal: other (1+ pitting edema, no clubbing, no cyanosis ) Neurological: unresponsive Results Result Diagram: 08/08/17 1159 08/08/17 0400 Results 24 hrs Laboratory Tests Test 08/07/17 18:40 08/08/17 01:03 08/08/17 03:40 08/08/17 04:00 Hemoglobin 8.1 L 7.7 L 8.1 L Hematocrit 22.2 L 21.6 L 22.7 L Urine Color TORI Urine Clarity CLOUDY A Urine pH 5.0 Urine Specific [place] 1.023 Urine Ketones NEGATIVE Urine Nitrite NEGATIVE Urine Bilirubin 1+ H Urine Urobilinogen 2+ H Urine Leukocyte Esterase NEGATIVE Urine Microscopic RBC > 182 H Urine Microscopic WBC 79 H Urine Squamous Epithelial Cells MODERATE Urine Bacteria FEW A Urine Mucus MODERATE Urine Hemoglobin 3+ H Urine Random Creatinine 71.46 Urine Random Sodium 14 L Urine Random Potassium 43.9 Urine Random Urea Nitrogen 200 Urine Glucose NEGATIVE Urine Total Protein 2+ H Sodium Level 142 Potassium Level 3.0 L Chloride Level 92 L Carbon Dioxide Level 17 L Anion Gap 36 H Blood Urea Nitrogen 48 H Creatinine 3.01 H Glucose Level 39 #*L Calcium Level 7.6 L Phosphorus Level 5.2 H Magnesium Level 1.5 L Test 08/08/17 05:01 08/08/17 06:22 08/08/17 06:50 08/08/17 07:00 Lab Scanned Report BLOOD TRANSFUSION Bedside Glucose 45 *L 133 121 Blood Gas Specimen Source Blood arterial Arterial Blood Date Drawn 08/08/2017 8:20:10 AM Arterial Blood pH (Temp corrected) 7.449 Arterial Blood pCO2 (Temp correct) 22.0 L Arterial Blood pO2 (Temp corrected) 64.4 L Arterial Blood HCO3 14.9 L Arterial Blood Base Excess -7.3 L Arterial Blood Oxygen Saturation 92.5 L Adonay Test ACCEPTAB Arterial Blood Gas Puncture Site Left Radial Arterial Blood Carboxyhemoglobin 0.3 Arterial Blood Methemoglobin 0.6 Blood Gas A-a O2 Differential 159.6 H Oxyhemoglobin Percent 91.7 L Total Hemoglobin 11.4 L Blood Gas Temperature 37.0 Blood Gas Respiration Rate 20.0 Blood Gas Actual Respiration Rate 23 Blood Gas Modality VENT - AC FiO2 35.0 Blood Gas Tidal Volume 500.0 Blood Gas Low PEEP Setting 5.0 Blood Gas Notified Whom JLD Blood Gas Notified Time 08/08/2017 8:30:53 AM Test 08/08/17 07:27 08/08/17 09:22 08/08/17 11:59 Lab Scanned Report BLOOD TRANSFUSION White Blood Count 14.9 #H Red Blood Count 3.31 L Hemoglobin 10.5 #L 10.2 L Hematocrit 28.8 #L 28.4 L Mean Corpuscular Volume 87.0 Mean Corpuscular Hemoglobin 31.7 Mean Corpuscular Hemoglobin Concent 36.5 Red Cell Distribution Width 15.7 H Platelet Count 15 #*L Mean Platelet Volume 12.3 H Neutrophils % Segmented Neutrophils % (Manual) 43 Band Neutrophils % (Manual) 36 H Lymphocytes % Lymphocytes % (Manual) 14 L Reactive Lymphocytes % (Manual) 3 H Monocytes % Monocytes % (Manual) 4 Eosinophils % Basophils % Nucleated Red Blood Cells % 11 H Neutrophils # Neutrophils # (Manual) 7.2 Band Neutrophils # 5.3 H Absolute Lymphocytes (Manual) 2.0 Lymphocytes # Reactive Lymphocytes # 0.4 H Monocytes # Absolute Monocytes (Manual) 0.5 Eosinophils # Basophils # Nucleated Red Blood Cells # Platelet Estimate SIG DECREASED Poikilocytosis 3+ Anisocytosis 1+ Medications Medications Current Medications Folic Acid (Folic Acid) 1 mg DAILY PO Last administered on 08/08/17 09:28; Admin Dose 1 MG; Start 07/30/17 at 09:00 Rifaximin (Xifaxan) 550 mg BID PO Last administered on 08/08/17 09:28; Admin Dose 550 MG; Start 07/30/17 at 09:00 Ursodiol (Actigall) 300 mg TID PO Last administered on 08/08/17 09:28; Admin Dose 300 MG; Start 07/30/17 at 09:00 Ondansetron HCl (Zofran Inj) 4 mg Q6H PRN IV NAUSEA AND/OR VOMITING Last administered on 08/04/17 11:26; Admin Dose 4 MG; Start 07/30/17 at 09:00 Acetaminophen (Tylenol Tab) 650 mg Q6H PRN PO PAIN LEVEL 1-3 OR FEVER; Start 07/30/17 at 09:00 Acetaminophen (Tylenol Supp) 650 mg Q6H PRN [place] PAIN LEVEL 1-3 OR FEVER; Start 07/30/17 at 09:00 Lactulose (Enulose) 30 gm Q6H PRN PO CONSTIPATION Last administered on 11:23; Admin Dose 30 GM; Start 08/04/17 at 11:00; Status Future Hold Lactulose 20 gm 20 gm Q4 GTB Last administered on 08/08/17 13:23; Admin Dose 20 GM; Start 08/05/17 at 13:00 Phenylephrine HCl 160 mg/Dextrose 500 ml @ 18.75 mls/ hr TITRATE IV Last administered on 08/08/17 12:44; Admin Dose 56.25 MLS/HR; Start 08/06/17 at 11 :00 Norepinephrine 32 mg/Dextrose 250 ml @ 0.46 mls/hr TITRATE IV Last administered on 08/08/17 03:42; Admin Dose 7.01 MLS/HR; Start 08/06/17 at 11: 00 Pantoprazole 80 mg/Sodium Chloride 100 ml @ 10 mls/hr Q10H IV Last administered on 08/08/17 05:34; Admin Dose 10 MLS/HR; Start 08/06/17 at 13:30 Sodium Bicarbonate/ Dextrose (Na Bicarb/D5W) 1,150 ml @ 75 mls/hr [id number] IV Last administered on 08/07/17 22:22; Admin Dose 75 MLS/HR; Start 08/06/17 at 15:38 Lorazepam (Ativan) 2 mg Q2H PRN IV SEIZURES; Start 08/07/17 at 09:00 IV Flush 10 ml 10 ml PRN PRN IV IV PROTOCOL; Start 08/07/17 at 19:00 Levetiracetam 100 ml @ 400 mls/hr Q12 IVPB Last administered on 08/08/17 13: 23; Admin Dose 400 MLS/HR; Start 08/08/17 at 13:00 Piperacillin Sod/ Tazobactam Sod (Zosyn 2.25gm/ 50ml (Pmx)) 50 ml @ 100 mls/hr Q6H IVPB ; Start 08/08/17 at 16:00 NICOLE JEAN MD Aug 08, 2017 16:46
[2017-08-08 18:09] LABS: HEMATOCRIT 28.8 % (37.0-47.0); HEMOGLOBIN 10.6 g/dl (12.0-16.0)
[2017-08-08] MEDS: VASOPRESSIN 60 UNIT in DEXTROSE 5% 57 ML IV SCH (20:37)
[2017-08-08] MEDS ORDERED: SOD CHLORIDE 0.9% 2,000 ML IV ONE (22:00)
[2017-08-08] MEDS ORDERED: NORepinephrine 8MG/250 ML (PMX 250 ML IV SCH (22:00)
[2017-08-09] VITALS (108 sets, daily range): BP systolic 68–134; BP diastolic 38–116; PULSE 96–155; RESP 15–29
[2017-08-09 00:56] LABS: HEMATOCRIT 27.8 % (37.0-47.0); HEMOGLOBIN 10.3 g/dl (12.0-16.0)
[2017-08-09] MEDS: LACTULOSE 30ML CUP GTB SCH ×6 (01:00→21:42)
[2017-08-09] MEDS: PANTOPRAZOLE IV 80 MG in SOD CHLORIDE 0.9% 100 ML IV SCH ×3 (01:35→21:49)
[2017-08-09] MEDS: PIPER-TAZO 2.25 GM (PMX) 50 ML IVPB SCH ×5 (04:35→21:43)
[2017-08-09 05:43] LABS: ABNORMAL IP MESSAGE 1; HEMATOCRIT 27.9 % (37.0-47.0); HEMOGLOBIN 10.2 g/dl (12.0-16.0); MEAN CORPUSCULAR HEMOGLOBIN 31.8 pg (29.0-33.0); MEAN CORPUSCULAR HGB CONC 36.6 g/dl (32.0-37.0); MEAN CORPUSCULAR VOLUME 86.9 fl (82.0-101.0); MEAN PLATELET VOLUME 11.8 fl (7.4-10.4); NUCLEATED RED BLOOD CELLS% 2.6 /100WBC (0.0-0.0); RED BLOOD COUNT 3.21 10^6/ul (4.20-5.40); RED CELL DISTRIBUTION WIDTH 16.4 % (11.5-14.5); WHITE BLOOD COUNT 15.3 10^3/ul (4.8-10.8)
[2017-08-09] MEDS: SODIUM BICARBONATE (IV ADD) 150 MEQ in DEXTROSE 5% 1,000 ML IV SCH ×2 (06:03→21:42)
[2017-08-09 06:05] LABS: INR 4.53; PROTIME 43.8 Sec (12.2-14.2); PT RATIO 3.4
[2017-08-09 06:06] LABS: PARTIAL THROMBOPLASTIN TIME 54.2 Sec (25.0-35.0)
[2017-08-09] MEDS: PHENYLephrine 160 MG in DEXTROSE 5% 484 ML IV SCH ×3 (06:10→23:18)
[2017-08-09] MEDS: VASOPRESSIN 60 UNIT in DEXTROSE 5% 57 ML IV SCH ×2 (06:10→18:30)
[2017-08-09 06:22] LABS: PLATELET COUNT 23 10^3/UL (140-415); POSITIVE DIFF @See below
[2017-08-09 06:23] LABS: CALCIUM 7.9 mg/dl (8.4-10.2); MAGNESIUM 1.6 mg/dl (1.7-2.5); PHOSPHORUS 3.9 mg/dl (2.5-4.9); POTASSIUM 3.3 mmol/L (3.5-5.1)
[2017-08-09 06:42] LABS: AADO2 Arterial 219.1 mmHg (7.0-24.0); Allen Test ACCEPTAB; Arterial Base Excess -2.2 mmol/L (-3.0-3); Arterial COHb 0.5 % (0.0-3.0); Arterial Fraction of Oxyhgb 94.2 % (93.0-99.0); Arterial HCO3 18.8 mmol/L (22.0-26.0); Arterial MetHb 0.6 % (0.0-1.5); Arterial Total Hemglobin 10.9 g/dl (12.0-18.0); MODE VENT - AC
[2017-08-09 07:00] LABS: THROMBIN TIME 20.8 SEC (13.8-19.1)
[2017-08-09 07:04] LABS: CREATININE 3.04 mg/dl (0.44-1.00)
[2017-08-09] MEDS ORDERED: DEXTROSE 50% 50 ML SYRINGE ONE (07:08)
[2017-08-09] MEDS ORDERED: DEXTROSE 50% 50 ML SYRINGE IV PRN (07:30)
--- NOTE | 2017-08-09 08:22 | CONS ---
Date/Time of Note Date/Time of Note DATE: 08/09/17 TIME: 08:18 Assessment/Plan Assessment/Plan Additional Assessment/Plan 1. acute Kidney injury vs Acute kidney injury on CKD due to Hepartorenal syndrome + ATN- started on HD 08/08/17 due to hepatorenal syndrome 2. acute resp failure due to decompensated liver cirrhosis and Septic shock- required intubation and mechanical ventilation 3. Severe anemia s/p EGD - negative for acute bleeding, with grade IV esophageal varices 4.. Altered mental status secondary to hepatic encephalopathy + metabolic enceophalopathy, 5. Hyperammonemia 6. comatose, unresponsive 7. Hypokalemia 8. 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 - s/p EGD by GI 08/06/17 negative for acute bleeding- Grade IV esophagel varices as per GI report Need goals of care discussion if not transferred to [facility]- because pt has poor prognosis due to ESLD Neurology following on case, pt remains unresponsive, EEG c/w epileptiform activity palliative care has been following on patient will follow up Consultation Date/Type/Reason Admit Date/Time Jul 30, 2017 at 04:53 Initial Consult Date 07/31/17 Type of Consultation: NEPHROLOGY Referring Provider: OSMAN NEGRON 24 HR Interval Summary Free Text/Dictation pt remains intubated on ventilator, on pressors for BP support, Platelets stable , Mag low, K low Exam/Review of Systems Vital Signs Vitals Vital Signs Date Time Temp Pulse Resp B/P Pulse Ox O2 Delivery O2 Flow Rate FiO2 08/09/17 06:00 106 21 90/55 100 08/09/17 05:23 45 08/09/17 05:15 Mechanical Ventilator 08/09/17 04:00 98.0 08/05/17 20:26 3.0 Intake and Output 08/08/17 08/08/17 08/09/17 15:00 23:00 07:00 Intake Total 1113.51 ml 1272.69 ml 1279.09 ml Output Total 1515 ml 0 ml 15 ml Balance -401.49 ml 1272.69 ml 1264.09 ml Exam Constitutional: non-verbal, other (on ventilator, unresponsive ) ENMT: other (ET tube in place ) Neck: non-tender, supple Respiratory: crackles/rales, diminished breath sounds, wheezing Cardiovascular: other (tachycardia ), regular rate and rhythm Gastrointestinal: non-tender, soft Musculoskeletal: other (1+ pitting edema, no clubbing, no cyanosis ) Neurological: unresponsive Results Result Diagram: 08/09/17 0400 08/09/17 0400 Results 24 hrs Laboratory Tests Test 08/08/17 09:22 08/08/17 11:59 08/08/17 17:46 08/09/17 00:42 White Blood Count 14.9 #H Red Blood Count 3.31 L Hemoglobin 10.5 #L 10.2 L 10.6 L 10.3 L Hematocrit 28.8 #L 28.4 L 28.8 L 27.8 L Mean Corpuscular Volume 87.0 Mean Corpuscular Hemoglobin 31.7 Mean Corpuscular Hemoglobin Concent 36.5 Red Cell Distribution Width 15.7 H Platelet Count 15 #*L Mean Platelet Volume 12.3 H Neutrophils % Segmented Neutrophils % (Manual) 43 Band Neutrophils % (Manual) 36 H Lymphocytes % Lymphocytes % (Manual) 14 L Reactive Lymphocytes % (Manual) 3 H Monocytes % Monocytes % (Manual) 4 Eosinophils % Basophils % Nucleated Red Blood Cells % 11 H Neutrophils # Neutrophils # (Manual) 7.2 Band Neutrophils # 5.3 H Absolute Lymphocytes (Manual) 2.0 Lymphocytes # Reactive Lymphocytes # 0.4 H Monocytes # Absolute Monocytes (Manual) 0.5 Eosinophils # Basophils # Nucleated Red Blood Cells # Platelet Estimate SIG DECREASED Poikilocytosis 3+ Anisocytosis 1+ Test 08/09/17 04:00 08/09/17 04:53 08/09/17 07:00 08/09/17 07:06 White Blood Count 15.3 H Red Blood Count 3.21 L Hemoglobin 10.2 L Hematocrit 27.9 L Mean Corpuscular Volume 86.9 Mean Corpuscular Hemoglobin 31.8 Mean Corpuscular Hemoglobin Concent 36.6 Red Cell Distribution Width 16.4 H Platelet Count Pending Mean Platelet Volume 11.8 H Neutrophils % Lymphocytes % Monocytes % Eosinophils % Basophils % Nucleated Red Blood Cells % 2.6 H Neutrophils # Lymphocytes # Monocytes # Eosinophils # Basophils # Nucleated Red Blood Cells # Prothrombin Time 43.8 H Prothrombin Time Ratio 3.4 INR International Normalized Ratio 4.53 Activated Partial Thromboplast Time 54.2 H Thrombin Time 20.8 H Sodium Level 138 Potassium Level 3.3 L Chloride Level 92 L Carbon Dioxide Level 23 Anion Gap 26 #H Blood Urea Nitrogen 37 #H Creatinine 3.04 H Glucose Level 44 *L Calcium Level 7.9 L Phosphorus Level 3.9 Magnesium Level 1.6 L Lab Scanned Report BLOOD TRANSFUSION Blood Gas Specimen Source Blood arterial Arterial Blood Date Drawn 08/09/2017 6:10:36 AM Arterial Blood pH (Temp corrected) 7.544 H Arterial Blood pCO2 (Temp correct) 22.3 L Arterial Blood pO2 (Temp corrected) 76.4 L Arterial Blood HCO3 18.8 L Arterial Blood Base Excess -2.2 Arterial Blood Oxygen Saturation 95.2 Adonay Test ACCEPTAB Arterial Blood Gas Puncture Site Right Radial Arterial Blood Carboxyhemoglobin 0.5 Arterial Blood Methemoglobin 0.6 Blood Gas A-a O2 Differential 219.1 H Oxyhemoglobin Percent 94.2 Total Hemoglobin 10.9 L Blood Gas Temperature 37.0 Blood Gas Respiration Rate 20.0 Blood Gas Actual Respiration Rate 21 Blood Gas Modality VENT - AC FiO2 45.0 Blood Gas Tidal Volume 500.0 Blood Gas Low PEEP Setting 5.0 Blood Gas Notified Whom JLD Blood Gas Notified Time 08/09/2017 6:42:16 AM Bedside Glucose 58 L Test 08/09/17 07:37 08/09/17 07:47 Bedside Glucose 137 129 Medications Medications Current Medications Folic Acid (Folic Acid) 1 mg DAILY PO Last administered on 08/08/17 09:28; Admin Dose 1 MG; Start 07/30/17 at 09:00 Rifaximin (Xifaxan) 550 mg BID PO Last administered on 08/08/17 09:28; Admin Dose 550 MG; Start 07/30/17 at 09:00 Ursodiol (Actigall) 300 mg TID PO Last administered on 08/08/17 09:28; Admin Dose 300 MG; Start 07/30/17 at 09:00 Ondansetron HCl (Zofran Inj) 4 mg Q6H PRN IV NAUSEA AND/OR VOMITING Last administered on 08/04/17 11:26; Admin Dose 4 MG; Start 07/30/17 at 09:00 Acetaminophen (Tylenol Tab) 650 mg Q6H PRN PO PAIN LEVEL 1-3 OR FEVER; Start 07/30/17 at 09:00 Acetaminophen (Tylenol Supp) 650 mg Q6H PRN [place] PAIN LEVEL 1-3 OR FEVER; Start 07/30/17 at 09:00 Lactulose (Enulose) 30 gm Q6H PRN PO CONSTIPATION Last administered on 11:23; Admin Dose 30 GM; Start 08/04/17 at 11:00; Status Future Hold Lactulose 20 gm 20 gm Q4 GTB Last administered on 08/08/17 13:23; Admin Dose 20 GM; Start 08/05/17 at 13:00 Phenylephrine HCl 160 mg/Dextrose 500 ml @ 18.75 mls/ hr TITRATE IV Last administered on 08/09/17 06:10; Admin Dose 56.25 MLS/HR; Start 08/06/17 at 11 :00 Norepinephrine 32 mg/Dextrose 250 ml @ 0.46 mls/hr TITRATE IV Last administered on 08/08/17 20:56; Admin Dose 14.06 MLS/HR; Start 08/06/17 at 11 :00 Pantoprazole 80 mg/Sodium Chloride 100 ml @ 10 mls/hr Q10H IV Last administered on 08/09/17 01:35; Admin Dose 10 MLS/HR; Start 08/06/17 at 13:30 Sodium Bicarbonate/ Dextrose (Na Bicarb/D5W) 1,150 ml @ 75 mls/hr [id number] IV Last administered on 08/09/17 06:03; Admin Dose 75 MLS/HR; Start 08/06/17 at 15:38 Lorazepam (Ativan) 2 mg Q2H PRN IV SEIZURES; Start 08/07/17 at 09:00 IV Flush 10 ml 10 ml PRN PRN IV IV PROTOCOL; Start 08/07/17 at 19:00 Levetiracetam 100 ml @ 400 mls/hr Q12 IVPB Last administered on 08/08/17 20: 54; Admin Dose 400 MLS/HR; Start 08/08/17 at 13:00 Piperacillin Sod/ Tazobactam Sod 50 ml @ 100 mls/hr Q6H IVPB Last administered on 08/09/17 04:35; Admin Dose 100 MLS/HR; Start 08/08/17 at 16: 00 Vasopressin/ Dextrose (Vasostrict/D5W) 60 ml @ 1.2 mls/hr Q12H IV Last administered on 08/08/17 20:37; Admin Dose 1.2 MLS/HR; Start 08/08/17 at 18: 30 Dextrose (D50w Syringe) 50 ml PRN PRN IV hypoglycemia Last administered on 07:17; Admin Dose 50 ML; Start 08/09/17 at 07:30 NICOLE JEAN MD Aug 09, 2017 08:22
[2017-08-09] MEDS ORDERED: MAGNESIUM SULFATE 2 GM/50 ML 50 ML IVPB ONE (08:30)
--- NOTE | 2017-08-09 08:54 | RADRPT ---
PROCEDURE: XR Chest. CLINICAL INDICATION: Shortness of breath. TECHNIQUE: Single frontal view. COMPARISON: 08/08/2017. FINDINGS: There is a right arm PICC line with the tip in the upper right atrium. The endotracheal tube and nadir ogastric tube are in satisfactory position. There is atelectasis at the lung bases with left worse t bejarano right, unchanged. The heart is enlarged. There is calcification in the aorta consistent with atherosclerosis. There are small bilateral pleural effusions. There is no pneumothorax IMPRESSION: 1. No change from 08/08/2017. RPTAT: QQ .Luis Miguel Guerra MD, MD Date Time Electronically viewed and signed by .Luis Miguel Guerra MD, on 08/09/2017 08:54 .R/
[2017-08-09] MEDS: RIFAXIMIN 550 MG TAB PO SCH ×2 (09:06→21:43)
[2017-08-09] MEDS: FOLIC ACID 1 MG TAB PO SCH (09:06)
[2017-08-09] MEDS: URSODIOL 300 MG CAP PO SCH ×3 (09:06→21:49)
[2017-08-09] MEDS: LEVETIRACETAM 1000 MG (PMX) 100 ML IVPB SCH ×2 (09:21→21:49)
[2017-08-09] MEDS ORDERED: POTASSIUM CHLORIDE 20 MEQ in SOD CHLORIDE 0.9% 100 ML IVPB ONE (10:00)
--- NOTE | 2017-08-09 10:46 | CONS ---
Date/Time of Note Date/Time of Note DATE: 08/09/17 TIME: 10:45 Consult Date/Type/Reason Admit Date/Time Jul 30, 2017 at 04:53 Initial Consult Date 07/31/17 Type of Consultation: Pulmonary Ordering Provider: OSMAN NEGRON Subjective Patient remains intubated on mechanical ventilation multiple vasopressors remains somnolent. Objective Vital Signs Date Time Temp Pulse Resp B/P Pulse Ox O2 Delivery O2 Flow Rate FiO2 08/09/17 10:15 100 21 93/45 93 08/09/17 10:00 Mechanical Ventilator 08/09/17 08:00 98.4 08/09/17 08:00 30 08/05/17 20:26 3.0 Intake and Output 08/08/17 08/08/17 08/09/17 15:00 23:00 07:00 Intake Total 1113.51 ml 1272.69 ml 1279.09 ml Output Total 1515 ml 0 ml 15 ml Balance -401.49 ml 1272.69 ml 1264.09 ml Exam SICAL EXAMINATION: GENERAL: Chronically ill appearing lady, intubated on mechanical ventilation VITAL SIGNS: NECK: Supple. No JVD or lymphadenopathy. CARDIAC: S1, S2, no added sounds or murmurs. CHEST: Diminished air entry bilaterally. ABDOMEN: Soft, nontender. No guarding or rebound. EXTREMITIES: No cyanosis, clubbing, edema. NEUROLOGIC: Unable to assess. Results/Medications Result Diagram: 08/09/17 0400 08/09/17 0400 Results 24 hrs Laboratory Tests Test 08/08/17 11:59 08/08/17 17:46 08/09/17 00:42 08/09/17 04:00 Hemoglobin 10.2 L 10.6 L 10.3 L 10.2 L Hematocrit 28.4 L 28.8 L 27.8 L 27.9 L White Blood Count 15.3 H Red Blood Count 3.21 L Mean Corpuscular Volume 86.9 Mean Corpuscular Hemoglobin 31.8 Mean Corpuscular Hemoglobin Concent 36.6 Red Cell Distribution Width 16.4 H Platelet Count 23 *L Mean Platelet Volume 11.8 H Neutrophils % Lymphocytes % Monocytes % Eosinophils % Basophils % Nucleated Red Blood Cells % 2.6 H Neutrophils # Lymphocytes # Monocytes # Eosinophils # Basophils # Nucleated Red Blood Cells # Prothrombin Time 43.8 H Prothrombin Time Ratio 3.4 INR International Normalized Ratio 4.53 Activated Partial Thromboplast Time 54.2 H Thrombin Time 20.8 H Sodium Level 138 Potassium Level 3.3 L Chloride Level 92 L Carbon Dioxide Level 23 Anion Gap 26 #H Blood Urea Nitrogen 37 #H Creatinine 3.04 H Glucose Level 44 *L Calcium Level 7.9 L Phosphorus Level 3.9 Magnesium Level 1.6 L Test 08/09/17 04:53 08/09/17 07:00 08/09/17 07:06 08/09/17 07:37 Lab Scanned Report BLOOD TRANSFUSION Blood Gas Specimen Source Blood arterial Arterial Blood Date Drawn 08/09/2017 6:10:36 AM Arterial Blood pH (Temp corrected) 7.544 H Arterial Blood pCO2 (Temp correct) 22.3 L Arterial Blood pO2 (Temp corrected) 76.4 L Arterial Blood HCO3 18.8 L Arterial Blood Base Excess -2.2 Arterial Blood Oxygen Saturation 95.2 Adonay Test ACCEPTAB Arterial Blood Gas Puncture Site Right Radial Arterial Blood Carboxyhemoglobin 0.5 Arterial Blood Methemoglobin 0.6 Blood Gas A-a O2 Differential 219.1 H Oxyhemoglobin Percent 94.2 Total Hemoglobin 10.9 L Blood Gas Temperature 37.0 Blood Gas Respiration Rate 20.0 Blood Gas Actual Respiration Rate 21 Blood Gas Modality VENT - AC FiO2 45.0 Blood Gas Tidal Volume 500.0 Blood Gas Low PEEP Setting 5.0 Blood Gas Notified Whom JLD Blood Gas Notified Time 08/09/2017 6:42:16 AM Bedside Glucose 58 L 137 Test 08/09/17 07:47 Bedside Glucose 129 Medications Current Medications Folic Acid (Folic Acid) 1 mg DAILY PO Last administered on 08/09/17 09:06; Admin Dose 1 MG; Start 07/30/17 at 09:00 Rifaximin (Xifaxan) 550 mg BID PO Last administered on 08/09/17 09:06; Admin Dose 550 MG; Start 07/30/17 at 09:00 Ursodiol (Actigall) 300 mg TID PO Last administered on 08/09/17 09:06; Admin Dose 300 MG; Start 07/30/17 at 09:00 Ondansetron HCl (Zofran Inj) 4 mg Q6H PRN IV NAUSEA AND/OR VOMITING Last administered on 08/04/17 11:26; Admin Dose 4 MG; Start 07/30/17 at 09:00 Acetaminophen (Tylenol Tab) 650 mg Q6H PRN PO PAIN LEVEL 1-3 OR FEVER; Start 07/30/17 at 09:00 Acetaminophen (Tylenol Supp) 650 mg Q6H PRN [place] PAIN LEVEL 1-3 OR FEVER; Start 07/30/17 at 09:00 Lactulose (Enulose) 30 gm Q6H PRN PO CONSTIPATION Last administered on 11:23; Admin Dose 30 GM; Start 08/04/17 at 11:00; Status Future Hold Lactulose 20 gm 20 gm Q4 GTB Last administered on 08/09/17 09:06; Admin Dose 20 GM; Start 08/05/17 at 13:00 Phenylephrine HCl 160 mg/Dextrose 500 ml @ 18.75 mls/ hr TITRATE IV Last administered on 08/09/17 06:10; Admin Dose 56.25 MLS/HR; Start 08/06/17 at 11 :00 Norepinephrine 32 mg/Dextrose 250 ml @ 0.46 mls/hr TITRATE IV Last administered on 08/08/17 20:56; Admin Dose 14.06 MLS/HR; Start 08/06/17 at 11 :00 Pantoprazole 80 mg/Sodium Chloride 100 ml @ 10 mls/hr Q10H IV Last administered on 08/09/17 01:35; Admin Dose 10 MLS/HR; Start 08/06/17 at 13:30 Sodium Bicarbonate/ Dextrose (Na Bicarb/D5W) 1,150 ml @ 75 mls/hr [id number] IV Last administered on 08/09/17 06:03; Admin Dose 75 MLS/HR; Start 08/06/17 at 15:38 Lorazepam (Ativan) 2 mg Q2H PRN IV SEIZURES; Start 08/07/17 at 09:00 IV Flush 10 ml 10 ml PRN PRN IV IV PROTOCOL; Start 08/07/17 at 19:00 Levetiracetam 100 ml @ 400 mls/hr Q12 IVPB Last administered on 08/09/17 09: 21; Admin Dose 400 MLS/HR; Start 08/08/17 at 13:00 Piperacillin Sod/ Tazobactam Sod 50 ml @ 100 mls/hr Q6H IVPB Last administered on 08/09/17 10:31; Admin Dose 100 MLS/HR; Start 08/08/17 at 16: 00 Vasopressin/ Dextrose (Vasostrict/D5W) 60 ml @ 1.2 mls/hr Q12H IV Last administered on 08/08/17 20:37; Admin Dose 1.2 MLS/HR; Start 08/08/17 at 18: 30 Dextrose 50 ml 50 ml PRN PRN IV hypoglycemia Last administered on 08/09/17 07 :17; Admin Dose 50 ML; Start 08/09/17 at 07:30 Potassium Chloride 20 meq/ Sodium Chloride 110 ml @ 55 mls/hr ONCE ONCE IVPB Last administered on 08/09/17 10:31; Admin Dose 55 MLS/HR; Start 08/09/17 at 10:00; Stop 08/09/17 at 11:59 Albumin Human (Albumin Human 25%) 50 ml @ 100 mls/hr ONCE ONCE IV ; Start at 10:30; Stop 08/09/17 at 10:59; Status UNV Assessment/Plan Chief Complaint/Hosp Course IMPRESSION: 1. Encephalopathy, likely secondary to elevated ammonia. Questionable intracerebral bleed secondary to encephalopathy or significant cerebral edema from liver failure. 2. Acute renal failure, probably secondary to hepatorenal syndrome given worsening ammonia, worsening liver function tests and decreased urine output. Continues hemodialysis as tolerated Improved leukocytosis despite persistent septic shock. 4. Septic shock possibly secondary to SBP 5. Hypoxemic respiratory failure secondary to above Thrombocytopenia likely secondary to liver disease and possible DIC. PLAN: Continue volume resuscitation, consider platelet transfusion. 2. Continue vasopressor support 3. Continue rifaximin. Continue PPI 4. Continue current antibiotics. 5. Continue current vent settings 6. CT brain when stable. Continue antiseizure medications. Overall prognosis extremely poor. Problems: LURDES SAUNDERS MD, [facility] Aug 09, 2017 10:46
[2017-08-09] MEDS ORDERED: ALBUMIN HUMAN 25% 50 ML IV ONE ×2 (11:15→12:00)
--- NOTE | 2017-08-09 12:07 | PN ---
Date/Time of Note Date/Time of Note DATE: 08/09/17 TIME: 12:05 Assessment/Plan VTE Prophylaxis VTE Prophylaxis Intervention: SCD's Lines/Catheters IV Catheter Type (from Nrs): Central Line Central line still needed: Yes (Medication) Urinary Cath still in place: Yes Reason Cath still needed: other (indicate) (Monitor output) Assessment/Plan Chief Complaint/Hosp Course Assessment: AMS secondary to hepatic encephalopathy Cryptogenic cirrhosis with ascites Electrolyte abnormalities: likely due to cirrhosis with ascites . Macrocytic anemia EGD 08/06 Severe esophagitis. No active bleeding or stigmata Grade I-II/IV esophageal varices. No stigmata recent bleeding Severe antral gastritis. No active bleeding or stigmata No gastric varices present Normal duodenum Hyperammonia- worsening Thrombocytopenia ZACK on CKD- now receiving HD Plan: No significant changes over night Currently being dialyzed Hemoglobin stable Slight increase in platelet, after platelet transfusion yesterday Prognosis very poor Supportive care from all services Patient seen in collaboration with Dr. Roblero Subjective: Course reviewed with nursing staff Patient interviewed and examined All labs, imaging and other results reviewed Patient remains intubated on dialysis Colonoscopy on hold due to deterioration of condition No significant changes overnight Constitutional: intubated Psych: unable to assess Head: atraumatic, normocephalic Eyes: icteric ENMT: nl external ears & nose, nl lips & teeth, NGT in place Neck: non-tender, supple Respiratory: CTA Cardiovascular: nl pulses, regular rate and rhythm Gastrointestinal: hypoactive bowel sounds, distended, soft Problems: Exam/Review of Systems Vital Signs Vitals Vital Signs Date Time Temp Pulse Resp B/P Pulse Ox O2 Delivery O2 Flow Rate FiO2 08/09/17 10:15 100 21 93/45 93 08/09/17 10:00 Mechanical Ventilator 08/09/17 08:00 98.4 08/09/17 08:00 30 08/05/17 20:26 3.0 Intake and Output 08/08/17 08/08/17 08/09/17 15:00 23:00 07:00 Intake Total 1113.51 ml 1272.69 ml 1279.09 ml Output Total 1515 ml 0 ml 15 ml Balance -401.49 ml 1272.69 ml 1264.09 ml Results Result Diagram: 08/09/17 0400 08/09/17 0400 Results 24 hrs Laboratory Tests Test 08/08/17 17:46 08/09/17 00:42 08/09/17 04:00 08/09/17 04:53 Hemoglobin 10.6 L 10.3 L 10.2 L Hematocrit 28.8 L 27.8 L 27.9 L White Blood Count 15.3 H Red Blood Count 3.21 L Mean Corpuscular Volume 86.9 Mean Corpuscular Hemoglobin 31.8 Mean Corpuscular Hemoglobin Concent 36.6 Red Cell Distribution Width 16.4 H Platelet Count 23 *L Mean Platelet Volume 11.8 H Neutrophils % Lymphocytes % Monocytes % Eosinophils % Basophils % Nucleated Red Blood Cells % 2.6 H Neutrophils # Lymphocytes # Monocytes # Eosinophils # Basophils # Nucleated Red Blood Cells # Prothrombin Time 43.8 H Prothrombin Time Ratio 3.4 INR International Normalized Ratio 4.53 Activated Partial Thromboplast Time 54.2 H Thrombin Time 20.8 H Sodium Level 138 Potassium Level 3.3 L Chloride Level 92 L Carbon Dioxide Level 23 Anion Gap 26 #H Blood Urea Nitrogen 37 #H Creatinine 3.04 H Glucose Level 44 *L Calcium Level 7.9 L Phosphorus Level 3.9 Magnesium Level 1.6 L Lab Scanned Report BLOOD TRANSFUSION Test 08/09/17 07:00 08/09/17 07:06 08/09/17 07:37 08/09/17 07:47 Blood Gas Specimen Source Blood arterial Arterial Blood Date Drawn 08/09/2017 6:10:36 AM Arterial Blood pH (Temp corrected) 7.544 H Arterial Blood pCO2 (Temp correct) 22.3 L Arterial Blood pO2 (Temp corrected) 76.4 L Arterial Blood HCO3 18.8 L Arterial Blood Base Excess -2.2 Arterial Blood Oxygen Saturation 95.2 Adonay Test ACCEPTAB Arterial Blood Gas Puncture Site Right Radial Arterial Blood Carboxyhemoglobin 0.5 Arterial Blood Methemoglobin 0.6 Blood Gas A-a O2 Differential 219.1 H Oxyhemoglobin Percent 94.2 Total Hemoglobin 10.9 L Blood Gas Temperature 37.0 Blood Gas Respiration Rate 20.0 Blood Gas Actual Respiration Rate 21 Blood Gas Modality VENT - AC FiO2 45.0 Blood Gas Tidal Volume 500.0 Blood Gas Low PEEP Setting 5.0 Blood Gas Notified Whom JLD Blood Gas Notified Time 08/09/2017 6:42:16 AM Bedside Glucose 58 L 137 129 Medications Medications Current Medications Folic Acid (Folic Acid) 1 mg DAILY PO Last administered on 08/09/17 09:06; Admin Dose 1 MG; Start 07/30/17 at 09:00 Rifaximin (Xifaxan) 550 mg BID PO Last administered on 08/09/17 09:06; Admin Dose 550 MG; Start 07/30/17 at 09:00 Ursodiol (Actigall) 300 mg TID PO Last administered on 08/09/17 09:06; Admin Dose 300 MG; Start 07/30/17 at 09:00 Ondansetron HCl (Zofran Inj) 4 mg Q6H PRN IV NAUSEA AND/OR VOMITING Last administered on 08/04/17 11:26; Admin Dose 4 MG; Start 07/30/17 at 09:00 Acetaminophen (Tylenol Tab) 650 mg Q6H PRN PO PAIN LEVEL 1-3 OR FEVER; Start 07/30/17 at 09:00 Acetaminophen (Tylenol Supp) 650 mg Q6H PRN [place] PAIN LEVEL 1-3 OR FEVER; Start 07/30/17 at 09:00 Lactulose (Enulose) 30 gm Q6H PRN PO CONSTIPATION Last administered on 11:23; Admin Dose 30 GM; Start 08/04/17 at 11:00; Status Future Hold Lactulose 20 gm 20 gm Q4 GTB Last administered on 08/09/17 09:06; Admin Dose 20 GM; Start 08/05/17 at 13:00 Phenylephrine HCl 160 mg/Dextrose 500 ml @ 18.75 mls/ hr TITRATE IV Last administered on 08/09/17 06:10; Admin Dose 56.25 MLS/HR; Start 08/06/17 at 11 :00 Norepinephrine 32 mg/Dextrose 250 ml @ 0.46 mls/hr TITRATE IV Last administered on 08/08/17 20:56; Admin Dose 14.06 MLS/HR; Start 08/06/17 at 11 :00 Pantoprazole 80 mg/Sodium Chloride 100 ml @ 10 mls/hr Q10H IV Last administered on 08/09/17 01:35; Admin Dose 10 MLS/HR; Start 08/06/17 at 13:30 Sodium Bicarbonate/ Dextrose (Na Bicarb/D5W) 1,150 ml @ 75 mls/hr [id number] IV Last administered on 08/09/17 06:03; Admin Dose 75 MLS/HR; Start 08/06/17 at 15:38 Lorazepam (Ativan) 2 mg Q2H PRN IV SEIZURES; Start 08/07/17 at 09:00 IV Flush 10 ml 10 ml PRN PRN IV IV PROTOCOL; Start 08/07/17 at 19:00 Levetiracetam 100 ml @ 400 mls/hr Q12 IVPB Last administered on 08/09/17 09: 21; Admin Dose 400 MLS/HR; Start 08/08/17 at 13:00 Piperacillin Sod/ Tazobactam Sod 50 ml @ 100 mls/hr Q6H IVPB Last administered on 08/09/17 04:35; Admin Dose 100 MLS/HR; Start 08/08/17 at 16: 00 Vasopressin/ Dextrose (Vasostrict/D5W) 60 ml @ 1.2 mls/hr Q12H IV Last administered on 08/08/17 20:37; Admin Dose 1.2 MLS/HR; Start 08/08/17 at 18: 30 Dextrose (D50w Syringe) 50 ml PRN PRN IV hypoglycemia Last administered on 07:17; Admin Dose 50 ML; Start 08/09/17 at 07:30 Miscellaneous Information VANCO RANDOM W/ AM LABS... ONCE ONCE XX ; Start at 05:00; Stop 08/10/17 at 05:01 Albumin Human (Albumin Human 25%) 50 ml @ 100 mls/hr ONCE ONCE IV ; Start at 12:00; Stop 08/09/17 at 12:29 RAFAT BERKOWITZ Aug 09, 2017 12:07
--- NOTE | 2017-08-09 12:11 | PN ---
Date/Time of Note Date/Time of Note DATE: 08/09/17 TIME: 12:08 Assessment/Plan VTE Prophylaxis VTE Prophylaxis Intervention: SCD's Lines/Catheters IV Catheter Type (from Nrs): Central Line Central line still needed: Yes Urinary Cath still in place: Yes Reason Cath still needed: terminal illness/intractable pain Assessment/Plan Chief Complaint/Hosp Course Assessment/Plan #. Altered mental status secondary to hepatic encephalopathy - Ammonia increased today, worsened encephalopathy. - GI on board and recommendations appreciated. upper endoscopy done today did not show obvious sign of bleed. colonoscopy planned - holding lactulose given GI bleed - CT head showed mild generalized cerebral volume loss and nonspecific chronic microvascular ischemic disease without evidence of intracranial masses hemorrhages or midline shift. initially, now with dilated pupils, ? brain bleed , will repeat CT when able. #seizure -questionable, but keppra started -EEG noted, severe encephalopathy #DIC -fibrinogen, inr, ptt, platelets, d dimer, physical findings consistent -very likely 2/2 acute liver failure #hypotension -severe hepatorenal and ? septic source -2 pressors, titrate as able -IV fluids #coagulopathy -2/2 likely end stage liver disease #. Hypernatremia - d5w with bicarb per nephro #. Hyperkalemia- monitor, now hypokalemia #. ZACK on CKD- worsening - patient baseline Cr appears to be 1.2 during prior admission - Nephrology on board and recommendations appreciated. - likely hepatorenal - Ct surgery consulted for vas/cath placement #. Elevated LFT- still elevated - Most likely secondary to cirrhosis - Will continue to monitor #. Hyperammonia - worsened - Continue on lactulose and rifaximin #. GI bleed, likely lower - GI bleeding with lactulose, stable without #. Cirrhosis of liver - followed by Dr. Monzon, constitutional law professor - Seen at Transplant clinic at [facility] per daughter - Per daughter, they are unsure cause of her cirrhosis but does admit to patient being overweight prior to illness. ?OWEN as cause of her cirrhosis -end stage, currently unstable for transfer to [facility] #. Thrombocytopenia - Secondary to cirrhosis - will continue to monitor and transfuse if <10K #. Ascites - zosyn for abx #. CBD - Complete abd u/s with multiple findings including gallstones/sludge hepatofugal flow - MRCP showed No biliary ductal dilatation definitive filling defect within the biliary tree # Disposition - worsening condition, on 2 pressors, [facility] rejected transfer, palliative care consulted. Patient's family urged to be at bedside -multifactorial organ failure -holding off on colonoscopy per GI, will perform when able -nephro to HD as needed -very poor prognosis, patient's family still wants full code More than 40 minutes were spent on this encounter Problems: Subjective 24 Hr Interval Summary Free Text/Dictation unchanged. family not present at bedside. family missed meeting with Dr. Myers. Exam/Review of Systems Vital Signs Vitals Vital Signs Date Time Temp Pulse Resp B/P Pulse Ox O2 Delivery O2 Flow Rate FiO2 08/09/17 10:15 100 21 93/45 93 08/09/17 10:00 Mechanical Ventilator 08/09/17 08:00 98.4 08/09/17 08:00 30 08/05/17 20:26 3.0 Intake and Output 08/08/17 08/08/17 08/09/17 15:00 23:00 07:00 Intake Total 1113.51 ml 1272.69 ml 1279.09 ml Output Total 1515 ml 0 ml 15 ml Balance -401.49 ml 1272.69 ml 1264.09 ml Exam Constitutional: intubated, obtunded Head: atraumatic, normocephalic Eyes: icteric bilaterally, dilated pupils bilaterally Neck: non-tender, supple Respiratory: coarse to auscultation, diminished breath sounds, Cardiovascular: tachycardic, no obvious murmur Gastrointestinal: ascites, bowel sounds, distended, soft, No rebound or guarding Musculoskeletal: nl extremities to inspection Extremities: normal pulses, No clubbing, No cyanosis, No edema Neurological: minimal to no response to noxious stimuli Results Result Diagram: 08/09/1739908/09/17399 Results 24 hrs Laboratory Tests Test 08/08/17 17:46 08/09/17 00:42 08/09/17 04:00 08/09/17 04:53 Hemoglobin 10.6 L 10.3 L 10.2 L Hematocrit 28.8 L 27.8 L 27.9 L White Blood Count 15.3 H Red Blood Count 3.21 L Mean Corpuscular Volume 86.9 Mean Corpuscular Hemoglobin 31.8 Mean Corpuscular Hemoglobin Concent 36.6 Red Cell Distribution Width 16.4 H Platelet Count 23 *L Mean Platelet Volume 11.8 H Neutrophils % Lymphocytes % Monocytes % Eosinophils % Basophils % Nucleated Red Blood Cells % 2.6 H Neutrophils # Lymphocytes # Monocytes # Eosinophils # Basophils # Nucleated Red Blood Cells # Prothrombin Time 43.8 H Prothrombin Time Ratio 3.4 INR International Normalized Ratio 4.53 Activated Partial Thromboplast Time 54.2 H Thrombin Time 20.8 H Sodium Level 138 Potassium Level 3.3 L Chloride Level 92 L Carbon Dioxide Level 23 Anion Gap 26 #H Blood Urea Nitrogen 37 #H Creatinine 3.04 H Glucose Level 44 *L Calcium Level 7.9 L Phosphorus Level 3.9 Magnesium Level 1.6 L Lab Scanned Report BLOOD TRANSFUSION Test 08/09/17 07:00 08/09/17 07:06 08/09/17 07:37 08/09/17 07:47 Blood Gas Specimen Source Blood arterial Arterial Blood Date Drawn 08/09/2017 6:10:36 AM Arterial Blood pH (Temp corrected) 7.544 H Arterial Blood pCO2 (Temp correct) 22.3 L Arterial Blood pO2 (Temp corrected) 76.4 L Arterial Blood HCO3 18.8 L Arterial Blood Base Excess -2.2 Arterial Blood Oxygen Saturation 95.2 Adonay Test ACCEPTAB Arterial Blood Gas Puncture Site Right Radial Arterial Blood Carboxyhemoglobin 0.5 Arterial Blood Methemoglobin 0.6 Blood Gas A-a O2 Differential 219.1 H Oxyhemoglobin Percent 94.2 Total Hemoglobin 10.9 L Blood Gas Temperature 37.0 Blood Gas Respiration Rate 20.0 Blood Gas Actual Respiration Rate 21 Blood Gas Modality VENT - AC FiO2 45.0 Blood Gas Tidal Volume 500.0 Blood Gas Low PEEP Setting 5.0 Blood Gas Notified Whom JLD Blood Gas Notified Time 08/09/2017 6:42:16 AM Bedside Glucose 58 L 137 129 Medications Medications Current Medications Folic Acid (Folic Acid) 1 mg DAILY PO Last administered on 08/09/17 09:06; Admin Dose 1 MG; Start 07/30/17 at 09:00 Rifaximin (Xifaxan) 550 mg BID PO Last administered on 08/09/17 09:06; Admin Dose 550 MG; Start 07/30/17 at 09:00 Ursodiol (Actigall) 300 mg TID PO Last administered on 08/09/17 09:06; Admin Dose 300 MG; Start 07/30/17 at 09:00 Ondansetron HCl (Zofran Inj) 4 mg Q6H PRN IV NAUSEA AND/OR VOMITING Last administered on 08/04/17 11:26; Admin Dose 4 MG; Start 07/30/17 at 09:00 Acetaminophen (Tylenol Tab) 650 mg Q6H PRN PO PAIN LEVEL 1-3 OR FEVER; Start 07/30/17 at 09:00 Acetaminophen (Tylenol Supp) 650 mg Q6H PRN [place] PAIN LEVEL 1-3 OR FEVER; Start 07/30/17 at 09:00 Lactulose (Enulose) 30 gm Q6H PRN PO CONSTIPATION Last administered on 11:23; Admin Dose 30 GM; Start 08/04/17 at 11:00; Status Future Hold Lactulose 20 gm 20 gm Q4 GTB Last administered on 08/09/17 09:06; Admin Dose 20 GM; Start 08/05/17 at 13:00 Phenylephrine HCl 160 mg/Dextrose 500 ml @ 18.75 mls/ hr TITRATE IV Last administered on 08/09/17 06:10; Admin Dose 56.25 MLS/HR; Start 08/06/17 at 11 :00 Norepinephrine 32 mg/Dextrose 250 ml @ 0.46 mls/hr TITRATE IV Last administered on 08/08/17 20:56; Admin Dose 14.06 MLS/HR; Start 08/06/17 at 11 :00 Pantoprazole 80 mg/Sodium Chloride 100 ml @ 10 mls/hr Q10H IV Last administered on 08/09/17 12:07; Admin Dose 10 MLS/HR; Start 08/06/17 at 13:30 Sodium Bicarbonate/ Dextrose (Na Bicarb/D5W) 1,150 ml @ 75 mls/hr [id number] IV Last administered on 08/09/17 06:03; Admin Dose 75 MLS/HR; Start 08/06/17 at 15:38 Lorazepam (Ativan) 2 mg Q2H PRN IV SEIZURES; Start 08/07/17 at 09:00 IV Flush 10 ml 10 ml PRN PRN IV IV PROTOCOL; Start 08/07/17 at 19:00 Levetiracetam 100 ml @ 400 mls/hr Q12 IVPB Last administered on 08/09/17 09: 21; Admin Dose 400 MLS/HR; Start 08/08/17 at 13:00 Piperacillin Sod/ Tazobactam Sod 50 ml @ 100 mls/hr Q6H IVPB Last administered on 08/09/17 04:35; Admin Dose 100 MLS/HR; Start 08/08/17 at 16: 00 Vasopressin/ Dextrose (Vasostrict/D5W) 60 ml @ 1.2 mls/hr Q12H IV Last administered on 08/08/17 20:37; Admin Dose 1.2 MLS/HR; Start 08/08/17 at 18: 30 Dextrose (D50w Syringe) 50 ml PRN PRN IV hypoglycemia Last administered on 07:17; Admin Dose 50 ML; Start 08/09/17 at 07:30 Miscellaneous Information VANCO RANDOM W/ AM LABS... ONCE ONCE XX ; Start at 05:00; Stop 08/10/17 at 05:01 Albumin Human (Albumin Human 25%) 50 ml @ 100 mls/hr ONCE ONCE IV ; Start at 12:00; Stop 08/09/17 at 12:29 OSMAN NEGRON Aug 09, 2017 12:11
[2017-08-09 12:13] LABS: HEMOGLOBIN 9.8 g/dl (12.0-16.0)
--- NOTE | 2017-08-09 12:24 | CONS ---
Date/Time of Note Date/Time of Note DATE: 08/09/17 TIME: 12:22 Consult Date/Type/Reason Admit Date/Time Jul 30, 2017 at 04:53 Initial Consult Date 08/07/17 Type of Consultation: Neurology Reason for Consultation seizure Ordering Provider: OSMAN NEGRON Subjective no further seizure remains unresponsive Objective Vital Signs Date Time Temp Pulse Resp B/P Pulse Ox O2 Delivery O2 Flow Rate FiO2 08/09/17 10:15 100 21 93/45 93 08/09/17 10:00 Mechanical Ventilator 08/09/17 08:00 98.4 08/09/17 08:00 30 08/05/17 20:26 3.0 Intake and Output 08/08/17 08/08/17 08/09/17 15:00 23:00 07:00 Intake Total 1113.51 ml 1272.69 ml 1279.09 ml Output Total 1515 ml 0 ml 15 ml Balance -401.49 ml 1272.69 ml 1264.09 ml Exam on ventilator unresponsive not following any commands CN: dilated pupils minimal reactivity, absent corneals gag is present Motor absent w/d in extremities edema throughout all extremities Results/Medications Result Diagram: 08/09/17 1147 08/09/17 0400 Results 24 hrs Laboratory Tests Test 08/08/17 17:46 08/09/17 00:42 08/09/17 04:00 08/09/17 04:53 Hemoglobin 10.6 L 10.3 L 10.2 L Hematocrit 28.8 L 27.8 L 27.9 L White Blood Count 15.3 H Red Blood Count 3.21 L Mean Corpuscular Volume 86.9 Mean Corpuscular Hemoglobin 31.8 Mean Corpuscular Hemoglobin Concent 36.6 Red Cell Distribution Width 16.4 H Platelet Count 23 *L Mean Platelet Volume 11.8 H Neutrophils % Lymphocytes % Monocytes % Eosinophils % Basophils % Nucleated Red Blood Cells % 2.6 H Neutrophils # Lymphocytes # Monocytes # Eosinophils # Basophils # Nucleated Red Blood Cells # Prothrombin Time 43.8 H Prothrombin Time Ratio 3.4 INR International Normalized Ratio 4.53 Activated Partial Thromboplast Time 54.2 H Thrombin Time 20.8 H Sodium Level 138 Potassium Level 3.3 L Chloride Level 92 L Carbon Dioxide Level 23 Anion Gap 26 #H Blood Urea Nitrogen 37 #H Creatinine 3.04 H Glucose Level 44 *L Calcium Level 7.9 L Phosphorus Level 3.9 Magnesium Level 1.6 L Lab Scanned Report BLOOD TRANSFUSION Test 08/09/17 07:00 08/09/17 07:06 08/09/17 07:37 08/09/17 07:47 Blood Gas Specimen Source Blood arterial Arterial Blood Date Drawn 08/09/2017 6:10:36 AM Arterial Blood pH (Temp corrected) 7.544 H Arterial Blood pCO2 (Temp correct) 22.3 L Arterial Blood pO2 (Temp corrected) 76.4 L Arterial Blood HCO3 18.8 L Arterial Blood Base Excess -2.2 Arterial Blood Oxygen Saturation 95.2 Adonay Test ACCEPTAB Arterial Blood Gas Puncture Site Right Radial Arterial Blood Carboxyhemoglobin 0.5 Arterial Blood Methemoglobin 0.6 Blood Gas A-a O2 Differential 219.1 H Oxyhemoglobin Percent 94.2 Total Hemoglobin 10.9 L Blood Gas Temperature 37.0 Blood Gas Respiration Rate 20.0 Blood Gas Actual Respiration Rate 21 Blood Gas Modality VENT - AC FiO2 45.0 Blood Gas Tidal Volume 500.0 Blood Gas Low PEEP Setting 5.0 Blood Gas Notified Whom JLD Blood Gas Notified Time 08/09/2017 6:42:16 AM Bedside Glucose 58 L 137 129 Test 08/09/17 11:47 Hemoglobin 9.8 L Hematocrit 27.0 L Medications Current Medications Folic Acid (Folic Acid) 1 mg DAILY PO Last administered on 08/09/17 09:06; Admin Dose 1 MG; Start 07/30/17 at 09:00 Rifaximin (Xifaxan) 550 mg BID PO Last administered on 08/09/17 09:06; Admin Dose 550 MG; Start 07/30/17 at 09:00 Ursodiol (Actigall) 300 mg TID PO Last administered on 08/09/17 09:06; Admin Dose 300 MG; Start 07/30/17 at 09:00 Ondansetron HCl (Zofran Inj) 4 mg Q6H PRN IV NAUSEA AND/OR VOMITING Last administered on 08/04/17 11:26; Admin Dose 4 MG; Start 07/30/17 at 09:00 Acetaminophen (Tylenol Tab) 650 mg Q6H PRN PO PAIN LEVEL 1-3 OR FEVER; Start 07/30/17 at 09:00 Acetaminophen (Tylenol Supp) [address] PAIN LEVEL 1-3 OR FEVER; Start 07/30/17 at 09:00 Lactulose (Enulose) 30 gm Q6H PRN PO CONSTIPATION Last administered on 11:23; Admin Dose 30 GM; Start 08/04/17 at 11:00; Status Future Hold Lactulose 20 gm 20 gm Q4 GTB Last administered on 08/09/17 09:06; Admin Dose 20 GM; Start 08/05/17 at 13:00 Phenylephrine HCl 160 mg/Dextrose 500 ml @ 18.75 mls/ hr TITRATE IV Last administered on 08/09/17 06:10; Admin Dose 56.25 MLS/HR; Start 08/06/17 at 11 :00 Norepinephrine 32 mg/Dextrose 250 ml @ 0.46 mls/hr TITRATE IV Last administered on 08/08/17 20:56; Admin Dose 14.06 MLS/HR; Start 08/06/17 at 11 :00 Pantoprazole 80 mg/Sodium Chloride 100 ml @ 10 mls/hr Q10H IV Last administered on 08/09/17 12:07; Admin Dose 10 MLS/HR; Start 08/06/17 at 13:30 Sodium Bicarbonate/ Dextrose (Na Bicarb/D5W) 1,150 ml @ 75 mls/hr [id number] IV Last administered on 08/09/17 06:03; Admin Dose 75 MLS/HR; Start 08/06/17 at 15:38 Lorazepam (Ativan) 2 mg Q2H PRN IV SEIZURES; Start 08/07/17 at 09:00 IV Flush 10 ml 10 ml PRN PRN IV IV PROTOCOL; Start 08/07/17 at 19:00 Levetiracetam 100 ml @ 400 mls/hr Q12 IVPB Last administered on 08/09/17 09: 21; Admin Dose 400 MLS/HR; Start 08/08/17 at 13:00 Piperacillin Sod/ Tazobactam Sod 50 ml @ 100 mls/hr Q6H IVPB Last administered on 08/09/17 04:35; Admin Dose 100 MLS/HR; Start 08/08/17 at 16: 00 Vasopressin/ Dextrose (Vasostrict/D5W) 60 ml @ 1.2 mls/hr Q12H IV Last administered on 08/08/17 20:37; Admin Dose 1.2 MLS/HR; Start 08/08/17 at 18: 30 Dextrose (D50w Syringe) 50 ml PRN PRN IV hypoglycemia Last administered on 07:17; Admin Dose 50 ML; Start 08/09/17 at 07:30 Miscellaneous Information VANCO RANDOM W/ AM LABS... ONCE ONCE XX ; Start at 05:00; Stop 08/10/17 at 05:01 Albumin Human (Albumin Human 25%) 50 ml @ 100 mls/hr ONCE ONCE IV ; Start at 12:00; Stop 08/09/17 at 12:29 Assessment/Plan Chief Complaint/Hosp Course 67 yo female with cirrhosis admitted with CKD, hepatorenal syndrome, respiratory failure decompensated liver cirrhosis, septic shock respiratory failure, severe anemia receiving transfusions, and hyperammonemia with severe encephalopathy. EEG: abnormal EEG due to generalized bihemispheric background slowing with low amplitude waves with left frontal and right temporal sharps which could be epileptogenic is consistent with severe encephalopathy with seizures. Recommendations: increased dose Keppra 1000 mg q12h continue seizure precautions and monitoring for sz repeat Head CT is pending overall her prognosis is poor she remains full code at this time Problems: BURKE COTTER MD Aug 09, 2017 12:24
[2017-08-09] MEDS ORDERED: PENDING SANTYL ORDER FOR WOUND CARE XX PRN (13:00)
--- NOTE | 2017-08-09 16:14 | PN ---
Date/Time of Note Date/Time of Note DATE: 08/09/17 TIME: 16:14 Assessment/Plan Lines/Catheters IV Catheter Type (from Nrsg): Central Line Carter in Place (from Nrsg): Yes Assessment/Plan Chief Complaint/Hosp Course SP HD cath placement will continue Supp care Problems: Subjective 24 Hr Interval Summary Constitutional: improved Pain Control: mild Exam/Review of Systems Vital Signs Vitals Vital Signs Date Time Temp Pulse Resp B/P Pulse Ox O2 Delivery O2 Flow Rate FiO2 08/09/17 15:45 100 20 87/44 92 08/09/17 15:10 50 08/09/17 15:00 Mechanical Ventilator 08/09/17 12:00 97.0 08/05/17 20:26 3.0 Intake and Output 08/08/17 08/08/17 08/09/17 15:00 23:00 07:00 Intake Total 1113.51 ml 1272.69 ml 1279.09 ml Output Total 1515 ml 0 ml 15 ml Balance -401.49 ml 1272.69 ml 1264.09 ml Exam Neck: non-tender, supple Respiratory: clear to auscultation, normal air movement Cardiovascular: nl pulses, regular rate and rhythm Results Result Diagram: 08/09/17 1147 08/09/17 0400 VIVIEN GAYTAN MD Aug 09, 2017 16:14
[2017-08-09] MEDS: NORepinephrine 32 MG in DEXTROSE 5% 218 ML IV SCH (16:38)
--- NOTE | 2017-08-09 17:06 | RADRPT ---
PROCEDURE: XR Chest. CLINICAL INDICATION: Shortness of breath. TECHNIQUE: Single frontal view. COMPARISON: 08/09/2017. 0608 hours. FINDINGS: The endotracheal tube, nasogastric tube, and right arm PICC line remain in satisfactory position. There is atelectasis at the lung bases with the right side worse than seen previously and the left s juventino unchanged. The heart is enlarged. There is calcification in the aorta consistent with atherosclerosis. There are small bilateral pleural effusions. There is no pneumothorax. IMPRESSION: 1. Worse appearance of the right lung. 2. No other change from the prior study done earlier the same day. RPTAT: QQ .Luis Miguel Guerra MD, MD Date Time Electronically viewed and signed by .Luis Miguel Guerra MD, MD on 08/09/2017 17:06 .R/
[2017-08-10] VITALS (107 sets, daily range): BP systolic 83–131; BP diastolic 40–82; PULSE 65–166; RESP 15–28
[2017-08-10] MEDS: LACTULOSE 30ML CUP GTB SCH ×6 (01:00→20:06)
[2017-08-10] MEDS ORDERED: AMIODARONE 150MG/D5W BOLUS 100 ML IV ONE (03:30)
[2017-08-10] MEDS ORDERED: AMIODARONE 900 MG in DEXTROSE 5% 482 ML IV SCH (03:30)
[2017-08-10] MEDS: AMIODARONE 900 MG in DEXTROSE 5% 482 ML IV SCH ×2 (03:48→03:49)
[2017-08-10] MEDS: PIPER-TAZO 2.25 GM (PMX) 50 ML IVPB SCH ×4 (03:50→21:24)
[2017-08-10 06:27] LABS: ABNORMAL IP MESSAGE 1; HEMATOCRIT 27.5 % (37.0-47.0); HEMOGLOBIN 9.5 g/dl (12.0-16.0); MEAN CORPUSCULAR HEMOGLOBIN 30.6 pg (29.0-33.0); MEAN CORPUSCULAR HGB CONC 34.5 g/dl (32.0-37.0); MEAN CORPUSCULAR VOLUME 88.7 fl (82.0-101.0); NUCLEATED RED BLOOD CELLS% 5.8 /100WBC (0.0-0.0); RED CELL DISTRIBUTION WIDTH 17.7 % (11.5-14.5); WHITE BLOOD COUNT 6.7 10^3/ul (4.8-10.8)
[2017-08-10] MEDS: PANTOPRAZOLE IV 80 MG in SOD CHLORIDE 0.9% 100 ML IV SCH ×2 (06:40→14:11)
[2017-08-10 06:49] LABS: PLATELET COUNT 4 10^3/UL (140-415); POSITIVE DIFF @See below
[2017-08-10] MEDS: VASOPRESSIN 60 UNIT in DEXTROSE 5% 57 ML IV SCH ×2 (06:53→18:09)
[2017-08-10 07:02] LABS: ALBUMIN 2.6 g/dl (3.3-4.9); ALBUMIN/GLOBULIN RATIO 1.23; BILIRUBIN,DIRECT 14.6 mg/dl (0.00-0.20); BILIRUBIN,INDIRECT 9.5 mg/dl (0-1.1); BILIRUBIN,TOTAL 24.1 mg/dl (0.2-1.3); CALCIUM 8.3 mg/dl (8.4-10.2); POTASSIUM 3.4 mmol/L (3.5-5.1); TOTAL PROTEIN 4.7 g/dl (6.1-8.1)
[2017-08-10] MEDS: PHENYLephrine 160 MG in DEXTROSE 5% 484 ML IV SCH ×3 (07:25→23:09)
[2017-08-10 07:28] LABS: CREATININE 2.81 mg/dl (0.44-1.00)
[2017-08-10 07:52] LABS: LACTIC ACID 12.6 mmol/L (0.5-2.0)
[2017-08-10] MEDS: NORepinephrine 32 MG in DEXTROSE 5% 218 ML IV SCH ×3 (08:23→23:10)
[2017-08-10] MEDS: LEVETIRACETAM 1000 MG (PMX) 100 ML IVPB SCH ×2 (08:24→20:06)
[2017-08-10] MEDS: SODIUM BICARBONATE (IV ADD) 150 MEQ in DEXTROSE 5% 1,000 ML IV SCH ×2 (08:32→23:07)
[2017-08-10] MEDS: RIFAXIMIN 550 MG TAB PO SCH ×2 (09:12→23:06)
[2017-08-10] MEDS: FOLIC ACID 1 MG TAB PO SCH (09:12)
[2017-08-10 09:18] LABS: ERYTHROBLAST% (NRBC) (M) 7 % (0-0); METAMYELOCYTES %M 5 % (0-0); MONOCYTES % (M) 18 % (0-11); MYELOCYTES % (M) 8 % (0-0); PLATELET ESTIMATE SIG DECREASED; PROMYELOCYTES #M 0.1 10^3/ul (0-0); PROMYELOCYTES % (M) 2 % (0-0)
[2017-08-10] MEDS ORDERED: VANCOMYCIN 1 GM in NS 250 ML IVPB SCH (10:00)
--- NOTE | 2017-08-10 11:08 | CONS ---
Date/Time of Note Date/Time of Note DATE: 08/10/17 TIME: 11:07 Consult Date/Type/Reason Admit Date/Time Jul 30, 2017 at 04:53 Initial Consult Date 07/31/17 Type of Consultation: Pulmonary Ordering Provider: OSMAN NEGRON Subjective No significant changes. Continues multiple vasopressors. Remains somnolent on mechanical ventilation. Objective Vital Signs Date Time Temp Pulse Resp B/P Pulse Ox O2 Delivery O2 Flow Rate FiO2 08/10/17 11:00 77 20 104/46 96 Mechanical Ventilator 08/10/17 08:00 80 08/10/17 08:00 97.8 Intake and Output 08/09/17 08/09/17 08/10/17 15:00 23:00 07:00 Intake Total 2108.26 ml 1567.24 ml 1402.6 ml Output Total 1505 ml 45 ml 20 ml Balance 603.26 ml 1522.24 ml 1382.6 ml Exam GENERAL: Chronically ill appearing lady, intubated on mechanical ventilation VITAL SIGNS: NECK: Supple. No JVD or lymphadenopathy. CARDIAC: S1, S2, no added sounds or murmurs. CHEST: Diminished air entry bilaterally. ABDOMEN: Soft, nontender. No guarding or rebound. EXTREMITIES: No cyanosis, clubbing, edema. NEUROLOGIC: Unable to assess. Results/Medications Result Diagram: 08/10/1730 08/10/17 0530 Results 24 hrs Laboratory Tests Test 08/09/17 11:47 08/10/17 05:06 08/10/17 05:30 08/10/17 07:37 Hemoglobin 9.8 L 9.5 L Hematocrit 27.0 L 27.5 L Lab Scanned Report BLOOD TRANSFUSION White Blood Count 6.7 # Red Blood Count 3.10 L Mean Corpuscular Volume 88.7 Mean Corpuscular Hemoglobin 30.6 Mean Corpuscular Hemoglobin Concent 34.5 Red Cell Distribution Width 17.7 H Platelet Count 4 #*L Mean Platelet Volume Neutrophils % Segmented Neutrophils % (Manual) 15 L Band Neutrophils % (Manual) 45 H Lymphocytes % Lymphocytes % (Manual) 7 L Monocytes % Monocytes % (Manual) 18 H Eosinophils % Basophils % Metamyelocytes % (manual) 5 H Myelocytes % (Manual) 8 H Promyelocytes % (Manual) 2 H Nucleated Red Blood Cells % 7 H Neutrophils # Neutrophils # (Manual) 1.2 L Band Neutrophils # 3.0 H Absolute Lymphocytes (Manual) 0.4 L Lymphocytes # Monocytes # Absolute Monocytes (Manual) 1.2 H Eosinophils # Basophils # Metamyelocytes # 0.3 H Myelocytes # 0.5 H Promyelocytes # 0.1 H Nucleated Red Blood Cells # Platelet Estimate SIG DECREASED Sodium Level 135 Potassium Level 3.4 L Chloride Level 87 L Carbon Dioxide Level 23 Anion Gap 28 H Blood Urea Nitrogen 27 H Creatinine 2.81 H Glucose Level 54 #L Lactic Acid Level 12.6 *H Calcium Level 8.3 L Total Bilirubin 24.1 H Direct Bilirubin 14.60 H Indirect Bilirubin 9.5 H Aspartate Amino Transf (AST/SGOT) 920 H Alanine Aminotransferase (ALT/SGPT) 629 H Alkaline Phosphatase 69 Ammonia 42 #H Total Protein 4.7 L Albumin 2.6 L Globulin 2.10 Albumin/Globulin Ratio 1.23 Random Vancomycin Level 9.1 Bedside Glucose 142 Medications Current Medications Folic Acid (Folic Acid) 1 mg DAILY PO Last administered on 08/10/17 09:12; Admin Dose 1 MG; Start 07/30/17 at 09:00 Rifaximin (Xifaxan) 550 mg BID PO Last administered on 08/10/17 09:12; Admin Dose 550 MG; Start 07/30/17 at 09:00 Ondansetron HCl (Zofran Inj) 4 mg Q6H PRN IV NAUSEA AND/OR VOMITING Last administered on 08/04/17 11:26; Admin Dose 4 MG; Start 07/30/17 at 09:00 Acetaminophen (Tylenol Tab) 650 mg Q6H PRN PO PAIN LEVEL 1-3 OR FEVER; Start 07/30/17 at 09:00 Acetaminophen (Tylenol Supp) 650 mg Q6H PRN [place] PAIN LEVEL 1-3 OR FEVER; Start 07/30/17 at 09:00 Lactulose (Enulose) 30 gm Q6H PRN PO CONSTIPATION Last administered on 11:23; Admin Dose 30 GM; Start 08/04/17 at 11:00; Status Future Hold Lactulose 20 gm 20 gm Q4 GTB Last administered on 08/10/17 09:12; Admin Dose 20 GM; Start 08/05/17 at 13:00 Phenylephrine HCl 160 mg/Dextrose 500 ml @ 18.75 mls/ hr TITRATE IV Last administered on 08/10/17 07:25; Admin Dose 56.25 MLS/HR; Start 08/06/17 at 11 :00 Norepinephrine 32 mg/Dextrose 250 ml @ 0.46 mls/hr TITRATE IV Last administered on 08/10/17 08:23; Admin Dose 14.06 MLS/HR; Start 08/06/17 at 11 :00 Pantoprazole 80 mg/Sodium Chloride 100 ml @ 10 mls/hr Q10H IV Last administered on 08/10/17 06:40; Admin Dose 10 MLS/HR; Start 08/06/17 at 13:30 Sodium Bicarbonate/ Dextrose (Na Bicarb/D5W) 1,150 ml @ 75 mls/hr [id number] IV Last administered on 08/10/17 08:32; Admin Dose 75 MLS/HR; Start 08/06/17 at 15:38 Lorazepam (Ativan) 2 mg Q2H PRN IV SEIZURES; Start 08/07/17 at 09:00 IV Flush 10 ml 10 ml PRN PRN IV IV PROTOCOL; Start 08/07/17 at 19:00 Levetiracetam 100 ml @ 400 mls/hr Q12 IVPB Last administered on 08/10/17 08: 24; Admin Dose 400 MLS/HR; Start 08/08/17 at 13:00 Piperacillin Sod/ Tazobactam Sod 50 ml @ 100 mls/hr Q6H IVPB Last administered on 08/10/17 09:12; Admin Dose 100 MLS/HR; Start 08/08/17 at 16: 00 Vasopressin/ Dextrose (Vasostrict/D5W) 60 ml @ 1.2 mls/hr Q12H IV Last administered on 08/10/17 06:53; Admin Dose 2.4 MLS/HR; Start 08/08/17 at 18: 30 Dextrose (D50w Syringe) 50 ml PRN PRN IV hypoglycemia Last administered on 07:17; Admin Dose 50 ML; Start 08/09/17 at 07:30 Miscellaneous Information This patient dolan... PRN PRN XX WOUND CARE; Start at 13:00 Amiodarone HCl 900 mg/Dextrose 500 ml @ 0 mls/hr Q0M IV Last administered on 03:49; Admin Dose 1 MLS/HR; Start 08/10/17 at 03:40; Stop 08/11/17 at 03:39 Vancomycin HCl (Vancocin) 250 ml @ 125 mls/hr 10 IVPB Last administered on 09:57; Admin Dose 125 MLS/HR; Start 08/10/17 at 10:00; Stop 08/10/17 at 19:00 Assessment/Plan Chief Complaint/Hosp Course IMPRESSION: 1. Encephalopathy, likely secondary to elevated ammonia. Questionable intracerebral bleed secondary to encephalopathy or significant cerebral edema from liver failure. 2. Acute renal failure, probably secondary to hepatorenal syndrome given worsening ammonia, worsening liver function tests and decreased urine output. Continues hemodialysis as tolerated Improved leukocytosis despite persistent septic shock. 4. Septic shock possibly secondary to SBP 5. Hypoxemic respiratory failure secondary to above 6. Thrombocytopenia likely secondary to liver disease and possible DIC. PLAN: 1. Continue volume resuscitation, consider platelet transfusion. 2. Continue vasopressor support 3. Continue rifaximin. Continue PPI 4. Continue current antibiotics. 5. Continue current vent settings 6. CT brain when stable. 7. Continue antiseizure medications. Overall prognosis extremely poor. Palliative care recommendations. Problems: LURDES SAUNDERS MD, [facility] Aug 10, 2017 11:08
--- NOTE | 2017-08-10 11:56 | PN ---
Date/Time of Note Date/Time of Note DATE: 08/10/17 TIME: 11:52 Assessment/Plan VTE Prophylaxis VTE Prophylaxis Intervention: SCD's Lines/Catheters IV Catheter Type (from Nrsg): PICC Line Central line still needed: Yes Urinary Cath still in place: Yes Reason Cath still needed: terminal illness/intractable pain Assessment/Plan Chief Complaint/Hosp Course Assessment/Plan #. Altered mental status secondary to hepatic encephalopathy - Ammonia high, worsened encephalopathy. - GI on board and recommendations appreciated. upper endoscopy done today did not show obvious sign of bleed. colonoscopy planned if needed - lactulose per GI - CT head showed mild generalized cerebral volume loss and nonspecific chronic microvascular ischemic disease without evidence of intracranial masses hemorrhages or midline shift. initially, now with dilated pupils, ? brain bleed , will repeat CT when able. #seizure -questionable, but keppra started -EEG noted, severe encephalopathy #DIC -fibrinogen, inr, ptt, platelets, d dimer, physical findings consistent -very likely 2/2 acute liver failure #thrombocytopenia -severe, transfuse as needed, however may not help given DIC #hypotension -severe hepatorenal and ? septic source -2 pressors, titrate as able -IV fluids #coagulopathy -2/2 likely end stage liver disease #. Hypernatremia - d5w with bicarb per nephro #. Hyperkalemia- monitor, now hypokalemia #. ZACK on CKD- worsening - patient baseline Cr appears to be 1.2 during prior admission - Nephrology on board and recommendations appreciated. - likely hepatorenal - Ct surgery consulted for vas/cath placement #. Elevated LFT- still elevated - Most likely secondary to cirrhosis - Will continue to monitor #. Hyperammonia - worsened - Continue on lactulose and rifaximin #. GI bleed, likely lower - GI bleeding with lactulose and low platelets. monitor #. Cirrhosis of liver - followed by Dr. Monzon, medical supervisor - Seen at Transplant clinic at [facility] per daughter - Per daughter, they are unsure cause of her cirrhosis but does admit to patient being overweight prior to illness. ?OWEN as cause of her cirrhosis -end stage, currently unstable for transfer to [facility] #. Ascites - zosyn for abx #. CBD - Complete abd u/s with multiple findings including gallstones/sludge hepatofugal flow - MRCP showed No biliary ductal dilatation definitive filling defect within the biliary tree # Disposition - worsening condition, on 2 pressors, [facility] rejected transfer, palliative care consulted. Patient's family urged to be at bedside -multifactorial organ failure -holding off on colonoscopy per GI, will perform when able -nephro to HD as needed -very poor prognosis, patient's family now okay with DNR, possible withdrawal of care -hospice consult More than 40 minutes were spent on this encounter Problems: Subjective 24 Hr Interval Summary Free Text/Dictation still on pressors, no change Exam/Review of Systems Vital Signs Vitals Vital Signs Date Time Temp Pulse Resp B/P Pulse Ox O2 Delivery O2 Flow Rate FiO2 08/10/17 11:30 97.6 73 20 92/46 94 Mechanical Ventilator 08/10/17 08:00 80 Intake and Output 08/09/17 08/09/17 08/10/17 15:00 23:00 07:00 Intake Total 2108.26 ml 1567.24 ml 1402.6 ml Output Total 1505 ml 45 ml 20 ml Balance 603.26 ml 1522.24 ml 1382.6 ml Exam Constitutional: intubated, obtunded Head: atraumatic, normocephalic Eyes: icteric bilaterally, dilated pupils bilaterally Neck: non-tender, supple Respiratory: coarse to auscultation, diminished breath sounds, Cardiovascular: tachycardic, no obvious murmur Gastrointestinal: ascites, bowel sounds, distended, soft, No rebound or guarding Musculoskeletal: nl extremities to inspection Extremities: normal pulses, No clubbing, No cyanosis, No edema Neurological: minimal to no response to noxious stimuli Results Result Diagram: 08/10/17 0530 08/10/17 0530 Results 24 hrs Laboratory Tests Test 08/10/17 05:06 08/10/17 05:30 08/10/17 07:37 Lab Scanned Report BLOOD TRANSFUSION White Blood Count 6.7 # Red Blood Count 3.10 L Hemoglobin 9.5 L Hematocrit 27.5 L Mean Corpuscular Volume 88.7 Mean Corpuscular Hemoglobin 30.6 Mean Corpuscular Hemoglobin Concent 34.5 Red Cell Distribution Width 17.7 H Platelet Count 4 #*L Mean Platelet Volume Neutrophils % Segmented Neutrophils % (Manual) 15 L Band Neutrophils % (Manual) 45 H Lymphocytes % Lymphocytes % (Manual) 7 L Monocytes % Monocytes % (Manual) 18 H Eosinophils % Basophils % Metamyelocytes % (manual) 5 H Myelocytes % (Manual) 8 H Promyelocytes % (Manual) 2 H Nucleated Red Blood Cells % 7 H Neutrophils # Neutrophils # (Manual) 1.2 L Band Neutrophils # 3.0 H Absolute Lymphocytes (Manual) 0.4 L Lymphocytes # Monocytes # Absolute Monocytes (Manual) 1.2 H Eosinophils # Basophils # Metamyelocytes # 0.3 H Myelocytes # 0.5 H Promyelocytes # 0.1 H Nucleated Red Blood Cells # Platelet Estimate SIG DECREASED Sodium Level 135 Potassium Level 3.4 L Chloride Level 87 L Carbon Dioxide Level 23 Anion Gap 28 H Blood Urea Nitrogen 27 H Creatinine 2.81 H Glucose Level 54 #L Lactic Acid Level 12.6 *H Calcium Level 8.3 L Total Bilirubin 24.1 H Direct Bilirubin 14.60 H Indirect Bilirubin 9.5 H Aspartate Amino Transf (AST/SGOT) 920 H Alanine Aminotransferase (ALT/SGPT) 629 H Alkaline Phosphatase 69 Ammonia 42 #H Total Protein 4.7 L Albumin 2.6 L Globulin 2.10 Albumin/Globulin Ratio 1.23 Random Vancomycin Level 9.1 Bedside Glucose 142 Medications Medications Current Medications Folic Acid (Folic Acid) 1 mg DAILY PO Last administered on 08/10/17 09:12; Admin Dose 1 MG; Start 07/30/17 at 09:00 Rifaximin (Xifaxan) 550 mg BID PO Last administered on 08/10/17 09:12; Admin Dose 550 MG; Start 07/30/17 at 09:00 Ondansetron HCl (Zofran Inj) 4 mg Q6H PRN IV NAUSEA AND/OR VOMITING Last administered on 08/04/17 11:26; Admin Dose 4 MG; Start 07/30/17 at 09:00 Acetaminophen (Tylenol Tab) 650 mg Q6H PRN PO PAIN LEVEL 1-3 OR FEVER; Start 07/30/17 at 09:00 Acetaminophen (Tylenol Supp) 650 mg Q6H PRN [place] PAIN LEVEL 1-3 OR FEVER; Start 07/30/17 at 09:00 Lactulose (Enulose) 30 gm Q6H PRN PO CONSTIPATION Last administered on 11:23; Admin Dose 30 GM; Start 08/04/17 at 11:00; Status Future Hold Lactulose 20 gm 20 gm Q4 GTB Last administered on 08/10/17 09:12; Admin Dose 20 GM; Start 08/05/17 at 13:00 Phenylephrine HCl 160 mg/Dextrose 500 ml @ 18.75 mls/ hr TITRATE IV Last administered on 08/10/17 07:25; Admin Dose 56.25 MLS/HR; Start 08/06/17 at 11 :00 Norepinephrine 32 mg/Dextrose 250 ml @ 0.46 mls/hr TITRATE IV Last administered on 08/10/17 08:23; Admin Dose 14.06 MLS/HR; Start 08/06/17 at 11 :00 Pantoprazole 80 mg/Sodium Chloride 100 ml @ 10 mls/hr Q10H IV Last administered on 08/10/17 06:40; Admin Dose 10 MLS/HR; Start 08/06/17 at 13:30 Sodium Bicarbonate/ Dextrose (Na Bicarb/D5W) 1,150 ml @ 75 mls/hr [id number] IV Last administered on 08/10/17 08:32; Admin Dose 75 MLS/HR; Start 08/06/17 at 15:38 Lorazepam (Ativan) 2 mg Q2H PRN IV SEIZURES; Start 08/07/17 at 09:00 IV Flush 10 ml 10 ml PRN PRN IV IV PROTOCOL; Start 08/07/17 at 19:00 Levetiracetam 100 ml @ 400 mls/hr Q12 IVPB Last administered on 08/10/17 08: 24; Admin Dose 400 MLS/HR; Start 08/08/17 at 13:00 Piperacillin Sod/ Tazobactam Sod 50 ml @ 100 mls/hr Q6H IVPB Last administered on 08/10/17 09:12; Admin Dose 100 MLS/HR; Start 08/08/17 at 16: 00 Vasopressin/ Dextrose (Vasostrict/D5W) 60 ml @ 1.2 mls/hr Q12H IV Last administered on 08/10/17 06:53; Admin Dose 2.4 MLS/HR; Start 08/08/17 at 18: 30 Dextrose (D50w Syringe) 50 ml PRN PRN IV hypoglycemia Last administered on 07:17; Admin Dose 50 ML; Start 08/09/17 at 07:30 Miscellaneous Information This patient dolan... PRN PRN XX WOUND CARE; Start at 13:00 Amiodarone HCl 900 mg/Dextrose 500 ml @ 0 mls/hr Q0M IV Last administered on 03:49; Admin Dose 1 MLS/HR; Start 08/10/17 at 03:40; Stop 08/11/17 at 03:39 Vancomycin HCl (Vancocin) 250 ml @ 125 mls/hr 10 IVPB Last administered on 09:57; Admin Dose 125 MLS/HR; Start 08/10/17 at 10:00; Stop 08/10/17 at 19:00 OSMAN NEGRON Aug 10, 2017 11:56
--- NOTE | 2017-08-10 13:45 | PN ---
Date/Time of Note Date/Time of Note DATE: 08/10/17 TIME: 13:41 Assessment/Plan VTE Prophylaxis VTE Prophylaxis Intervention: SCD's Lines/Catheters IV Catheter Type (from Nrsg): PICC Line Central line still needed: Yes (medicaiton) Urinary Cath still in place: Yes Reason Cath still needed: terminal illness/intractable pain, other (indicate) Assessment/Plan Chief Complaint/Hosp Course Assessment: AMS secondary to hepatic encephalopathy Cryptogenic cirrhosis with ascites Electrolyte abnormalities: likely due to cirrhosis with ascites . Macrocytic anemia EGD 08/06 Severe esophagitis. No active bleeding or stigmata Grade I-II/IV esophageal varices. No stigmata recent bleeding Severe antral gastritis. No active bleeding or stigmata No gastric varices present Normal duodenum Hyperammonia- worsening Thrombocytopenia REnow receiving HD Plan: No significant changes over night Continue to monitor h/h plt Will not move forward with colonoscopy Very prognosis poor Supportive care from all services Patient seen in collaboration with Dr. Roblero Subjective: Course reviewed with nursing staff Patient interviewed and examined All labs, imaging and other results reviewed Pt now DNR- at bedside and verbalizes understanding of 's condition discussed poor prognosis Pt on pressors and receiving plt transfusion for plt level of 4. Constitutional: intubated Psych: unable to assess Head: atraumatic, normocephalic Eyes: icteric ENMT: nl external ears & nose, nl lips & teeth, NGT in place Neck: non-tender, supple Respiratory: CTA Cardiovascular: tachy Gastrointestinal: hypoactive and distant bowel sounds, distended, soft, jaundice Problems: Exam/Review of Systems Vital Signs Vitals Vital Signs Date Time Temp Pulse Resp B/P Pulse Ox O2 Delivery O2 Flow Rate FiO2 08/10/17 12:45 109 20 98/53 96 Mechanical Ventilator 08/10/17 11:30 97.6 08/10/17 08:00 80 Intake and Output 08/09/17 08/09/17 08/10/17 15:00 23:00 07:00 Intake Total 2108.26 ml 1567.24 ml 1402.6 ml Output Total 1505 ml 45 ml 20 ml Balance 603.26 ml 1522.24 ml 1382.6 ml Results Result Diagram: 08/10/1730 08/10/17 0530 Results 24 hrs Laboratory Tests Test 08/10/17 05:06 08/10/17 05:30 08/10/17 07:37 Lab Scanned Report BLOOD TRANSFUSION White Blood Count 6.7 # Red Blood Count 3.10 L Hemoglobin 9.5 L Hematocrit 27.5 L Mean Corpuscular Volume 88.7 Mean Corpuscular Hemoglobin 30.6 Mean Corpuscular Hemoglobin Concent 34.5 Red Cell Distribution Width 17.7 H Platelet Count 4 #*L Mean Platelet Volume Neutrophils % Segmented Neutrophils % (Manual) 15 L Band Neutrophils % (Manual) 45 H Lymphocytes % Lymphocytes % (Manual) 7 L Monocytes % Monocytes % (Manual) 18 H Eosinophils % Basophils % Metamyelocytes % (manual) 5 H Myelocytes % (Manual) 8 H Promyelocytes % (Manual) 2 H Nucleated Red Blood Cells % 7 H Neutrophils # Neutrophils # (Manual) 1.2 L Band Neutrophils # 3.0 H Absolute Lymphocytes (Manual) 0.4 L Lymphocytes # Monocytes # Absolute Monocytes (Manual) 1.2 H Eosinophils # Basophils # Metamyelocytes # 0.3 H Myelocytes # 0.5 H Promyelocytes # 0.1 H Nucleated Red Blood Cells # Platelet Estimate SIG DECREASED Sodium Level 135 Potassium Level 3.4 L Chloride Level 87 L Carbon Dioxide Level 23 Anion Gap 28 H Blood Urea Nitrogen 27 H Creatinine 2.81 H Glucose Level 54 #L Lactic Acid Level 12.6 *H Calcium Level 8.3 L Total Bilirubin 24.1 H Direct Bilirubin 14.60 H Indirect Bilirubin 9.5 H Aspartate Amino Transf (AST/SGOT) 920 H Alanine Aminotransferase (ALT/SGPT) 629 H Alkaline Phosphatase 69 Ammonia 42 #H Total Protein 4.7 L Albumin 2.6 L Globulin 2.10 Albumin/Globulin Ratio 1.23 Random Vancomycin Level 9.1 Bedside Glucose 142 Medications Medications Current Medications Folic Acid (Folic Acid) 1 mg DAILY PO Last administered on 08/10/17 09:12; Admin Dose 1 MG; Start 07/30/17 at 09:00 Rifaximin (Xifaxan) 550 mg BID PO Last administered on 08/10/17 09:12; Admin Dose 550 MG; Start 07/30/17 at 09:00 Ondansetron HCl (Zofran Inj) 4 mg Q6H PRN IV NAUSEA AND/OR VOMITING Last administered on 08/04/17 11:26; Admin Dose 4 MG; Start 07/30/17 at 09:00 Acetaminophen (Tylenol Tab) 650 mg Q6H PRN PO PAIN LEVEL 1-3 OR FEVER; Start 07/30/17 at 09:00 Acetaminophen (Tylenol Supp) 650 mg Q6H PRN [place] PAIN LEVEL 1-3 OR FEVER; Start 07/30/17 at 09:00 Lactulose (Enulose) 30 gm Q6H PRN PO CONSTIPATION Last administered on 11:23; Admin Dose 30 GM; Start 08/04/17 at 11:00; Status Future Hold Lactulose 20 gm 20 gm Q4 GTB Last administered on 08/10/17 12:51; Admin Dose 20 GM; Start 08/05/17 at 13:00 Phenylephrine HCl 160 mg/Dextrose 500 ml @ 18.75 mls/ hr TITRATE IV Last administered on 08/10/17 07:25; Admin Dose 56.25 MLS/HR; Start 08/06/17 at 11 :00 Norepinephrine 32 mg/Dextrose 250 ml @ 0.46 mls/hr TITRATE IV Last administered on 08/10/17 08:23; Admin Dose 14.06 MLS/HR; Start 08/06/17 at 11 :00 Pantoprazole 80 mg/Sodium Chloride 100 ml @ 10 mls/hr Q10H IV Last administered on 08/10/17 06:40; Admin Dose 10 MLS/HR; Start 08/06/17 at 13:30 Sodium Bicarbonate/ Dextrose (Na Bicarb/D5W) 1,150 ml @ 75 mls/hr [id number] IV Last administered on 08/10/17 08:32; Admin Dose 75 MLS/HR; Start 08/06/17 at 15:38 Lorazepam (Ativan) 2 mg Q2H PRN IV SEIZURES; Start 08/07/17 at 09:00 IV Flush 10 ml 10 ml PRN PRN IV IV PROTOCOL; Start 08/07/17 at 19:00 Levetiracetam 100 ml @ 400 mls/hr Q12 IVPB Last administered on 08/10/17 08: 24; Admin Dose 400 MLS/HR; Start 08/08/17 at 13:00 Piperacillin Sod/ Tazobactam Sod 50 ml @ 100 mls/hr Q6H IVPB Last administered on 08/10/17 09:12; Admin Dose 100 MLS/HR; Start 08/08/17 at 16: 00 Vasopressin/ Dextrose (Vasostrict/D5W) 60 ml @ 1.2 mls/hr Q12H IV Last administered on 08/10/17 06:53; Admin Dose 2.4 MLS/HR; Start 08/08/17 at 18: 30 Dextrose (D50w Syringe) 50 ml PRN PRN IV hypoglycemia Last administered on 07:17; Admin Dose 50 ML; Start 08/09/17 at 07:30 Miscellaneous Information This patient dolan... PRN PRN XX WOUND CARE; Start at 13:00 Amiodarone HCl 900 mg/Dextrose 500 ml @ 0 mls/hr Q0M IV Last administered on 03:49; Admin Dose 1 MLS/HR; Start 08/10/17 at 03:40; Stop 08/11/17 at 03:39 Vancomycin HCl (Vancocin) 250 ml @ 125 mls/hr 10 IVPB Last administered on 09:57; Admin Dose 125 MLS/HR; Start 08/10/17 at 10:00; Stop 08/10/17 at 19:00 RAFAT [email or web address] Aug 10, 2017 13:45
--- NOTE | 2017-08-10 15:09 | CONS ---
Date/Time of Note Date/Time of Note DATE: 08/10/17 TIME: 15:07 Assessment/Plan Assessment/Plan Additional Assessment/Plan 67 yo female with cirrhosis admitted with CKD, hepatorenal syndrome, respiratory failure decompensated liver cirrhosis, septic shock respiratory failure, severe anemia receiving transfusions, and hyperammonemia with severe encephalopathy. EEG: abnormal EEG due to generalized bihemispheric background slowing with low amplitude waves with left frontal and right temporal sharps which could be epileptogenic is consistent with severe encephalopathy with seizures. Recommendations: increased dose Keppra 1000 mg q12h continue seizure precautions and monitoring for sz repeat Head CT is pending overall her prognosis is poor she remains full code at this time Consultation Date/Type/Reason Admit Date/Time Jul 30, 2017 at 04:53 Initial Consult Date 08/07/17 Type of Consultation: Pulmonary Referring Provider: OSMAN NEGRON 24 HR Interval Summary Free Text/Dictation Clinically unchanged. Pupils are fixed and dilated and no response to noxious stimulus. Exam/Review of Systems Vital Signs Vitals Vital Signs Date Time Temp Pulse Resp B/P Pulse Ox O2 Delivery O2 Flow Rate FiO2 08/10/17 14:45 98 20 116/56 98 Mechanical Ventilator 08/10/17 11:30 97.6 08/10/17 08:00 80 Intake and Output 08/09/17 08/09/17 08/10/17 15:00 23:00 07:00 Intake Total 2108.26 ml 1567.24 ml 1402.6 ml Output Total 1505 ml 45 ml 20 ml Balance 603.26 ml 1522.24 ml 1382.6 ml Exam Constitutional: other (Critical) Neurological: other (Unresponsive, comatose, intubated, ventilated, fixed and dilated pupil, no corneals and no gag reflex and no withdrawal to noxious stimulus) Results Result Diagram: 08/10/17 0530 08/10/17 0530 Results 24 hrs Laboratory Tests Test 08/10/17 05:06 08/10/17 05:30 08/10/17 07:37 Lab Scanned Report BLOOD TRANSFUSION White Blood Count 6.7 # Red Blood Count 3.10 L Hemoglobin 9.5 L Hematocrit 27.5 L Mean Corpuscular Volume 88.7 Mean Corpuscular Hemoglobin 30.6 Mean Corpuscular Hemoglobin Concent 34.5 Red Cell Distribution Width 17.7 H Platelet Count 4 #*L Mean Platelet Volume Neutrophils % Segmented Neutrophils % (Manual) 15 L Band Neutrophils % (Manual) 45 H Lymphocytes % Lymphocytes % (Manual) 7 L Monocytes % Monocytes % (Manual) 18 H Eosinophils % Basophils % Metamyelocytes % (manual) 5 H Myelocytes % (Manual) 8 H Promyelocytes % (Manual) 2 H Nucleated Red Blood Cells % 7 H Neutrophils # Neutrophils # (Manual) 1.2 L Band Neutrophils # 3.0 H Absolute Lymphocytes (Manual) 0.4 L Lymphocytes # Monocytes # Absolute Monocytes (Manual) 1.2 H Eosinophils # Basophils # Metamyelocytes # 0.3 H Myelocytes # 0.5 H Promyelocytes # 0.1 H Nucleated Red Blood Cells # Platelet Estimate SIG DECREASED Sodium Level 135 Potassium Level 3.4 L Chloride Level 87 L Carbon Dioxide Level 23 Anion Gap 28 H Blood Urea Nitrogen 27 H Creatinine 2.81 H Glucose Level 54 #L Lactic Acid Level 12.6 *H Calcium Level 8.3 L Total Bilirubin 24.1 H Direct Bilirubin 14.60 H Indirect Bilirubin 9.5 H Aspartate Amino Transf (AST/SGOT) 920 H Alanine Aminotransferase (ALT/SGPT) 629 H Alkaline Phosphatase 69 Ammonia 42 #H Total Protein 4.7 L Albumin 2.6 L Globulin 2.10 Albumin/Globulin Ratio 1.23 Random Vancomycin Level 9.1 Bedside Glucose 142 Medications Medications Current Medications Folic Acid (Folic Acid) 1 mg DAILY PO Last administered on 08/10/17 09:12; Admin Dose 1 MG; Start 07/30/17 at 09:00 Rifaximin (Xifaxan) 550 mg BID PO Last administered on 08/10/17 09:12; Admin Dose 550 MG; Start 07/30/17 at 09:00 Ondansetron HCl (Zofran Inj) 4 mg Q6H PRN IV NAUSEA AND/OR VOMITING Last administered on 08/04/17 11:26; Admin Dose 4 MG; Start 07/30/17 at 09:00 Acetaminophen (Tylenol Tab) 650 mg Q6H PRN PO PAIN LEVEL 1-3 OR FEVER; Start 07/30/17 at 09:00 Acetaminophen (Tylenol Supp) 650 mg Q6H PRN CO PAIN LEVEL 1-3 OR FEVER; Start 07/30/17 at 09:00 Lactulose (Enulose) 30 gm Q6H PRN PO CONSTIPATION Last administered on 11:23; Admin Dose 30 GM; Start 08/04/17 at 11:00; Status Future Hold Lactulose 20 gm 20 gm Q4 GTB Last administered on 08/10/17 12:51; Admin Dose 20 GM; Start 08/05/17 at 13:00 Phenylephrine HCl 160 mg/Dextrose 500 ml @ 18.75 mls/ hr TITRATE IV Last administered on 08/10/17 07:25; Admin Dose 56.25 MLS/HR; Start 08/06/17 at 11 :00 Norepinephrine 32 mg/Dextrose 250 ml @ 0.46 mls/hr TITRATE IV Last administered on 08/10/17 08:23; Admin Dose 14.06 MLS/HR; Start 08/06/17 at 11 :00 Pantoprazole 80 mg/Sodium Chloride 100 ml @ 10 mls/hr Q10H IV Last administered on 08/10/17 14:11; Admin Dose 10 MLS/HR; Start 08/06/17 at 13:30 Sodium Bicarbonate/ Dextrose (Na Bicarb/D5W) 1,150 ml @ 75 mls/hr [id number] IV Last administered on 08/10/17 08:32; Admin Dose 75 MLS/HR; Start 08/06/17 at 15:38 Lorazepam (Ativan) 2 mg Q2H PRN IV SEIZURES; Start 08/07/17 at 09:00 IV Flush 10 ml 10 ml PRN PRN IV IV PROTOCOL; Start 08/07/17 at 19:00 Levetiracetam 100 ml @ 400 mls/hr Q12 IVPB Last administered on 08/10/17 08: 24; Admin Dose 400 MLS/HR; Start 08/08/17 at 13:00 Piperacillin Sod/ Tazobactam Sod 50 ml @ 100 mls/hr Q6H IVPB Last administered on 08/10/17 09:12; Admin Dose 100 MLS/HR; Start 08/08/17 at 16: 00 Vasopressin/ Dextrose (Vasostrict/D5W) 60 ml @ 1.2 mls/hr Q12H IV Last administered on 08/10/17 06:53; Admin Dose 2.4 MLS/HR; Start 08/08/17 at 18: 30 Dextrose (D50w Syringe) 50 ml PRN PRN IV hypoglycemia Last administered on 07:17; Admin Dose 50 ML; Start 08/09/17 at 07:30 Miscellaneous Information This patient dolan... PRN PRN XX WOUND CARE; Start at 13:00 Amiodarone HCl 900 mg/Dextrose 500 ml @ 0 mls/hr Q0M IV Last administered on 03:49; Admin Dose 1 MLS/HR; Start 08/10/17 at 03:40; Stop 08/11/17 at 03:39 Vancomycin HCl (Vancocin) 250 ml @ 125 mls/hr 10 IVPB Last administered on 09:57; Admin Dose 125 MLS/HR; Start 08/10/17 at 10:00; Stop 08/10/17 at 19:00 MARIAELENA MCALLISTER MD Aug 10, 2017 15:09
--- NOTE | 2017-08-10 19:32 | CONS ---
Date/Time of Note Date/Time of Note DATE: 08/10/17 TIME: 19:24 Assessment/Plan Assessment/Plan Additional Assessment/Plan 1. acute Kidney injury vs Acute kidney injury on CKD due to Hepartorenal syndrome + ATN- started on HD 08/08/17 due to hepatorenal syndrome - Bun/ Cr - 27/2.81 2. acute resp failure due to decompensated liver cirrhosis and Septic shock- required intubation and mechanical ventilation 3. Severe anemia s/p EGD - negative for acute bleeding, with grade IV esophageal varices 4.. Altered mental status secondary to hepatic encephalopathy + metabolic enceophalopathy, 5. Hyperammonemia 6. comatose, unresponsive 7. Hypokalemia- replace K, AM bmp --Kcl 20mEQ IV x 1 now 8. Hypomagnesemia - no labs today, stat mg-fu Plan: -Remains intubated, on two pressors - unstable for transfer to [facility] -s/p Sarabjit Catheter placement,, s/p HD - Ventilator care and pulmonary management as per Professor Of Economics - s/p EGD by GI 08/06/17 negative for acute bleeding- Grade IV esophagel varices as per GI report Need goals of care discussion if not transferred to [facility]- because pt has poor prognosis due to ESLD Neurology following on case, pt remains unresponsive, EEG c/w epileptiform activity palliative care has been following on patient will follow up Consultation Date/Type/Reason Admit Date/Time Jul 30, 2017 at 04:53 Initial Consult Date 08/07/17 Type of Consultation: Pulmonary Referring Provider: OSMAN NEGRON 24 HR Interval Summary Subjective hx not possible: pt non-verbal, pt critical status Constitutional: requiring IVF, requiring O2 Exam/Review of Systems Vital Signs Vitals Vital Signs Date Time Temp Pulse Resp B/P Pulse Ox O2 Delivery O2 Flow Rate FiO2 08/10/17 19:00 97.4 94 20 93/45 96 Mechanical Ventilator 08/10/17 17:12 80 Intake and Output 08/09/17 08/09/17 08/10/17 15:00 23:00 07:00 Intake Total 2108.26 ml 1567.24 ml 1402.6 ml Output Total 1505 ml 45 ml 20 ml Balance 603.26 ml 1522.24 ml 1382.6 ml Exam Constitutional: frail, non-verbal Respiratory: diminished breath sounds Cardiovascular: nl pulses, other (s1s2) Gastrointestinal: soft Musculoskeletal: muscle weakness Extremities: normal pulses Neurological: unresponsive Results Result Diagram: 08/10/1730 08/10/17 0530 Results 24 hrs Laboratory Tests Test 08/10/17 05:06 08/10/17 05:30 08/10/17 07:37 Lab Scanned Report BLOOD TRANSFUSION White Blood Count 6.7 # Red Blood Count 3.10 L Hemoglobin 9.5 L Hematocrit 27.5 L Mean Corpuscular Volume 88.7 Mean Corpuscular Hemoglobin 30.6 Mean Corpuscular Hemoglobin Concent 34.5 Red Cell Distribution Width 17.7 H Platelet Count 4 #*L Mean Platelet Volume Neutrophils % Segmented Neutrophils % (Manual) 15 L Band Neutrophils % (Manual) 45 H Lymphocytes % Lymphocytes % (Manual) 7 L Monocytes % Monocytes % (Manual) 18 H Eosinophils % Basophils % Metamyelocytes % (manual) 5 H Myelocytes % (Manual) 8 H Promyelocytes % (Manual) 2 H Nucleated Red Blood Cells % 7 H Neutrophils # Neutrophils # (Manual) 1.2 L Band Neutrophils # 3.0 H Absolute Lymphocytes (Manual) 0.4 L Lymphocytes # Monocytes # Absolute Monocytes (Manual) 1.2 H Eosinophils # Basophils # Metamyelocytes # 0.3 H Myelocytes # 0.5 H Promyelocytes # 0.1 H Nucleated Red Blood Cells # Platelet Estimate SIG DECREASED Sodium Level 135 Potassium Level 3.4 L Chloride Level 87 L Carbon Dioxide Level 23 Anion Gap 28 H Blood Urea Nitrogen 27 H Creatinine 2.81 H Glucose Level 54 #L Lactic Acid Level 12.6 *H Calcium Level 8.3 L Total Bilirubin 24.1 H Direct Bilirubin 14.60 H Indirect Bilirubin 9.5 H Aspartate Amino Transf (AST/SGOT) 920 H Alanine Aminotransferase (ALT/SGPT) 629 H Alkaline Phosphatase 69 Ammonia 42 #H Total Protein 4.7 L Albumin 2.6 L Globulin 2.10 Albumin/Globulin Ratio 1.23 Random Vancomycin Level 9.1 Bedside Glucose 142 Medications Medications Current Medications Folic Acid (Folic Acid) 1 mg DAILY PO Last administered on 08/10/17 09:12; Admin Dose 1 MG; Start 07/30/17 at 09:00 Rifaximin (Xifaxan) 550 mg BID PO Last administered on 08/10/17 09:12; Admin Dose 550 MG; Start 07/30/17 at 09:00 Ondansetron HCl (Zofran Inj) 4 mg Q6H PRN IV NAUSEA AND/OR VOMITING Last administered on 08/04/17 11:26; Admin Dose 4 MG; Start 07/30/17 at 09:00 Acetaminophen (Tylenol Tab) 650 mg Q6H PRN PO PAIN LEVEL 1-3 OR FEVER; Start 07/30/17 at 09:00 Acetaminophen (Tylenol Supp) [address] PAIN LEVEL 1-3 OR FEVER; Start 07/30/17 at 09:00 Lactulose (Enulose) 30 gm Q6H PRN PO CONSTIPATION Last administered on 11:23; Admin Dose 30 GM; Start 08/04/17 at 11:00; Status Future Hold Lactulose 20 gm 20 gm Q4 GTB Last administered on 08/10/17 16:29; Admin Dose 20 GM; Start 08/05/17 at 13:00 Phenylephrine HCl 160 mg/Dextrose 500 ml @ 18.75 mls/ hr TITRATE IV Last administered on 08/10/17 15:07; Admin Dose 56.25 MLS/HR; Start 08/06/17 at 11 :00 Norepinephrine 32 mg/Dextrose 250 ml @ 0.46 mls/hr TITRATE IV Last administered on 08/10/17 08:23; Admin Dose 14.06 MLS/HR; Start 08/06/17 at 11 :00 Pantoprazole 80 mg/Sodium Chloride 100 ml @ 10 mls/hr Q10H IV Last administered on 08/10/17 14:11; Admin Dose 10 MLS/HR; Start 08/06/17 at 13:30 Sodium Bicarbonate/ Dextrose (Na Bicarb/D5W) 1,150 ml @ 75 mls/hr [id number] IV Last administered on 08/10/17 08:32; Admin Dose 75 MLS/HR; Start 08/06/17 at 15:38 Lorazepam (Ativan) 2 mg Q2H PRN IV SEIZURES; Start 08/07/17 at 09:00 IV Flush 10 ml 10 ml PRN PRN IV IV PROTOCOL; Start 08/07/17 at 19:00 Levetiracetam 100 ml @ 400 mls/hr Q12 IVPB Last administered on 08/10/17 08: 24; Admin Dose 400 MLS/HR; Start 08/08/17 at 13:00 Piperacillin Sod/ Tazobactam Sod 50 ml @ 100 mls/hr Q6H IVPB Last administered on 08/10/17 16:29; Admin Dose 100 MLS/HR; Start 08/08/17 at 16: 00 Vasopressin/ Dextrose (Vasostrict/D5W) 60 ml @ 1.2 mls/hr Q12H IV Last administered on 08/10/17 06:53; Admin Dose 2.4 MLS/HR; Start 08/08/17 at 18: 30 Dextrose (D50w Syringe) 50 ml PRN PRN IV hypoglycemia Last administered on 07:17; Admin Dose 50 ML; Start 08/09/17 at 07:30 Miscellaneous Information This patient dolan... PRN PRN XX WOUND CARE; Start at 13:00 Amiodarone HCl/ Dextrose (Cordarone Iv/ D5W) 500 ml @ 0 mls/hr Q0M IV Last administered on 08/10/17 03:49; Admin Dose 1 MLS/HR; Start 08/10/17 at 03:40 ; Stop 08/11/17 at 03:39 KELLY HALLMAN Aug 10, 2017 19:32
[2017-08-10] MEDS ORDERED: POTASSIUM CHLORIDE 20 MEQ in SOD CHLORIDE 0.9% 100 ML IVPB ONE (21:00)
[2017-08-11] VITALS (104 sets, daily range): BP systolic 70–130; BP diastolic 42–80; PULSE 85–101; RESP 20–24
[2017-08-11] MEDS: LACTULOSE 30ML CUP GTB SCH ×6 (02:02→20:27)
[2017-08-11 05:17] LABS: ABNORMAL IP MESSAGE 1; HEMATOCRIT 24.5 % (37.0-47.0); HEMOGLOBIN 8.3 g/dl (12.0-16.0); MEAN CORPUSCULAR HEMOGLOBIN 30.5 pg (29.0-33.0); MEAN CORPUSCULAR HGB CONC 33.9 g/dl (32.0-37.0); MEAN CORPUSCULAR VOLUME 90.1 fl (82.0-101.0); MEAN PLATELET VOLUME 11.1 fl (7.4-10.4); NUCLEATED RED BLOOD CELLS% 10.2 /100WBC (0.0-0.0); RED BLOOD COUNT 2.72 10^6/ul (4.20-5.40); RED CELL DISTRIBUTION WIDTH 17.5 % (11.5-14.5); WHITE BLOOD COUNT 7.5 10^3/ul (4.8-10.8)
[2017-08-11 05:32] LABS: PLATELET COUNT 23 10^3/UL (140-415); POSITIVE DIFF @See below
[2017-08-11 05:56] LABS: LACTIC ACID 12.9 mmol/L (0.5-2.0)
[2017-08-11 06:04] LABS: ALBUMIN 2.2 g/dl (3.3-4.9); ALBUMIN/GLOBULIN RATIO 0.84; BILIRUBIN,INDIRECT 10.6 mg/dl (0-1.1); CALCIUM 9.3 mg/dl (8.4-10.2); POTASSIUM 3.6 mmol/L (3.5-5.1); TOTAL PROTEIN 4.8 g/dl (6.1-8.1)
[2017-08-11] MEDS: PANTOPRAZOLE IV 80 MG in SOD CHLORIDE 0.9% 100 ML IV SCH ×2 (06:13→13:00)
[2017-08-11] MEDS: PIPER-TAZO 2.25 GM (PMX) 50 ML IVPB SCH ×4 (06:13→21:07)
[2017-08-11 06:28] LABS: BILIRUBIN,TOTAL 27.5 mg/dl (0.2-1.3); CREATININE 2.43 mg/dl (0.44-1.00)
[2017-08-11 06:30] LABS: BILIRUBIN,DIRECT 16.9 mg/dl (0.00-0.20)
[2017-08-11] MEDS: VASOPRESSIN 60 UNIT in DEXTROSE 5% 57 ML IV SCH ×2 (06:58→16:11)
[2017-08-11 07:10] LABS: ANISOCYTOSIS 2+ (0-0); HYPOCHROMASIA 2+ (0-0); LYMPHOCYTES # 0.8 10^3/ul (0.8-2.9)
[2017-08-11] MEDS: PHENYLephrine 160 MG in DEXTROSE 5% 484 ML IV SCH ×2 (07:28→16:11)
[2017-08-11] MEDS: RIFAXIMIN 550 MG TAB PO SCH ×2 (08:29→20:27)
[2017-08-11] MEDS: FOLIC ACID 1 MG TAB PO SCH (08:29)
[2017-08-11] MEDS: LEVETIRACETAM 1000 MG (PMX) 100 ML IVPB SCH ×2 (08:29→20:18)
--- NOTE | 2017-08-11 11:05 | CONS ---
Date/Time of Note Date/Time of Note DATE: 08/11/17 TIME: 11:04 Consult Date/Type/Reason Admit Date/Time Jul 30, 2017 at 04:53 Initial Consult Date 07/31/17 Type of Consultation: Pulmonary Ordering Provider: OSMAN NEGRON Subjective Patient remains on multiple vasopressors no changes neurologically. Objective Vital Signs Date Time Temp Pulse Resp B/P Pulse Ox O2 Delivery O2 Flow Rate FiO2 08/11/17 11:00 89 20 86/50 91 Mechanical Ventilator 08/11/17 08:00 80 08/11/17 07:30 97.5 Intake and Output 08/10/17 08/10/17 08/11/17 15:00 23:00 07:00 Intake Total 2831.24 ml 1804.24 ml 1250.11 ml Output Total 1575 ml 5 ml 0 ml Balance 1256.24 ml 1799.24 ml 1250.11 ml Exam GENERAL: Chronically ill appearing lady, intubated on mechanical ventilation VITAL SIGNS: NECK: Supple. No JVD or lymphadenopathy. CARDIAC: S1, S2, no added sounds or murmurs. CHEST: Diminished air entry bilaterally. ABDOMEN: Soft, nontender. No guarding or rebound. EXTREMITIES: No cyanosis, clubbing, edema. NEUROLOGIC: Unable to assess. Results/Medications Result Diagram: 08/11/17 0430 08/11/17 0430 Results 24 hrs Laboratory Tests Test 08/10/17 19:38 08/11/17 04:30 08/11/17 05:33 Magnesium Level 1.7 White Blood Count 7.5 Red Blood Count 2.72 L Hemoglobin 8.3 L Hematocrit 24.5 L Mean Corpuscular Volume 90.1 Mean Corpuscular Hemoglobin 30.5 Mean Corpuscular Hemoglobin Concent 33.9 Red Cell Distribution Width 17.5 H Platelet Count 23 #*L Mean Platelet Volume 11.1 H Neutrophils % Segmented Neutrophils % (Manual) 85 H Band Neutrophils % (Manual) 5 H Lymphocytes % Lymphocytes % (Manual) 10 L Monocytes % Eosinophils % Basophils % Nucleated Red Blood Cells % 10.2 H Neutrophils # Neutrophils # (Manual) 6.4 Band Neutrophils # 0.3 Absolute Lymphocytes (Manual) 0.7 L Lymphocytes # 0.8 Monocytes # Eosinophils # Basophils # Nucleated Red Blood Cells # Hypochromasia 2+ Anisocytosis 2+ Sodium Level 133 L Potassium Level 3.6 Chloride Level 88 L Carbon Dioxide Level 24 Anion Gap 25 H Blood Urea Nitrogen 24 H Creatinine 2.43 H Glucose Level 84 Lactic Acid Level 12.9 *H Calcium Level 9.3 Total Bilirubin 27.5 H Direct Bilirubin 16.90 *H Indirect Bilirubin 10.6 H Aspartate Amino Transf (AST/SGOT) 443 H Alanine Aminotransferase (ALT/SGPT) 485 H Alkaline Phosphatase 59 Ammonia 25 Total Protein 4.8 L Albumin 2.2 L Globulin 2.60 Albumin/Globulin Ratio 0.84 Lab Scanned Report BLOOD TRANSFUSION Medications Current Medications Folic Acid (Folic Acid) 1 mg DAILY PO Last administered on 08/11/17 08:29; Admin Dose 1 MG; Start 07/30/17 at 09:00 Rifaximin (Xifaxan) 550 mg BID PO Last administered on 08/11/17 08:; Admin Dose 550 MG; Start 07/30/17 at 09:00 Ondansetron HCl (Zofran Inj) 4 mg Q6H PRN IV NAUSEA AND/OR VOMITING Last administered on 08/04/17 11:26; Admin Dose 4 MG; Start 07/30/17 at 09:00 Acetaminophen (Tylenol Tab) 650 mg Q6H PRN PO PAIN LEVEL 1-3 OR FEVER; Start 07/30/17 at 09:00 Acetaminophen (Tylenol Supp) 650 mg Q6H PRN [place] PAIN LEVEL 1-3 OR FEVER; Start 07/30/17 at 09:00 Lactulose (Enulose) 30 gm Q6H PRN PO CONSTIPATION Last administered on 11:23; Admin Dose 30 GM; Start 08/04/17 at 11:00; Status Future Hold Lactulose 20 gm 20 gm Q4 GTB Last administered on 08/11/17 08:29; Admin Dose 20 GM; Start 08/05/17 at 13:00 Phenylephrine HCl 160 mg/Dextrose 500 ml @ 18.75 mls/ hr TITRATE IV Last administered on 08/11/17 07:28; Admin Dose 56.25 MLS/HR; Start 08/06/17 at 11 :00 Norepinephrine 32 mg/Dextrose 250 ml @ 0.46 mls/hr TITRATE IV Last administered on 08/10/17 23:10; Admin Dose 14.06 MLS/HR; Start 08/06/17 at 11 :00 Pantoprazole 80 mg/Sodium Chloride 100 ml @ 10 mls/hr Q10H IV Last administered on 08/11/17 06:13; Admin Dose 10 MLS/HR; Start 08/06/17 at 13:30 Sodium Bicarbonate/ Dextrose (Na Bicarb/D5W) 1,150 ml @ 75 mls/hr [id number] IV Last administered on 08/10/17 23:07; Admin Dose 75 MLS/HR; Start 08/06/17 at 15:38 Lorazepam (Ativan) 2 mg Q2H PRN IV SEIZURES; Start 08/07/17 at 09:00 IV Flush 10 ml 10 ml PRN PRN IV IV PROTOCOL; Start 08/07/17 at 19:00 Levetiracetam 100 ml @ 400 mls/hr Q12 IVPB Last administered on 08/11/17 08: 29; Admin Dose 400 MLS/HR; Start 08/08/17 at 13:00 Piperacillin Sod/ Tazobactam Sod 50 ml @ 100 mls/hr Q6H IVPB Last administered on 08/11/17 09:24; Admin Dose 100 MLS/HR; Start 08/08/17 at 16: 00 Vasopressin/ Dextrose (Vasostrict/D5W) 60 ml @ 1.2 mls/hr Q12H IV Last administered on 08/11/17 06:58; Admin Dose 1.8 MLS/HR; Start 08/08/17 at 18: 30 Dextrose (D50w Syringe) 50 ml PRN PRN IV hypoglycemia Last administered on 07:17; Admin Dose 50 ML; Start 08/09/17 at 07:30 [facility]iscellaneous Information [facility] This patient dolan... PRN PRN XX WOUND CARE; Start 08/09/17 at 13:00 Assessment/Plan Chief Complaint/Hosp Course IMPRESSION: 1. Encephalopathy, likely secondary to elevated ammonia. Questionable intracerebral bleed secondary to encephalopathy or significant cerebral edema from liver failure. 2. Acute renal failure, probably secondary to hepatorenal syndrome given worsening ammonia, worsening liver function tests and decreased urine output. Continues hemodialysis as tolerated Improved leukocytosis despite persistent septic shock. 4. Septic shock possibly secondary to SBP 5. Hypoxemic respiratory failure secondary to above 6. Thrombocytopenia likely secondary to liver disease and possible DIC. PLAN: 1. Continue volume resuscitation, consider platelet transfusion. 2. Continue vasopressor support 3. Continue rifaximin. Continue PPI 4. Continue current antibiotics. 5. Continue current vent settings 6. CT brain when stable. 7. Continue antiseizure medications. Overall prognosis extremely poor. Palliative care recommendations appreciated. Problems: LURDES SAUNDERS MD, [facility] Aug 11, 2017 11:05
--- NOTE | 2017-08-11 12:34 | PN ---
Date/Time of Note Date/Time of Note DATE: 08/11/17 TIME: 12:33 Assessment/Plan VTE Prophylaxis VTE Prophylaxis Intervention: SCD's Lines/Catheters IV Catheter Type (from Nrsg): PICC Line Central line still needed: Yes Urinary Cath still in place: Yes Reason Cath still needed: terminal illness/intractable pain Assessment/Plan Chief Complaint/Hosp Course Assessment/Plan #. Altered mental status secondary to hepatic encephalopathy - Ammonia high, worsened encephalopathy. - GI on board and recommendations appreciated. upper endoscopy done today did not show obvious sign of bleed. colonoscopy planned if needed - lactulose per GI - CT head showed mild generalized cerebral volume loss and nonspecific chronic microvascular ischemic disease without evidence of intracranial masses hemorrhages or midline shift. initially, now with dilated pupils, ? brain bleed , will repeat CT when able. #seizure -questionable, but keppra started -EEG noted, severe encephalopathy #DIC -fibrinogen, inr, ptt, platelets, d dimer, physical findings consistent -very likely 2/2 acute liver failure #thrombocytopenia -severe, transfuse as needed, however may not help given DIC #hypotension -severe hepatorenal and ? septic source -2 pressors, titrate as able -IV fluids #coagulopathy -2/2 likely end stage liver disease #. Hypernatremia - d5w with bicarb per nephro #. Hyperkalemia- monitor, now hypokalemia #. ZACK on CKD- worsening - patient baseline Cr appears to be 1.2 during prior admission - Nephrology on board and recommendations appreciated. - likely hepatorenal - Ct surgery consulted for vas/cath placement #. Elevated LFT- still elevated - Most likely secondary to cirrhosis - Will continue to monitor #. Hyperammonia - worsened - Continue on lactulose and rifaximin #. GI bleed, likely lower - GI bleeding with lactulose and low platelets. monitor #. Cirrhosis of liver - followed by Dr. 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 ?OWEN as cause of her cirrhosis -end stage, currently unstable for transfer to [facility] #. Ascites - zosyn for abx #. CBD - Complete abd u/s with multiple findings including gallstones/sludge hepatofugal flow - MRCP showed No biliary ductal dilatation definitive filling defect within the biliary tree # Disposition - worsening condition, on 3 pressors, C rejected transfer, palliative care consulted. Patient's family urged to be at bedside -multifactorial organ failure -holding off on colonoscopy per GI, will perform when able -nephro to HD as needed -very poor prognosis, patient's family now okay with DNR, possible withdrawal of care -hospice consult More than 40 minutes were spent on this encounter Problems: Subjective 24 Hr Interval Summary Free Text/Dictation no acute changes, Exam/Review of Systems Vital Signs Vitals Vital Signs Date Time Temp Pulse Resp B/P Pulse Ox O2 Delivery O2 Flow Rate FiO2 08/11/17 12:00 100 08/11/17 11:30 88 20 95/54 93 Mechanical Ventilator 08/11/17 07:30 97.5 Intake and Output 08/10/17 08/10/17 08/11/17 15:00 23:00 07:00 Intake Total 2831.24 ml 1804.24 ml 1250.11 ml Output Total 1575 ml 5 ml 0 ml Balance 1256.24 ml 1799.24 ml 1250.11 ml Exam Constitutional: intubated, obtunded Head: atraumatic, normocephalic Eyes: icteric bilaterally, dilated pupils bilaterally Neck: non-tender, supple Respiratory: coarse to auscultation, diminished breath sounds, Cardiovascular: tachycardic, no obvious murmur Gastrointestinal: ascites, bowel sounds, distended, soft, No rebound or guarding Musculoskeletal: nl extremities to inspection Extremities: normal pulses, No clubbing, No cyanosis, No edema Neurological: minimal to no response to noxious stimuli Results Result Diagram: 08/11/170 08/11/17 043 Results 24 hrs Laboratory Tests Test 08/10/17 19:38 08/11/17 04:30 08/11/17 05:33 Magnesium Level 1.7 White Blood Count 7.5 Red Blood Count 2.72 L Hemoglobin 8.3 L Hematocrit 24.5 L Mean Corpuscular Volume 90.1 Mean Corpuscular Hemoglobin 30.5 Mean Corpuscular Hemoglobin Concent 33.9 Red Cell Distribution Width 17.5 H Platelet Count 23 #*L Mean Platelet Volume 11.1 H Neutrophils % Segmented Neutrophils % (Manual) 85 H Band Neutrophils % (Manual) 5 H Lymphocytes % Lymphocytes % (Manual) 10 L Monocytes % Eosinophils % Basophils % Nucleated Red Blood Cells % 10.2 H Neutrophils # Neutrophils # (Manual) 6.4 Band Neutrophils # 0.3 Absolute Lymphocytes (Manual) 0.7 L Lymphocytes # 0.8 Monocytes # Eosinophils # Basophils # Nucleated Red Blood Cells # Hypochromasia 2+ Anisocytosis 2+ Sodium Level 133 L Potassium Level 3.6 Chloride Level 88 L Carbon Dioxide Level 24 Anion Gap 25 H Blood Urea Nitrogen 24 H Creatinine 2.43 H Glucose Level 84 Lactic Acid Level 12.9 *H Calcium Level 9.3 Total Bilirubin 27.5 H Direct Bilirubin 16.90 *H Indirect Bilirubin 10.6 H Aspartate Amino Transf (AST/SGOT) 443 H Alanine Aminotransferase (ALT/SGPT) 485 H Alkaline Phosphatase 59 Ammonia 25 Total Protein 4.8 L Albumin 2.2 L Globulin 2.60 Albumin/Globulin Ratio 0.84 Lab Scanned Report BLOOD TRANSFUSION Medications Medications Current Medications Folic Acid (Folic Acid) 1 mg DAILY PO Last administered on 08/11/17 08:29; Admin Dose 1 MG; Start 07/30/17 at 09:00 Rifaximin (Xifaxan) 550 mg BID PO Last administered on 08/11/17 08:29; Admin Dose 550 MG; Start 07/30/17 at 09:00 Ondansetron HCl (Zofran Inj) 4 mg Q6H PRN IV NAUSEA AND/OR VOMITING Last administered on 08/04/17 11:26; Admin Dose 4 MG; Start 07/30/17 at 09:00 Acetaminophen (Tylenol Tab) 650 mg Q6H PRN PO PAIN LEVEL 1-3 OR FEVER; Start 07/30/17 at 09:00 Acetaminophen (Tylenol Supp) 650 mg Q6H PRN [place] PAIN LEVEL 1-3 OR FEVER; Start 07/30/17 at 09:00 Lactulose (Enulose) 30 gm Q6H PRN PO CONSTIPATION Last administered on 11:23; Admin Dose 30 GM; Start 08/04/17 at 11:00; Status Future Hold Lactulose 20 gm 20 gm Q4 GTB Last administered on 08/11/17 08:29; Admin Dose 20 GM; Start 08/05/17 at 13:00 Phenylephrine HCl 160 mg/Dextrose 500 ml @ 18.75 mls/ hr TITRATE IV Last administered on 08/11/17 07:28; Admin Dose 56.25 MLS/HR; Start 08/06/17 at 11 :00 Norepinephrine 32 mg/Dextrose 250 ml @ 0.46 mls/hr TITRATE IV Last administered on 08/10/17 23:10; Admin Dose 14.06 MLS/HR; Start 08/06/17 at 11 :00 Pantoprazole 80 mg/Sodium Chloride 100 ml @ 10 mls/hr Q10H IV Last administered on 08/11/17 06:13; Admin Dose 10 MLS/HR; Start 08/06/17 at 13:30 Sodium Bicarbonate/ Dextrose (Na Bicarb/D5W) 1,150 ml @ 75 mls/hr [id number] IV Last administered on 08/10/17 23:07; Admin Dose 75 MLS/HR; Start 08/06/17 at 15:38 Lorazepam (Ativan) 2 mg Q2H PRN IV SEIZURES; Start 08/07/17 at 09:00 IV Flush 10 ml 10 ml PRN PRN IV IV PROTOCOL; Start 08/07/17 at 19:00 Levetiracetam 100 ml @ 400 mls/hr Q12 IVPB Last administered on 08/11/17 08: 29; Admin Dose 400 MLS/HR; Start 08/08/17 at 13:00 Piperacillin Sod/ Tazobactam Sod 50 ml @ 100 mls/hr Q6H IVPB Last administered on 08/11/17 09:24; Admin Dose 100 MLS/HR; Start 08/08/17 at 16: 00 Vasopressin/ Dextrose (Vasostrict/D5W) 60 ml @ 1.2 mls/hr Q12H IV Last administered on 08/11/17 06:58; Admin Dose 1.8 MLS/HR; Start 08/08/17 at 18: 30 Dextrose (D50w Syringe) 50 ml PRN PRN IV hypoglycemia Last administered on 07:17; Admin Dose 50 ML; Start 08/09/17 at 07:30 [facility] This patient dolan... PRN PRN XX WOUND CARE; Start 08/09/17 at 13:00 OSMAN NEGRON Aug 11, 2017 12:34
[2017-08-11] MEDS: SODIUM BICARBONATE (IV ADD) 150 MEQ in DEXTROSE 5% 1,000 ML IV SCH (14:12)
--- NOTE | 2017-08-11 15:12 | CONS ---
Date/Time of Note Date/Time of Note DATE: 08/11/17 TIME: 15:11 Assessment/Plan Assessment/Plan Additional Assessment/Plan 67 yo female with cirrhosis admitted with CKD, hepatorenal syndrome, respiratory failure decompensated liver cirrhosis, septic shock respiratory failure, severe anemia receiving transfusions, and hyperammonemia with severe encephalopathy. EEG: abnormal EEG due to generalized bihemispheric background slowing with low amplitude waves with left frontal and right temporal sharps which could be epileptogenic is consistent with severe encephalopathy with seizures. Recommendations: increased dose Keppra 1000 mg q12h continue seizure precautions and monitoring for sz repeat Head CT is pending overall her prognosis is poor she on DNR status at this time Consultation Date/Type/Reason Admit Date/Time Jul 30, 2017 at 04:53 Initial Consult Date 08/07/17 Type of Consultation: Pulmonary Referring Provider: OSMAN NEGRON Exam/Review of Systems Vital Signs Vitals Vital Signs Date Time Temp Pulse Resp B/P Pulse Ox O2 Delivery O2 Flow Rate FiO2 08/11/17 14:15 86 20 95/55 94 Mechanical Ventilator 08/11/17 12:00 100 08/11/17 12:00 97.4 Intake and Output 08/10/17 08/10/17 08/11/17 15:00 23:00 07:00 Intake Total 2831.24 ml 1804.24 ml 1250.11 ml Output Total 1575 ml 5 ml 0 ml Balance 1256.24 ml 1799.24 ml 1250.11 ml Exam Neurological: other (Comatose, intubated, ventilated, sluggish corneals, pupils nonreactive) Results Result Diagram: 08/11/17 0430 08/11/17 0430 Results 24 hrs Laboratory Tests Test 08/10/17 19:38 08/11/17 04:30 08/11/17 05:33 Magnesium Level 1.7 White Blood Count 7.5 Red Blood Count 2.72 L Hemoglobin 8.3 L Hematocrit 24.5 L Mean Corpuscular Volume 90.1 Mean Corpuscular Hemoglobin 30.5 Mean Corpuscular Hemoglobin Concent 33.9 Red Cell Distribution Width 17.5 H Platelet Count 23 #*L Mean Platelet Volume 11.1 H Neutrophils % Segmented Neutrophils % (Manual) 85 H Band Neutrophils % (Manual) 5 H Lymphocytes % Lymphocytes % (Manual) 10 L Monocytes % Eosinophils % Basophils % Nucleated Red Blood Cells % 10.2 H Neutrophils # Neutrophils # (Manual) 6.4 Band Neutrophils # 0.3 Absolute Lymphocytes (Manual) 0.7 L Lymphocytes # 0.8 Monocytes # Eosinophils # Basophils # Nucleated Red Blood Cells # Hypochromasia 2+ Anisocytosis 2+ Sodium Level 133 L Potassium Level 3.6 Chloride Level 88 L Carbon Dioxide Level 24 Anion Gap 25 H Blood Urea Nitrogen 24 H Creatinine 2.43 H Glucose Level 84 Lactic Acid Level 12.9 *H Calcium Level 9.3 Total Bilirubin 27.5 H Direct Bilirubin 16.90 *H Indirect Bilirubin 10.6 H Aspartate Amino Transf (AST/SGOT) 443 H Alanine Aminotransferase (ALT/SGPT) 485 H Alkaline Phosphatase 59 Ammonia 25 Total Protein 4.8 L Albumin 2.2 L Globulin 2.60 Albumin/Globulin Ratio 0.84 Lab Scanned Report BLOOD TRANSFUSION Medications Medications Current Medications Folic Acid (Folic Acid) 1 mg DAILY PO Last administered on 08/11/17 08:29; Admin Dose 1 MG; Start 07/30/17 at 09:00 Rifaximin (Xifaxan) 550 mg BID PO Last administered on 08/11/17 08:29; Admin Dose 550 MG; Start 07/30/17 at 09:00 Ondansetron HCl (Zofran Inj) 4 mg Q6H PRN IV NAUSEA AND/OR VOMITING Last administered on 08/04/17 11:26; Admin Dose 4 MG; Start 07/30/17 at 09:00 Acetaminophen (Tylenol Tab) 650 mg Q6H PRN PO PAIN LEVEL 1-3 OR FEVER; Start 07/30/17 at 09:00 Acetaminophen (Tylenol Supp) 650 mg Q6H PRN [place] PAIN LEVEL 1-3 OR FEVER; Start 07/30/17 at 09:00 Lactulose (Enulose) 30 gm Q6H PRN PO CONSTIPATION Last administered on 11:23; Admin Dose 30 GM; Start 08/04/17 at 11:00; Status Future Hold Lactulose 20 gm 20 gm Q4 GTB Last administered on 08/11/17 12:58; Admin Dose 20 GM; Start 08/05/17 at 13:00 Phenylephrine HCl 160 mg/Dextrose 500 ml @ 18.75 mls/ hr TITRATE IV Last administered on 08/11/17 07:28; Admin Dose 56.25 MLS/HR; Start 08/06/17 at 11 :00 Norepinephrine 32 mg/Dextrose 250 ml @ 0.46 mls/hr TITRATE IV Last administered on 08/10/17 23:10; Admin Dose 14.06 MLS/HR; Start 08/06/17 at 11 :00 Pantoprazole 80 mg/Sodium Chloride 100 ml @ 10 mls/hr Q10H IV Last administered on 08/11/17 13:00; Admin Dose 10 MLS/HR; Start 08/06/17 at 13:30 Sodium Bicarbonate/ Dextrose (Na Bicarb/D5W) 1,150 ml @ 75 mls/hr [id number] IV Last administered on 08/11/17 14:12; Admin Dose 75 MLS/HR; Start 08/06/17 at 15:38 Lorazepam (Ativan) 2 mg Q2H PRN IV SEIZURES; Start 08/07/17 at 09:00 IV Flush 10 ml 10 ml PRN PRN IV IV PROTOCOL; Start 08/07/17 at 19:00 Levetiracetam 100 ml @ 400 mls/hr Q12 IVPB Last administered on 08/11/17 08: 29; Admin Dose 400 MLS/HR; Start 08/08/17 at 13:00 Piperacillin Sod/ Tazobactam Sod 50 ml @ 100 mls/hr Q6H IVPB Last administered on 08/11/17 09:24; Admin Dose 100 MLS/HR; Start 08/08/17 at 16: 00 Vasopressin/ Dextrose (Vasostrict/D5W) 60 ml @ 1.2 mls/hr Q12H IV Last administered on 08/11/17 06:58; Admin Dose 1.8 MLS/HR; Start 08/08/17 at 18: 30 Dextrose (D50w Syringe) 50 ml PRN PRN IV hypoglycemia Last administered on 07:17; Admin Dose 50 ML; Start 08/09/17 at 07:30 Miscellaneous Information (Pending [facility] Order For Wound Care) This patient dolan... PRN PRN XX WOUND CARE; Start 08/09/17 at 13:00 MARIAELENA MCALLISTER MD Aug 11, 2017 15:12
--- NOTE | 2017-08-11 15:35 | CONS ---
Date/Time of Note Date/Time of Note DATE: 08/11/17 TIME: 15:32 Assessment/Plan Assessment/Plan Additional Assessment/Plan 1. acute Kidney injury vs Acute kidney injury on CKD due to Hepartorenal syndrome + ATN- started on HD 08/08/17 due to hepatorenal syndrome - Bun/ Cr - 24/2.43 2. acute resp failure due to decompensated liver cirrhosis and Septic shock- required intubation and mechanical ventilation 3. Severe anemia s/p EGD - negative for acute bleeding, with grade IV esophageal varices 4.. Altered mental status secondary to hepatic encephalopathy + metabolic enceophalopathy, 5. Hyperammonemia 6. comatose, unresponsive 7. Hypokalemia- resolved 8. Hypomagnesemia - 1,7 Plan: -Remains intubated, on two pressors - unstable for transfer to [facility] -s/p Sarabjit Catheter placement,, s/p HD - Ventilator care and pulmonary management as per Training And Development Officer - s/p EGD by GI 08/06/17 negative for acute bleeding- Grade IV esophagel varices as per GI report Need goals of care discussion if not transferred to [facility]- because pt has poor prognosis due to ESLD Neurology following on case, pt remains unresponsive, EEG c/w epileptiform activity palliative care has been following on patient will follow up Dw Dr Lesley Camarena Consultation Date/Type/Reason Admit Date/Time Jul 30, 2017 at 04:53 Initial Consult Date 08/07/17 Type of Consultation: Pulmonary Referring Provider: OSMAN NEGRON 24 HR Interval Summary Subjective hx not possible: pt non-verbal, pt critical Constitutional: requiring IVF, requiring O2 Exam/Review of Systems Vital Signs Vitals Vital Signs Date Time Temp Pulse Resp B/P Pulse Ox O2 Delivery O2 Flow Rate FiO2 08/11/17 14:15 86 20 95/55 94 Mechanical Ventilator 08/11/17 12:00 100 08/11/17 12:00 97.4 Intake and Output 08/10/17 08/10/17 08/11/17 15:00 23:00 07:00 Intake Total 2831.24 ml 1804.24 ml 1250.11 ml Output Total 1575 ml 5 ml 0 ml Balance 1256.24 ml 1799.24 ml 1250.11 ml Exam Constitutional: frail, non-verbal Gastrointestinal: soft Musculoskeletal: muscle weakness Extremities: other (diminshed dpulses) Neurological: unresponsive Results Result Diagram: 08/11/17 0430 08/11/17 0430 Results 24 hrs Laboratory Tests Test 08/10/17 19:38 08/11/17 04:30 08/11/17 05:33 Magnesium Level 1.7 White Blood Count 7.5 Red Blood Count 2.72 L Hemoglobin 8.3 L Hematocrit 24.5 L Mean Corpuscular Volume 90.1 Mean Corpuscular Hemoglobin 30.5 Mean Corpuscular Hemoglobin Concent 33.9 Red Cell Distribution Width 17.5 H Platelet Count 23 #*L Mean Platelet Volume 11.1 H Neutrophils % Segmented Neutrophils % (Manual) 85 H Band Neutrophils % (Manual) 5 H Lymphocytes % Lymphocytes % (Manual) 10 L Monocytes % Eosinophils % Basophils % Nucleated Red Blood Cells % 10.2 H Neutrophils # Neutrophils # (Manual) 6.4 Band Neutrophils # 0.3 Absolute Lymphocytes (Manual) 0.7 L Lymphocytes # 0.8 Monocytes # Eosinophils # Basophils # Nucleated Red Blood Cells # Hypochromasia 2+ Anisocytosis 2+ Sodium Level 133 L Potassium Level 3.6 Chloride Level 88 L Carbon Dioxide Level 24 Anion Gap 25 H Blood Urea Nitrogen 24 H Creatinine 2.43 H Glucose Level 84 Lactic Acid Level 12.9 *H Calcium Level 9.3 Total Bilirubin 27.5 H Direct Bilirubin 16.90 *H Indirect Bilirubin 10.6 H Aspartate Amino Transf (AST/SGOT) 443 H Alanine Aminotransferase (ALT/SGPT) 485 H Alkaline Phosphatase 59 Ammonia 25 Total Protein 4.8 L Albumin 2.2 L Globulin 2.60 Albumin/Globulin Ratio 0.84 Lab Scanned Report BLOOD TRANSFUSION Medications Medications Current Medications Folic Acid (Folic Acid) 1 mg DAILY PO Last administered on 08/11/17 08:29; Admin Dose 1 MG; Start 07/30/17 at 09:00 Rifaximin (Xifaxan) 550 mg BID PO Last administered on 08/11/17 08:29; Admin Dose 550 MG; Start 07/30/17 at 09:00 Ondansetron HCl (Zofran Inj) 4 mg Q6H PRN IV NAUSEA AND/OR VOMITING Last administered on 08/04/17 11:26; Admin Dose 4 MG; Start 07/30/17 at 09:00 Acetaminophen (Tylenol Tab) 650 mg Q6H PRN PO PAIN LEVEL 1-3 OR FEVER; Start 07/30/17 at 09:00 Acetaminophen (Tylenol Supp) 650 mg Q6H PRN [place] PAIN LEVEL 1-3 OR FEVER; Start 07/30/17 at 09:00 Lactulose (Enulose) 30 gm Q6H PRN PO CONSTIPATION Last administered on 11:23; Admin Dose 30 GM; Start 08/04/17 at 11:00; Status Future Hold Lactulose 20 gm 20 gm Q4 GTB Last administered on 08/11/17 12:58; Admin Dose 20 GM; Start 08/05/17 at 13:00 Phenylephrine HCl 160 mg/Dextrose 500 ml @ 18.75 mls/ hr TITRATE IV Last administered on 08/11/17 07:28; Admin Dose 56.25 MLS/HR; Start 08/06/17 at 11 :00 Norepinephrine 32 mg/Dextrose 250 ml @ 0.46 mls/hr TITRATE IV Last administered on 08/10/17 23:10; Admin Dose 14.06 MLS/HR; Start 08/06/17 at 11 :00 Pantoprazole 80 mg/Sodium Chloride 100 ml @ 10 mls/hr Q10H IV Last administered on 08/11/17 13:00; Admin Dose 10 MLS/HR; Start 08/06/17 at 13:30 Sodium Bicarbonate/ Dextrose (Na Bicarb/D5W) 1,150 ml @ 75 mls/hr [id number] IV Last administered on 08/11/17 14:12; Admin Dose 75 MLS/HR; Start 08/06/17 at 15:38 Lorazepam (Ativan) 2 mg Q2H PRN IV SEIZURES; Start 08/07/17 at 09:00 IV Flush 10 ml 10 ml PRN PRN IV IV PROTOCOL; Start 08/07/17 at 19:00 Levetiracetam 100 ml @ 400 mls/hr Q12 IVPB Last administered on 08/11/17 08: 29; Admin Dose 400 MLS/HR; Start 08/08/17 at 13:00 Piperacillin Sod/ Tazobactam Sod 50 ml @ 100 mls/hr Q6H IVPB Last administered on 08/11/17 09:24; Admin Dose 100 MLS/HR; Start 08/08/17 at 16: 00 Vasopressin/ Dextrose (Vasostrict/D5W) 60 ml @ 1.2 mls/hr Q12H IV Last administered on 08/11/17 06:58; Admin Dose 1.8 MLS/HR; Start 08/08/17 at 18: 30 Dextrose (D50w Syringe) 50 ml PRN PRN IV hypoglycemia Last administered on 07:17; Admin Dose 50 ML; Start 08/09/17 at 07:30 [facility]isc[facility] This patient dolan... PRN PRN XX WOUND CARE; Start 08/09/17 at 13:00 KELLY HALLMAN Aug 11, 2017 15:35
--- NOTE | 2017-08-11 15:40 | PN ---
Date/Time of Note Date/Time of Note DATE: 08/11/17 TIME: 15:37 Assessment/Plan VTE Prophylaxis VTE Prophylaxis Intervention: SCD's Lines/Catheters IV Catheter Type (from Nrsg): PICC Line Central line still needed: Yes (Medication) Urinary Cath still in place: Yes Reason Cath still needed: terminal illness/intractable pain Assessment/Plan Chief Complaint/Hosp Course Assessment: AMS secondary to hepatic encephalopathy Cryptogenic cirrhosis with ascites Electrolyte abnormalities: likely due to cirrhosis with ascites . Macrocytic anemia EGD 08/06 Severe esophagitis. No active bleeding or stigmata Grade I-II/IV esophageal varices. No stigmata recent bleeding Severe antral gastritis. No active bleeding or stigmata No gastric varices present Normal duodenum Hyperammonia- worsening Thrombocytopenia Renal failure on HD Plan: No significant changes over night Very prognosis poor Patient DNR Possible withdraw of care Hospice will be consulted Supportive care from all services Patient seen in collaboration with Dr. Roblero Subjective: Course reviewed with nursing staff Patient interviewed and examined All labs, imaging and other results reviewed Extremely poor prognosis, patient is a DNR Hospice to be consulted per primary PLT improved post transfusion Continue to monitor hemoglobin and hematocrit for blood transfusion Constitutional: intubated Psych: unable to assess Head: atraumatic, normocephalic Eyes: icteric ENMT: nl external ears & nose, nl lips & teeth, NGT in place Neck: non-tender, supple Respiratory: Diminished Cardiovascular: tachy Gastrointestinal: hypoactive and distant bowel sounds, distended, soft, jaundice Problems: Exam/Review of Systems Vital Signs Vitals Vital Signs Date Time Temp Pulse Resp B/P Pulse Ox O2 Delivery O2 Flow Rate FiO2 08/11/17 14:15 86 20 95/55 94 Mechanical Ventilator 08/11/17 12:00 100 08/11/17 12:00 97.4 Intake and Output 08/10/17 08/10/17 08/11/17 15:00 23:00 07:00 Intake Total 2831.24 ml 1804.24 ml 1250.11 ml Output Total 1575 ml 5 ml 0 ml Balance 1256.24 ml 1799.24 ml 1250.11 ml Results Result Diagram: 08/11/17 0430 08/11/17 0430 Results 24 hrs Laboratory Tests Test 08/10/17 19:38 08/11/17 04:30 08/11/17 05:33 Magnesium Level 1.7 White Blood Count 7.5 Red Blood Count 2.72 L Hemoglobin 8.3 L Hematocrit 24.5 L Mean Corpuscular Volume 90.1 Mean Corpuscular Hemoglobin 30.5 Mean Corpuscular Hemoglobin Concent 33.9 Red Cell Distribution Width 17.5 H Platelet Count 23 #*L Mean Platelet Volume 11.1 H Neutrophils % Segmented Neutrophils % (Manual) 85 H Band Neutrophils % (Manual) 5 H Lymphocytes % Lymphocytes % (Manual) 10 L Monocytes % Eosinophils % Basophils % Nucleated Red Blood Cells % 10.2 H Neutrophils # Neutrophils # (Manual) 6.4 Band Neutrophils # 0.3 Absolute Lymphocytes (Manual) 0.7 L Lymphocytes # 0.8 Monocytes # Eosinophils # Basophils # Nucleated Red Blood Cells # Hypochromasia 2+ Anisocytosis 2+ Sodium Level 133 L Potassium Level 3.6 Chloride Level 88 L Carbon Dioxide Level 24 Anion Gap 25 H Blood Urea Nitrogen 24 H Creatinine 2.43 H Glucose Level 84 Lactic Acid Level 12.9 *H Calcium Level 9.3 Total Bilirubin 27.5 H Direct Bilirubin 16.90 *H Indirect Bilirubin 10.6 H Aspartate Amino Transf (AST/SGOT) 443 H Alanine Aminotransferase (ALT/SGPT) 485 H Alkaline Phosphatase 59 Ammonia 25 Total Protein 4.8 L Albumin 2.2 L Globulin 2.60 Albumin/Globulin Ratio 0.84 Lab Scanned Report BLOOD TRANSFUSION Medications Medications Current Medications Folic Acid (Folic Acid) 1 mg DAILY PO Last administered on 08/11/17 08:29; Admin Dose 1 MG; Start 07/30/17 at 09:00 Rifaximin (Xifaxan) 550 mg BID PO Last administered on 08/11/17 08:29; Admin Dose 550 MG; Start 07/30/17 at 09:00 Ondansetron HCl (Zofran Inj) 4 mg Q6H PRN IV NAUSEA AND/OR VOMITING Last administered on 08/04/17 11:26; Admin Dose 4 MG; Start 07/30/17 at 09:00 Acetaminophen (Tylenol Tab) 650 mg Q6H PRN PO PAIN LEVEL 1-3 OR FEVER; Start 07/30/17 at 09:00 Acetaminophen (Tylenol Supp) 650 mg Q6H PRN [place] PAIN LEVEL 1-3 OR FEVER; Start 07/30/17 at 09:00 Lactulose (Enulose) 30 gm Q6H PRN PO CONSTIPATION Last administered on 11:23; Admin Dose 30 GM; Start 08/04/17 at 11:00; Status Future Hold Lactulose 20 gm 20 gm Q4 GTB Last administered on 08/11/17 12:58; Admin Dose 20 GM; Start 08/05/17 at 13:00 Phenylephrine HCl 160 mg/Dextrose 500 ml @ 18.75 mls/ hr TITRATE IV Last administered on 08/11/17 07:28; Admin Dose 56.25 MLS/HR; Start 08/06/17 at 11 :00 Norepinephrine 32 mg/Dextrose 250 ml @ 0.46 mls/hr TITRATE IV Last administered on 08/10/17 23:10; Admin Dose 14.06 MLS/HR; Start 08/06/17 at 11 :00 Pantoprazole 80 mg/Sodium Chloride 100 ml @ 10 mls/hr Q10H IV Last administered on 08/11/17 13:00; Admin Dose 10 MLS/HR; Start 08/06/17 at 13:30 Sodium Bicarbonate/ Dextrose (Na Bicarb/D5W) 1,150 ml @ 75 mls/hr [id number] IV Last administered on 08/11/17 14:12; Admin Dose 75 MLS/HR; Start 08/06/17 at 15:38 Lorazepam (Ativan) 2 mg Q2H PRN IV SEIZURES; Start 08/07/17 at 09:00 IV Flush 10 ml 10 ml PRN PRN IV IV PROTOCOL; Start 08/07/17 at 19:00 Levetiracetam 100 ml @ 400 mls/hr Q12 IVPB Last administered on 08/11/17 08: 29; Admin Dose 400 MLS/HR; Start 08/08/17 at 13:00 Piperacillin Sod/ Tazobactam Sod 50 ml @ 100 mls/hr Q6H IVPB Last administered on 08/11/17 09:24; Admin Dose 100 MLS/HR; Start 08/08/17 at 16: 00 Vasopressin/ Dextrose (Vasostrict/D5W) 60 ml @ 1.2 mls/hr Q12H IV Last administered on 08/11/17 06:58; Admin Dose 1.8 MLS/HR; Start 08/08/17 at 18: 30 Dextrose (D50w Syringe) 50 ml PRN PRN IV hypoglycemia Last administered on t 07:17; Admin Dose 50 ML; Start 08/09/17 at 07:30 Miscellaneous Information (Pending [facility] Order For Wound Care) This patient dolan... PRN PRN XX WOUND CARE; Start 08/09/17 at 13:00 RAFAT BERKOWITZ Aug 11, 2017 15:40
[2017-08-11] MEDS: NORepinephrine 32 MG in DEXTROSE 5% 218 ML IV SCH (16:12)
--- NOTE | 2017-08-11 18:02 | CONS ---
Date/Time of Note Date/Time of Note DATE: 08/11/17 TIME: 17:56 Assessment/Plan Assessment/Plan Chief Complaint/Hosp Course Assessment: Paroxysmal supraventricular tachycardia - now back in sinus rhythm Liver cirrhosis Shock Acute renal failure Ventilator-dependent respiratory failure Thrombocytopenic and possible disseminated intravascular coagulation Hepatic encephalopathy Recommendations: -continue pressors -monitor rhythm off amiodarone -poor prognosis Problems: Consultation Date/Type/Reason Admit Date/Time Jul 30, 2017 at 04:53 Type of Consultation: Cardiology Reason for Consultation supraventricular tachycardia Hx of Present Illness The patient is a 67 year-old female with liver cirrhosis who initially presented with altered mental status. She has subsequently developed multi- organ failure with shock, acute renal failure, respiratory failure, and possible disseminated intravascular coagulation. She developed supraventricular tachycardia and was briefly treated on amiodarone drip. Amiodarone has subsequently been discontinued and patient is currently in sinus rhythm. Unable to obtain review of systems, patient is intubated. Constitutional: requiring IVF, requiring O2 Psychological: confusion Past Medical History Medical History: other (liver cirrhosis) Past Surgical History Unable to obtain Family History Significant Family History: other (unable to obtain) Social History Unable to obtain Exam/Review of Systems Vital Signs Vitals Vital Signs Date Time Temp Pulse Resp B/P Pulse Ox O2 Delivery O2 Flow Rate FiO2 08/11/17 17:45 89 20 90/50 92 Mechanical Ventilator 08/11/17 17:00 100 08/11/17 16:00 95.0 Intake and Output 08/10/17 08/10/17 08/11/17 15:00 23:00 07:00 Intake Total 2831.24 ml 1804.24 ml 1250.11 ml Output Total 1575 ml 5 ml 0 ml Balance 1256.24 ml 1799.24 ml 1250.11 ml Exam Constitutional: No alert, No distress Psych: No nl mood/affect, No no complaints Head: atraumatic, normocephalic Eyes: nl conjunctiva, nl lids ENMT: intubated Neck: supple, No jvd Respiratory: diminished breath sounds, No wheezing Cardiovascular: regular rate and rhythm, No murmurs/extra sounds Gastrointestinal: ascites, distended Musculoskeletal: nl extremities to inspection Extremities: edema, No clubbing, No cyanosis Neurological: No nl mental status, No nl speech Results Result Diagram: 08/11/17 0430 08/11/17 0430 Results 24 hrs Laboratory Tests Test 08/10/17 19:38 08/11/17 04:30 08/11/17 05:33 Magnesium Level 1.7 White Blood Count 7.5 Red Blood Count 2.72 L Hemoglobin 8.3 L Hematocrit 24.5 L Mean Corpuscular Volume 90.1 Mean Corpuscular Hemoglobin 30.5 Mean Corpuscular Hemoglobin Concent 33.9 Red Cell Distribution Width 17.5 H Platelet Count 23 #*L Mean Platelet Volume 11.1 H Neutrophils % Segmented Neutrophils % (Manual) 85 H Band Neutrophils % (Manual) 5 H Lymphocytes % Lymphocytes % (Manual) 10 L Monocytes % Eosinophils % Basophils % Nucleated Red Blood Cells % 10.2 H Neutrophils # Neutrophils # (Manual) 6.4 Band Neutrophils # 0.3 Absolute Lymphocytes (Manual) 0.7 L Lymphocytes # 0.8 Monocytes # Eosinophils # Basophils # Nucleated Red Blood Cells # Hypochromasia 2+ Anisocytosis 2+ Sodium Level 133 L Potassium Level 3.6 Chloride Level 88 L Carbon Dioxide Level 24 Anion Gap 25 H Blood Urea Nitrogen 24 H Creatinine 2.43 H Glucose Level 84 Lactic Acid Level 12.9 *H Calcium Level 9.3 Total Bilirubin 27.5 H Direct Bilirubin 16.90 *H Indirect Bilirubin 10.6 H Aspartate Amino Transf (AST/SGOT) 443 H Alanine Aminotransferase (ALT/SGPT) 485 H Alkaline Phosphatase 59 Ammonia 25 Total Protein 4.8 L Albumin 2.2 L Globulin 2.60 Albumin/Globulin Ratio 0.84 Lab Scanned Report BLOOD TRANSFUSION Medications Medications Current Medications Folic Acid (Folic Acid) 1 mg DAILY PO Last administered on 08/11/17 08:29; Admin Dose 1 MG; Start 07/30/17 at 09:00 Rifaximin (Xifaxan) 550 mg BID PO Last administered on 08/11/17 08:29; Admin Dose 550 MG; Start 07/30/17 at 09:00 Ondansetron HCl (Zofran Inj) 4 mg Q6H PRN IV NAUSEA AND/OR VOMITING Last administered on 08/04/17 11:26; Admin Dose 4 MG; Start 07/30/17 at 09:00 Acetaminophen (Tylenol Tab) 650 mg Q6H PRN PO PAIN LEVEL 1-3 OR FEVER; Start 07/30/17 at 09:00 Acetaminophen (Tylenol Supp) 650 mg Q6H PRN [place] PAIN LEVEL 1-3 OR FEVER; Start 07/30/17 at 09:00 Lactulose (Enulose) 30 gm Q6H PRN PO CONSTIPATION Last administered on 11:23; Admin Dose 30 GM; Start 08/04/17 at 11:00; Status Future Hold Lactulose 20 gm 20 gm Q4 GTB Last administered on 08/11/17 16:19; Admin Dose 20 GM; Start 08/05/17 at 13:00 Phenylephrine HCl 160 mg/Dextrose 500 ml @ 18.75 mls/ hr TITRATE IV Last administered on 08/11/17 16:11; Admin Dose 56.25 MLS/HR; Start 08/06/17 at 11 :00 Norepinephrine 32 mg/Dextrose 250 ml @ 0.46 mls/hr TITRATE IV Last administered on 08/11/17 16:12; Admin Dose 14.06 MLS/HR; Start 08/06/17 at 11 :00 Pantoprazole 80 mg/Sodium Chloride 100 ml @ 10 mls/hr Q10H IV Last administered on 08/11/17 13:00; Admin Dose 10 MLS/HR; Start 08/06/17 at 13:30 Sodium Bicarbonate/ Dextrose (Na Bicarb/D5W) 1,150 ml @ 75 mls/hr [id number] IV Last administered on 08/11/17 14:12; Admin Dose 75 MLS/HR; Start 08/06/17 at 15:38 Lorazepam (Ativan) 2 mg Q2H PRN IV SEIZURES; Start 08/07/17 at 09:00 IV Flush 10 ml 10 ml PRN PRN IV IV PROTOCOL; Start 08/07/17 at 19:00 Levetiracetam 100 ml @ 400 mls/hr Q12 IVPB Last administered on 08/11/17 08: 29; Admin Dose 400 MLS/HR; Start 08/08/17 at 13:00 Piperacillin Sod/ Tazobactam Sod 50 ml @ 100 mls/hr Q6H IVPB Last administered on 08/11/17 16:19; Admin Dose 100 MLS/HR; Start 08/08/17 at 16: 00 Vasopressin/ Dextrose (Vasostrict/D5W) 60 ml @ 1.2 mls/hr Q12H IV Last administered on 08/11/17 16:11; Admin Dose 2.4 MLS/HR; Start 08/08/17 at 18: 30 Dextrose (D50w Syringe) 50 ml PRN PRN IV hypoglycemia Last administered on 07:17; Admin Dose 50 ML; Start 08/09/17 at 07:30 Miscellaneous [facility] This patient dolan... PRN PRN XX WOUND CARE; Start 08/09/17 at 13:00 Procedures Procedures Critical care time: >35 minutes at bedside NAILA JOHNSON MD Aug 11, 2017 18:02
[2017-08-11] MEDS ORDERED: DOPamine-D5W 1.6 MG/ML 250 ML ONE (22:56)
[2017-08-11] MEDS ORDERED: DOPamine-D5W 1.6 MG/ML 250 ML IV SCH (23:00)
[2017-08-12] VITALS (22 sets, daily range): BP systolic 39–104; BP diastolic 26–62; PULSE 0–107; RESP 0–20
[2017-08-12] MEDS: PANTOPRAZOLE IV 80 MG in SOD CHLORIDE 0.9% 100 ML IV SCH (00:12)
[2017-08-12] MEDS: LACTULOSE 30ML CUP GTB SCH (01:00)
[2017-08-12] MEDS: PHENYLephrine 160 MG in DEXTROSE 5% 484 ML IV SCH (01:13)
[2017-08-12] MEDS ORDERED: morphine (DRIP) 100 MG/100 ML 100 ML IV ONE (03:24)
[2017-08-12] MEDS ORDERED: DIMETHICONE STICK TOP PRN (04:00)
[2017-08-12] MEDS ORDERED: morphine (DRIP) 100 MG/100 ML 100 ML IV SCH (04:00)
[2017-08-12] MEDS ORDERED: PENDING SANTYL ORDER FOR WOUND CARE XX PRN (04:00)
[2017-08-12] MEDS ORDERED: ARTIFICIAL TEARS 15 ML OPH BOTH EYES PRN (04:00)
--- NOTE | 2017-08-12 06:24 | CONS ---
Date/Time of Note Date/Time of Note DATE: 08/12/17 TIME: 06:23 Consult Date/Type/Reason Admit Date/Time Jul 30, 2017 at 04:53 Initial Consult Date 08/07/17 Type of Consultation: Palliative care Ordering Provider: OSMAN NEGRON Objective Vital Signs Date Time Temp Pulse Resp B/P Pulse Ox O2 Delivery O2 Flow Rate FiO2 08/12/17 04:45 0 0 08/12/17 04:00 39/26 94 08/12/17 04:00 2.0 08/12/17 03:25 100 08/12/17 00:00 97.0 Mechanical Ventilator Intake and Output 08/11/17 08/11/17 08/12/17 15:00 23:00 07:00 Intake Total 1408.68 ml 1461.68 ml 52431.28 ml Output Total 5 ml 10 ml 0 ml Balance 1403.68 ml 1451.68 ml 25147.28 ml Results/Medications Result Diagram: 08/11/17 0430 08/11/17 0430 Results 24 hrs Laboratory Tests Test 08/12/17 05:33 Lab Scanned Report BLOOD TRANSFUSION Medications Current Medications Folic Acid (Folic Acid) 1 mg DAILY PO Last administered on 08/11/17 08:29; Admin Dose 1 MG; Start 07/30/17 at 09:00 Rifaximin (Xifaxan) 550 mg BID PO Last administered on 08/11/17 20:27; Admin Dose 550 MG; Start 07/30/17 at 09:00 Ondansetron HCl (Zofran Inj) 4 mg Q6H PRN IV NAUSEA AND/OR VOMITING Last administered on 08/04/17 11:26; Admin Dose 4 MG; Start 07/30/17 at 09:00 Acetaminophen (Tylenol Tab) 650 mg Q6H PRN PO PAIN LEVEL 1-3 OR FEVER; Start 07/30/17 at 09:00 Acetaminophen (Tylenol Supp) 650 mg Q6H PRN OR PAIN LEVEL 1-3 OR FEVER; Start 07/30/17 at 09:00 Lactulose (Enulose) 30 gm Q6H PRN PO CONSTIPATION Last administered on 11:23; Admin Dose 30 GM; Start 08/04/17 at 11:00; Status Future Hold Lactulose 20 gm 20 gm Q4 GTB Last administered on 08/11/17 20:27; Admin Dose 20 GM; Start 08/05/17 at 13:00 Phenylephrine HCl 160 mg/Dextrose 500 ml @ 18.75 mls/ hr TITRATE IV Last administered on 08/12/17 01:13; Admin Dose 56.25 MLS/HR; Start 08/06/17 at 11 :00 Norepinephrine 32 mg/Dextrose 250 ml @ 0.46 mls/hr TITRATE IV Last administered on 08/11/17 16:12; Admin Dose 14.06 MLS/HR; Start 08/06/17 at 11 :00 Pantoprazole 80 mg/Sodium Chloride 100 ml @ 10 mls/hr Q10H IV Last administered on 08/12/17 00:12; Admin Dose 10 MLS/HR; Start 08/06/17 at 13:30 Sodium Bicarbonate/ Dextrose (Na Bicarb/D5W) 1,150 ml @ 75 mls/hr [id number] IV Last administered on 08/11/17 14:12; Admin Dose 75 MLS/HR; Start 08/06/17 at 15:38 Lorazepam (Ativan) 2 mg Q2H PRN IV SEIZURES; Start 08/07/17 at 09:00 IV Flush 10 ml 10 ml PRN PRN IV IV PROTOCOL; Start 08/07/17 at 19:00 Levetiracetam 100 ml @ 400 mls/hr Q12 IVPB Last administered on 08/11/17 20: 18; Admin Dose 400 MLS/HR; Start 08/08/17 at 13:00 Piperacillin Sod/ Tazobactam Sod 50 ml @ 100 mls/hr Q6H IVPB Last administered on 08/11/17 21:07; Admin Dose 100 MLS/HR; Start 08/08/17 at 16: 00 Vasopressin/ Dextrose (Vasostrict/D5W) 60 ml @ 1.2 mls/hr Q12H IV Last administered on 08/11/17 16:11; Admin Dose 2.4 MLS/HR; Start 08/08/17 at 18: 30 Dextrose (D50w Syringe) 50 ml PRN PRN IV hypoglycemia Last administered on 07:17; Admin Dose 50 ML; Start 08/09/17 at 07:30 Miscellaneous Information This patient dolan... PRN PRN XX WOUND CARE; Start at 13:00 Dopamine HCl/ Dextrose 250 ml @ 3.908 mls/ hr TITRATE IV Last administered on 08/11/17 23:17; Admin Dose 3.908 MLS/HR; Start 08/11/17 at 23:00 Morphine Sulfate/ Sodium Chloride (morphine) 100 ml @ 1 mls/hr TITRATE IV Last administered on 08/12/17 03:41; Admin Dose 1 MLS/HR; Start 08/12/17 at 04:00 Miscellaneous Information (Pending [facility] Order For Wound Care) This patient dolan... PRN PRN XX WOUND CARE; Start 08/12/17 at 04:00 Assessment/Plan Additional Assessment/Plan Postdated note for visit August 09, 2017 No change in overall clinical course hypotensive on pressors, hypoxic intubated being transfused with packed cells and platelets prognosis extremely poor Continue family conferences, continue DNR. SOCORRO REYES Aug 12, 2017 06:24
--- NOTE | 2017-08-12 06:25 | CONS ---
Date/Time of Note Date/Time of Note DATE: 08/12/17 TIME: 06:24 Consult Date/Type/Reason Admit Date/Time Jul 30, 2017 at 04:53 Initial Consult Date 08/07/17 Type of Consultation: Palliative care Ordering Provider: OSMAN NEGRON Objective Vital Signs Date Time Temp Pulse Resp B/P Pulse Ox O2 Delivery O2 Flow Rate FiO2 08/12/17 04:45 0 0 08/12/17 04:00 39/26 94 08/12/17 04:00 2.0 08/12/17 03:25 100 08/12/17 00:00 97.0 Mechanical Ventilator Intake and Output 08/11/17 08/11/17 08/12/17 15:00 23:00 07:00 Intake Total 1408.68 ml 1461.68 ml 38379.28 ml Output Total 5 ml 10 ml 0 ml Balance 1403.68 ml 1451.68 ml 09415.28 ml Results/Medications Result Diagram: 08/11/17 0430 08/11/17 0430 Results 24 hrs Laboratory Tests Test 08/12/17 05:33 Lab Scanned Report BLOOD TRANSFUSION Medications Current Medications Folic Acid (Folic Acid) 1 mg DAILY PO Last administered on 08/11/17 08:29; Admin Dose 1 MG; Start 07/30/17 at 09:00 Rifaximin (Xifaxan) 550 mg BID PO Last administered on 08/11/17 20:27; Admin Dose 550 MG; Start 07/30/17 at 09:00 Ondansetron HCl (Zofran Inj) 4 mg Q6H PRN IV NAUSEA AND/OR VOMITING Last administered on 08/04/17 11:26; Admin Dose 4 MG; Start 07/30/17 at 09:00 Acetaminophen (Tylenol Tab) 650 mg Q6H PRN PO PAIN LEVEL 1-3 OR FEVER; Start 07/30/17 at 09:00 Acetaminophen (Tylenol Supp) 650 mg Q6H PRN [place] PAIN LEVEL 1-3 OR FEVER; Start 07/30/17 at 09:00 Lactulose (Enulose) 30 gm Q6H PRN PO CONSTIPATION Last administered on 11:23; Admin Dose 30 GM; Start 08/04/17 at 11:00; Status Future Hold Lactulose 20 gm 20 gm Q4 GTB Last administered on 08/11/17 20:27; Admin Dose 20 GM; Start 08/05/17 at 13:00 Phenylephrine HCl 160 mg/Dextrose 500 ml @ 18.75 mls/ hr TITRATE IV Last administered on 08/12/17 01:13; Admin Dose 56.25 MLS/HR; Start 08/06/17 at 11 :00 Norepinephrine 32 mg/Dextrose 250 ml @ 0.46 mls/hr TITRATE IV Last administered on 08/11/17 16:12; Admin Dose 14.06 MLS/HR; Start 08/06/17 at 11 :00 Pantoprazole 80 mg/Sodium Chloride 100 ml @ 10 mls/hr Q10H IV Last administered on 08/12/17 00:12; Admin Dose 10 MLS/HR; Start 08/06/17 at 13:30 Sodium Bicarbonate/ Dextrose (Na Bicarb/D5W) 1,150 ml @ 75 mls/hr [id number] IV Last administered on 08/11/17 14:12; Admin Dose 75 MLS/HR; Start 08/06/17 at 15:38 Lorazepam (Ativan) 2 mg Q2H PRN IV SEIZURES; Start 08/07/17 at 09:00 IV Flush 10 ml 10 ml PRN PRN IV IV PROTOCOL; Start 08/07/17 at 19:00 Levetiracetam 100 ml @ 400 mls/hr Q12 IVPB Last administered on 08/11/17 20: 18; Admin Dose 400 MLS/HR; Start 08/08/17 at 13:00 Piperacillin Sod/ Tazobactam Sod 50 ml @ 100 mls/hr Q6H IVPB Last administered on 08/11/17 21:07; Admin Dose 100 MLS/HR; Start 08/08/17 at 16: 00 Vasopressin/ Dextrose (Vasostrict/D5W) 60 ml @ 1.2 mls/hr Q12H IV Last administered on 08/11/17 16:11; Admin Dose 2.4 MLS/HR; Start 08/08/17 at 18: 30 Dextrose (D50w Syringe) 50 ml PRN PRN IV hypoglycemia Last administered on 07:17; Admin Dose 50 ML; Start 08/09/17 at 07:30 Miscellaneous Information This patient dolan... PRN PRN XX WOUND CARE; Start at 13:00 Dopamine HCl/ Dextrose 250 ml @ 3.908 mls/ hr TITRATE IV Last administered on 08/11/17 23:17; Admin Dose 3.908 MLS/HR; Start 08/11/17 at 23:00 Morphine Sulfate/ Sodium Chloride (morphine) 100 ml @ 1 mls/hr TITRATE IV Last administered on 08/12/17 03:41; Admin Dose 1 MLS/HR; Start 08/12/17 at 04:00 Miscellaneous Information (Pending [facility] Order For Wound Care) This patient dolan... PRN PRN XX WOUND CARE; Start 08/12/17 at 04:00 Assessment/Plan Additional Assessment/Plan Postdated progress note for August 10 No change in overall clinical condition family members are available for 1 and 1 conference tomorrow. SOCORRO REYES Aug 12, 2017 06:25
--- NOTE | 2017-08-12 06:31 | CONS ---
Date/Time of Note Date/Time of Note DATE: 08/12/17 TIME: 06:25 Consult Date/Type/Reason Admit Date/Time Jul 30, 2017 at 04:53 Initial Consult Date 08/07/17 Type of Consultation: Palliative care Ordering Provider: OSMAN NEGRON Objective Vital Signs Date Time Temp Pulse Resp B/P Pulse Ox O2 Delivery O2 Flow Rate FiO2 08/12/17 04:45 0 0 08/12/17 04:00 39/26 94 08/12/17 04:00 2.0 08/12/17 03:25 100 08/12/17 00:00 97.0 Mechanical Ventilator Intake and Output 08/11/17 08/11/17 08/12/17 15:00 23:00 07:00 Intake Total 1408.68 ml 1461.68 ml 29121.28 ml Output Total 5 ml 10 ml 0 ml Balance 1403.68 ml 1451.68 ml 89190.28 ml Results/Medications Result Diagram: 08/11/17 0430 08/11/17 0430 Results 24 hrs Laboratory Tests Test 08/12/17 05:33 Lab Scanned Report BLOOD TRANSFUSION Medications Current Medications Folic Acid (Folic Acid) 1 mg DAILY PO Last administered on 08/11/17 08:29; Admin Dose 1 MG; Start 07/30/17 at 09:00 Rifaximin (Xifaxan) 550 mg BID PO Last administered on 08/11/17 20:27; Admin Dose 550 MG; Start 07/30/17 at 09:00 Ondansetron HCl (Zofran Inj) 4 mg Q6H PRN IV NAUSEA AND/OR VOMITING Last administered on 08/04/17 11:26; Admin Dose 4 MG; Start 07/30/17 at 09:00 Acetaminophen (Tylenol Tab) 650 mg Q6H PRN PO PAIN LEVEL 1-3 OR FEVER; Start 07/30/17 at 09:00 Acetaminophen (Tylenol Supp) 650 mg Q6H PRN LA PAIN LEVEL 1-3 OR FEVER; Start 07/30/17 at 09:00 Lactulose (Enulose) 30 gm Q6H PRN PO CONSTIPATION Last administered on 11:23; Admin Dose 30 GM; Start 08/04/17 at 11:00; Status Future Hold Lactulose 20 gm 20 gm Q4 GTB Last administered on 08/11/17 20:27; Admin Dose 20 GM; Start 08/05/17 at 13:00 Phenylephrine HCl 160 mg/Dextrose 500 ml @ 18.75 mls/ hr TITRATE IV Last administered on 08/12/17 01:13; Admin Dose 56.25 MLS/HR; Start 08/06/17 at 11 :00 Norepinephrine 32 mg/Dextrose 250 ml @ 0.46 mls/hr TITRATE IV Last administered on 08/11/17 16:12; Admin Dose 14.06 MLS/HR; Start 08/06/17 at 11 :00 Pantoprazole 80 mg/Sodium Chloride 100 ml @ 10 mls/hr Q10H IV Last administered on 08/12/17 00:12; Admin Dose 10 MLS/HR; Start 08/06/17 at 13:30 Sodium Bicarbonate/ Dextrose (Na Bicarb/D5W) 1,150 ml @ 75 mls/hr [id number] IV Last administered on 08/11/17 14:12; Admin Dose 75 MLS/HR; Start 08/06/17 at 15:38 Lorazepam (Ativan) 2 mg Q2H PRN IV SEIZURES; Start 08/07/17 at 09:00 IV Flush 10 ml 10 ml PRN PRN IV IV PROTOCOL; Start 08/07/17 at 19:00 Levetiracetam 100 ml @ 400 mls/hr Q12 IVPB Last administered on 08/11/17 20: 18; Admin Dose 400 MLS/HR; Start 08/08/17 at 13:00 Piperacillin Sod/ Tazobactam Sod 50 ml @ 100 mls/hr Q6H IVPB Last administered on 08/11/17 21:07; Admin Dose 100 MLS/HR; Start 08/08/17 at 16: 00 Vasopressin/ Dextrose (Vasostrict/D5W) 60 ml @ 1.2 mls/hr Q12H IV Last administered on 08/11/17 16:11; Admin Dose 2.4 MLS/HR; Start 08/08/17 at 18: 30 Dextrose (D50w Syringe) 50 ml PRN PRN IV hypoglycemia Last administered on 07:17; Admin Dose 50 ML; Start 08/09/17 at 07:30 Miscellaneous Information This patient dolan... PRN PRN XX WOUND CARE; Start at 13:00 Dopamine HCl/ Dextrose 250 ml @ 3.908 mls/ hr TITRATE IV Last administered on 08/11/17 23:17; Admin Dose 3.908 MLS/HR; Start 08/11/17 at 23:00 Morphine Sulfate/ Sodium Chloride (morphine) 100 ml @ 1 mls/hr TITRATE IV Last administered on 08/12/17 03:41; Admin Dose 1 MLS/HR; Start 08/12/17 at 04:00 Miscellaneous Information (Pending Santyl Order For Wound Care) This patient dolan... PRN PRN XX WOUND CARE; Start 08/12/17 at 04:00 Assessment/Plan Additional Assessment/Plan Family conference August 11 and July and August 10 Patient's overall clinical condition was discussed with family members, hopes fears desires goals of care were discussed. Particular emphasis was upon patient's pain and symptom management we reaffirmed patient's CODE STATUS of DNR. Discussed options once again patient reaffirmed they do not want their mother or sister to suffer will continue with current level of care but option for comfort measures in the event that she has a sudden tragic change in overall clinical course.. August 12 family conference conference was done again with all family members are merely discussed patient's pain and soft. Family dynamics were explored it was clear the most family members except one did not want to continue with current level of care. They felt that she was suffering and needed to have comfort measures instituted at any time. Family members asked if I could write a letter to try and get her two sons into the [place] from [place]. Discussed overall clinical course their understanding was addressed of patient deteriorating condition and fact that she will soon. Family members have a strong spiritual base unfortunately there is only one family member who is not in agreement for comfort measures. It is not at all to say that she is not sensitive to her mother's underlying clinical condition. Addressed all caregiver concerns insofar as pain and symptom management goals of care were discussed once again and family reaffirmed that they do not want her to suffer and to institute comfort measures in the event that she has precipitous change in her overall clinical condition that would require higher doses of pressors or the addition of more pressure estimate her prognosis is less than a week mary spiritual issues were discussed with family members there are no psychosocial or at the couple issues that need to be addressed nor legal issues. SOCORRO REYES Aug 12, 2017 06:31
--- NOTE | 2017-08-12 10:05 | DS ---
Date/Time of Note Date/Time of Note DATE: 08/12/17 TIME: 10:04 Discharge Summary Admission/Discharge Info Admit Date/Time Jul 30, 2017 at 04:53 Discharge Date/Time Aug 12, 2017 at 04:20 Patient Condition: Critical Hx of Present Illness 67 yo F with PMH cirrhosis of unknown etiology who was brought to ED by family for altered mental status. Patient is a poor historian and is not responding to questions. History was obtained from ED physician as well as from previous hospitalization records. Per ED physician, patient was noted to be very confused this am but has been taking all her medications as prescribed. She has not had any documented fevers at home per family. Patient lives with her daughter as well. Patient was recently admitted in June for similar presentation after presenting to [facility] ED for confusion and found to be hyponatremic with elevated ammonia and LFTs. She was also found to have low attenuation focus in subcortical white matter in R frontal lobe concerning for stroke. Patient had returned back to baseline prior to discharged. She was discharged on lactulose , rifaximin, Lasix, and spironolactone. 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 Hospital Course summary Cause of Cardiopulmonary arrest Anoxic brain injury Hepatic encephalopathy End-stage liver disease Hepatorenal syndrome Seizure DIC Thrombus cytopenia Profuse bleeding Hypertension Coagulopathy Electrolyte derangement Kidney failure Liver failure Hospital course patient is a 67-year-old female with a past medical history of end- stage liver disease, previously seen at [facility] for possible liver transplant, who presents to [facility] originally for altered mental status. Patient eventually he compensated and began to go into overt liver failure with resultant hepatorenal failure. Multiple consultants were called including nephrology, pulmonology, cardiology, GI, neurology. Multiple interventions were done including EGD per GI with also platelet and blood transfusions. Neurology performed EEG, pulmonology performed vent management and nephrology performed hemodialysis. Cardiology also intervened with amiodarone drip and control of SVT. However patient's end-stage liver disease and resultant hepatorenal failure and hypotension with anoxic brain injury and likely seizure progressed patient had very poor prognosis. After multiple days of not being responsive on the ventilator without sedation, patient's family finally decided for terminal extubation and patient passed in the ICU. Patient pronounced at 0420 on August 12, 2017. Home Meds Active Scripts Lactulose* (Lactulose*) 20 Gm/30 Ml Solution, 10 GM PO Q8 for 30 Days, #90 Prov:SIRISHA SANDERS MD 07/16/17 Rifaximin* (Xifaxan*) 550 Mg Tablet, 550 MG PO BID for 30 Days, #60 TAB Prov:SIRISHA SANDERS MD 07/16/17 Spironolactone* (Aldactone*) 50 Mg Tablet, 50 MG PO DAILY for 30 Days, #30 TAB Prov:SIRISHA SANDERS MD 07/16/17 Reported Medications Ergocalciferol (Vitamin D) 400 Unit Capsule, 50 UNIT PO DAILY, CAP 07/13/17 Folic Acid* (Folic Acid*) 1 Mg Tablet, 1 MG PO DAILY, TAB 07/13/17 Cholecalciferol (Vitamin D3) (Vitamin D-3) 2,000 Unit Tablet, 2000 UNIT PO DAILY , TAB 07/13/17 Ursodiol* (Ursodiol*) 300 Mg Capsule, 300 MG PO TID, CAP 07/13/17 Furosemide* (Furosemide*) 20 Mg Tablet, 20 MG PO BID, #30 TAB 07/13/17 Primary Care Provider Care Physician No Primary Time spent on discharge: > 30 minutes Pending Labs Laboratory Tests Test 08/12/17 05:33 Lab Scanned Report BLOOD [id number] OSMAN NEGRON Aug 12, 2017 10:05
== END 2017-08-12 04:20 | disposition expired | DRG 441 ==
LOC: E/R 20:54 → MS3 07-30 04:53 → MS4 07-31 12:29 → ICU 08-04 20:46
PROVIDERS: ADMIT Family Medicine; ATTEND Family Medicine
PROC: 0W9G3ZX Drainage of Peritoneal Cavity, Percutaneous Approach, Diagnostic (ICD-10-PCS; principal; 2017-07-31)
PROC: 30233N1 Transfusion of Nonautologous Red Blood Cells into Peripheral Vein, Percutaneous Approach (ICD-10-PCS; 2017-08-04)
PROC: 5A1955Z Respiratory Ventilation, Greater than 96 Consecutive Hours (ICD-10-PCS; 2017-08-05)
PROC: 0BH17EZ Insertion of Endotracheal Airway into Trachea, Via Natural or Artificial Opening (ICD-10-PCS; 2017-08-05)
PROC: 30233K1 Transfusion of Nonautologous Frozen Plasma into Peripheral Vein, Percutaneous Approach (ICD-10-PCS; 2017-08-06)
PROC: 30233R1 Transfusion of Nonautologous Platelets into Peripheral Vein, Percutaneous Approach (ICD-10-PCS; 2017-08-06)
PROC: 30233N1 Transfusion of Nonautologous Red Blood Cells into Peripheral Vein, Percutaneous Approach (ICD-10-PCS; 2017-08-06)
PROC: 06HN33Z Insertion of Infusion Device into Left Femoral Vein, Percutaneous Approach (ICD-10-PCS; 2017-08-07)
PROC: 02H633Z Insertion of Infusion Device into Right Atrium, Percutaneous Approach (ICD-10-PCS; 2017-08-07)
PROC: 30233K1 Transfusion of Nonautologous Frozen Plasma into Peripheral Vein, Percutaneous Approach (ICD-10-PCS; 2017-08-07)
PROC: 30233N1 Transfusion of Nonautologous Red Blood Cells into Peripheral Vein, Percutaneous Approach (ICD-10-PCS; 2017-08-07)
PROC: 30233R1 Transfusion of Nonautologous Platelets into Peripheral Vein, Percutaneous Approach (ICD-10-PCS; 2017-08-07)
PROC: 5A1D70Z Performance of Urinary Filtration, Intermittent, Less than 6 Hours Per Day (ICD-10-PCS; 2017-08-08)
PROC: 30233N1 Transfusion of Nonautologous Red Blood Cells into Peripheral Vein, Percutaneous Approach (ICD-10-PCS; 2017-08-08)
PROC: 5A1D70Z Performance of Urinary Filtration, Intermittent, Less than 6 Hours Per Day (ICD-10-PCS; 2017-08-09)
PROC: 5A1D70Z Performance of Urinary Filtration, Intermittent, Less than 6 Hours Per Day (ICD-10-PCS; 2017-08-10)
PROC: 30233R1 Transfusion of Nonautologous Platelets into Peripheral Vein, Percutaneous Approach (ICD-10-PCS; 2017-08-10)
PROC: 30233K1 Transfusion of Nonautologous Frozen Plasma into Peripheral Vein, Percutaneous Approach (ICD-10-PCS; 2017-08-12)
DX: K72.90 Hepatic failure, unspecified without coma (principal); K76.7 Hepatorenal syndrome; J96.01 Acute respiratory failure with hypoxia; D65 Disseminated intravascular coagulation [defibrination syndrome]; N17.0 Acute kidney failure with tubular necrosis; A41.9 Sepsis, unspecified organism; G93.41 Metabolic encephalopathy; R65.21 Severe sepsis with septic shock; K29.71 Gastritis, unspecified, with bleeding; E87.0 Hyperosmolality and hypernatremia; E72.20 Disorder of urea cycle metabolism, unspecified; D68.4 Acquired coagulation factor deficiency; E87.2 Acidosis; R18.8 Other ascites; I85.10 Secondary esophageal varices without bleeding; E87.1 Hypo-osmolality and hyponatremia; G93.1 Anoxic brain damage, not elsewhere classified; R56.9 Unspecified convulsions; E87.8 Other disorders of electrolyte and fluid balance, not elsewhere classified; E87.5 Hyperkalemia; I12.9 Hypertensive chronic kidney disease with stage 1 through stage 4 chronic kidney disease, or unspecified chronic kidney disease; D63.8 Anemia in other chronic diseases classified elsewhere; K74.69 Other cirrhosis of liver; N18.9 Chronic kidney disease, unspecified; D72.829 Elevated white blood cell count, unspecified; K20.9 Esophagitis, unspecified; Z66 Do not resuscitate
CPT/HCPCS: 36415; 36430; 36569; 36600; 70450; 71010; 74181; 76700; 76937; 80048; 80053; 80202; 81001; 82042; 82140; 82270; 82436; 82540; 82803; 82962; 83010; 83605; 83615; 83735; 84100; 84133; 84155; 84300; 85014; 85018; 85025; 85049; 85378; 85384; 85610; 85670; 85730; 86644; 86850; 86900; 86901; 86920; 86945; 87040; 87070; 87081; 87102; 87116; 89051; 90935; 92610; 93005; 94002; 94003; 94770; 95819; 96374; 96375; J1940; A4310; C1751; C1752; C9113; J0282; J0696; J1265; J1815; J1953; J2060; J2270; J2370; J2405; J2543; J2930; J3010; J3370; J3475; J3480; J7030; J7040; J7060; J7070; P9011; P9016; P9035; P9047; P9059